=== PATIENT | female | born 1955 | race Two or more races ===

== ENCOUNTER 2020-06-04 09:30 | Outpatient (REF) | payer MEDICARE, OTHER, SELFPAY ==
[2020-06-04 10:50] LABS: Alanine Aminotransferase 11 U/L (0-31); Albumin Level 4.1 g/dL (3.5-5.0); Alkaline Phosphatase 117 U/L (39-117); Anion Gap 11 (12-20); Aspartate Amino Transferase 16 U/L (5-31); Bilirubin Total 0.7 mg/dL (0.0-1.0); Blood Urea Nitrogen 18 mg/dL (9-16); Calcium 8.6 mg/dL (8.4-10.2); Carbon Dioxide 31 mmol/L (22-29); Chloride 104 mmol/L (96-108); Cholesterol 170 mg/dL; Estimated Glomerular Filt Rate 39; Glucose Fasting 101 mg/dL (60-99); HDL Cholesterol 35 mg/dL; LDL Cholesterol Calculated 102 mg/dl; Potassium 3.9 mmol/l (3.3-5.1); Sodium 142 mmol/L (135-145); Total Protein 6.7 g/dL (6.5-8.0); Triglycerides 168 mg/dL
== END 2020-06-04 09:31 | disposition home or self-care (01) ==
LOC: HO.LAB 09:30
PROVIDERS: PCP Internal Medicine; Visit Provider Internal Medicine
DX: E03.9 Hypothyroidism, unspecified (principal); I10 Essential (primary) hypertension
CPT/HCPCS: 80053; 80061; 84443

== ENCOUNTER 2020-06-30 13:23 | Outpatient (REF) | payer MEDICARE, OTHER, SELFPAY ==
--- NOTE | 2020-06-30 13:29 | MM_ITS ---
EXAMINATION: MM SCREENING DIGITAL BREAST TOMOSYNTHESIS, BILATERAL CLINICAL INFORMATION: Screening. Asymptomatic. The lifetime risk of breast cancer based on the Tyrer-Cuzick Model is 11%. COMPARISON: Mammography: 03/18/2019, 03/04/2018, 02/02/2017, 12/26/2015; bilateral rest ultrasound 01/02/2016 TECHNIQUE: Digital breast tomosynthesis is performed in both the craniocaudal and mediolateral oblique views along with computer-aided detection (CAD). Synthesized 2D images are generated from the tomosynthesis. Additional left MLO view is provided. FINDINGS: There are scattered areas of fibroglandular density (ACR BI-RADS breast composition Category b). Scattered bilateral nodularity is again seen. There is a small waxing and waning cyst mid outer right breast on CC view similar to 2016 and consistent with cyst on prior ultrasound. Neither breast shows significant mass or architectural abnormality or developing density. No abnormal calcifications. The skin contours are smooth. MM/MM tomosynthesis screening BI IMPRESSION: No significant changes from prior exams. ASSESSMENT: BI-RADS 2: Benign RECOMMENDATION: Routine annual mammography screening. This patient's information was entered into a reminder system with a target due date for their next mammogram.
== END 2020-06-30 13:24 | disposition home or self-care (01) ==
LOC: HO.MAMMO 13:23
PROVIDERS: PCP Internal Medicine; Visit Provider Internal Medicine
DX: Z12.31 Encounter for screening mammogram for malignant neoplasm of breast (principal)
CPT/HCPCS: 77063; 77067

== ENCOUNTER 2020-10-20 09:16 | Outpatient (REF) | payer MEDICARE, OTHER, SELFPAY ==
[2020-10-20 11:00] LABS: Alanine Aminotransferase 13 U/L (0-31); Albumin Level 4.1 g/dL (3.5-5.0); Alkaline Phosphatase 120 U/L (39-117); Anion Gap 15 (12-20); Aspartate Amino Transferase 18 U/L (5-31); Bilirubin Total 0.5 mg/dL (0.0-1.0); Blood Urea Nitrogen 25 mg/dL (9-16); Calcium 9.1 mg/dL (8.4-10.2); Carbon Dioxide 28 mmol/L (22-29); Chloride 103 mmol/L (96-108); Cholesterol 179 mg/dL; Estimated Glomerular Filt Rate 41; Glucose Fasting 102 mg/dL (60-99); HDL Cholesterol 40 mg/dL; LDL Cholesterol Calculated 104 mg/dl; Potassium 3.7 mmol/L (3.3-5.1); Sodium 142 mmol/L (135-145); Triglycerides 175 mg/dL
[2020-10-20 11:13] LABS: TSH reflex Free T4 3.03 uIU/mL (0.32-4.0)
[2020-10-24 10:11] LABS: Vitamin D 25-OH, D2 <4 ng/mL; Vitamin D 25-OH, D3 27 ng/mL; Vitamin D 25-OH, Total 27 ng/mL (30-100)
== END 2020-10-20 09:17 | disposition home or self-care (01) ==
LOC: HO.LAB 09:16
PROVIDERS: PCP Internal Medicine; Visit Provider Internal Medicine
DX: E78.5 Hyperlipidemia, unspecified (principal); E55.9 Vitamin D deficiency, unspecified; N18.32 Chronic kidney disease, stage 3b; E03.9 Hypothyroidism, unspecified
CPT/HCPCS: 36415; 80053; 80061; 82306; 84443

== ENCOUNTER 2021-01-18 12:42 | Outpatient (REF) | payer MEDICARE, OTHER, SELFPAY ==
--- NOTE | ~2021-01-18 | MM_ITS ---
EXAMINATION: BONE DENSITOMETRY CLINICAL INDICATION: Asymptomatic menopausal state. COMPARISON: Baseline BD dated 10/30/2009. TECHNIQUE: Using a Planwise DXA System (software version: 13.1) manufactured by [employer], dual-energy x-ray absorptiometry was performed of the lumbar spine and left hip. The images are of good technical quality. Summary results are attached. FINDINGS: AP SPINE L1-L4: Current: BMD 0.819 g/cm2, Z-score -2.1, T-score -3.0, osteoporosis, 9.3% decrease from baseline (<5% change is not significant). Baseline: BMD 0.903 g/cm2. LEFT FEMUR, NECK: Current: BMD 0.705 g/cm2, Z-score -1.3, T-score -2.4, osteopenia. Baseline: BMD 0.856 g/cm2. LEFT FEMUR, TOTAL: Current: BMD 0.802 g/cm2, Z-score -0.8, T-score -1.6, osteopenia, 12.0% decrease from baseline (<5% change is not significant). Baseline: BMD 0.911 g/cm2. IDENTIFIED RISK FACTORS: Renal, history of fracture (adult), thiazide, menopause. HISTORY OF FRACTURE: Knee. MEDICATIONS: None listed. MM/XR DEXA axial skeleton IMPRESSION: 1. DIAGNOSIS: Osteoporosis based on the lowest T-score value of -3.0 in the lumbar spine applying World Health Organization criteria. 2. 10-YEAR FRACTURE RISK PREDICTION, FRAX: Major osteoporotic fracture (clinical spine, forearm, hip or shoulder) 11.1%. Hip fracture 2.2%. 3. Treatment Recommendations: NOF guidelines recommend consideration for treatment in postmenopausal women and men age 50 and older presenting with the following: -A hip or vertebral (clinical or morphometric) fracture. -T-score less than or equal to -2.5 at the femoral neck or spine after appropriate evaluation to exclude secondary causes. -Low bone mass at the hip or spine and a 10-year fracture probability by FRAX of greater than or equal to 3% for hip fracture or greater than or equal to 20% for major osteoporotic fracture based on the [place] adapted WHO algorithm. 4. Other Recommendations: All treatment decisions require clinical judgment and consideration of individual patient factors, including patient preferences, comorbidities, previous drug use, risk factors not captured in the FRAX model (e.g. frailty, falls, vitamin D deficiency, increased bone turnover, interval significant decline in bone density) and possible under or overestimation of fracture risk by FRAX. Additional medical evaluation for secondary cause of low bone mineral density may be appropriate. FUTURE SCAN RECOMMENDATION: People with diagnosed cases of osteoporosis or at high risk for fracture should have regular bone mineral density tests. For patients eligible for Medicare, routine testing is allowed once every 2 years. The testing frequency can be increased to one year for patients who have rapidly progressing disease, those who are receiving or discontinuing medical therapy to restore bone mass, or have additional risk factors.
== END 2021-01-18 12:43 | disposition home or self-care (01) ==
LOC: HO.MAMMO 12:42
PROVIDERS: PCP Internal Medicine; Visit Provider Nurse Practitioner Family
DX: Z13.820 Encounter for screening for osteoporosis (principal); M81.0 Age-related osteoporosis without current pathological fracture; Z78.0 Asymptomatic menopausal state; Z87.81 Personal history of (healed) traumatic fracture
CPT/HCPCS: 77080

== ENCOUNTER 2021-04-18 10:26 | Outpatient (REF) | payer MEDICARE, OTHER, SELFPAY ==
[2021-04-18 11:54] LABS: Alanine Aminotransferase 13 U/L (0-31); Albumin Level 4.4 g/dL (3.5-5.0); Alkaline Phosphatase 112 U/L (39-117); Anion Gap 11 (12-20); Aspartate Amino Transferase 20 U/L (5-31); Bilirubin Total 0.8 mg/dL (0.0-1.0); Blood Urea Nitrogen 23 mg/dL (9-16); Calcium 9.6 mg/dL (8.4-10.2); Carbon Dioxide 28 mmol/L (22-29); Chloride 105 mmol/L (96-108); Cholesterol 168 mg/dL; Estimated Glomerular Filt Rate 38; Glucose Fasting 109 mg/dL (60-99); HDL Cholesterol 34 mg/dL; LDL Cholesterol Calculated 92 mg/dl; Sodium 140 mmol/L (135-145); Total Protein 7.3 g/dL (6.5-8.0); Triglycerides 212 mg/dL
[2021-04-18 12:18] LABS: Thyroid Stimulating Hormone 6.52 uIU/mL (0.32-4.0)
== END 2021-04-18 10:27 | disposition home or self-care (01) ==
LOC: HO.LAB 10:26
PROVIDERS: PCP Internal Medicine; Visit Provider Internal Medicine
DX: E03.9 Hypothyroidism, unspecified (principal); E78.5 Hyperlipidemia, unspecified
CPT/HCPCS: 36415; 80053; 80061; 84443

== ENCOUNTER 2021-07-09 14:52 | Outpatient (REF) | payer MEDICARE, OTHER, SELFPAY ==
--- NOTE | ~2021-07-09 | MM_ITS ---
EXAMINATION: MM SCREENING DIGITAL BREAST TOMOSYNTHESIS, BILATERAL CLINICAL INFORMATION: Screening. Asymptomatic. The lifetime risk of breast cancer based on the Tyrer-Cuzick Model is 11%. COMPARISON: Mammography: 06/30/2020, 03/18/2019, 03/04/2018, 02/02/2017, 12/26/2015, bilateral breast ultrasound 01/02/2016. TECHNIQUE: Digital breast tomosynthesis is performed in both the craniocaudal and mediolateral oblique views along with computer-aided detection (CAD). Synthesized 2D images are generated from the tomosynthesis. FINDINGS: There are scattered areas of fibroglandular density (ACR BI-RADS breast composition Category b). The left breast is similar to prior studies. There is no developing density or interval mass or interval architectural abnormality. Neither breast shows abnormal calcifications. The bilateral axilla and skin contours are unremarkable. Right breast has been stable small circumscribed benign nodularity anterior breast. There is increased dominant nodular asymmetry mid upper outer quadrant right breast. Margins are obscured. Finding likely fibrocystic change. Patient will be recalled for additional imaging. MM/MM tomosynthesis screening BI IMPRESSION: 1. Right: Focal nodular asymmetry mid upper outer quadrant, suspect fibrocystic change. 2. Left: No mammographic evidence of malignancy. ASSESSMENT: BI-RADS 0: Incomplete - Need Additional Imaging Evaluation RECOMMENDATION: 1. Additional views of the right breast (spot CC, spot ML). 2. Targeted ultrasound right breast. 3. Radiology department staff will contact the patient for additional imaging. This patient's information was entered into a reminder system with a target due date for their next mammogram.
== END 2021-07-09 14:53 | disposition home or self-care (01) ==
LOC: HO.MAMMO 14:52
PROVIDERS: Visit Provider Internal Medicine
DX: Z12.31 Encounter for screening mammogram for malignant neoplasm of breast (principal)
CPT/HCPCS: 77063; 77067

== ENCOUNTER 2021-07-15 09:11 | Outpatient (REF) | payer MEDICARE, OTHER, SELFPAY ==
[2021-07-15 09:35] LABS: MANUAL DIFF FLAG NO
[2021-07-15 10:02] LABS: Basophils Percent Auto 0.7 % (0-2); Eosinophils Absolute Auto 0.1 X10*3/uL (0.0-0.4); Eosinophils Percent Auto 1.3 % (0-4); Hematocrit 42.9 % (37.0-47.0); Hemoglobin 13.6 g/dl (12.0-16.0); Imm Gran Abs Auto 0.02 X10*3/uL (0.00-0.03); Imm Gran Pct Auto 0.4 % (0.0-0.4); Lymphocytes Absolute Auto 1.8 X10*3/uL (1.2-4.9); Lymphocytes Percent Auto 32.3 % (20-40); Mean Corpuscular HGB Conc 31.7 g/dl (31.0-35.0); Mean Corpuscular Hemoglobin 27.1 pg (27.0-33.0); Mean Corpuscular Volume 85.6 fL (80.0-98.0); Mean Platelet Volume 10.1 fL (9.4-12.3); Monocytes Absolute Auto 0.3 X10*3/uL (0.1-1.2); Monocytes Percent Auto 5.2 % (2-11); Neutrophils Absolute Auto 3.3 x10*3/uL (2.0-8.3); Neutrophils Percent Auto 60.1 % (45-73); Platelet Count 208 X10*3/uL (160-400); Red Blood Count 5.01 X10*6/uL (4.20-5.50); Red Cell Distribution Width 13.7 % (11.0-16.0); White Blood Count 5.6 X10*3/uL (4.8-10.8)
[2021-07-15 10:38] LABS: Albumin Level 4.1 g/dL (3.5-5.0); Anion Gap 11 (12-20); Blood Urea Nitrogen 22 mg/dL (9-16); Calcium 9.7 mg/dL (8.4-10.2); Carbon Dioxide 31 mmol/L (22-29); Chloride 103 mmol/L (96-108); Estimated Glomerular Filt Rate 37; Magnesium 2.1 mg/dL (1.6-2.6); Phosphorus 2.8 mg/dL (2.7-4.5); Potassium 4.1 mmol/L (3.3-5.1); Sodium 141 mmol/L (135-145)
[2021-07-15 10:40] LABS: Appearance Urine HAZY; Color Urine YELLOW; Glucose Urine UA NEG (NEG); Leukocyte Esterase Urine 1+ (NEG); Nitrite Urine NEG (NEG); Specific Gravity - Urine >= 1.030 (1.005-1.025); Urine Blood TRACE (NEG); Urine Ketones NEG (NEG); Urine Protein 1+ MG/DL (NEG-TRACE)
[2021-07-15 10:48] LABS: Vitamin D 25-OH Total 22.1 ng/mL (>30)
[2021-07-15 10:55] LABS: Microalbum/Creatinine Ratio Ur 38.5 ug/mg cr; Total Protein Urine Random 35 mg/dL (<12)
[2021-07-15 11:46] LABS: Bacteria Urine 2+ /LPF; Squamous Epithelial Cell Urine 3+ /LPF
[2021-07-16 14:20] LABS: Calcium (PTHI) 9.7 mg/dL (8.6-10.4); PTHI 219 pg/mL (14-64)
== END 2021-07-15 09:12 | disposition home or self-care (01) ==
LOC: HO.LAB 09:11
PROVIDERS: PCP Internal Medicine; Visit Provider Internal Medicine Nephrology
DX: I12.9 Hypertensive chronic kidney disease with stage 1 through stage 4 chronic kidney disease, or unspecified chronic kidney disease (principal); N18.31 Chronic kidney disease, stage 3a; Q61.3 Polycystic kidney, unspecified
CPT/HCPCS: 36415; 80051; 81001; 81003; 82040; 82043; 82306; 82310; 82565; 83735; 83970; 84100; 84156; 84520; 85025; 87086

== ENCOUNTER 2021-07-18 10:45 | Outpatient (REF) | payer MEDICARE, OTHER, SELFPAY ==
--- NOTE | ~2021-07-18 | MM_ITS ---
EXAMINATION: MM DIAGNOSTIC DIGITAL BREAST TOMOSYNTHESIS, RIGHT US DIAGNOSTIC ULTRASOUND BREAST, RIGHT CLINICAL INFORMATION: Recall from screening for focal nodular asymmetry mid upper outer right breast, likely fibrocystic change. Family history breast cancer, sister. TC score 11%. COMPARISON: Mammography: 07/09/2021, 06/30/2020, 03/18/2019 TECHNIQUE: Digital breast tomosynthesis is performed. 2D images are generated from the tomosynthesis. The following views are obtained: Spot CC, spot ML Ultrasound right breast is targeted to the outer quadrants. Grayscale imaging and color Doppler are performed without and with harmonics. FINDINGS: There are scattered areas of fibroglandular density (ACR BI-RADS breast composition Category b). Additional views demonstrate oval nodule approximately 1 cm with smooth partly obscured margins. No spiculation. Ultrasound demonstrates a simple cyst 9:00 position 7 cm from nipple measuring 1.0 x 0.7 cm. This corresponds to finding on mammography. Results are discussed with the patient at time of visit. MM/MM tomosynthesis added views R IMPRESSION: Simple cyst mid outer right breast corresponding to finding on recent screening mammography. ASSESSMENT: BI-RADS 2: Benign RECOMMENDATION: Routine annual mammography screening. This patient's information was entered into a reminder system with a target due date for their next mammogram.
== END 2021-07-18 10:46 | disposition home or self-care (01) ==
LOC: HO.MAMMO 10:45
PROVIDERS: PCP Internal Medicine; Visit Provider Internal Medicine
DX: N64.89 Other specified disorders of breast (principal)
CPT/HCPCS: 76642; 77061; 77065

== ENCOUNTER 2021-08-12 08:45 | Outpatient (REF) | payer MEDICARE, OTHER, SELFPAY ==
[2021-08-12 09:50] LABS: Alanine Aminotransferase 10 U/L (0-31); Albumin Level 4.1 g/dL (3.5-5.0); Alkaline Phosphatase 92 U/L (39-117); Anion Gap 11 (12-20); Aspartate Amino Transferase 15 U/L (5-31); Bilirubin Total 0.8 mg/dL (0.0-1.0); Blood Urea Nitrogen 32 mg/dL (9-16); Calcium 9.4 mg/dL (8.4-10.2); Carbon Dioxide 28 mmol/L (22-29); Chloride 103 mmol/L (96-108); Cholesterol 149 mg/dL; Estimated Glomerular Filt Rate 36; Glucose Fasting 115 mg/dL (60-99); HDL Cholesterol 37 mg/dL; LDL Cholesterol Calculated 91 mg/dl; Potassium 3.8 mmol/L (3.3-5.1); Sodium 138 mmol/L (135-145); Total Protein 6.8 g/dL (6.5-8.0); Triglycerides 106 mg/dL
[2021-08-12 10:11] LABS: Thyroid Stimulating Hormone 0.84 uIU/mL (0.32-4.0)
[2021-08-13 09:31] LABS: Thyroglobulin Antibodies <1 IU/mL (< or = 1); Thyroid Peroxidase Antibodies 1 IU/mL (<9)
[2021-08-16 11:37] LABS: Vitamin D 25-OH, D2 <4 ng/mL; Vitamin D 25-OH, D3 22 ng/mL; Vitamin D 25-OH, Total 22 ng/mL (30-100)
== END 2021-08-12 08:46 | disposition home or self-care (01) ==
LOC: HO.LAB 08:45
PROVIDERS: PCP Internal Medicine; Visit Provider Internal Medicine
DX: E03.9 Hypothyroidism, unspecified (principal); E78.5 Hyperlipidemia, unspecified; E55.9 Vitamin D deficiency, unspecified
CPT/HCPCS: 36415; 80053; 80061; 82306; 84443; 86376; 86800

== ENCOUNTER → 2021-10-16 12:41 | Outpatient (BNVA) | payer MEDICARE, OTHER, SELFPAY | PROVIDERS: PCP Internal Medicine; Visit Provider Internal Medicine Endocrinology, Diabetes & Metabolism | DX: M81.0 Age-related osteoporosis without current pathological fracture (principal); N18.31 Chronic kidney disease, stage 3a; E55.9 Vitamin D deficiency, unspecified | CPT/HCPCS: 99202 ==

== ENCOUNTER 2021-11-11 09:55 | Outpatient (REF) | payer MEDICARE, OTHER, SELFPAY ==
[2021-11-11 10:44] LABS: MANUAL DIFF FLAG NO
[2021-11-11 10:58] LABS: Basophils Percent Auto 0.7 % (0-2); Eosinophils Absolute Auto 0.1 X10*3/uL (0.0-0.4); Hematocrit 40.7 % (37.0-47.0); Hemoglobin 12.9 g/dl (12.0-16.0); Imm Gran Abs Auto 0.02 X10*3/uL (0.00-0.03); Imm Gran Pct Auto 0.5 % (0.0-0.4); Lymphocytes Absolute Auto 1.5 X10*3/uL (1.2-4.9); Mean Corpuscular HGB Conc 31.7 g/dl (31.0-35.0); Mean Corpuscular Hemoglobin 27.4 pg (27.0-33.0); Mean Corpuscular Volume 86.4 fL (80.0-98.0); Mean Platelet Volume 9.9 fL (9.4-12.3); Monocytes Absolute Auto 0.3 X10*3/uL (0.1-1.2); Monocytes Percent Auto 5.7 % (2-11); Neutrophils Absolute Auto 2.6 x10*3/uL (2.0-8.3); Neutrophils Percent Auto 58.1 % (45-73); Platelet Count 229 X10*3/uL (160-400); Red Blood Count 4.71 X10*6/uL (4.20-5.50); Red Cell Distribution Width 14.3 % (11.0-16.0); White Blood Count 4.4 X10*3/uL (4.8-10.8)
[2021-11-11 11:30] LABS: Appearance Urine HAZY; Color Urine YELLOW; Glucose Urine UA NEG (NEG); Leukocyte Esterase Urine 1+ (NEG); Nitrite Urine NEG (NEG); Urine Blood NEG (NEG); Urine Ketones NEG (NEG); Urine Protein 1+ MG/DL (NEG-TRACE)
[2021-11-11 11:41] LABS: Albumin Level 3.8 g/dL (3.5-5.0); Magnesium 2.3 mg/dL (1.6-2.6); Phosphorus 3.3 mg/dL (2.7-4.5)
[2021-11-11 11:51] LABS: Alanine Aminotransferase 23 U/L (0-31); Alkaline Phosphatase 103 U/L (39-117); Anion Gap 11 (12-20); Aspartate Amino Transferase 25 U/L (5-31); Bilirubin Total 0.9 mg/dL (0.0-1.0); Blood Urea Nitrogen 15 mg/dL (9-16); Calcium 10.1 mg/dL (8.4-10.2); Carbon Dioxide 29 mmol/L (22-29); Chloride 105 mmol/L (96-108); Cholesterol 186 mg/dL; Estimated Glomerular Filt Rate 42; Glucose Fasting 95 mg/dL (60-99); HDL Cholesterol 39 mg/dL; LDL Cholesterol Calculated 124 mg/dl; Potassium 4.2 mmol/L (3.3-5.1); Sodium 141 mmol/L (135-145); Total Protein 6.8 g/dL (6.5-8.0); Triglycerides 118 mg/dL
[2021-11-11 11:56] LABS: Bacteria Urine 1+ /LPF; RBC Urine 0-2 /HPF (0); Squamous Epithelial Cell Urine 3+ /LPF
[2021-11-11 11:59] LABS: Thyroid Stimulating Hormone 0.62 uIU/mL (0.32-4.0); Vitamin D 25-OH Total 28.5 ng/mL (>30)
[2021-11-11 12:01] LABS: Creatinine Urine 251.31 mg/dL; Microalbum/Creatinine Ratio Ur 41.3 ug/mg cr; Total Protein Urine Random 33 mg/dL (<12)
[2021-11-13 13:11] LABS: Calcium (PTHI) 9.3 mg/dL (8.6-10.4); PTHI 214 pg/mL (16-77)
== END 2021-11-11 09:56 | disposition home or self-care (01) ==
LOC: HO.LAB 09:55
PROVIDERS: Absent Provider Internal Medicine; PCP Internal Medicine; Visit Provider Internal Medicine Nephrology
DX: I12.9 Hypertensive chronic kidney disease with stage 1 through stage 4 chronic kidney disease, or unspecified chronic kidney disease (principal); N18.32 Chronic kidney disease, stage 3b; Q61.2 Polycystic kidney, adult type; E78.5 Hyperlipidemia, unspecified; E03.9 Hypothyroidism, unspecified
CPT/HCPCS: 36415; 80053; 80061; 81001; 82040; 82043; 82306; 83735; 83970; 84100; 84156; 84443; 85025; 87086

== ENCOUNTER 2021-12-26 15:42 | Outpatient (REF) | payer MEDICARE, OTHER, SELFPAY ==
[2021-12-27 13:26] LABS: H Pylori Breath Test Negative (Negative)
== END 2021-12-26 15:43 | disposition home or self-care (01) ==
LOC: HO.LNP 15:42
PROVIDERS: Visit Provider Physician Assistant
DX: K58.9 Irritable bowel syndrome, unspecified (principal); A04.8 Other specified bacterial intestinal infections; Z79.899 Other long term (current) drug therapy; Z86.010 Personal history of colon polyps
CPT/HCPCS: 83013; 99202; 99212

== ENCOUNTER 2022-02-04 08:01 | Outpatient (REF) | payer MEDICARE, OTHER, SELFPAY ==
[2022-02-04 09:06] LABS: Calcium 9.3 mg/dL (8.4-10.2); Phosphorus 3.4 mg/dL (2.7-4.5)
[2022-02-04 09:30] LABS: Vitamin D 25-OH Total 38.3 ng/mL (>30)
[2022-02-05 11:57] LABS: Calcium (PTHI) 9.4 mg/dL (8.6-10.4); PTHI 248 pg/mL (16-77)
[2022-02-06 22:03] LABS: Prot Elec - Albumin 3.9 g/dL (3.8-4.8); Prot Elec - Alpha1 0.3 g/dL (0.2-0.3); Prot Elec - Alpha2 0.6 g/dL (0.5-0.9); Prot Elec - Beta 1 0.4 g/dL (0.4-0.6); Prot Elec - Beta 2 0.3 g/dL (0.2-0.5); Prot Elec - Gamma 0.9 g/dL (0.8-1.7); Prot Elec - Total Protein 6.3 g/dL (6.1-8.1)
== END 2022-02-04 08:02 | disposition home or self-care (01) ==
LOC: HO.LAB 08:01
PROVIDERS: PCP Internal Medicine; Visit Provider Internal Medicine Endocrinology, Diabetes & Metabolism
DX: M81.0 Age-related osteoporosis without current pathological fracture (principal)
CPT/HCPCS: 82040; 82306; 82310; 83970; 84100; 84165; 86335

== ENCOUNTER 2022-02-08 10:57 | Outpatient (REF) | payer MEDICARE, OTHER, SELFPAY ==
[2022-02-08 11:06] LABS: Total Volume 24 Hour Urine 1900 mL
[2022-02-08 11:27] LABS: Creatinine, 24Hr Urine 0.7 G/Day (1.0-2.0); Creatinine, mg/dL 37.31
[2022-02-10 17:22] LABS: Calcium, 24 Hr Urine 68 mg/24 h; Calcium/Creatinine Ratio 88 mg/g creat (30-275); Creatinine 24Hr Urine 0.78 g/24 h (0.50-2.15)
== END 2022-02-08 10:58 | disposition home or self-care (01) ==
LOC: HO.LNP 10:57
PROVIDERS: Visit Provider Internal Medicine Endocrinology, Diabetes & Metabolism
DX: M81.0 Age-related osteoporosis without current pathological fracture (principal)
CPT/HCPCS: 82340; 82570

== ENCOUNTER → 2022-02-12 12:36 | Outpatient (BNVA) | payer MEDICARE, OTHER, SELFPAY | PROVIDERS: PCP Internal Medicine; Visit Provider Internal Medicine Endocrinology, Diabetes & Metabolism | DX: M81.0 Age-related osteoporosis without current pathological fracture (principal); N18.31 Chronic kidney disease, stage 3a; Z79.899 Other long term (current) drug therapy | CPT/HCPCS: 99212 ==

== ENCOUNTER → 2022-02-20 13:25 | Outpatient (BNVA) | payer MEDICARE, OTHER, SELFPAY | PROVIDERS: PCP Internal Medicine; Visit Provider Physician Assistant | DX: K58.9 Irritable bowel syndrome, unspecified (principal); K21.9 Gastro-esophageal reflux disease without esophagitis | CPT/HCPCS: 99212 ==

== ENCOUNTER 2022-04-23 08:55 | Outpatient (REF) | payer MEDICARE, OTHER, SELFPAY ==
[2022-04-23 10:13] LABS: Alanine Aminotransferase 10 U/L (0-31); Albumin Level 4.2 g/dL (3.5-5.0); Alkaline Phosphatase 133 U/L (39-117); Anion Gap 11 (12-20); Aspartate Amino Transferase 15 U/L (5-31); Bilirubin Total 0.7 mg/dL (0.0-1.0); Blood Urea Nitrogen 27 mg/dL (9-16); Calcium 9.5 mg/dL (8.4-10.2); Carbon Dioxide 30 mmol/L (22-29); Chloride 104 mmol/L (96-108); Cholesterol 159 mg/dL; Estimated Glomerular Filt Rate 40; Glucose Fasting 95 mg/dL (60-99); HDL Cholesterol 38 mg/dL; LDL Cholesterol Calculated 102 mg/dl; Potassium 4.1 mmol/L (3.3-5.1); Sodium 141 mmol/L (135-145); Total Protein 6.8 g/dL (6.5-8.0); Triglycerides 97 mg/dL
[2022-04-23 10:18] LABS: Thyroid Stimulating Hormone 0.52 uIU/mL (0.32-4.0); Vitamin D 25-OH Total 38.6 ng/mL (>30)
[2022-04-23 11:03] LABS: Creatinine Urine 228.64 mg/dL; Microalbum/Creatinine Ratio Ur 16.1 ug/mg cr
== END 2022-04-23 08:56 | disposition home or self-care (01) ==
LOC: HO.LAB 08:55
PROVIDERS: PCP Internal Medicine; Visit Provider Internal Medicine
DX: E11.22 Type 2 diabetes mellitus with diabetic chronic kidney disease (principal); E55.9 Vitamin D deficiency, unspecified; E03.9 Hypothyroidism, unspecified; E78.5 Hyperlipidemia, unspecified; N18.32 Chronic kidney disease, stage 3b
CPT/HCPCS: 36415; 80053; 80061; 82043; 82306; 84443

== ENCOUNTER 2022-06-06 | Outpatient (REF) | payer MEDICARE, OTHER, SELFPAY ==
--- NOTE | ~2022-06-06 | XR_ITS ---
EXAMINATION: XR KNEE, BILATERAL XR KNEE, LEFT CLINICAL INFORMATION: Pain COMPARISON: 06/28/2018 TECHNIQUE: AP standing view of both knees, lateral and sunrise views of the left knee. FINDINGS: Left knee: There is a total left knee arthroplasty. The femoral component articulates appropriately with the tibial and patellar components. No periprosthetic lucency or fracture. No joint effusion. The soft tissues are unremarkable. Right knee: On this single view there is no fracture or malalignment. Mild medial compartment joint space narrowing. Marginal osteophytes of the medial and lateral compartments noted. XR/XR knee standing BI IMPRESSION: 1. Total left knee arthroplasty without evidence of failure. 2. Mild degenerative changes of the medial and lateral compartments of the right knee.
--- NOTE | ~2022-06-06 | XR_ITS ---
EXAMINATION: XR KNEE, BILATERAL XR KNEE, LEFT CLINICAL INFORMATION: Pain COMPARISON: 06/28/2018 TECHNIQUE: AP standing view of both knees, lateral and sunrise views of the left knee. FINDINGS: Left knee: There is a total left knee arthroplasty. The femoral component articulates appropriately with the tibial and patellar components. No periprosthetic lucency or fracture. No joint effusion. The soft tissues are unremarkable. Right knee: On this single view there is no fracture or malalignment. Mild medial compartment joint space narrowing. Marginal osteophytes of the medial and lateral compartments noted. XR/XR knee LT 2V IMPRESSION: 1. Total left knee arthroplasty without evidence of failure. 2. Mild degenerative changes of the medial and lateral compartments of the right knee.
== END 2022-06-06 00:01 | disposition home or self-care (01) ==
LOC: HO.HOSX
PROVIDERS: Visit Provider Physician Assistant
DX: M17.11 Unilateral primary osteoarthritis, right knee (principal); Z96.652 Presence of left artificial knee joint
CPT/HCPCS: 20610; 73560; 73565; 99212; J1040

== ENCOUNTER 2022-07-01 10:43 | Outpatient (REF) | payer MEDICARE, OTHER, SELFPAY ==
[2022-07-01 11:08] LABS: MANUAL DIFF FLAG NO
[2022-07-01 11:48] LABS: Basophils Percent Auto 0.3 % (0-2); Eosinophils Absolute Auto 0.1 X10*3/uL (0.0-0.4); Eosinophils Percent Auto 1.9 % (0-4); Hematocrit 39.3 % (37.0-47.0); Hemoglobin 12.5 g/dl (12.0-16.0); Imm Gran Abs Auto 0.01 X10*3/uL (0.00-0.03); Imm Gran Pct Auto 0.2 % (0.0-0.4); Lymphocytes Absolute Auto 1.9 X10*3/uL (1.2-4.9); Lymphocytes Percent Auto 31.7 % (20-40); Mean Corpuscular HGB Conc 31.8 g/dl (31.0-35.0); Mean Corpuscular Hemoglobin 27.3 pg (27.0-33.0); Mean Corpuscular Volume 85.8 fL (80.0-98.0); Mean Platelet Volume 9.9 fL (9.4-12.3); Monocytes Absolute Auto 0.3 X10*3/uL (0.1-1.2); Monocytes Percent Auto 4.9 % (2-11); Neutrophils Absolute Auto 3.6 x10*3/uL (2.0-8.3); Platelet Count 196 X10*3/uL (160-400); Red Blood Count 4.58 X10*6/uL (4.20-5.50); White Blood Count 5.9 X10*3/uL (4.8-10.8)
[2022-07-01 12:11] LABS: Appearance Urine Clear; Color Urine Yellow; Glucose Urine UA Negative (Negative); Leukocyte Esterase Urine Moderate (2+) (Negative); Nitrite Urine Negative (Negative); PH 5.5 (5.0-9.0); UMIC TRIGGER UA YES; Urine Blood Trace (Negative); Urine Ketones Negative (Negative); Urine Protein Trace mg/dL (Neg-Trace)
[2022-07-01 12:14] LABS: Bacteria Urine Trace (None Seen); Hyaline Casts Urine 0-2 /LPF (0-2); RBC Urine 0-2 /HPF (0-2)
[2022-07-01 13:20] LABS: Creatinine Urine 191.77 mg/dL; Microalbum/Creatinine Ratio Ur 28.1 ug/mg cr; Protein/Creatinine Ratio, Ur 0.09 (<0.2); Total Protein Urine Random 17 mg/dL (<12)
[2022-07-01 13:21] LABS: Anion Gap 11 (12-20); Blood Urea Nitrogen 25 mg/dL (9-16); Calcium 9.4 mg/dL (8.4-10.2); Carbon Dioxide 28 mmol/L (22-29); Chloride 105 mmol/L (96-108); Estimated Glomerular Filt Rate 41; Phosphorus 3.7 mg/dL (2.7-4.5); Potassium 4.3 mmol/L (3.3-5.1); Sodium 140 mmol/L (135-145)
[2022-07-01 13:24] LABS: Vitamin D 25-OH Total 39.4 ng/mL (>30)
[2022-07-02 10:48] LABS: Calcium (PTHI) 9.2 mg/dL (8.6-10.4); PTHI 176 pg/mL (16-77)
== END 2022-07-01 10:44 | disposition home or self-care (01) ==
LOC: HO.LAB 10:43
PROVIDERS: PCP Internal Medicine; Visit Provider Internal Medicine Nephrology
DX: I12.9 Hypertensive chronic kidney disease with stage 1 through stage 4 chronic kidney disease, or unspecified chronic kidney disease (principal); N18.32 Chronic kidney disease, stage 3b; Q61.3 Polycystic kidney, unspecified
CPT/HCPCS: 36415; 80051; 81001; 82040; 82043; 82306; 82310; 82565; 83735; 83970; 84100; 84156; 84520; 85025; 87086

== ENCOUNTER → 2022-07-03 14:53 | Outpatient (BNVA) | payer MEDICARE, OTHER, SELFPAY | PROVIDERS: PCP Internal Medicine; Visit Provider Orthopaedic Surgery | DX: M17.11 Unilateral primary osteoarthritis, right knee (principal); Z96.652 Presence of left artificial knee joint | CPT/HCPCS: 99212 ==

== ENCOUNTER 2022-07-16 14:07 | Outpatient (REF) | payer MEDICARE, OTHER, SELFPAY ==
--- NOTE | ~2022-07-16 | MM_ITS ---
EXAMINATION: MM SCREENING DIGITAL BREAST TOMOSYNTHESIS, BILATERAL CLINICAL INFORMATION: Screening. Asymptomatic. The lifetime risk of breast cancer based on the Tyrer-Cuzick Model is 10%. COMPARISON: Mammography: 07/18/2021, 07/09/2021, 06/30/2020, 03/18/2019, 03/04/2018; right breast ultrasound 07/18/2021 TECHNIQUE: Digital breast tomosynthesis is performed in both the craniocaudal and mediolateral oblique views along with computer-aided detection (CAD). Synthesized 2D images are generated from the tomosynthesis. FINDINGS: There are scattered areas of fibroglandular density (ACR BI-RADS breast composition Category b). There is scattered small bilateral nodularity similar to prior studies. The cyst mid upper outer right breast is slightly decreased. There is no developing density or interval architectural abnormality. No abnormal calcifications. No significant changes. The axilla and skin contours are unremarkable. MM/MM tomosynthesis screening BI IMPRESSION: No mammographic evidence of malignancy. ASSESSMENT: BI-RADS 2: Benign RECOMMENDATION: Routine annual mammography screening. This patient's information was entered into a reminder system with a target due date for their next mammogram.
== END 2022-07-16 14:08 | disposition home or self-care (01) ==
LOC: HO.MAMMO 14:07
PROVIDERS: PCP Internal Medicine; Visit Provider Internal Medicine
DX: Z12.31 Encounter for screening mammogram for malignant neoplasm of breast (principal)
CPT/HCPCS: 77063; 77067

== ENCOUNTER → 2022-08-13 13:37 | Outpatient (BNVA) | payer MEDICARE, OTHER, SELFPAY | PROVIDERS: PCP Internal Medicine; Visit Provider Internal Medicine Endocrinology, Diabetes & Metabolism | DX: M81.0 Age-related osteoporosis without current pathological fracture (principal); N18.31 Chronic kidney disease, stage 3a | CPT/HCPCS: 99212 ==

== ENCOUNTER 2022-09-25 08:15 | Outpatient (REF) | payer MEDICARE, OTHER, SELFPAY ==
[2022-09-25 09:17] LABS: Cholesterol 167 mg/dL; HDL Cholesterol 39 mg/dL; LDL Cholesterol Calculated 109 mg/dl; Triglycerides 96 mg/dL
[2022-09-25 09:32] LABS: Free T4 (Free Thyroxine) 1.48 ng/dL (0.71-1.85); Thyroid Stimulating Hormone 0.25 uIU/mL (0.32-4.0)
[2022-09-25 10:36] LABS: Vitamin D 25-OH Total 52.3 ng/mL (>30)
[2022-09-27 17:29] LABS: Calcium, Random Urine 11.7 mg/dL
[2022-09-29 21:14] LABS: Calcium, Ionized 5.2 mg/dL (4.7-5.5)
[2022-09-29 21:49] LABS: Calcium (PTHI) 9.6 mg/dL (8.6-10.4); PTHI 142 pg/mL (16-77)
== END 2022-09-25 08:16 | disposition home or self-care (01) ==
LOC: HO.LAB 08:15
PROVIDERS: PCP Internal Medicine; Visit Provider Internal Medicine
DX: E55.9 Vitamin D deficiency, unspecified (principal); E03.9 Hypothyroidism, unspecified; E21.3 Hyperparathyroidism, unspecified; E78.5 Hyperlipidemia, unspecified
CPT/HCPCS: 36415; 80061; 82040; 82306; 82310; 82330; 83970; 84439; 84443

== ENCOUNTER 2022-12-22 14:17 | Outpatient (REF) | payer MEDICARE, OTHER, SELFPAY ==
[2022-12-22 14:33] LABS: MANUAL DIFF FLAG NO
[2022-12-22 14:55] LABS: Basophils Percent Auto 0.5 % (0-2); Eosinophils Absolute Auto 0.1 X10*3/uL (0.0-0.4); Eosinophils Percent Auto 1.3 % (0-4); Hemoglobin 12.6 g/dl (12.0-16.0); Imm Gran Abs Auto 0.01 X10*3/uL (0.00-0.03); Imm Gran Pct Auto 0.2 % (0.0-0.4); Lymphocytes Absolute Auto 2.1 X10*3/uL (1.2-4.9); Lymphocytes Percent Auto 37.8 % (20-40); Mean Corpuscular HGB Conc 32.3 g/dl (31.0-35.0); Mean Corpuscular Hemoglobin 27.3 pg (27.0-33.0); Mean Corpuscular Volume 84.4 fL (80.0-98.0); Mean Platelet Volume 10.1 fL (9.4-12.3); Monocytes Absolute Auto 0.3 X10*3/uL (0.1-1.2); Monocytes Percent Auto 5.8 % (2-11); Neutrophils Percent Auto 54.4 % (45-73); Platelet Count 210 X10*3/uL (160-400); Red Blood Count 4.62 X10*6/uL (4.20-5.50); Red Cell Distribution Width 14.1 % (11.0-16.0); White Blood Count 5.5 X10*3/uL (4.8-10.8)
[2022-12-22 16:12] LABS: Alanine Aminotransferase 9 U/L (0-31); Albumin Level 4.1 g/dL (3.5-5.0); Alkaline Phosphatase 126 U/L (39-117); Anion Gap 12 (12-20); Aspartate Amino Transferase 16 U/L (5-31); Bilirubin Total 0.5 mg/dL (0.0-1.0); Blood Urea Nitrogen 32 mg/dL (9-16); Calcium 9.8 mg/dL (8.4-10.2); Carbon Dioxide 26 mmol/L (22-29); Chloride 107 mmol/L (96-108); Estimated Glomerular Filt Rate 43; Glucose Fasting 89 mg/dL (60-99); Potassium 4.3 mmol/L (3.3-5.1); Sodium 141 mmol/L (135-145)
[2022-12-22 16:29] LABS: TSH reflex Free T4 1.04 uIU/mL (0.32-4.0); Thyroid Stimulating Hormone 1.04 uIU/mL (0.32-4.0)
== END 2022-12-22 14:18 | disposition home or self-care (01) ==
LOC: HO.LAB 14:17
PROVIDERS: PCP Internal Medicine; Visit Provider Nurse Practitioner Family
DX: Z01.812 Encounter for preprocedural laboratory examination (principal); Z13.0 Encounter for screening for diseases of the blood and blood-forming organs and certain disorders involving the immune mechanism; Z13.29 Encounter for screening for other suspected endocrine disorder; E03.9 Hypothyroidism, unspecified
CPT/HCPCS: 36415; 80053; 84443; 85025

== ENCOUNTER 2023-02-24 10:43 | Outpatient (REF) | payer MEDICARE, OTHER, SELFPAY ==
[2023-02-24 12:55] LABS: Alanine Aminotransferase 9 U/L (0-31); Albumin Level 4.2 g/dL (3.5-5.0); Alkaline Phosphatase 120 U/L (39-117); Anion Gap 8 (12-20); Aspartate Amino Transferase 15 U/L (5-31); Bilirubin Total 0.8 mg/dL (0.0-1.0); Blood Urea Nitrogen 17 mg/dL (9-16); Calcium 9.9 mg/dL (8.4-10.2); Carbon Dioxide 30 mmol/L (22-29); Chloride 109 mmol/L (96-108); Cholesterol 184 mg/dL (<200); Estimated Glomerular Filt Rate 36; Glucose Fasting 86 mg/dL (60-99); HDL Cholesterol 49 mg/dL (>40); LDL Cholesterol Calculated 120 mg/dL (<100); Potassium 4.1 mmol/L (3.3-5.1); Sodium 143 mmol/L (135-145); Total Protein 7.1 g/dL (6.5-8.0); Triglycerides 75 mg/dL (<150)
== END 2023-02-24 10:44 | disposition home or self-care (01) ==
LOC: HO.LAB 10:43
PROVIDERS: Absent Provider Internal Medicine; PCP Internal Medicine; Visit Provider Internal Medicine Endocrinology, Diabetes & Metabolism
DX: I10 Essential (primary) hypertension (principal); E78.5 Hyperlipidemia, unspecified
CPT/HCPCS: 36415; 80053; 80061

== ENCOUNTER 2023-03-11 08:27 | Outpatient (REF) | payer MEDICARE, OTHER, SELFPAY ==
[2023-03-11 11:51] LABS: Anion Gap 12 (12-20); Blood Urea Nitrogen 25 mg/dL (9-16); Calcium 9.4 mg/dL (8.4-10.2); Carbon Dioxide 29 mmol/L (22-29); Chloride 105 mmol/L (96-108); Estimated Glomerular Filt Rate 40; Glucose Random 85 mg/dL (60-115); Potassium 3.7 mmol/L (3.3-5.1); Sodium 142 mmol/L (135-145)
[2023-03-11 11:55] LABS: Vitamin D 25-OH Total 53.4 ng/mL (>30)
[2023-03-12 12:04] LABS: PTHI 218 pg/mL (16-77)
== END 2023-03-11 08:28 | disposition home or self-care (01) ==
LOC: HO.LAB 08:27
PROVIDERS: PCP Internal Medicine; Visit Provider Internal Medicine Endocrinology, Diabetes & Metabolism
DX: M81.0 Age-related osteoporosis without current pathological fracture (principal)
CPT/HCPCS: 36415; 80048; 82040; 82306; 83970

== ENCOUNTER 2023-03-16 14:32 | Outpatient (AMB) | payer MEDICARE, OTHER, SELFPAY ==
[2023-03-16 14:47] VITALS: BP 136/80; BMI 31.1
--- NOTE | 2023-03-16 14:47 | MHC.PC.OV ---
Vital Signs 03/16/23 14:47 Height 4 ft 11 in Weight 154 lb BMI 31.1 BP 136/80 Blood Pressure Location Lt brachial Position Sitting Intake Visit Reasons: 5 month f/u Intake Note: Patient here for a 5 month follow up, colonoscopy Musical Instrument Supervisor Required: No Accompanied by: Self / Same As Patient Allergies carrot [CARROT] Allergy (Severe, Verified 03/16/23 15:05) ANAPHYLAXIS apple Allergy (Intermediate, Verified 03/16/23 15:05) GREEN APPLES-UNKNOWN celery [CELERY] Allergy (Intermediate, Verified 03/16/23 15:05) FROM ALLERGY TESTING RESULT lactose [LACTOSE] Allergy (Intermediate, Verified 03/16/23 15:05) diarrhea peanut [PEANUT] Allergy (Intermediate, Verified 03/16/23 15:05) THROAT ITCHING pear [Pear] Allergy (Intermediate, Verified 03/16/23 15:05) THROAT ITCHING plum [PLUM] Allergy (Intermediate, Verified 03/16/23 15:05) THROAT ITCHING trazodone [TRAZODONE] Allergy (Intermediate, Verified 03/16/23 15:05) RASH tree and shrub pollen Allergy (Intermediate, Verified 03/16/23 15:05) Itchy Eyes omeprazole Adverse Reaction (Unknown, Verified 03/16/23 15:05) leg swelling GREEN PEPPERS Allergy (Intermediate, Uncoded 03/16/23 15:05) Diarrhea Medication List - Last Reconciled 03/16/23 by Mirta Jimenez MD cholecalciferol (vitamin D3) (Vitamin D3) 50 mcg (2 x 25 mcg (1,000 unit)) PO DAILY dicyclomine 20 mg PO BID 30 days epinephrine (EpiPen 2-Evan) 0.3 mg (0.3 mL) IM Q4H PRN 30 days eszopiclone 3 mg PO BEDTIME 30 days Lactobac. rhamnosus GG-inulin 10 billion cell -200 mg ([facility]) 1 cap PO BID levothyroxine 88 mcg PO DAILY 90 days lisinopril 30 mg PO DAILY 90 days loperamide 2 mg PO QID PRN 30 days lorazepam 1 mg PO TID PRN 30 days lovastatin 20 mg PO DAILY 90 days meclizine mg PO propranolol ER 80 mg PO DAILY tramadol 50 mg PO DAILY 30 days zolmitriptan 5 mg PO DAILY PRN Tobacco use date assessed: 09/29/22 Fall risk assessment: No Falls in past year Last assessed Fall Risk: 03/16/23 Dental Screening Dental Screen Date: 03/16/23 Did you have a dental visit in the last 12 months?: No Did you have a dental problem in the last 6 months where you did not have access to dental care?: No Was dental information given to patient?: Patient has dentist HPI HPI Comments History of Present Illness Details This is a 67-year-old female with hypertension, dyslipidemia, hypothyroidism and hyperparathyroidism that comes today for follow-up on her conditions. Blood pressure stable. Has chronic kidney disease follow by Nephrology which might be causing secondary hyperparathyroidism. Last TSH was normal. Cholesterol well controlled with statins and low-cholesterol diet. No chest pain or shortness of breath. [facility] Medical History Age related osteoporosis Anxiety Chronic kidney disease Dyslipidemia Essential hypertension Hypothyroidism Hypovitaminosis D Migraines Obese Post-menopausal Surgical History History of colonoscopy History of cholecystectomy H/O knee surgery Family History Father CAD (coronary artery disease) Mother No problems noted. Social History Housing: House Alcohol intake: never Patient Tobacco Use Status: Never used Tobacco e-Cigarette/Vaping Use: Never Used Second Hand Smoke Exposure: No service: No Current occupational status: disabled Cognitive needs: No Hearing needs: Yes Vision needs: Yes Questionnaire Thrive Questionnaire Date Thrive assessed: 09/29/22 JANETH-7 AMB Questionnaire JANETH-7 Date JANETH - 7 assessed: 09/29/22 Source: Developed by Drs. Kevin Pagan, Milli Ravi, Alfred Deleon and colleagues, with an educational joon from [employer]. Review of Systems Const All systems reviewed & are unremarkable except as noted in HPI and below Eyes Reports no additional complaints, Denies change in vision and Denies other visual disturbances Card Denies chest pain at rest, Denies chest pain with activity, Denies edema, Denies irregular heart rhythm, Denies claudication, Denies dyspnea, Denies dyspnea on exertion, Denies orthopnea, Denies paroxysmal nocturnal dyspnea and Denies slow heart rate Resp Denies cough, Denies dyspnea and Denies dyspnea on exertion GI Denies abdominal pain, Denies change in bowel habits, Denies excessive flatus, Denies nausea and Denies vomiting Denies urinary incontinence, Denies urinary hesitancy and Denies urinary urgency Musc Denies abnormal gait, Denies atrophy, Denies deformity and Denies limited range of motion Skin/Breast Denies bleeding lesions, Denies changing lesions and Denies rash Neuro Denies abnormal gait and Denies lack of coordination Physical exam (Primary Care) Vital Signs: Last Vital Signs BP 136/80 03/16/23 14:47 BMI result Body Mass Index 31.1 Tobacco/Smoking Status: Tobacco use Status Tobacco use date assessed 09/29/22 03/16/23 14:55 Patient Tobacco Use Status Never used Tobacco 03/16/23 14:55 e-Cigarette/Vaping Use Never Used 03/16/23 14:55 Thrive Assessment: Date of Thrive Assessment Date Thrive assessed 09/29/22 03/16/23 14:55 Eyes General: appearance normal, both eyes and all related structures Eyelids: Yes eyelids normal Conjunctivae: conjunctivae normal Neck Neck: Yes normal visual inspection and Yes supple Resp Effort & Inspection: normal respiratory effort Auscultation: clear to auscultation bilaterally Cardio Jugular venous distension: no JVD Rate: regular rate Rhythm: regular rhythm Heart sounds: S1 normal heart sound present and S2 normal heart sound present Extrem General: Yes full ROM Assessment and Plan Assessment & Plan (1) Hyperparathyroidism: Code(s): E21.3 - Hyperparathyroidism, unspecified Plan: Will be monitor. (2) Hypothyroidism: Code(s): E03.9 - Hypothyroidism, unspecified Qualifiers: Hypothyroidism type: unspecified Qualified Code(s): E03.9 - Hypothyroidism, unspecified Plan: Continue levothyroxine. Monitor TSH. (3) Dyslipidemia: Code(s): E78.5 - Hyperlipidemia, unspecified Plan: Continue statins and low-cholesterol diet. (4) Essential hypertension: Code(s): I10 - Essential (primary) hypertension Plan: Continue lisinopril. Blood pressure goal is equal or less than 130/80. Orders: Referrals Gastroenterology Referral K21.9 - Gastro-esophageal reflux disease without esophagitis, K52.9 - Noninfective gastroenteritis and colitis, unspecified Medications: Changed From cholecalciferol (vitamin D3) (Vitamin D3) 50 mcg (2 x 25 mcg (1,000 unit)) PO DAILY 180 caps 4RF E55.9 - Vitamin D deficiency, unspecified To cholecalciferol (vitamin D3) (Vitamin D3) 25 mcg PO DAILY 30 days 30 caps 4RF E55.9 - Vitamin D deficiency, unspecified Coding Level of Care Code Est Pt Level 4 (16079) Diagnoses Hyperparathyroidism E21.3 Hypothyroidism, unspecified type E03.9 Hypothyroidism type: unspecified Dyslipidemia E78.5 Essential hypertension I10 Time Spent (min) 24
== END 2023-03-16 15:17 | disposition home or self-care (01) ==
PROVIDERS: PCP Internal Medicine; Visit Provider Internal Medicine
DX: I12.9 Hypertensive chronic kidney disease with stage 1 through stage 4 chronic kidney disease, or unspecified chronic kidney disease (principal); N18.32 Chronic kidney disease, stage 3b; E21.3 Hyperparathyroidism, unspecified; E03.9 Hypothyroidism, unspecified; E78.5 Hyperlipidemia, unspecified
CPT/HCPCS: 99214

== ENCOUNTER 2023-03-19 10:22 | Outpatient (AMB) | payer MEDICARE, OTHER, SELFPAY ==
--- NOTE | 2023-03-19 10:23 | MHC.OFFVIS ---
Intake Vital Signs 03/19/23 10:24 Height 4 ft 11 in Weight 154 lb 5.177 oz BMI 31.2 BP 140/90 H Blood Pressure Location Lt brachial Position Sitting Pulse 62 Pulse Source Pulse Oximeter Intake Visit Reasons: f/u osteoporosis, pt confirmed Intake Note: Patient present for Osteoporosis follow up visit. Pupil Personnel Services Director Required: No Accompanied by: Self / Same As Patient Allergies carrot [CARROT] Allergy (Severe, Verified 03/19/23 10:33) ANAPHYLAXIS apple Allergy (Intermediate, Verified 03/19/23 10:33) GREEN APPLES-UNKNOWN celery [CELERY] Allergy (Intermediate, Verified 03/19/23 10:33) FROM ALLERGY TESTING RESULT lactose [LACTOSE] Allergy (Intermediate, Verified 03/19/23 10:33) diarrhea peanut [PEANUT] Allergy (Intermediate, Verified 03/19/23 10:33) THROAT ITCHING pear [Pear] Allergy (Intermediate, Verified 03/19/23 10:33) THROAT ITCHING plum [PLUM] Allergy (Intermediate, Verified 03/19/23 10:33) THROAT ITCHING trazodone [TRAZODONE] Allergy (Intermediate, Verified 03/19/23 10:33) RASH tree and shrub pollen Allergy (Intermediate, Verified 03/19/23 10:33) Itchy Eyes omeprazole Adverse Reaction (Unknown, Verified 03/19/23 10:33) leg swelling GREEN PEPPERS Allergy (Intermediate, Uncoded 03/16/23 15:05) Diarrhea HPI HPI Comments History of Present Illness Details 66 YO Female with PMHx 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 First diagnosed in December 2020. Never Received treatment in the past No history of pathologic fracture or ONJ. . Takes 1000 IU of Vitamin D daily. Denies ever using PPI, anticoagulant, antiepileptic or glucocorticoid medication. 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 UTD on dental cleanings and sees dentist every 6 months. No planned upcoming dental work or extractions. DXA dated :01/18/21 T Score of -3.0 in spine She did see Nephrology. Off hydrochlorothiazide with vitamin-D repletion, her PTH still remains quite high. She has CKD stage 3. [facility] Medical History (Updated 03/16/23 @ 15:12 by Mirta Jimenez MD) Hypovitaminosis D Age related osteoporosis Post-menopausal Anxiety Obese Chronic kidney disease Migraines Hypothyroidism Dyslipidemia Essential hypertension Surgical History (Updated 03/19/23 @ 10:36 by Alfreda Quintanilla) History of cataract surgery History of colonoscopy History of cholecystectomy H/O knee surgery Family History Father CAD (coronary artery disease) Mother No problems noted. Social History Housing: House Alcohol intake: never Patient Tobacco Use Status: Never used Tobacco e-Cigarette/Vaping Use: Never Used Second Hand Smoke Exposure: No service: No Current occupational status: disabled Cognitive needs: No Hearing needs: Yes Vision needs: Yes Physical Exam Vital Signs: Last Vital Signs Pulse 62 03/19/23 10:24 BP 140/90 H 03/19/23 10:24 BMI result Body Mass Index 31.2 Assessment & Plan Assessment & Plan (1) Age related osteoporosis: Code(s): M81.0 - Age-related osteoporosis without current pathological fracture Qualifiers: Presence of current pathological fracture: without current pathological fracture Qualified Code(s): M81.0 - Age-related osteoporosis without current pathological fracture Plan: This is a 66-year-old female with a history of osteoporosis in the setting of CKD stage 3 a. Patient has elevation of PTH which could be due to secondary hyperparathyroidism . She is now vitamin-D replete on supplementation with vitamin D3 but still has significant elevation in PTH The plan is to recheck a DEXA bone density of the hip, spine and distal forearm. Patient should follow up with Nephrology Dr. Shirley regarding optimization of CKD bone mineral disease. . Once this is accomplished, we could then reassess bone density and assuming kidney function is stable could consider anti -resorptive in conjunction with Nephrology perhaps an oral bisphosphonate or Prolia (2) Hyperparathyroidism: Code(s): E21.3 - Hyperparathyroidism, unspecified Plan: PTH appears to be persistently elevated suggesting either secondary hyperparathyroidism due to CKD or component of primary hyperparathyroidism. Will refer for 2nd nephrology opinion to Dr. Ari Carl for possible management of CKD BMD. Orders: Orders XR DEXA axial skeleton Today M81.0 - Age-related osteoporosis without current pathological fracture Referrals Nephrology Referral E21.3 - Hyperparathyroidism, unspecified Coding Level of Care Code Est Pt Level 3 (66414) Diagnoses Age-related osteoporosis without current pathological fracture M81.0 Presence of current pathological fracture: without current pathological fracture Hyperparathyroidism E21.3
[2023-03-19 10:24] VITALS: BP 140/90; PULSE 62; BMI 31.2
== END 2023-03-19 13:31 | disposition home or self-care (01) ==
PROVIDERS: PCP Internal Medicine; Referring Provider Internal Medicine; Visit Provider Internal Medicine Endocrinology, Diabetes & Metabolism
DX: M81.0 Age-related osteoporosis without current pathological fracture (principal); E21.3 Hyperparathyroidism, unspecified
CPT/HCPCS: 99213

== ENCOUNTER → 2023-03-19 10:22 | Outpatient (BNVA) | payer MEDICARE, OTHER, SELFPAY | PROVIDERS: Visit Provider Internal Medicine Endocrinology, Diabetes & Metabolism | DX: M81.0 Age-related osteoporosis without current pathological fracture (principal); E21.3 Hyperparathyroidism, unspecified | CPT/HCPCS: 99212 ==

== ENCOUNTER 2023-03-31 14:06 | Outpatient (REF) | payer MEDICARE, OTHER, SELFPAY | END 2023-03-31 14:07 | disposition home or self-care (01) | LOC: HO.MAMMO 14:06 | PROVIDERS: Visit Provider Internal Medicine Endocrinology, Diabetes & Metabolism | DX: Z13.820 Encounter for screening for osteoporosis (principal); M81.0 Age-related osteoporosis without current pathological fracture; Z78.0 Asymptomatic menopausal state | CPT/HCPCS: 77081 ==

== ENCOUNTER 2023-04-17 08:28 | Outpatient (REF) | payer MEDICARE, OTHER, SELFPAY ==
[2023-04-17 08:55] LABS: MANUAL DIFF FLAG NO
[2023-04-17 09:07] LABS: Basophils Percent Auto 0.2 % (0-2); Eosinophils Absolute Auto 0.1 X10*3/uL (0.0-0.4); Eosinophils Percent Auto 2.1 % (0-4); Hematocrit 40.4 % (37.0-47.0); Hemoglobin 12.8 g/dl (12.0-16.0); Imm Gran Abs Auto 0.02 X10*3/uL (0.00-0.03); Imm Gran Pct Auto 0.5 % (0.0-0.4); Lymphocytes Absolute Auto 1.6 X10*3/uL (1.2-4.9); Lymphocytes Percent Auto 36.9 % (20-40); Mean Corpuscular HGB Conc 31.7 g/dl (31.0-35.0); Mean Corpuscular Hemoglobin 27.1 pg (27.0-33.0); Mean Corpuscular Volume 85.6 fL (80.0-98.0); Mean Platelet Volume 9.4 fL (9.4-12.3); Monocytes Absolute Auto 0.3 X10*3/uL (0.1-1.2); Neutrophils Absolute Auto 2.3 x10*3/uL (2.0-8.3); Neutrophils Percent Auto 53.3 % (45-73); Platelet Count 201 X10*3/uL (160-400); Red Blood Count 4.72 X10*6/uL (4.20-5.50); Red Cell Distribution Width 13.6 % (11.0-16.0); White Blood Count 4.3 X10*3/uL (4.8-10.8)
[2023-04-17 09:31] LABS: Appearance Urine Clear; Color Urine Yellow; Glucose Urine UA Negative (Negative); Leukocyte Esterase Urine Negative (Negative); Nitrite Urine Negative (Negative); Specific Gravity - Urine 1.015 (1.005-1.025); Urine Blood Negative (Negative); Urine Ketones Negative (Negative); Urine Protein Negative (Neg-Trace)
[2023-04-17 09:36] LABS: Bacteria Urine None Seen (None Seen); Hyaline Casts Urine 0-2 /LPF (0-2); RBC Urine 0-2 /HPF (0-2); Squamous Epithelial Cell Urine 0-2 /HPF (0-2); WBC Urine 0-5 /HPF (0-5)
[2023-04-17 09:47] LABS: Creatinine Urine 99.19 mg/dL; Total Protein Urine Random < 7 mg/dL (<12)
[2023-04-17 10:06] LABS: Anion Gap 11 (12-20); Blood Urea Nitrogen 15 mg/dL (9-16); Calcium 9.2 mg/dL (8.4-10.2); Carbon Dioxide 28 mmol/L (22-29); Chloride 108 mmol/L (96-108); Estimated Glomerular Filt Rate 41; Magnesium 2.3 mg/dL (1.6-2.6); Phosphorus 3.4 mg/dL (2.7-4.5); Potassium 3.8 mmol/L (3.3-5.1); Sodium 143 mmol/L (135-145)
[2023-04-17 10:12] LABS: Vitamin D 25-OH Total 46.6 ng/mL (>30)
[2023-04-20 11:48] LABS: Calcium (PTHI) 9.1 mg/dL (8.6-10.4); PTHI 242 pg/mL (16-77)
== END 2023-04-17 08:29 | disposition home or self-care (01) ==
LOC: HO.LAB 08:28
PROVIDERS: PCP Internal Medicine; Visit Provider Internal Medicine Nephrology
DX: I12.9 Hypertensive chronic kidney disease with stage 1 through stage 4 chronic kidney disease, or unspecified chronic kidney disease (principal); N18.32 Chronic kidney disease, stage 3b; Q61.3 Polycystic kidney, unspecified; R82.90 Unspecified abnormal findings in urine
CPT/HCPCS: 36415; 80051; 81001; 82040; 82043; 82306; 82310; 82565; 82570; 83735; 83970; 84100; 84156; 84520; 85025; 87086

== ENCOUNTER 2023-05-12 13:21 | Outpatient (AMB) | payer MEDICARE, OTHER, SELFPAY ==
--- NOTE | 2023-05-12 13:27 | A.OFFVIS_ITS ---
Intake Vital Signs 05/12/23 13:34 Height 4 ft 11 in Weight 150 lb 5.684 oz BMI 30.4 BP 141/81 H Blood Pressure Location Lt brachial Position Sitting Pulse 67 Intake Visit Reasons: Gastroesophageal reflux disease (GERD) Intake Note: Dayna presents in the office as a new patient for GERD. CC: Patient c/o abdominal pain, not been able to eat do to pain, constipation, diarrhea, and a lot of burping. Allergies carrot [CARROT] Allergy (Severe, Verified 05/12/23 13:35) ANAPHYLAXIS apple Allergy (Intermediate, Verified 05/12/23 13:35) GREEN APPLES-UNKNOWN celery [CELERY] Allergy (Intermediate, Verified 05/12/23 13:35) FROM ALLERGY TESTING RESULT lactose [LACTOSE] Allergy (Intermediate, Verified 05/12/23 13:35) diarrhea peanut [PEANUT] Allergy (Intermediate, Verified 05/12/23 13:35) THROAT ITCHING pear [Pear] Allergy (Intermediate, Verified 05/12/23 13:35) THROAT ITCHING plum [PLUM] Allergy (Intermediate, Verified 05/12/23 13:35) THROAT ITCHING trazodone [TRAZODONE] Allergy (Intermediate, Verified 05/12/23 13:35) RASH tree and shrub pollen Allergy (Intermediate, Verified 05/12/23 13:35) Itchy Eyes omeprazole Adverse Reaction (Unknown, Verified 05/12/23 13:35) leg swelling GREEN PEPPERS Allergy (Intermediate, Uncoded 03/16/23 15:05) Diarrhea Medication List - Last Reconciled 05/12/23 by Karina Murphy PA-C calcitriol mcg PO cholecalciferol (vitamin D3) (Vitamin D3) 25 mcg PO DAILY 30 days denosumab (Prolia) 60 mg subcut [id number] dicyclomine 20 mg PO BID 30 days epinephrine (EpiPen 2-Evan) 0.3 mg IM Q4H PRN eszopiclone 3 mg PO BEDTIME 30 days Lactobac. rhamnosus GG-inulin 10 billion cell -200 mg ([facility] [employer]) 1 cap PO BID levothyroxine 88 mcg PO DAILY 90 days lisinopril 30 mg PO DAILY 90 days loperamide 2 mg PO QID PRN 30 days lorazepam 1 mg PO TID PRN 30 days lovastatin 20 mg PO DAILY 90 days meclizine mg PO propranolol ER 80 mg PO DAILY tramadol 50 mg PO DAILY 30 days zolmitriptan 5 mg PO DAILY PRN HPI HPI Comments History of Present Illness Details 68 y/o female acid reflux- had taken ome prazole in the past- d/c- due to side effects. 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 Hinds she sees Dr. Skinner for thyroid- PTH elevated- has F/u She has no nausea, vomiting hematemesis, hematochezia weight loss fever or chills PFSH Medical History (Updated 05/13/23 @ 09:21 by Karina Murphy PA-C) Hypovitaminosis D Age related osteoporosis Post-menopausal Anxiety Obese Chronic kidney disease Migraines Hypothyroidism Dyslipidemia Essential hypertension Surgical History History of cataract surgery History of colonoscopy History of cholecystectomy H/O knee surgery Family History Father CAD (coronary artery disease) Mother No problems noted. Housing: House Alcohol intake: never Patient Tobacco Use Status: Never used Tobacco e-Cigarette/Vaping Use: Never Used Second Hand Smoke Exposure: No service: No Current occupational status: disabled Cognitive needs: No Hearing needs: Yes Vision needs: Yes Review of Systems Const All systems reviewed & are unremarkable except as noted in HPI and below Card Denies chest pain and Denies dyspnea Resp Denies dyspnea GI Denies abdominal pain, Denies change in stool character, Reports dyspepsia, Denies nausea and Denies vomiting Psych Reports anxiety Physical Exam Vital Signs: Last Vital Signs Pulse 67 11/21/23 13:34 BP 141/81 H 11/21/23 13:34 BMI result Body Mass Index 30.4 Const General: cooperative, healthy appearing, comfortable and no acute distress Orientation/consciousness: patient oriented x3 Limitations: language barrier Eyes Sclerae: sclerae normal Resp Effort & Inspection: normal respiratory effort and able to speak in complete sentences Auscultation: clear to auscultation bilaterally, no rales, no rhonchi and no wheezes Cardio Rate: regular rate Rhythm: regular rhythm Heart sounds: S1 normal heart sound present and S2 normal heart sound present GI Palpation (GI): Soft to palpation and nontender Auscultation: normal bowel sounds Skin General skin exam: no rashes or lesions noted Neuro General: patient oriented x3 Extrem General: Yes full ROM Psych Appearance: grossly normal and well kempt Mental Status: mental status grossly normal Speech and movement: Clear speech present Affect: Anxious affect present Attitude: cooperative Thought process: Normal thought process present Thought content: Normal thought content present and Obsession(s) present (Food allergies, medications, health care in General) Insight: Good insight present (Psych) Judgement: Good judgement present (Psych) Results Reviewed Results Reviewed: 2019-cecal adenoma Assessment & Plan Assessment & Plan (1) Chronic GERD: Comment: Difficult to assess- tx- due to anxiety about health, allergies- etc- not taking med- due to CKD Code(s): K21.9 - Gastro-esophageal reflux disease without esophagitis Plan: EGD (2) History of colon polyps: Comment: Reviewed record-with cecal adenoma 2018 Code(s): Z86.010 - Personal history of colonic polyps Plan: polyp surveillance colonoscopy (3) Adenomatous polyp of cecum: Comment: 2019 Code(s): D12.0 - Benign neoplasm of cecum (4) Anxiety: Comment: Extremely anxious in regard to any added medication etc- Prefers pediatric ophthalmologist-to authorize Supportive Reassured Code(s): F41.9 - Anxiety disorder, unspecified Plan: Reassure Plan EGD/ colon- ?? prep- allergies- pt to ck with pediatric ophthalmologist- Orders: Orders EGD/Hecker Combo - GI Use Only 05/12/23 K21.9 - Gastro-esophageal reflux disease without esophagitis, Z86.010 - Personal history of colonic polyps Patient Instructions: Polyp surveillance colonoscopy EGDr/o pud, nonulcer dyspepsia, esophagitis other endoscopic findings, for her symptoms Will review prep-to allergy she is very hesitant She will be seeing pediatric ophthalmologist soon and will discuss it further with an and keep us informed Encouraged her to call with any questions or concerns, as well follow-up with prep ?? prep- allergies- pt to ck with pediatric ophthalmologist- Coding Level of Care Code Est Pt Level 4 (64630) Diagnoses Chronic GERD K21.9 History of colon polyps Z86.010 Adenomatous polyp of cecum D12.0 Anxiety F41.9 Time Spent (min) 30 Comment [id number]
[2023-05-12 13:34] VITALS: BP 141/81; PULSE 67; BMI 30.4
== END 2023-05-12 14:03 | disposition home or self-care (01) ==
PROVIDERS: PCP Internal Medicine; Visit Provider Physician Assistant
DX: K21.9 Gastro-esophageal reflux disease without esophagitis (principal); Z86.010 Personal history of colon polyps; D12.0 Benign neoplasm of cecum; F41.9 Anxiety disorder, unspecified
CPT/HCPCS: 99214

== ENCOUNTER → 2023-05-12 13:21 | Outpatient (BNVA) | payer MEDICARE, OTHER, SELFPAY | PROVIDERS: PCP Internal Medicine; Visit Provider Physician Assistant | DX: K21.9 Gastro-esophageal reflux disease without esophagitis (principal); D12.0 Benign neoplasm of cecum; F41.9 Anxiety disorder, unspecified; Z86.010 Personal history of colon polyps | CPT/HCPCS: 99212 ==

== ENCOUNTER 2023-06-03 15:09 | Inpatient (IN) | payer MEDICARE, OTHER, SELFPAY ==
--- NOTE | ~2023-06-03 | CT_ITS ---
EXAMINATION: CT ABDOMEN AND PELVIS WITH CONTRAST CLINICAL INFORMATION: Left lower abdominal pain COMPARISON: CT abdomen pelvis 11/29/2007 TECHNIQUE: Multidetector volumetric images were obtained from the superior aspect of the liver through the pubic symphysis following administration 85 mL of Omnipaque 350 intravenous contrast. Sagittal and coronal reformatted images were obtained on the technologist's workstation. Oral contrast: No This CT examination was performed using dose optimization techniques as appropriate, variously including the following: *Automated exposure control *Adjustment of mA and/or kV according to patient size (this includes techniques or standardized protocols for targeted exams where dose is matched to indication/reason for exam; i.e. extremities or head) *Use of iterative reconstruction technique DLP: 500 mGy-cm FINDINGS: LUNG BASES: The visualized lung bases are unremarkable. LIVER, GALLBLADDER, AND BILIARY TREE: Patient is status post cholecystectomy with mild dilatation of intrahepatic bile ducts and common bile duct at 0.9 cm. No choledocholithiasis. Calcified granuloma present in the left lobe of the liver without suspicious masses. No biliary ductal dilatation is present. PANCREAS: Unremarkable. SPLEEN: Unremarkable. ADRENAL GLANDS: Unremarkable. KIDNEYS AND URETERS: Innumerable renal cysts are present consistent with autosomal dominant polycystic kidney disease BLADDER: Unremarkable. GASTROINTESTINAL TRACT: The small and large bowel are unremarkable. The appendix is dilated at 1.1 cm and contains no air. Some high density appendicoliths are seen in the lumen. There is some inflammatory change in the retroperitoneal fat around the appendix. A tiny amount of fluid is present in the anterior pararenal space adjacent to the appendix but no drainable collection. No free extraluminal air. ABDOMINAL WALL: No significant hernia is appreciated. LYMPH NODES: No retroperitoneal lymphadenopathy. VASCULAR: Unremarkable. PELVIC VISCERA: The uterus and adnexa are unremarkable. OSSEOUS STRUCTURES: Unremarkable. CT/CT abdomen pelvis w IV con IMPRESSION: 1. Acute uncomplicated appendicitis. 2. Other incidental findings as described above including autosomal dominant polycystic kidney disease and cholecystectomy. Fleischner guidelines were followed.
--- NOTE | ~2023-06-03 | FL_ITS ---
EXAMINATION: Intraoperative fluoroscopy CLINICAL INFORMATION: Removal of foreign body COMPARISON: CT abdomen pelvis June 03, 2023 TECHNIQUE: Intraoperative fluoroscopy was provided for use by Dr. Archer. A total of 2 images were saved to PACS. A radiologist was not present during imaging. Today's dictation is only for administrative purposes to document intraoperative fluoroscopic usage. TOTAL FLUOROSCOPIC TIME: 3 minutes and 46 seconds DAP: 106 mGy-cm FL/FL guidance in OR FINDINGS~\^^ Intraoperative fluoroscopy provided for use by Dr. Archer. Please see operative note for detailed findings.
--- NOTE | 2023-06-03 16:05 | ED.ABDPAIN ---
HPI - Abdominal Pain General Chief Complaint: Abdominal Pain Stated Complaint: severe lower abd pain Time Seen by Provider: 06/03/23 19:02 Source: patient, family, RN notes reviewed and old records reviewed Mode of arrival: ambulatory Limitations: no limitations History of Present Illness HPI narrative: 68-year-old female presents for evaluation of lower abdominal pain. Patient reports that she is not on off lower abdominal pain for the last month. Her pain tends to be worse after eating She reports that she follows with GI and was tested for gluten intolerance last Thursday Patient reports the GI doctor recommend she have or allergy testing as she has numerous food allergies causing abdominal pain Reports chronic diarrhea Reports a history of a cholecystectomy but no other abdominal surgery Denies any fevers, chills. Currently her pain is dull, 09/29 Related Data Home Medications Medication Instructions Recorded Confirmed Lactobacillus rhamnosus GG 10 1 cap PO BID 10/24/21 03/16/23 billion cell-inulin 200 mg capsule ([email or web address]) meclizine 12.5 mg tablet mg PO 02/20/22 03/16/23 zolmitriptan 5 mg tablet 5 mg PO DAILY PRN 02/20/22 03/16/23 propranolol 80 mg capsule,24 80 mg PO DAILY 08/13/22 03/16/23 hr,extended release calcitriol 0.25 mcg capsule mcg PO 05/12/23 epinephrine 0.3 mg/0.3 mL 0.3 mg IM Q4H PRN anaphylaxis 05/12/23 injection, auto-injector (EpiPen 2-Evan) Previous Rx's Medication Instructions Recorded lisinopril 30 mg tablet 30 mg PO DAILY 90 days #90 tabs 12/18/22 lovastatin 20 mg tablet 20 mg PO DAILY 90 days #90 tabs 01/23/23 levothyroxine 88 mcg tablet 88 mcg PO DAILY 90 days #90 tabs 03/09/23 loperamide 2 mg capsule 2 mg PO QID PRN loose stool 30 03/09/23 days #120 caps cholecalciferol (vitamin D3) 25 25 mcg PO DAILY 30 days #30 caps 03/16/23 mcg (1,000 unit) capsule (Vitamin D3) dicyclomine 20 mg tablet 20 mg PO BID 30 days #60 tabs 03/18/23 denosumab 60 mg/mL subcutaneous 60 mg subcut [id number] #1 mL 04/29/23 syringe (Prolia) zolpidem 10 mg tablet 10 mg PO BEDTIME 30 days #30 tabs 05/12/23 eszopiclone 3 mg tablet 3 mg PO BEDTIME 90 days #90 tabs 05/13/23 lorazepam 1 mg tablet 1 mg PO TID PRN anxiety 30 days 05/19/23 #90 tabs tramadol 50 mg tablet 50 mg PO DAILY 30 days #30 tabs 06/03/23 Allergies Allergy/AdvReac Type Severity Reaction Status Date / Time carrot [CARROT] Allergy Severe ANAPHYLAXIS Verified 05/29/23 08:52 apple Allergy Intermediate GREEN Verified 05/29/23 08:52 APPLES-UNKNOWN celery [CELERY] Allergy Intermediate FROM Verified 05/29/23 08:52 ALLERGY TESTING RESULT lactose [LACTOSE] Allergy Intermediate diarrhea Verified 05/29/23 08:52 peanut [PEANUT] Allergy Intermediate THROAT Verified 05/29/23 08:52 ITCHING pear [Pear] Allergy Intermediate THROAT Verified 05/29/23 08:52 ITCHING plum [PLUM] Allergy Intermediate THROAT Verified 05/29/23 08:52 ITCHING trazodone [TRAZODONE] Allergy Intermediate RASH Verified 05/29/23 08:52 tree and shrub pollen Allergy Intermediate Itchy Eyes Verified 05/29/23 08:52 omeprazole AdvReac Unknown leg Verified 05/29/23 08:52 swelling GREEN PEPPERS Allergy Intermediate Diarrhea Uncoded 03/16/23 15:05 Review of Systems Constitutional: Denies chills and Denies fever(s) Eyes: Denies blurry vision Cardiovascular: Denies chest pain and Denies dyspnea Respiratory: Denies cough and Denies dyspnea Gastrointestinal: Reports abdominal pain, Denies melena, Denies hematochezia, Reports diarrhea, Reports nausea and Denies vomiting Genitourinary: Denies difficulty voiding Musculoskeletal: Denies back pain Skin/Breast: Denies rash PMFSH Past Medical History Medical History (Updated 06/03/23 @ 22:46 by Ari Campbell) Hypovitaminosis D Age related osteoporosis Post-menopausal Anxiety Obese Chronic kidney disease Migraines Hypothyroidism Dyslipidemia Essential hypertension Surgical History History of cataract surgery History of colonoscopy History of cholecystectomy H/O knee surgery Family History Family History Father CAD (coronary artery disease) Mother No problems noted. Social History Social History Housing: House Alcohol intake: never Patient Tobacco Use Status: Never used Tobacco Smoked in Last 30 Days: No e-Cigarette/Vaping Use: Never Used Second Hand Smoke Exposure: No Use of substances other than those prescribed or required for medical reasons: No Advance Directives: Yes Advance Directives on File: No service: No Current occupational status: disabled Cognitive needs: No Hearing needs: Yes Vision needs: Yes Physical Exam ED Vital Signs: Vital Signs - 24 hr 06/03/23 16:06 06/03/23 19:07 06/03/23 19:25 Temperature 97.8 F 97.7 F 98.0 F Pulse Rate 65 66 67 Respiratory Rate 18 16 16 Blood Pressure 143/75 H 167/77 H 152/70 H Pulse Oximetry 98 95 95 Oxygen Delivery Method Room Air Room Air Room Air BMI result Body Mass Index 28.7 Const General: healthy appearing, comfortable, no acute distress, alert and awake Nutritional Appearance: well nourished Orientation/consciousness: patient oriented x3 HENMT Head: Yes normocephalic and Yes atraumatic Eyes Eyelids: Yes eyelids normal Conjunctivae: conjunctivae normal Sclerae: sclerae normal Corneas: corneas normal Pupils: Equal, round and reactive pupils present EOM: EOMs intact bilaterally Neck Neck: Yes full ROM Resp Effort & Inspection: normal respiratory effort, able to speak in complete sentences and not labored GI Inspection: No distended Palpation (GI): Soft to palpation, not firm, Tenderness to palpation present (GI) in the LLQ, Guarding due to palpation present (GI) in the LLQ and not rigid Skin General skin exam: elasticity normal Neuro General: patient oriented x3 Cranial nerves: Yes Equal, round and reactive pupils present and Yes Bilaterally intact EOM present Cognition (Neuro): normal cognition Extrem Other: Moving all extremities well without any obvious deformities Course Course Course Narrative: RME: 68-year-old female with a past medical history anxiety, hyperparathyroid, migraines, CKD, s/p cholecystectomy and , complaining of lower abdominal pain, nausea, vomiting since 05:00AM. Denies urinary symptoms Abdomen soft with diffuse ttp Labs, UA ordered Full HPI, ROS and PE to be performed by primary ED provider. Reevaluation(s) Reevaluation #1: Received a call from tele Radiology, the patient has acute uncomplicated appendicitis. On re-evaluation she is quite tender on the right lower quadrant. There is no rebound tenderness. I sent a page to General surgery, Dr. Archer. Will start empiric antibiotics. The patient is afebrile, no leukocytosis. No evidence of sepsis. Time: 22:42 Medical Decision Making Medical Decision Making [facility] Narrative: 68-year-old female presents for evaluation of lower abdominal pain. She is quite reports chronic diarrhea, denies any black or bloody stool. Her labs are reassuring. Her urine does not appear infected, given her significant level of discomfort will be a CT scan and pelvis to rule out infectious pathology. Differential Diagnosis Differential Diagnoses: The differential diagnosis associated with the presentation includes IBS IBD Gluten intolerance Colitis Diverticulitis Ileus Bowel obstruction less likely Admission/Observation Consideration of admission/observation: Escalation of care including admission/observation considered Consult Healthcare Provider Management of the patient was discussed with: Manager Business Operations (Dr Archer, general surgery) Lab Data [facility] Lab Attestation statement: I reviewed the patient's lab results. No leukocytosis or anemia. No significant electrolyte abnormalities. BUN is slightly elevated to 23, normal creatinine 06/03/23 16:50 06/03/23 16:50 Labs: Lab Results 06/03/23 06/03/23 Range/Units 16:50 19:08 WBC 9.3 (4.8-10.8) X10*3/uL RBC 5.13 (4.20-5.50) X10*6/uL Hgb 13.9 (12.0-16.0) g/dl Hct 43.3 (37.0-47.0) % MCV 84.4 (80.0-98.0) fL MCH 27.1 (27.0-33.0) pg MCHC 32.1 (31.0-35.0) g/dl RDW 13.7 (11.0-16.0) % Plt Count 178 (160-400) X10*3/uL MPV 10.3 (9.4-12.3) fL Immature Gran % (Auto) 0.2 (0.0-0.4) % Neut % (Auto) 80.6 H (45-73) % Lymph % (Auto) 14.5 L (20-40) % [place] % (Auto) 3.9 (2-11) % Eos % (Auto) 0.4 (0-4) % Baso % (Auto) 0.4 (0-2) % Lymph # (Auto) 1.3 (1.2-4.9) X10*3/uL [place] # (Auto) 0.4 (0.1-1.2) X10*3/uL Eos # (Auto) 0.0 (0.0-0.4) X10*3/uL Baso # (Auto) 0.0 (0.0-0.2) X10*3/uL Abs Immat Gran (auto) 0.02 (0.00-0.03) X10*3/uL Absolute Neuts (auto) 7.5 (2.0-8.3) x10*3/uL Absolute Nucleated RBC 0.000 (0.0-0.012) X10*3/uL Nucleated RBC % (auto) 0.0 (0.0-0.2) /100WBC Sodium 140 (135-145) mmol/L Potassium 4.0 (3.3-5.1) mmol/L Chloride 106 (96-108) mmol/L Carbon Dioxide 25 (22-29) mmol/L Anion Gap 13 (12-20) BUN 23 H (9-16) mg/dL Creatinine 1.16 (0.5-1.4) mg/dL Estim Creat Clear Calc 38.4 Estimated GFR 46 Random Glucose 92 (60-115) mg/dL Calcium 9.9 D (8.4-10.2) mg/dL Magnesium 2.4 (1.6-2.6) mg/dL Total Bilirubin 0.6 (0.0-1.0) mg/dL Direct Bilirubin 0.2 (0.0-0.5) mg/dL AST 20 (5-31) U/L ALT 11 (0-31) U/L Alkaline Phosphatase 116 (39-117) U/L Total Protein 7.5 (6.5-8.0) g/dL Albumin 4.3 (3.5-5.0) g/dL Lipase 15 (8-78) U/L Urine Color Yellow Urine Appearance Clear Urine pH 6.0 (5.0-9.0) Ur Specific [place] 1.025 (1.005-1.025) Urine Protein Trace (Neg-Trace) mg/dL Urine Glucose (UA) Negative (Negative) mg/dL Urine Ketones 15 (Negative) mg/dL Urine Blood Negative (Negative) Urine Nitrite Negative (Negative) Ur Leukocyte Esterase Negative (Negative) Independent Interpretation I performed an independent interpretation of an: CT Scan (Agree with Radiology interpretation) Radiology Impression Discussion of test interpretation with radiology: I have reviewed the radiologist's reading. (Acute uncomplicated diverticulitis. Polycystic kidney) Medications Administered Discontinued Medications Generic Name Dose Route Start Last Admin Trade Name Freq PRN Reason Stop Dose Admin Sodium Chloride 1,000 mls @ 999 mls/hr 06/03/23 19:30 06/03/23 20:53 Ns IV 06/03/23 20:30 Infused .Q1H1M MARY LOU Infusion Iohexol 85 ml 06/03/23 20:33 06/03/23 20:34 Iohexol 350 Mg/Ml 100 Ml Infus..Btl IV 06/03/23 20:34 85 ml ONCE ONE Administration Morphine Sulfate 2 mg 06/03/23 19:21 06/03/23 19:48 Morphine Sulfate 2 Mg/Ml Cartridge IVPUSH 06/03/23 19:22 2 mg ONCE ONE Administration Protocol Ondansetron HCl 4 mg 06/03/23 19:21 06/03/23 19:48 Ondansetron Hcl 4 Mg/2 Ml Vial IVPUSH 06/03/23 19:22 4 mg ONCE ONE Administration Discharge Plan Discharge Clinical Impression: Acute appendicitis Patient Disposition: Admitted As Inpatient
[2023-06-03 16:06] VITALS: BP 143/75; PULSE 65; RESP 18; TEMP 36.6; O2SAT 98; BMI 28.7
[2023-06-03 17:04] LABS: Basophils Percent Auto 0.4 % (0-2); Eosinophils Percent Auto 0.4 % (0-4); Hematocrit 43.3 % (37.0-47.0); Hemoglobin 13.9 g/dl (12.0-16.0); Imm Gran Abs Auto 0.02 X10*3/uL (0.00-0.03); Imm Gran Pct Auto 0.2 % (0.0-0.4); Lymphocytes Absolute Auto 1.3 X10*3/uL (1.2-4.9); Lymphocytes Percent Auto 14.5 % (20-40); MANUAL DIFF FLAG NO; Mean Corpuscular HGB Conc 32.1 g/dl (31.0-35.0); Mean Corpuscular Hemoglobin 27.1 pg (27.0-33.0); Mean Corpuscular Volume 84.4 fL (80.0-98.0); Mean Platelet Volume 10.3 fL (9.4-12.3); Monocytes Absolute Auto 0.4 X10*3/uL (0.1-1.2); Monocytes Percent Auto 3.9 % (2-11); Neutrophils Absolute Auto 7.5 x10*3/uL (2.0-8.3); Neutrophils Percent Auto 80.6 % (45-73); Platelet Count 178 X10*3/uL (160-400); Red Blood Count 5.13 X10*6/uL (4.20-5.50); Red Cell Distribution Width 13.7 % (11.0-16.0); White Blood Count 9.3 X10*3/uL (4.8-10.8)
[2023-06-03 17:39] LABS: Alanine Aminotransferase 11 U/L (0-31); Albumin Level 4.3 g/dL (3.5-5.0); Alkaline Phosphatase 116 U/L (39-117); Anion Gap 13 (12-20); Aspartate Amino Transferase 20 U/L (5-31); Bilirubin Direct 0.2 mg/dL (0.0-0.5); Bilirubin Total 0.6 mg/dL (0.0-1.0); Blood Urea Nitrogen 23 mg/dL (9-16); Calcium 9.9 mg/dL (8.4-10.2); Carbon Dioxide 25 mmol/L (22-29); Chloride 106 mmol/L (96-108); Creatinine Clr Calc Pharmacy 38.4; Estimated Glomerular Filt Rate 46; Glucose Random 92 mg/dL (60-115); Lipase 15 U/L (8-78); Magnesium 2.4 mg/dL (1.6-2.6); Sodium 140 mmol/L (135-145); Total Protein 7.5 g/dL (6.5-8.0)
[2023-06-03 19:07] VITALS: BP 167/77; PULSE 66; RESP 16; TEMP 36.5; O2SAT 95
[2023-06-03 19:18] LABS: Appearance Urine Clear; Color Urine Yellow; Glucose Urine UA Negative (Negative); Leukocyte Esterase Urine Negative (Negative); Nitrite Urine Negative (Negative); Specific Gravity - Urine 1.025 (1.005-1.025); Urine Blood Negative (Negative); Urine Ketones 15 mg/dL (Negative); Urine Protein Trace mg/dL (Neg-Trace)
[2023-06-03 19:25] VITALS: BP 152/70; PULSE 67; RESP 16; TEMP 36.7; O2SAT 95
[2023-06-03] MEDS: Morphine Sulfate 2 MG/ML CARTRIDGE IVPUSH (19:48)
[2023-06-03] MEDS: ondansetron HCL 4 MG/2 ML VIAL IVPUSH (19:48)
[2023-06-03] MEDS: 0.9 % Sodium Chloride 1,000 ML 999 ML IV (19:48)
[2023-06-03] MEDS: iohexoL 350 MG/ML 100 ML INFUS..BTL 85 ML IV (20:34)
--- NOTE | 2023-06-03 21:50 | PC.NURSE ---
daughter at beside, both parties assisted with med rec. med rec completed
--- NOTE | 2023-06-03 22:18 | PC.NURSE ---
pt ambulated with 1 assist to bathroom. gait even and steady. pt back in bed, no complaints at this time, resting comfortably
[2023-06-03 22:54] VITALS: BP 145/76; PULSE 70; RESP 18; TEMP 36.8; O2SAT 96
[2023-06-03] MEDS: Morphine Sulfate 4 MG/ML CARTRIDGE IVPUSH (22:56)
[2023-06-03] MEDS: Piperacillin Sodium/Tazobactam 3.375 GM in 0.9 % Sodium Chloride 50 ML IV (22:56)
--- NOTE | 2023-06-03 23:05 | PC.NURSE ---
per DAVI Winters, no blood cultures prior to IV abx
[2023-06-04] VITALS (12 sets, daily range): BP systolic 120–147; BP diastolic 55–75; PULSE 53–69; RESP 12–18; TEMP 36–37.2; O2SAT 93–100
--- NOTE | 2023-06-04 01:08 | PC.NURSE ---
pt resting comfortably with eyes closed, breathing even and unlabored. no apparent distress noted at this time
[2023-06-04] MEDS: Lactated Ringers 1,000 ML 100 ML IVCONT ×3 (01:14→22:44)
[2023-06-04] MEDS: Piperacillin Sodium/Tazobactam 3.375 GM in 0.9 % Sodium Chloride 50 ML IV (04:58)
--- NOTE | 2023-06-04 05:08 | PC.NURSE ---
pt ambulated to the bathroom independently. assist back into bed, IV abx started. pt reports 2/10 pain but does not want any medication at this time. pt resting comfortably with call rivas in reach
[2023-06-04] MEDS: Acetaminophen 325 MG TABLET 650 MG PO (06:38)
--- NOTE | 2023-06-04 06:44 | PC.NURSE ---
pt c/o 10/29 abd pain, pt medicated per MAR
--- NOTE | 2023-06-04 07:03 | PC.NURSE ---
report given to OR
--- NOTE | 2023-06-04 07:31 | HO.ANESPROP2 ---
HPI - Anesthesia Eval Consult details Narrative: 68 yo F admitted with acute appendicitis. COUNT INCLUDES THE [facility] Active Problems Active Problems: All Active Problems (Updated 06/03/23 @ 22:46 by Ari Campbell) Acute appendicitis (Acute) Multiple allergies (Acute) Adenomatous polyp of cecum (Acute) Chronic GERD (Acute) Chronic diarrhea (Acute) History of total knee arthroplasty (Acute) Osteoarthritis of right knee (Acute) Hyperparathyroidism (Acute) Left knee pain (Acute) History of colon polyps (Acute) Physical exam (Acute) Insomnia (Acute) Encounter for annual wellness exam in Medicare patient (Acute) Vaginal irritation (Acute) IBS (irritable bowel syndrome) (Acute) Hypovitaminosis D (Acute) Age related osteoporosis (Acute) Adult general medical exam (Acute) Post-menopausal (Acute) Anxiety (Acute) Obese (Acute) Chronic kidney disease (Acute) Migraines (Acute) Hypothyroidism (Acute) Dyslipidemia (Acute) Essential hypertension (Acute) Past Medical History Medical History (Updated 06/04/23 @ 07:42 by Becca Case PA-C) Hypovitaminosis D Age related osteoporosis Post-menopausal Anxiety Obese Chronic kidney disease Migraines Hypothyroidism Dyslipidemia Essential hypertension Family History Family History Father CAD (coronary artery disease) Mother No problems noted. Family history of problems with anesthesia: No Surgical History Surgical History History of cataract surgery History of colonoscopy History of cholecystectomy H/O knee surgery History of Problems with Anesthesia: No Social History Social History Housing: House Alcohol intake: never Patient Tobacco Use Status: Never used Tobacco e-Cigarette/Vaping Use: Never Used Second Hand Smoke Exposure: No Advance Directives Date on File: 06/04/23 service: No Current occupational status: disabled Cognitive needs: No Hearing needs: Yes Vision needs: Yes Meds Allergies Allergy/AdvReac Type Severity Reaction Status Date / Time carrot [CARROT] Allergy Severe ANAPHYLAXIS Verified 05/29/23 08:52 apple Allergy Intermediate GREEN Verified 05/29/23 08:52 APPLES-UNKNOWN celery [CELERY] Allergy Intermediate FROM Verified 05/29/23 08:52 ALLERGY TESTING RESULT lactose [LACTOSE] Allergy Intermediate diarrhea Verified 05/29/23 08:52 peanut [PEANUT] Allergy Intermediate THROAT Verified 05/29/23 08:52 ITCHING pear [Pear] Allergy Intermediate THROAT Verified 05/29/23 08:52 ITCHING plum [PLUM] Allergy Intermediate THROAT Verified 05/29/23 08:52 ITCHING trazodone [TRAZODONE] Allergy Intermediate RASH Verified 05/29/23 08:52 tree and shrub pollen Allergy Intermediate Itchy Eyes Verified 05/29/23 08:52 omeprazole AdvReac Unknown leg Verified 05/29/23 08:52 swelling GREEN PEPPERS Allergy Intermediate Diarrhea Uncoded 03/16/23 15:05 Active Medications: Current Medications Acetaminophen (Acetaminophen 325 Mg Tablet) 650 mg PO Q6H PRN PRN Reason: Pain, Mild (Pain Scale 1-3) Last Admin: 06/04/23 06:38 Dose: 650 mg Al Hydroxide/Mg Hydroxide (Magnesium Hydrox/Alum Hydrox 30 Ml Oral.Susp) 30 ml PO Q4H PRN PRN Reason: Heartburn/Nausea Hydromorphone HCl (Hydromorphone Hcl 1 Mg/Ml Syringe) 0.5 mg IVPUSH Q4H PRN; Protocol PRN Reason: Pain, Severe (Pain Scale 7-10) Lactated Ringer's (Lr) 1,000 mls @ 100 mls/hr IVCONT .Q10H [facility] Last Admin: 06/04/23 01:14 Dose: 100 mls/hr Piperacillin Sod/Tazobactam (Sod 3.375 gm/ Sodium Chloride) 50 mls @ 100 mls/hr IV Q6H [facility] Last Infusion: 06/04/23 05:30 Dose: Infused Magnesium Hydroxide (Milk Of Magnesia 30 Ml Oral.Susp) 30 ml PO DAILY PRN PRN Reason: Constipation Ondansetron HCl (Ondansetron Hcl 4 Mg/2 Ml Vial) 4 mg IVPUSH Q8H PRN PRN Reason: Nausea and Vomiting Sodium Chloride (0.9 % Sodium Chloride Flush 3 Ml Syringe) 3 ml IVFLUSH QSHIFT [facility] Home Medications Medication Instructions Recorded Confirmed Last Taken Type Lactobacillus rhamnosus GG 10 1 cap PO BID 10/24/21 06/04/23 Unknown History billion cell-inulin 200 mg capsule (OxonicaLumicity) meclizine 12.5 mg tablet mg PO 02/20/22 03/16/23 Unknown History zolmitriptan 5 mg tablet 5 mg PO DAILY PRN 02/20/22 03/16/23 Unknown History propranolol 80 mg capsule,24 80 mg PO DAILY 08/13/22 06/04/23 Unknown History hr,extended release calcitriol 0.25 mcg capsule mcg PO 05/12/23 Unknown History epinephrine 0.3 mg/0.3 mL 0.3 mg IM Q4H PRN anaphylaxis 05/12/23 Unknown History injection, auto-injector (EpiPen 2-Evan) Exam Exam Date and Time: June 04, 2023 0735 Height,Weight and Vital Signs: Height 5 ft Weight 66.678 kg Last Vital Signs Temp 98.3 F 06/04/23 06:53 Pulse 62 06/04/23 06:53 Resp 16 06/04/23 06:53 BP 120/59 L 06/04/23 06:53 Pulse Ox 93 06/04/23 06:53 O2 Del Method Room Air 06/04/23 06:53 Pertinent Lab Results Pertinent Lab Results: Laboratory Tests 06/03/23 06/03/23 16:50 19:08 WBC 9.3 RBC 5.13 Hgb 13.9 Hct 43.3 MCV 84.4 MCH 27.1 MCHC 32.1 RDW 13.7 Plt Count 178 MPV 10.3 Immature Gran % (Auto) 0.2 Neut % (Auto) 80.6 H Lymph % (Auto) 14.5 L [place] % (Auto) 3.9 Eos % (Auto) 0.4 Baso % (Auto) 0.4 Lymph # (Auto) 1.3 [place] # (Auto) 0.4 Eos # (Auto) 0.0 Baso # (Auto) 0.0 Abs Immat Gran (auto) 0.02 Absolute Neuts (auto) 7.5 Absolute Nucleated RBC 0.000 Nucleated RBC % (auto) 0.0 Sodium 140 Potassium 4.0 Chloride 106 Carbon Dioxide 25 Anion Gap 13 BUN 23 H Creatinine 1.16 Estim Creat Clear Calc 38.4 Estimated GFR 46 Random Glucose 92 Calcium 9.9 D Magnesium 2.4 Total Bilirubin 0.6 Direct Bilirubin 0.2 AST 20 ALT 11 Alkaline Phosphatase 116 Total Protein 7.5 Albumin 4.3 Lipase 15 Urine Color Yellow Urine Appearance Clear Urine pH 6.0 Ur Specific [place] 1.025 Urine Protein Trace Urine Glucose (UA) Negative Urine Ketones 15 Urine Blood Negative Urine Nitrite Negative Ur Leukocyte Esterase Negative Airway Mallampati Class: I TM Dist: <=3cm Neck ROM: Full Loose/Missing/Broken Teeth: Yes (multiple missing teeth) Heart: S1S2 Lungs: CTAB Assessment and Plan Assessment Anesthesia Assessment: Anesthesia Plan Discussed and Chart Reviewed Final Anesthetic Review Family History of Problems with Anesthesia: No History of Problems with Anesthesia: No NPO: Yes ASA Class: II Final Preanesthetic Review: No Changes in Pt Med Stat, Meds/Allgs Chart Reviewed, Consent Obtained/Reviewed and Anes Risks/Benef Reviewed Patient Risk: Low Procedure Risk: Low Anesthetic Plan Anesthetic Plan: GA and Agree w/ Assess. and Plan Disposition: Standard PACU
--- NOTE | 2023-06-04 07:33 | P.HPGS_ITS ---
History of Present Illness History of Present Illness Date of Service: 06/08/23 <Becca Case PA-C - Last Filed: 06/08/23 11:01> 06/04/23 <Jeremy Archer MD - Last Filed: 06/04/23 10:44> Chief complaint: Appendicitis <Becca Case PA-C - Last Filed: 06/08/23 11:01> Narrative: Yue Gama is a 68 year old female with PMH of HTN, ADPKD, stage 3 CKD, osteoporosis, hypothyroidism, IBS, GERD who presented to the ED with complaints of RLQ abdominal pain. She states she developed LLQ abd pain about a month ago which migrated to her RLQ two weeks ago. She attributed this to her IBS. She takes tramadol daily for migraines and L TKR pain so she continued to take this and laxatives. She reports yesterday the RLQ pain became more severe and sharp and she developed nausea and vomiting. She denies fever, chills, diarrhea. She therefore presented to the ED for evaluation where work up included CBC, LFTs were WNL and BMP was near baseline and CT scan abd/pelvis showed a dilated appendix with appendicoliths with mild surrounding inflammatory changes. No abscess, fluid collections or free air noted. Surgery was therefore consulted. <Becca Case PA-C - Last Filed: 06/08/23 11:01> Review of Systems 2 Constitutional: Constitutional: Denies chills, Denies fever(s) and Denies weight loss <Becca Case PA-C - Last Filed: 06/08/23 11:01> ENT: Denies dizziness <Becca Case PA-C - Last Filed: 06/08/23 11:01> Cardiovascular: Cardiovascular: Denies chest pain and Denies dyspnea < CHACHA Gonzales Last Filed: 06/08/23 11:01> Respiratory: Respiratory: Denies dyspnea <CHACHA Gonzales Last Filed: 06/08/23 11:01> Gastrointestinal: Gastrointestinal: Reports as per HPI, Reports abdominal pain, Denies melena, Denies hematochezia, Denies diarrhea, Reports nausea and Denies hematemesis <Becca Case PA-C Last Filed: 06/08/23 11:01> Genitourinary: Genitourinary: Denies dysuria <Becca Case PA-C Last Filed: 06/08/23 11:01> Integumentary/Breasts: Skin/Breast: Denies rash and Denies jaundice < Becca Case PA-C - Last Filed: 06/08/23 11:01> Neurologic: Denies dizziness <Becca Case PA-C Last Filed: 06/08/23 11:01> PMFSH Past Medical History Medical History: Medical History (Updated 06/06/23 @ 00:03 by Background Daemon) Hypovitaminosis D Age related osteoporosis Post-menopausal Anxiety Obese Chronic kidney disease Migraines Hypothyroidism Dyslipidemia Essential hypertension <Becca Case PA-C Last Filed: 06/08/23 11:01> Family History Family History: Family History Father CAD (coronary artery disease) Mother No problems noted. <Becca Case PA-C Last Filed: 06/08/23 11:01> Surgical History Surgical History: Surgical History (Updated 06/06/23 @ 00:03 by Background Daemon) History of History of total left knee replacement (TKR) History of cataract surgery History of colonoscopy History of cholecystectomy H/O knee surgery <Becca Case PA-C Last Filed: 06/08/23 11:01> Social History Social History: Social History Household Members: None Housing: House Do you presently have visiting nurse or other home services: No Alcohol intake: never Patient Tobacco Use Status: Never used Tobacco e-Cigarette/Vaping Use: Never Used Second Hand Smoke Exposure: No Advance Directives Date on File: 06/04/23 service: No Current occupational status: disabled Cognitive needs: No Hearing needs: Yes Vision needs: Yes <CHACHA Gonzales Last Filed: 06/08/23 11:01> Meds Allergies/Adverse reactions: Allergies Allergy/AdvReac Type Severity Reaction Status Date / Time carrot [CARROT] Allergy Severe ANAPHYLAXIS Verified 05/29/23 08:52 apple Allergy Intermediate GREEN Verified 05/29/23 08:52 APPLES-UNKNOWN celery [CELERY] Allergy Intermediate FROM Verified 05/29/23 08:52 ALLERGY TESTING RESULT lactose [LACTOSE] Allergy Intermediate diarrhea Verified 05/29/23 08:52 peanut [PEANUT] Allergy Intermediate THROAT Verified 05/29/23 08:52 ITCHING pear [Pear] Allergy Intermediate THROAT Verified 05/29/23 08:52 ITCHING plum [PLUM] Allergy Intermediate THROAT Verified 05/29/23 08:52 ITCHING trazodone [TRAZODONE] Allergy Intermediate RASH Verified 05/29/23 08:52 tree and shrub pollen Allergy Intermediate Itchy Eyes Verified 05/29/23 08:52 omeprazole AdvReac Unknown leg Verified 05/29/23 08:52 swelling GREEN PEPPERS Allergy Intermediate Diarrhea Uncoded 03/16/23 15:05 <Becca Case PA-C - Last Filed: 06/08/23 11:01> Active Medications: Current Medications Acetaminophen (Acetaminophen 325 Mg Tablet) 650 mg PO Q6H PRN PRN Reason: Pain, Mild (Pain Scale 1-3) Last Admin: 06/04/23 06:38 Dose: 650 mg Al Hydroxide/Mg Hydroxide (Magnesium Hydrox/Alum Hydrox 30 Ml Oral.Susp) 30 ml PO Q4H PRN PRN Reason: Heartburn/Nausea Hydromorphone HCl (Hydromorphone Hcl 1 Mg/Ml Syringe) 0.5 mg IVPUSH Q4H PRN; Protocol PRN Reason: Pain, Severe (Pain Scale 7-10) Lactated Ringer's (Lr) 1,000 mls @ 100 mls/hr IVCONT .Q10H [facility] Last Admin: 06/04/23 01:14 Dose: 100 mls/hr Piperacillin Sod/Tazobactam (Sod 3.375 gm/ Sodium Chloride) 50 mls @ 100 mls/hr IV Q6H [facility] Last Infusion: 06/04/23 05:30 Dose: Infused Magnesium Hydroxide (Milk Of Magnesia 30 Ml Oral.Susp) 30 ml PO DAILY PRN PRN Reason: Constipation Ondansetron HCl (Ondansetron Hcl 4 Mg/2 Ml Vial) 4 mg IVPUSH Q8H PRN PRN Reason: Nausea and Vomiting Sodium Chloride (0.9 % Sodium Chloride Flush 3 Ml Syringe) 3 ml IVFLUSH QSHIFT [facility] <CHACHA Gonzales Last Filed: 06/08/23 11:01> Home medications: Home Medications Medication Instructions Recorded Confirmed Last Taken Type Lactobacillus rhamnosus GG 10 1 cap PO BID 10/24/21 06/04/23 Unknown History billion cell-inulin 200 mg capsule ([facility] [employer] [facility]) meclizine 12.5 mg tablet 25 mg PO DAILY PRN Vertigo 02/20/22 06/04/23 Unknown History zolmitriptan 5 mg tablet 5 mg PO DAILY PRN Migraine Headache 02/20/22 06/04/23 Unknown History propranolol 80 mg capsule,24 80 mg PO DAILY 08/13/22 06/04/23 06/02/23 History hr,extended release calcitriol 0.25 mcg capsule 0.25 mcg PO Q48H 05/12/23 06/04/23 06/02/23 History epinephrine 0.3 mg/0.3 mL 0.3 mg IM Q4H PRN anaphylaxis 05/12/23 Unknown History injection, auto-injector (EpiPen 2-Evan) <CHACHA Gonzales Last Filed: 06/08/23 11:01> Physical Exam 2 Vital Signs: Vital Signs: Last Vital Signs Temp 98.3 F 06/04/23 06:53 Pulse 62 06/04/23 06:53 Resp 16 06/04/23 06:53 BP 120/59 L 06/04/23 06:53 Pulse Ox 93 06/04/23 06:53 O2 Del Method Room Air 06/04/23 06:53 BMI result Body Mass Index 28.7 <CHACHA Gonzales Last Filed: 06/08/23 11:01> Const: General: comfortable, no acute distress and alert <CHACHA Gonzales Last Filed: 06/08/23 11:01> Orientation/consciousness: patient oriented x3 <CHACHA Gonzales Last Filed: 06/08/23 11:01> Resp: Effort & Inspection: normal respiratory effort <CHACHA Gonzales Last Filed: 06/08/23 11:01> GI: Inspection: No distended and Yes scar <CHACHA Gonzales Last Filed: 06/08/23 11:01> Palpation (GI): Soft to palpation, Tenderness to palpation present (GI) in the RLQ; with no rebound tenderness and Rovsing's sign negative, no guarding and not rigid <CHACHA Gonzales Last Filed: 06/08/23 11:01> Percussion: Yes normal to percussion <CHACHA Gonzales Last Filed: 06/08/23 11:01> Abdomen image: 1. cuco incision 2. pfannensteil incision <CHACHA Gonzales Last Filed: 06/08/23 11:01> Skin: General skin exam: no rashes or lesions noted and no jaundice < CHACHA Gonzales Last Filed: 06/08/23 11:01> Neuro: General: patient oriented x3 and moves all extremities <CHACHA Gonzales Last Filed: 06/08/23 11:01> Extrem: General: Yes no clubbing, cyanosis or edema <CHACHA Gonzales Last Filed: 06/08/23 11:01> Results Results Labs: Short CBC 06/03/23 Range/Units 16:50 WBC 9.3 (4.8-10.8) X10*3/uL Hgb 13.9 (12.0-16.0) g/dl Hct 43.3 (37.0-47.0) % Plt Count 178 (160-400) X10*3/uL BMP 06/03/23 16:50 Sodium 140 Potassium 4.0 Chloride 106 Carbon Dioxide 25 BUN 23 H Creatinine 1.16 Calcium 9.9 D Liver Function 06/03/23 Range/Units 16:50 Total Bilirubin 0.6 (0.0-1.0) mg/dL Direct Bilirubin 0.2 (0.0-0.5) mg/dL AST 20 (5-31) U/L ALT 11 (0-31) U/L Alkaline Phosphatase 116 (39-117) U/L Albumin 4.3 (3.5-5.0) g/dL Urine 12/13/23 Range/Units 19:08 Urine Color Yellow Urine Appearance Clear Urine pH 6.0 (5.0-9.0) Ur Specific [place] 1.025 (1.005-1.025) Urine Protein Trace (Neg-Trace) mg/dL Urine Glucose (UA) Negative (Negative) mg/dL <CHACHA Gonzales Last Filed: 06/08/23 11:01> Abdomen CT scan report/results: report reviewed and image reviewed <Becca Case PA-C Last Filed: 06/08/23 11:01> Assessment and Plan (1) Acute appendicitis: Qualifiers: Acute appendicitis type: with localized peritonitis A ppendicitis abscess presence: without abscess Appendicitis perforation presence: without perforation <CHACHA Gonzales Last Filed: 06/08/23 11:01> Status: Resolved <CHACHA Gonzales Last Filed: 06/08/23 11:01> 68 year old female with PMH of HTN, ADPKD, stage 3 CKD, osteoporosis, hypothyroidism, IBS, GERD who presented with RLQ abd pain, nausea and vomiting with RLQ tenderness and CT scan showing dilated appendix with appendicoliths and surrounding inflammatory changes consistent with acute appendicitis. She has been admitted to the surgical service for further treatment of the acute appendicitis. Given the presence of appendicoliths, it was recommended to proceed with laparoscopic appendectomy, possible open. Risks, benefits, alternatives of laparoscopic possible open appendectomy were reviewed with the patient and included but not limited to bleeding, infection, numbness, pain, scarring, bowel or bladder injury or leak and the patient wishes to proceed. < Becca Case PA-C - Last Filed: 06/08/23 11:01> Quality Stroke Does the patient have a stroke diagnosis?: No <Jeremy Archer MD - Last Filed: 06/04/23 10:44> VTE Prior VTE?: No <Jeremy Archer MD - Last Filed: 06/04/23 10:44> VTE Risk Level:: Surgical - low <CHACHA Gonzales Last Filed: 06/08/23 11:01> VTE Device Contraindication: Treatment Not Indicated <CHACHA Gonzales Last Filed: 06/08/23 11:01> VTE Drug Contraindication: Treatment Not Indicated <Becca Case PA-C - Last Filed: 06/08/23 11:01> Procedures Date of Service Date of Service: 06/08/23 <Becca Case PA-C - Last Filed: 06/08/23 11:01> 06/04/23 <Jeremy Archer MD - Last Filed: 06/04/23 10:44>
--- NOTE | 2023-06-04 08:45 | MHC.CM.PN ---
Attempted to meet with patient in regards to discharge planning. Patient currently in OR. Will attempt to meet again. Continue to monitor for d/c needs.
--- NOTE | 2023-06-04 10:50 | W.PM.OPN ---
Operative Note Operative Note Date of Service: 06/04/23 Narrative: Preoperative diagnosis: [] acute appendicitis Postop diagnosis: [] same Procedure [] laparoscopic appendectomy Surgeon: [] Gianni Plant Care Worker: [ Evie Type of Anesthesia: [] general Indication for surgery: [] edematous inflamed appendix. No gross evidence of perforation. Omental adhesions to the abdominal wall secondary to the patient's prior open cholecystectomy. Very corpulent abdomen. Findings: [] patient brought to the operating room, placed on operative table supine position, after adequate level of general anesthesia was induced, the patient's abdomen was prepped and draped in usual sterile fashion. Using a supraumbilical curvilinear incision, Thornton technique was used to insufflate double cavity to 15 mm of CO2. Lower midline suprapubic ports were placed under direct laparoscopic view, and the patient placed in Trendelenburg position, tilted to the left. The omental adhesions in the right side of the abdomen were taken down Using ligature device.Appendix was identified and grasped using laparoscopic graspers and its mesentery sequentially taken down using double firing of ligature device. Appendix was then transected at the cecal base using endoscopic CECELIA stapler. Specimen was placed in an Endo-Catch bag, and retrieved through the umbilical port. Abdominal cavity was copiously irrigated secured hemostasis. All ports were removed under direct laparoscopic view. Wounds were closed in the following manner; umbilical wound is fascia reapproximated using interrupted 0 Vicryl sutures. Skin wounds were closed using subcuticular 4-0 Vicryl sutures followed by Steri-Strips and sterile dressings. Wounds were infiltrated 0.5% Marcaine at completion. The infiltrating needle at the umbilical port broke off in the subcutaneous tissue and this was uneventfully retrieved using fluoroscopy. The sponge, needle, instrument counts were reported correct. Patient tolerated procedure well and emerged from anesthesia in stable condition. EBL minimal Breast [place] Node Biopsy Substrate(s) used for sentinel node biopsy in the non-neoadjuvant setting: Dye, Radiotracer, Clips, Dye and Radiotracer, Dye and Clips, Radiotracer and Clips, Dye, Radiotracer, & Clips, None and N/A General Surg. - Synoptic Notes Breast [place] Node Biopsy Substrate(s) used for sentinel node biopsy in the non-neoadjuvant setting: Dye, Radiotracer, Clips, Dye and Radiotracer, Dye and Clips, Radiotracer and Clips, Dye, Radiotracer, & Clips, None and N/A
[2023-06-04] MEDS: oxyCODONE HCl Immed Release 5 MG TABLET 10 MG PO ×3 (11:56→23:10)
--- NOTE | 2023-06-04 11:58 | PHA.MEDREC ---
Pharmacy Consult ? Medication Reconciliation Pharmacy has completed the medication reconciliation. Spoke to patient and daughter at bedside and confirmed medication list. Patient was on zolpidem 10mg qhs temporarily until lunesta 3mg was approved recently.
[2023-06-04] MEDS: Zolpidem Tartrate 5 MG TABLET PO (23:18)
[2023-06-05] MEDS: oxyCODONE HCl Immed Release 5 MG TABLET 10 MG PO ×2 (02:47→06:21)
[2023-06-05 03:42] VITALS: BP 116/58; PULSE 94; RESP 16; TEMP 36.8; O2SAT 95
[2023-06-05] MEDS: Levothyroxine Sodium 88 MCG TABLET PO (06:21)
[2023-06-05] MEDS: LORazepam 1 MG TABLET PO (06:21)
[2023-06-05] MEDS: Acetaminophen 325 MG TABLET 650 MG PO (06:21)
[2023-06-05 07:38] VITALS: BP 114/57; PULSE 85; RESP 16; TEMP 37.1; O2SAT 95
[2023-06-05] MEDS: lisinopriL 10 MG TABLET 30 MG PO (08:35)
[2023-06-05] MEDS: Propranolol HCL LA 80 MG CAP.SA.24H PO (08:36)
--- NOTE | 2023-06-05 08:51 | PM.PNGS ---
Subjective Subjective Date of Service: 06/05/23 Interval history: Feels well this morning. Reports incisional pain but comfortable. Tolerating solid diet without nausea or vomiting. OOB to bathroom without difficulty. Physical Exam Vital Signs: Vital Signs: Last Vital Signs Temp 98.7 F 06/05/23 07:38 Pulse 85 06/05/23 07:38 Resp 16 06/05/23 07:38 BP 114/57 L 06/05/23 07:38 Pulse Ox 95 06/05/23 07:38 O2 Del Method Room Air 06/05/23 07:38 O2 Flow Rate 2 06/04/23 10:05 BMI result Body Mass Index 28.7 Const: General: comfortable, no acute distress and alert Orientation/consciousness: patient oriented x3 Resp: Effort & Inspection: normal respiratory effort GI: Inspection: No distended and Yes incision (dressings c/d/i) Skin: General skin exam: no rashes or lesions noted Neuro: General: patient oriented x3 and moves all extremities Objective Data Active Medications Acetaminophen (Acetaminophen 325 Mg Tablet) 650 mg PO Q6H PRN PRN Reason: Pain, Mild (Pain Scale 1-3) Last Admin: 06/05/23 06:21 Dose: 650 mg Documented By: BRYON Al Hydroxide/Mg Hydroxide (Magnesium Hydrox/Alum Hydrox 30 Ml Oral.Susp) 30 ml PO Q4H PRN PRN Reason: Heartburn/Nausea Hydromorphone HCl (Hydromorphone Hcl 1 Mg/Ml Syringe) 0.5 mg IVPUSH Q4H PRN; Protocol PRN Reason: Pain, Severe (Pain Scale 7-10) Lactated Ringer's (Lr) 1,000 mls @ 100 mls/hr IVCONT .Q10H [facility] Last Infusion: 06/05/23 08:47 Dose: Infused Documented By: VENKATA Levothyroxine Sodium (Levothyroxine Sodium 88 Mcg Tablet) 88 mcg PO DAILY@0600 [facility] Last Admin: 06/05/23 06:21 Dose: 88 mcg Documented By: BRYON Lisinopril (Lisinopril 10 Mg Tablet) 30 mg PO DAILY [facility]; Protocol Last Admin: 06/05/23 08:35 Dose: 30 mg Documented By: VENKATA Lorazepam (Lorazepam 1 Mg Tablet) 1 mg PO TID PRN PRN Reason: anxiety Last Admin: 06/05/23 06:21 Dose: 1 mg Documented By: BRYON Magnesium Hydroxide (Milk Of Magnesia 30 Ml Oral.Susp) 30 ml PO DAILY PRN PRN Reason: Constipation Ondansetron HCl (Ondansetron Hcl 4 Mg/2 Ml Vial) 4 mg IVPUSH Q8H PRN PRN Reason: Nausea and Vomiting Oxycodone HCl (Oxycodone Hcl Immed Release 5 Mg Tablet) 5 mg PO Q4H PRN PRN Reason: Pain, Moderate(Pain Scale 4-6) Oxycodone HCl (Oxycodone Hcl Immed Release 5 Mg Tablet) 10 mg PO Q4H PRN PRN Reason: Pain, Severe (Pain Scale 7-10) Last Admin: 06/05/23 06:21 Dose: 10 mg Documented By: BRYON Propranolol HCl (Propranolol Hcl [place] 80 Mg Cap.Sa.24h) 80 mg PO DAILY [facility]; Protocol Last Admin: 06/05/23 08:36 Dose: 80 mg Documented By: VENKATA Sodium Chloride (0.9 % Sodium Chloride Flush 3 Ml Syringe) 3 ml IVFLUSH QSHIFT [facility] Last Admin: 06/05/23 08:07 Dose: Not Given Documented By: VENKATA Non-Admin Reason: IV Running Zolpidem Tartrate (Zolpidem Tartrate 5 Mg Tablet) 5 mg PO BEDTIME PRN PRN Reason: Insomnia Last Admin: 06/04/23 23:18 Dose: 5 mg Documented By: BRYON Labs 06/03/23 16:50 06/03/23 16:50 Procedures Date of Service Date of Service: 06/05/23 Progress Note: A&P Assessment and plan (1) Acute appendicitis: Status: Acute Plan POD #1 s/p laparoscopic appendectomy. Doing well post op. Tolerating diet, good pain control. Abd benign with clean dressings and appropriate post op tenderness. stable for dc to home. F/u in office in 1 week. Time Spent With Patient Time: Total time managing care of this patient today ____ minutes. Quality Stroke Does the patient have a stroke diagnosis?: No VTE Prior VTE?: No VTE Risk Level:: Surgical - low VTE Device Contraindication: Treatment Not Indicated VTE Drug Contraindication: Treatment Not Indicated
--- NOTE | 2023-06-05 10:14 | P.DS_ITS ---
DS: Providers Provider Date of Service: 06/05/23 Date of admission: 06/04/23 00:49 Primary care physician: Mirta Jimenez MD Attending physician on admission: Jeremy Archer Attending physician on discharge: Jeremy Archer DS: Diagnosis Discharge Diagnosis (1) Acute appendicitis: Status: Acute DS: Summary Hospital Course Hospital Course: HPI AT ADMISSION: Yue Gama is a 68 year old female with PMH of HTN, A DPKD, stage 3 CKD, osteoporosis, hypothyroidism, IBS, GERD who presented to the ED with complaints of RLQ abdominal pain. She states she developed LLQ abd pain about a month ago which migrated to her RLQ two weeks ago. She attributed this to her IBS. She takes tramadol daily for migraines and L TKR pain so she continued to take this and laxatives. She reports yesterday the RLQ pain became more severe and sharp and she developed nausea and vomiting. She denies fever, chills, diarrhea. She therefore presented to the ED for evaluation where work up included CBC, LFTs were WNL and BMP was near baseline and CT scan abd/pelvis showed a dilated appendix with appendicoliths with mild surrounding inflammatory changes. No abscess, fluid collections or free air noted. Surgery was therefore consulted. HOSPITAL COURSE: She was admitted to the surgical service for further treatment of the acute appendicitis.She was kept NPO, on IVF and started on IV zosyn. It was recommended to proceed with laparoscopic appendectomy, possible open and she agreed. On 06/04/23, a laparoscopic appendectomy was performed by Dr. Archer without immediate complication. The patient tolerated the procedure well. She had an uneventful recovery course. On POD#1 she felt well and was tolerating a solid diet without nausea or vomiting and had adequate pain control. She was ambulating without difficulty. She felt ready for discharge. On 06/05/23, she was discharged to home in stable condition. She is to follow up in the office in 1 week. Status at Discharge Functional status at discharge: independent ambulation Overall status at discharge: patient is progressing back to baseline Time Attestation Discharge coordination time: Less than 30 minutes Quality: Safe Use of Opioids Does Pt have an Active Cancer Diagnosis on the Problem List?: No Quality: Stroke Does the patient have a stroke diagnosis?: No Physical Exam Vital Signs: Vital Signs: Last Vital Signs Temp 98.7 F 12/15/23 07:38 Pulse 85 06/05/23 07:38 Resp 16 06/05/23 07:38 BP 114/57 L 06/05/23 07:38 Pulse Ox 95 06/05/23 07:38 O2 Del Method Room Air 06/05/23 07:38 O2 Flow Rate 2 06/04/23 10:05 BMI result Body Mass Index 28.7 Const: General: comfortable, no acute distress and alert Orientation/consciousness: patient oriented x3 Resp: Effort & Inspection: normal respiratory effort GI: Inspection: No distended and Yes incision (dressings c/d/i) Palpation (GI): Soft to palpation, Tenderness to palpation present (GI) (mild incisional) and no guarding Skin: General skin exam: no rashes or lesions noted Neuro: General: patient oriented x3 DS: Data Data Completed and Pending Pending studies at discharge: Pending at discharge 06/04/23 09:09 Surgical [PTH] Routine Discharge Plan Discharge Anticipated Discharge Date/Time: 06/05/23 13:07 Patient Disposition: Home, Self-Care Discharge Diagnosis: acute appendicitis Referrals: Mirta Matos MD [Primary Care Provider] - 1 Week Jeremy Archer MD [Physician] - 1 Week Discharge Medications: New hydrocodone-acetaminophen 5-325 mg tablet 1 tab PO Q4-6H PRN (Reason: pain) Qty: 30 0RF Rx Instructions: Partial Fill upon patient request. Continued lisinopril 30 mg tablet 30 mg PO DAILY 90 Days Qty: 90 1RF lovastatin 20 mg tablet 20 mg PO DAILY 90 Days Qty: 90 3RF levothyroxine 88 mcg tablet 88 mcg PO DAILY 90 Days Qty: 90 1RF loperamide 2 mg capsule 2 mg PO QID PRN (Reason: loose stool) 30 Days Qty: 120 1RF dicyclomine 20 mg tablet 20 mg PO BID 30 Days Qty: 60 1RF eszopiclone 3 mg tablet 3 mg PO BEDTIME 90 Days Qty: 90 0RF lorazepam 1 mg tablet 1 mg PO TID PRN (Reason: anxiety) 30 Days Qty: 90 0RF tramadol 50 mg tablet 50 mg PO DAILY 30 Days Qty: 30 0[facility] billion cell -200 mg capsule 1 cap PO BID cholecalciferol (vitamin D3) [Vitamin D3] 25 mcg (1,000 unit) capsule 25 mcg PO DAILY 30 Days Qty: 30 4RF zolmitriptan 5 mg tablet 5 mg PO DAILY PRN (Reason: Migraine Headache) meclizine 12.5 mg tablet 25 mg PO DAILY PRN (Reason: Vertigo) propranolol 80 mg capsule,extended release 24 hr 80 mg PO DAILY calcitriol 0.25 mcg capsule 0.25 mcg PO Q48H epinephrine [EpiPen 2-Evan] 0.3 mg/0.3 mL auto-injector 0.3 mg IM Q4H PRN (Reason: anaphylaxis) Discharge Orders: Discharge Order (Routine); Ordered 06/05/23 Ordered By: Becca Case Diet: Advance to usual diet Activity on Discharge: No heavy lifting Stand Alone Forms: Patient Portal Discharge page Activity Restrictions/Additional Instructions: Apply an ice pack for short intervals (20 minutes on, followed by at least 20 minutes off) for the first 2 days. Do not apply heat. Do not use creams, lotions, or topical antibiotics. These can cause infection or allergic reaction. Ok to shower 48 hours after your surgery. Remove dressings in 2 days and replace as needed. You have steri strips (small white cloth strips) covering your incision- these will fall off ~1 week. Follow up in office with Dr. Archer in 1 week. ([phone]) No heavy lifting (>10lbs) or strenuous activity! Call Your Doctor If: -Your temperature exceeds 101.5? F -You experience excessive pain or swelling -You have an unexpected reaction to medication -You have excessive bleeding -You experience continued vomiting/nausea -Your incision begins to separate -Your incision shows signs of infection such as increased redness, swelling, excessive pain, drainage (light blood or clear fluid is normal) or heat Care Plan Goals: Return to baseline health and resume normal activities following recovery period. Health Concerns: acute appendicits HTN, CKD Plan of Treatment: s/p laparoscopic appendectomy f/u in office in 1 week Assessment: doing well post op
--- NOTE | 2023-06-05 11:34 | HO.POSTANES ---
Post Anesthesia Evaluation Post Anesthesia Evaluation Date of Service: 06/05/23 Vital Signs: Vital Signs Temp Pulse Resp BP Pulse Ox O2 Del Method 06/05/23 07:38 98.7 F 85 16 114/57 L 95 Room Air 06/05/23 03:42 98.2 F 94 16 116/58 L 95 Room Air Anesthesia: General Endotracheal-GETA Mental Status: Awake Pain Control: Satisfactory Nausea/Vomiting: None Hydration: Adequate Anesthesia-Related Issues: No Anes. Related Issues
== END 2023-06-05 10:26 | disposition home or self-care (01) | DRG 398 ==
LOC: HO.ED 22:46 → HO.EDOVER 06-04 00:58 → HO.S3 06-04 08:50
PROVIDERS: Physician Assistant; Admitting Provider Surgery; Emergency Provider Internal Medicine; PCP Internal Medicine; Visit Provider Surgery
PROC: 0DTJ4ZZ Resection of Appendix, Percutaneous Endoscopic Approach (ICD-10-PCS; CPT 44970; principal; 2023-06-04 07:30)
DX: K35.80 Unspecified acute appendicitis (principal); Q61.2 Polycystic kidney, adult type; E03.9 Hypothyroidism, unspecified; I12.9 Hypertensive chronic kidney disease with stage 1 through stage 4 chronic kidney disease, or unspecified chronic kidney disease; N18.30 Chronic kidney disease, stage 3 unspecified; Z79.890 Hormone replacement therapy; Z79.899 Other long term (current) drug therapy
CPT/HCPCS: 44970; 36415; 74177; 80048; 80076; 81003; 83690; 83735; 85025; 88304; 99024; 99285; J1100; J2270; J2371; J2405; J2543; J2704; J2795; J3010; J7120; Q9967

== ENCOUNTER → 2023-06-04 00:49 | Outpatient (BNV) | payer MEDICARE, OTHER, SELFPAY | PROVIDERS: Admitting Provider Surgery; Emergency Provider Internal Medicine; PCP Internal Medicine; Visit Provider Surgery | DX: K35.80 Unspecified acute appendicitis (principal) | CPT/HCPCS: 44970; 99024; 99222 ==

== ENCOUNTER 2023-06-10 10:10 | Outpatient (AMB) | payer MEDICARE, OTHER, SELFPAY ==
[2023-06-10 10:14] VITALS: BP 148/84; PULSE 56; BMI 30.4
--- NOTE | 2023-06-10 10:14 | A.OFFVIS_ITS ---
Intake Vital Signs 06/10/23 10:14 Height 4 ft 11 in Weight 150 lb 5.684 oz BMI 30.4 BP 148/84 H Blood Pressure Location Lt brachial Position Sitting Pulse 56 Pulse Source Pulse Oximeter Intake Visit Reasons: Osteoporosis Intake Note: Patient present today for Osteoporosis follow up visit. 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 Operations Manager Required: No Accompanied by: Self / Same As Patient Allergies carrot [CARROT] Allergy (Severe, Verified 06/10/23 10:18) ANAPHYLAXIS apple Allergy (Intermediate, Verified 06/10/23 10:18) GREEN APPLES-UNKNOWN celery [CELERY] Allergy (Intermediate, Verified 06/10/23 10:18) FROM ALLERGY TESTING RESULT lactose [LACTOSE] Allergy (Intermediate, Verified 06/10/23 10:18) diarrhea peanut [PEANUT] Allergy (Intermediate, Verified 06/10/23 10:18) THROAT ITCHING pear [Pear] Allergy (Intermediate, Verified 06/10/23 10:18) THROAT ITCHING plum [PLUM] Allergy (Intermediate, Verified 06/10/23 10:18) THROAT ITCHING trazodone [TRAZODONE] Allergy (Intermediate, Verified 06/10/23 10:18) RASH tree and shrub pollen Allergy (Intermediate, Verified 06/10/23 10:18) Itchy Eyes omeprazole Adverse Reaction (Unknown, Verified 06/10/23 10:18) leg swelling GREEN PEPPERS Allergy (Intermediate, Uncoded 03/16/23 15:05) Diarrhea HPI HPI Comments History of Present Illness Details 68 YO Female with PMHx 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 First diagnosed in December 2020. Never Received treatment in the past No history of pathologic fracture or ONJ. . Takes 1000 IU of Vitamin D daily. Denies ever using PPI, anticoagulant, antiepileptic or glucocorticoid medication. 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 UTD on dental cleanings and sees dentist every 6 months. No planned upcoming dental work or extractions. DXA dated :01/18/21 T Score of -3.0 in spine She did see Nephrology. Off hydrochlorothiazide with vitamin-D repletion, her PTH still remains quite high. She has CKD stage 3. She is about to receive the 1st dose of Prolia today COUNT INCLUDES THE [facility] Medical History (Updated 06/06/23 @ 00:03 by Nahomy Figueroa) Hypovitaminosis D Age related osteoporosis Post-menopausal Anxiety Obese Chronic kidney disease Migraines Hypothyroidism Dyslipidemia Essential hypertension Surgical History History of History of total left knee replacement (TKR) History of cataract surgery History of colonoscopy History of cholecystectomy H/O knee surgery Family History Father CAD (coronary artery disease) Mother No problems noted. Social History Household Members: None Housing: House Do you presently have visiting nurse or other home services: No Alcohol intake: never Patient Tobacco Use Status: Never used Tobacco e-Cigarette/Vaping Use: Never Used Second Hand Smoke Exposure: No Advance Directives Date on File: 06/04/23 service: No Current occupational status: disabled Cognitive needs: No Hearing needs: Yes Vision needs: Yes Physical Exam Vital Signs: Last Vital Signs Pulse 56 06/10/23 10:14 BP 148/84 H 06/10/23 10:14 BMI result Body Mass Index 30.4 Assessment & Plan Assessment & Plan (1) Age related osteoporosis: Code(s): M81.0 - Age-related osteoporosis without current pathological fracture Qualifiers: Presence of current pathological fracture: without current pathological fracture Qualified Code(s): M81.0 - Age-related osteoporosis without current pathological fracture Plan: This is a 66-year-old female with a history of osteoporosis in the setting of CKD stage 3 a. Patient has elevation of PTH which could be due to secondary hyperparathyroidism . She is now vitamin-D replete on supplementation with vitamin D3 but still has significant elevation in PTH. She is followed by Nephrology for optimization of CKD BMD The plan is to administer the Prolia. Patient will also follow up with Nephrology (2) Hyperparathyroidism: Code(s): E21.3 - Hyperparathyroidism, unspecified Plan: PTH appears to be persistently elevated suggesting either secondary hyperparathyroidism due to CKD or component of primary hyperparathyroidism. W follow-up with nephrology for possible management of CKD BMD. Orders: Orders AMB Denosumab Injection Patient Supplied Today M81.0 - Age-related osteoporosis without current pathological fracture Medications: New Prolia (denosumab) 60 mg subcut ONCE 1 mL 0RF NS M81.0 - Age-related osteoporosis without current pathological fracture Coding Level of Care Code Est Pt Level 3 (92457) Diagnoses Age-related osteoporosis without current pathological fracture M81.0 Presence of current pathological fracture: without current pathological fracture Hyperparathyroidism E21.3
== END 2023-06-10 10:57 | disposition home or self-care (01) ==
PROVIDERS: PCP Internal Medicine; Visit Provider Internal Medicine Endocrinology, Diabetes & Metabolism
DX: M81.0 Age-related osteoporosis without current pathological fracture (principal); E21.3 Hyperparathyroidism, unspecified
CPT/HCPCS: 99213

== ENCOUNTER → 2023-06-10 10:10 | Outpatient (BNVA) | payer MEDICARE, OTHER, SELFPAY | PROVIDERS: PCP Internal Medicine; Visit Provider Internal Medicine Endocrinology, Diabetes & Metabolism | DX: M81.0 Age-related osteoporosis without current pathological fracture (principal); E21.3 Hyperparathyroidism, unspecified | CPT/HCPCS: 96372; 99212; J0897 ==

== ENCOUNTER 2023-06-10 10:59 | Outpatient (AMB) | payer MEDICARE, OTHER, SELFPAY ==
--- NOTE | 2023-06-10 11:05 | AM.OFFVISNUR ---
Intake Intake Visit Reasons: Prolia Injection Allergies carrot [CARROT] Allergy (Severe, Verified 06/10/23 10:18) ANAPHYLAXIS apple Allergy (Intermediate, Verified 06/10/23 10:18) GREEN APPLES-UNKNOWN celery [CELERY] Allergy (Intermediate, Verified 06/10/23 10:18) FROM ALLERGY TESTING RESULT lactose [LACTOSE] Allergy (Intermediate, Verified 06/10/23 10:18) diarrhea peanut [PEANUT] Allergy (Intermediate, Verified 06/10/23 10:18) THROAT ITCHING pear [Pear] Allergy (Intermediate, Verified 06/10/23 10:18) THROAT ITCHING plum [PLUM] Allergy (Intermediate, Verified 06/10/23 10:18) THROAT ITCHING trazodone [TRAZODONE] Allergy (Intermediate, Verified 06/10/23 10:18) RASH tree and shrub pollen Allergy (Intermediate, Verified 06/10/23 10:18) Itchy Eyes omeprazole Adverse Reaction (Unknown, Verified 06/10/23 10:18) leg swelling GREEN PEPPERS Allergy (Intermediate, Uncoded 03/16/23 15:05) Diarrhea Coding
--- NOTE | 2023-06-10 11:07 | AM.OFFVISNUR ---
Intake Intake Visit Reasons: Prolia Injection Allergies carrot [CARROT] Allergy (Severe, Verified 06/10/23 10:18) ANAPHYLAXIS apple Allergy (Intermediate, Verified 06/10/23 10:18) GREEN APPLES-UNKNOWN celery [CELERY] Allergy (Intermediate, Verified 06/10/23 10:18) FROM ALLERGY TESTING RESULT lactose [LACTOSE] Allergy (Intermediate, Verified 06/10/23 10:18) diarrhea peanut [PEANUT] Allergy (Intermediate, Verified 06/10/23 10:18) THROAT ITCHING pear [Pear] Allergy (Intermediate, Verified 06/10/23 10:18) THROAT ITCHING plum [PLUM] Allergy (Intermediate, Verified 06/10/23 10:18) THROAT ITCHING trazodone [TRAZODONE] Allergy (Intermediate, Verified 06/10/23 10:18) RASH tree and shrub pollen Allergy (Intermediate, Verified 06/10/23 10:18) Itchy Eyes omeprazole Adverse Reaction (Unknown, Verified 06/10/23 10:18) leg swelling GREEN PEPPERS Allergy (Intermediate, Uncoded 03/16/23 15:05) Diarrhea Office Meds Prolia 60 mg/mL subcutaneous syringe Performing Provider: Kevin Skinner MD [place] [facility] Administered by: Jennifer Nash LPN on 06/10/23 11:10 Dose Route Admin Location Dispensed Lot Number Expiration Date [place] Senior Asic Engineer 60 mg subcut Right upper arm 1 mL [id number] 11/19/25 [employer]GEN Coding Assessment & Plan Assessment & Plan Orders: Orders AMB Denosumab Injection Patient Supplied Today M81.0 - Age-related osteoporosis without current pathological fracture
== END 2023-06-10 11:01 | disposition home or self-care (01) ==
LOC: HO.ENCR 10:59
PROVIDERS: PCP Internal Medicine; Visit Provider Internal Medicine Endocrinology, Diabetes & Metabolism
DX: M81.0 Age-related osteoporosis without current pathological fracture (principal)

== ENCOUNTER 2023-06-16 13:30 | Outpatient (AMB) | payer MEDICARE, OTHER, SELFPAY ==
[2023-06-16 13:36] VITALS: BP 136/65; PULSE 63
--- NOTE | 2023-06-16 13:36 | MHC.OFFVIS ---
Intake Vital Signs 06/16/23 13:36 Weight 151 lb BP 136/65 Blood Pressure Location Rt brachial Position Sitting Pulse 63 Intake Visit Reasons: S/P lap appendicitis Intake Note: Patient here s/p lap appendicitis. Reports incision healing well. Patient c/o: tenderness and sharp pain at Rt lat breast and lower back. No longer taking pain meds. 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 Required: No Accompanied by: Self / Same As Patient Allergies carrot [CARROT] Allergy (Severe, Verified 06/16/23 13:38) ANAPHYLAXIS apple Allergy (Intermediate, Verified 06/16/23 13:38) GREEN APPLES-UNKNOWN celery [CELERY] Allergy (Intermediate, Verified 06/16/23 13:38) FROM ALLERGY TESTING RESULT lactose [LACTOSE] Allergy (Intermediate, Verified 06/16/23 13:38) diarrhea peanut [PEANUT] Allergy (Intermediate, Verified 06/16/23 13:38) THROAT ITCHING pear [Pear] Allergy (Intermediate, Verified 06/16/23 13:38) THROAT ITCHING plum [PLUM] Allergy (Intermediate, Verified 06/16/23 13:38) THROAT ITCHING trazodone [TRAZODONE] Allergy (Intermediate, Verified 06/16/23 13:38) RASH tree and shrub pollen Allergy (Intermediate, Verified 06/16/23 13:38) Itchy Eyes omeprazole Adverse Reaction (Unknown, Verified 06/16/23 13:38) leg swelling GREEN PEPPERS Allergy (Intermediate, Uncoded 06/16/23 13:38) Diarrhea HPI HPI Comments History of Present Illness Details Patient presents for follow-up status post laparoscopic appendectomy. She has some umbilical discomfort. She has nonspecific right flank and right hip pain but I think this is unrelated to her surgery. She is tolerating a diet. He is having regular bowel habits. She is slowly but steadily increasing her activity level. [facility] Medical History Hypovitaminosis D Age related osteoporosis Post-menopausal Anxiety Obese Chronic kidney disease Migraines Hypothyroidism Dyslipidemia Essential hypertension Surgical History History of History of total left knee replacement (TKR) History of cataract surgery History of colonoscopy History of cholecystectomy H/O knee surgery Family History Father CAD (coronary artery disease) Mother No problems noted. Social History Household Members: None Housing: House Do you presently have visiting nurse or other home services: No Alcohol intake: never Patient Tobacco Use Status: Never used Tobacco e-Cigarette/Vaping Use: Never Used Second Hand Smoke Exposure: No Advance Directives Date on File: 06/04/23 service: No Current occupational status: disabled Cognitive needs: No Hearing needs: Yes Vision needs: Yes Physical Exam Vital Signs: Last Vital Signs Pulse 63 06/16/23 13:36 BP 136/65 06/16/23 13:36 GI Other: Abdomen soft. All wounds clean dry and intact, healing uneventfully. Extrem Other: Right flank and right lateral hip areas demonstrated no obvious pathology or bruising Assessment & Plan Assessment & Plan (1) Status post laparoscopic appendectomy: Code(s): Z90.49 - Acquired absence of other specified parts of digestive tract Plan The present time, patient was reassured. She will need another 2-3 weeks for she is fully convalesced. She has been given local instructions. All questions answered. Patient will follow-up p.r.n. Coding Level of Care Code Global (28420) Diagnoses Status post laparoscopic appendectomy Z90.49
== END 2023-06-16 13:40 | disposition home or self-care (01) ==
PROVIDERS: PCP Internal Medicine; Visit Provider Surgery
DX: Z90.49 Acquired absence of other specified parts of digestive tract (principal)
CPT/HCPCS: 99024

== ENCOUNTER → 2023-06-16 13:30 | Outpatient (BNVA) | payer MEDICARE, OTHER, SELFPAY | PROVIDERS: PCP Internal Medicine; Visit Provider Surgery | DX: Z90.49 Acquired absence of other specified parts of digestive tract (principal) | CPT/HCPCS: 99212 ==

== ENCOUNTER 2023-07-22 14:00 | Outpatient (REF) | payer MEDICARE, OTHER, SELFPAY ==
--- NOTE | ~2023-07-22 | MM_ITS ---
EXAMINATION: MM SCREENING DIGITAL BREAST TOMOSYNTHESIS, BILATERAL CLINICAL INFORMATION: Screening. Asymptomatic. The patient reports a family history of breast cancer and 4 sisters and 2 maternal aunts. COMPARISON: Mammography: This study is compared with prior exams dating back to 2019. TECHNIQUE: Digital breast tomosynthesis is performed in both the craniocaudal and mediolateral oblique views along with computer-aided detection (CAD). Synthesized 2D images are generated from the tomosynthesis. FINDINGS: There are scattered areas of fibroglandular density (ACR BI-RADS breast composition Category b). There are no significant masses, abnormal calcifications, or other abnormalities. MM/MM tomosynthesis screening BI IMPRESSION: No mammographic evidence of malignancy. ASSESSMENT: BI-RADS BI-RADS 1 - Negative RECOMMENDATION: Routine annual mammography screening. 1 year F/U This examination should not preclude the clinical evaluation of a suspicious palpable abnormality. This patient's information was entered into a reminder system with a target due date for their next mammogram.
== END 2023-07-22 14:01 | disposition home or self-care (01) ==
LOC: HO.MAMMO 14:00
PROVIDERS: PCP Internal Medicine; Visit Provider Internal Medicine
DX: Z12.31 Encounter for screening mammogram for malignant neoplasm of breast (principal)
CPT/HCPCS: 77063; 77067

== ENCOUNTER → 2023-07-22 14:30 | Outpatient (BNV) | payer MEDICARE, OTHER, SELFPAY | PROVIDERS: PCP Internal Medicine; Visit Provider Radiology Diagnostic Radiology | DX: Z12.31 Encounter for screening mammogram for malignant neoplasm of breast (principal) | CPT/HCPCS: 77063; 77067 ==

== ENCOUNTER 2023-09-03 08:48 | Outpatient (REF) | payer MEDICARE, OTHER, MEDICAID, SELFPAY ==
[2023-09-03 09:15] LABS: MANUAL DIFF FLAG NO
[2023-09-03 09:29] LABS: Basophils Percent Auto 0.8 % (0-2); Eosinophils Absolute Auto 0.1 X10*3/uL (0.0-0.4); Eosinophils Percent Auto 1.9 % (0-4); Hematocrit 39.7 % (37.0-47.0); Hemoglobin 12.7 g/dl (12.0-16.0); Imm Gran Abs Auto 0.02 X10*3/uL (0.00-0.03); Imm Gran Pct Auto 0.4 % (0.0-0.4); Lymphocytes Absolute Auto 1.9 X10*3/uL (1.2-4.9); Mean Corpuscular Hemoglobin 27.4 pg (27.0-33.0); Mean Corpuscular Volume 85.7 fL (80.0-98.0); Mean Platelet Volume 9.7 fL (9.4-12.3); Monocytes Absolute Auto 0.3 X10*3/uL (0.1-1.2); Monocytes Percent Auto 5.6 % (2-11); Neutrophils Absolute Auto 2.5 x10*3/uL (2.0-8.3); Neutrophils Percent Auto 51.3 % (45-73); Platelet Count 161 X10*3/uL (160-400); Red Blood Count 4.63 X10*6/uL (4.20-5.50); Red Cell Distribution Width 13.5 % (11.0-16.0); White Blood Count 4.8 X10*3/uL (4.8-10.8)
[2023-09-03 10:02] LABS: Appearance Urine Clear; Color Urine Yellow; Glucose Urine UA Negative (Negative); Leukocyte Esterase Urine Trace (Negative); Nitrite Urine Negative (Negative); PH 7.5 (5.0-9.0); UMIC TRIGGER UA YES; Urine Blood Negative (Negative); Urine Ketones Negative (Negative); Urine Protein Negative (Neg-Trace)
[2023-09-03 10:08] LABS: Bacteria Urine None Seen (None Seen); Hyaline Casts Urine 0-2 /LPF (0-2); RBC Urine 0-2 /HPF (0-2); Squamous Epithelial Cell Urine 0-2 /HPF (0-2); WBC Urine 0-5 /HPF (0-5)
[2023-09-03 10:15] LABS: Albumin Level 3.9 g/dL (3.5-5.0); Anion Gap 10 (12-20); Blood Urea Nitrogen 18 mg/dL (9-16); Calcium 8.8 mg/dL (8.4-10.2); Carbon Dioxide 29 mmol/L (22-29); Chloride 107 mmol/L (96-108); Estimated Glomerular Filt Rate 49; Magnesium 2.2 mg/dL (1.6-2.6); Phosphorus 2.2 mg/dL (2.7-4.5); Potassium 3.8 mmol/L (3.3-5.1); Sodium 142 mmol/L (135-145)
[2023-09-03 10:21] LABS: Vitamin D 25-OH Total 38.8 ng/mL (>30)
[2023-09-03 10:50] LABS: Creatinine Urine 49.37 mg/dL; Microalbum/Creatinine Ratio Ur 26.3 ug/mg cr (<30); Total Protein Urine Random < 7 mg/dL (<12)
[2023-09-03 11:30] LABS: Parathyroid Hormone Intact 667.4 pg/mL (8.7-77.1)
== END 2023-09-03 08:49 | disposition home or self-care (01) ==
LOC: HO.LAB 08:48
PROVIDERS: Internal Medicine Nephrology; PCP Internal Medicine; Visit Provider Internal Medicine
DX: I12.9 Hypertensive chronic kidney disease with stage 1 through stage 4 chronic kidney disease, or unspecified chronic kidney disease (principal); N18.32 Chronic kidney disease, stage 3b; Q61.3 Polycystic kidney, unspecified; R82.90 Unspecified abnormal findings in urine
CPT/HCPCS: 36415; 80051; 81001; 81003; 82040; 82043; 82306; 82310; 82565; 82570; 83735; 83970; 84100; 84156; 84520; 85025; 87086

== ENCOUNTER 2023-09-08 14:18 | Outpatient (AMB) | payer MEDICARE, OTHER, SELFPAY ==
[2023-09-08 14:19] VITALS: BP 132/86; BMI 30.3
--- NOTE | 2023-09-08 14:19 | A.OFFPC_ITS ---
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: No Accompanied by: Self / Same As Patient Allergies carrot [CARROT] Allergy (Severe, Verified 09/08/23 14:42) ANAPHYLAXIS apple Allergy (Intermediate, Verified 09/08/23 14:42) GREEN APPLES-UNKNOWN celery [CELERY] Allergy (Intermediate, Verified 09/08/23 14:42) FROM ALLERGY TESTING RESULT lactose [LACTOSE] Allergy (Intermediate, Verified 09/08/23 14:42) diarrhea peanut [PEANUT] Allergy (Intermediate, Verified 09/08/23 14:42) THROAT ITCHING pear [Pear] Allergy (Intermediate, Verified 09/08/23 14:42) THROAT ITCHING plum [PLUM] Allergy (Intermediate, Verified 09/08/23 14:42) THROAT ITCHING trazodone [TRAZODONE] Allergy (Intermediate, Verified 09/08/23 14:42) RASH tree and shrub pollen Allergy (Intermediate, Verified 09/08/23 14:42) Itchy Eyes omeprazole Adverse Reaction (Unknown, Verified 09/08/23 14:42) leg swelling GREEN PEPPERS Allergy (Intermediate, Uncoded 09/08/23 14:42) Diarrhea Medication List - Last Reconciled 09/08/23 by Mirta Jimenez MD calcitriol 0.25 mcg PO Q48H cholecalciferol (vitamin D3) (Vitamin D3) 25 mcg PO DAILY dicyclomine 20 mg PO BID 30 days epinephrine (EpiPen 2-Evan) 0.3 mg IM Q4H PRN eszopiclone 3 mg PO BEDTIME 90 days Lactobac. rhamnosus GG-inulin 10 billion cell -200 mg ([facility]) 1 cap PO BID levothyroxine 88 mcg PO DAILY 90 days lisinopril 30 mg PO DAILY 90 days loperamide 2 mg PO QID PRN 30 days lorazepam 1 mg PO TID PRN 30 days lovastatin 20 mg PO DAILY 90 days meclizine 25 mg PO DAILY PRN propranolol ER 80 mg PO DAILY tramadol 50 mg PO DAILY 30 days zolmitriptan 5 mg PO DAILY PRN Tobacco use date assessed: 09/08/23 Fall risk assessment: No Falls in past year Last assessed Fall Risk: 09/08/23 Dental Screening Dental Screen Date: 09/08/23 Did you have a dental visit in the last 12 months?: Yes Did you have a dental problem in the last 6 months where you did not have access to dental care?: No Was dental information given to patient?: Patient has dentist HPI HPI Comments History of Present Illness Details This is a 68-year-old female with hypertension, dyslipidemia, hypothyroidism and anxiety that comes today for follow-up on her conditions. Blood pressure stable. Cholesterol well control. TSH normal. She did found a psychiatrist but psychiatrist does not want her on lorazepam and I will wean her off. She denies any chest pain or shortness of breath. Follows with Nephrology. Has hyperparathyroidism and as per patient she will see endocrinology soon for that matter. [facility] Medical History Hypovitaminosis D Age related osteoporosis Post-menopausal Anxiety Obese Chronic kidney disease Migraines Hypothyroidism Dyslipidemia Essential hypertension Surgical History History of History of total left knee replacement (TKR) History of cataract surgery History of colonoscopy History of cholecystectomy H/O knee surgery Family History Father CAD (coronary artery disease) Mother No problems noted. Social History Household Members: None Housing: House Do you presently have visiting nurse or other home services: No Alcohol intake: never Patient Tobacco Use Status: Never used Tobacco e-Cigarette/Vaping Use: Never Used Second Hand Smoke Exposure: No Advance Directives Date on File: 06/04/23 service: No Current occupational status: disabled Cognitive needs: No Hearing needs: Yes Vision needs: Yes Questionnaire PHQ-9 Over the last 2 weeks, how often have you been bothered by any of the following problems? 1. Little interest or pleasure in doing things: nearly every day 2. Feeling down, depressed, or hopeless: several days 3. Trouble falling or staying asleep, or sleeping too much: several days 4. Feeling tired or having little energy: nearly every day 5. Poor appetite or overeating: not at all 6. Feeling bad about yourself - or that you are a failure or have let yourself or your family down: not at all 7. Trouble concentrating on things, such as reading the newspaper or watching television: not at all 8. Moving or speaking so slowly that other people could have noticed. Or the opposite - being so fidgety or restless that you have been moving around a lot more than usual: several days 9. Thoughts that you would be better off or of hurting yourself in some way: not at all Total score: 9 Depression Screening Interpretation: Positive Depression Screening Follow-up: Existing condition and Community Mental Health Worker F/U Depression Screening Done: Yes 43222 - PHQ-9 Billing: Yes Source: Developed by Drs. Kevin Pagan, Milli Ravi, Alfred Deleon and colleagues, with an educational joon from [employer]. Thrive Questionnaire Date Thrive assessed: 09/29/22 I am a: Patient What is your living situation today?: I have a steady place to live Within the past 12 months, did the food you bought not last and you didn't have the money to get more?: Never true Within the past 12 months, did you worry whether your food would run out before you got money to buy more?: Never true Do you have trouble paying for medicines?: No Do you have trouble getting transportation to medical appointments?: No Do you have trouble paying your heating and electricity bill?: No Do you have trouble taking care of your child, family member or friend?: No Do you have trouble with day-to-day activities such as bathing, preparing meals, shopping, managing finances, etc.?: No Are you currently unemployed and looking for a job?: No Are you interested in more education?: No Please select the resources that you would like help with: None Currently or been in a relationship where the following occur: no concerns reported THRIVE Score: 0 AUDIT C Alcohol Use Questionnaire (AUDIT-C) 1. How often do you have a drink containing alcohol?: Never Total Score: 0 JANETH-7 AMB Questionnaire JANETH-7 Date JANETH - 7 assessed: 09/08/23 Feeling nervous, anxious, or on edge: 2 = More than half the days Not being able to stop or control worryin = Not at all Worrying too much about different things: 1 = Several days Trouble relaxin = Not at all Being so restless that it is hard to sit still: 0 = Not at all Becoming easily annoyed or irritable: 1 = Several days Feeling afraid as if something awful might happen: 0 = Not at all Total JANETH-7 score (0-4 normal; 5-9 mild; 10-14 moderate; 15-21 severe): 4 Source: Developed by Drs. Kevin Pagan, Milli Ravi, Alfred Deleon and colleagues, with an educational joon from [employer]. JANETH-7 Assessment Billing JANETH-7 Assessment Tool: JANETH-7 Assessment 22066 Review of Systems Const All systems reviewed & are unremarkable except as noted in HPI and below Eyes Reports no additional complaints, Denies change in vision and Denies other visual disturbances Card Denies chest pain at rest, Denies chest pain with activity, Denies edema, Denies irregular heart rhythm, Denies claudication, Denies dyspnea, Denies dyspnea on exertion, Denies orthopnea, Denies paroxysmal nocturnal dyspnea and Denies slow heart rate Resp Denies cough, Denies dyspnea and Denies dyspnea on exertion GI Denies abdominal pain, Denies change in bowel habits, Denies excessive flatus, Denies nausea and Denies vomiting Denies urinary incontinence, Denies urinary hesitancy and Denies urinary urgency Musc Denies abnormal gait, Denies atrophy, Denies deformity and Denies limited range of motion Skin/Breast Denies bleeding lesions, Denies changing lesions and Denies rash Neuro Denies abnormal gait and Denies lack of coordination Physical exam (Primary Care) Vital Signs: Last Vital Signs BP 132/86 09/08/23 14:19 BMI result Body Mass Index 30.3 Tobacco/Smoking Status: Tobacco use Status Tobacco use date assessed 09/08/23 09/08/23 14:28 Patient Tobacco Use Status Never used Tobacco 09/08/23 14:28 e-Cigarette/Vaping Use Never Used 09/08/23 14:28 PHQ-9: PHQ-9 Score PHQ-9: Total score 9 09/08/23 14:56 Depression Screening Interpretation: Positive Depression Screening Follow-up: Existing condition and Community Mental Health Worker F/U Thrive Assessment: Date of Thrive Assessment Date Thrive assessed 09/29/22 09/08/23 14:28 Currently or been in a relationship where the following occur: no concerns reported Neck Neck: Yes normal visual inspection and Yes supple Resp Effort & Inspection: normal respiratory effort Auscultation: clear to auscultation bilaterally Cardio Jugular venous distension: no JVD Rate: regular rate Rhythm: regular rhythm Heart sounds: S1 normal heart sound present and S2 normal heart sound present Extrem General: Yes full ROM Assessment and Plan Assessment & Plan (1) Essential hypertension: Code(s): I10 - Essential (primary) hypertension Plan: Continue lisinopril. Blood pressure goal is equal or less than 130/80. (2) Hypothyroidism: Code(s): E03.9 - Hypothyroidism, unspecified Qualifiers: Hypothyroidism type: unspecified Qualified Code(s): E03.9 - Hypothyroidism, unspecified Plan: Continue levothyroxine. (3) Anxiety: Comment: Extremely anxious in regard to any added medication etc- Prefers hospice entrance attendant-to authorize Supportive Reassured Code(s): F41.9 - Anxiety disorder, unspecified Plan: Decrease lorazepam to wean her off. (4) Hyperparathyroidism: Code(s): E21.3 - Hyperparathyroidism, unspecified Plan: As per patient this will be follow by Endocrinology. Medications: New polyethylene glycol 3350 Take the day before colonoscopy. Mixe with 4 oz of liquid every 15 mintues until finish 17 grams PO DAILY 1 day PRN 238 grams 0RF laxative effect docusate calcium Take at noon the day before colonoscopy 240 mg PO ONCE 1 day PRN 2 caps 0RF laxative effect Coding Level of Care Code Est Pt Level 4 (75183) Diagnoses Essential hypertension I10 Hypothyroidism, unspecified type E03.9 Hypothyroidism type: unspecified Anxiety F41.9 Hyperparathyroidism E21.3 Additional Codes JANETH-7 Assessment Billing - JANETH-7 Assessment Tool: JANETH-7 Assessment 40000 ([id number]) Time Spent (min) 21
== END 2023-09-08 14:55 | disposition home or self-care (01) ==
PROVIDERS: PCP Internal Medicine; Visit Provider Internal Medicine
DX: I10 Essential (primary) hypertension (principal); E03.9 Hypothyroidism, unspecified; F41.9 Anxiety disorder, unspecified; E21.3 Hyperparathyroidism, unspecified
CPT/HCPCS: 99214

== ENCOUNTER 2023-09-14 14:27 | Outpatient (AMB) | payer MEDICARE, OTHER, SELFPAY ==
--- NOTE | 2023-09-14 14:28 | A.OFFVIS_ITS ---
Intake Vital Signs 09/14/23 14:29 Height 4 ft 11 in Weight 149 lb 7.574 oz BMI 30.2 BP 136/86 Blood Pressure Location Lt brachial Position Sitting Pulse 66 Pulse Source Pulse Oximeter Intake Visit Reasons: Hyperparathyroidism-confirmed Intake Note: Patient presents today for Hyperparathyroidism follow up. Director Epidemiology Required: No Accompanied by: Self / Same As Patient Allergies carrot [CARROT] Allergy (Severe, Verified 09/14/23 14:33) ANAPHYLAXIS apple Allergy (Intermediate, Verified 09/14/23 14:33) GREEN APPLES-UNKNOWN celery [CELERY] Allergy (Intermediate, Verified 09/14/23 14:33) FROM ALLERGY TESTING RESULT lactose [LACTOSE] Allergy (Intermediate, Verified 09/14/23 14:33) diarrhea peanut [PEANUT] Allergy (Intermediate, Verified 09/14/23 14:33) THROAT ITCHING pear [Pear] Allergy (Intermediate, Verified 09/14/23 14:33) THROAT ITCHING plum [PLUM] Allergy (Intermediate, Verified 09/14/23 14:33) THROAT ITCHING trazodone [TRAZODONE] Allergy (Intermediate, Verified 09/14/23 14:33) RASH tree and shrub pollen Allergy (Intermediate, Verified 09/14/23 14:33) Itchy Eyes omeprazole Adverse Reaction (Unknown, Verified 09/14/23 14:33) leg swelling GREEN PEPPERS Allergy (Intermediate, Uncoded 09/14/23 14:33) Diarrhea Medication List - Last Reconciled 09/14/23 by Kevin Skinner MD calcitriol 0.25 mcg PO Q48H cholecalciferol (vitamin D3) (Vitamin D3) 25 mcg PO DAILY dicyclomine 20 mg PO BID 30 days docusate calcium 240 mg PO ONCE PRN 1 day epinephrine (EpiPen 2-Evan) 0.3 mg IM Q4H PRN eszopiclone 3 mg PO BEDTIME 90 days Lactobac. 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 First diagnosed in December 2020. Never Received treatment in the past No history of pathologic fracture or ONJ. . Takes 1000 IU of Vitamin D daily. Denies ever using PPI, anticoagulant, antiepileptic or glucocorticoid medication. Does weight bearing exercise treadmill 4 days per week Fracture history: No Height loss: Y [employer] history: age 51 menopause . 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 UTD on dental cleanings and sees dentist every 6 months. No planned upcoming dental work or extractions. DXA dated :01/18/21 T Score of -3.0 in spine She did see Nephrology. Off hydrochlorothiazide with vitamin-D repletion, her PTH still remains quite high. She has CKD stage 3. She is about receiving f Prolia . Hyperparathyroidism is managed by Nephrology Last dose of Prolia was 06/10/2023. No fx since last visit [facility] Medical History Hypovitaminosis D Age related osteoporosis Post-menopausal Anxiety Obese Chronic kidney disease Migraines Hypothyroidism Dyslipidemia Essential hypertension Surgical History History of History of total left knee replacement (TKR) History of cataract surgery History of colonoscopy History of cholecystectomy H/O knee surgery Family History Father CAD (coronary artery disease) Mother No problems noted. Social History Household Members: None Housing: House Do you presently have visiting nurse or other home services: No Alcohol intake: never Patient Tobacco Use Status: Never used Tobacco e-Cigarette/Vaping Use: Never Used Second Hand Smoke Exposure: No Advance Directives Date on File: 06/04/23 service: No Current occupational status: disabled Cognitive needs: No Hearing needs: Yes Vision needs: Yes Assessment & Plan Assessment & Plan (1) Age related osteoporosis: Code(s): M81.0 - Age-related osteoporosis without current pathological fracture Qualifiers: Presence of current pathological fracture: without current pathological fracture Qualified Code(s): M81.0 - Age-related osteoporosis without current pathological fracture Plan: This is a 68-year-old female with a history of osteoporosis in the setting of CKD stage 3 a. Patient has elevation of PTH which could be due to secondary hyperparathyroidism . She is now vitamin-D replete on supplementation with vitamin D3 but still has significant elevation in PTH. She is followed by Nephrology for optimization of CKD BMD The plan is to continue the Prolia. She is due for a dose in 10/2023. Patient will also follow up with Nephrology (2) Hyperparathyroidism: Code(s): E21.3 - Hyperparathyroidism, unspecified Plan: PTH appears to be persistently elevated suggesting either secondary hyperparathyroidism due to CKD or component of primary hyperparathyroidism. W follow-up with nephrology for possible management of CKD BMD. Coding Level of Care Code Est Pt Level 3 (05080) Diagnoses Age-related osteoporosis without current pathological fracture M81.0 Presence of current pathological fracture: without current pathological fracture Hyperparathyroidism E21.3
[2023-09-14 14:29] VITALS: BP 136/86; PULSE 66; BMI 30.2
== END 2023-09-14 14:57 | disposition home or self-care (01) ==
PROVIDERS: PCP Internal Medicine; Visit Provider Internal Medicine Endocrinology, Diabetes & Metabolism
DX: M81.0 Age-related osteoporosis without current pathological fracture (principal); E21.3 Hyperparathyroidism, unspecified
CPT/HCPCS: 99213

== ENCOUNTER → 2023-09-14 14:27 | Outpatient (BNVA) | payer MEDICARE, OTHER, SELFPAY | PROVIDERS: PCP Internal Medicine; Visit Provider Internal Medicine Endocrinology, Diabetes & Metabolism | DX: M81.0 Age-related osteoporosis without current pathological fracture (principal); E21.3 Hyperparathyroidism, unspecified | CPT/HCPCS: 99212 ==

== ENCOUNTER 2023-09-18 11:41 | Outpatient (AMB) | payer MEDICARE, OTHER, SELFPAY ==
--- NOTE | 2023-09-18 11:59 | MHC.OFFVIS ---
Intake Intake Visit Reasons: OV-Right knee OA, last injected on 06/06/22 Intake Note: Yue is a 68 year old female who presents today for a repeat injection for her right knee OA, last injected 06/06/22. Allergies carrot [CARROT] Allergy (Severe, Verified 09/14/23 14:33) ANAPHYLAXIS apple Allergy (Intermediate, Verified 09/14/23 14:33) GREEN APPLES-UNKNOWN celery [CELERY] Allergy (Intermediate, Verified 09/14/23 14:33) FROM ALLERGY TESTING RESULT lactose [LACTOSE] Allergy (Intermediate, Verified 09/14/23 14:33) diarrhea peanut [PEANUT] Allergy (Intermediate, Verified 09/14/23 14:33) THROAT ITCHING pear [Pear] Allergy (Intermediate, Verified 09/14/23 14:33) THROAT ITCHING plum [PLUM] Allergy (Intermediate, Verified 09/14/23 14:33) THROAT ITCHING trazodone [TRAZODONE] Allergy (Intermediate, Verified 09/14/23 14:33) RASH tree and shrub pollen Allergy (Intermediate, Verified 09/14/23 14:33) Itchy Eyes omeprazole Adverse Reaction (Unknown, Verified 09/14/23 14:33) leg swelling GREEN PEPPERS Allergy (Intermediate, Uncoded 09/14/23 14:33) Diarrhea HPI OV-Right knee OA, last injected on 06/06/22 HPI Details 68-year-old female who presents in the office today for a follow up of right knee pain. I last saw the patient in the office on 06/06/2022. At that time she received a cortisone injection in the right knee. [facility] Medical History Hypovitaminosis D Age related osteoporosis Post-menopausal Anxiety Obese Chronic kidney disease Migraines Hypothyroidism Dyslipidemia Essential hypertension Surgical History History of History of total left knee replacement (TKR) History of cataract surgery History of colonoscopy History of cholecystectomy H/O knee surgery Family History Father CAD (coronary artery disease) Mother No problems noted. Social History Household Members: None Housing: House Do you presently have visiting nurse or other home services: No Alcohol intake: never Patient Tobacco Use Status: Never used Tobacco e-Cigarette/Vaping Use: Never Used Second Hand Smoke Exposure: No Advance Directives Date on File: 06/04/23 service: No Current occupational status: disabled Cognitive needs: No Hearing needs: Yes Vision needs: Yes Review of Systems Const All systems reviewed & are unremarkable except as noted in HPI and below Physical Exam Const General: cooperative, healthy appearing and no acute distress Resp Effort & Inspection: normal respiratory effort and able to speak in complete sentences Cardio Rate: regular rate Peripheral pulses: Peripheral pulses 2+ throughout GI Palpation (GI): Soft to palpation Skin Lesions: no lesions Rashes: no rashes Extrem Other: Right knee: Prior surgical scar noted from total knee arthroplasty. ROM is 0-90 degrees. No excessive laxity with vargus or valgus strain. Mild antalgic gait. NVI. Office Procedures Joint Injection/Drain Joint Injection/Drain Primary Site: right knee Prep: site was prepped using aseptic technique, ethochloride spray was applied and injection warnings given Injected: 80 mg of, DepoMedrol, with 8 mL of (2% plain lido ) and in the joint Approach Used: anterolateral Procedure: The patient tolerated the procedure well, but had some pain with the injection and there was some relief with the local anesthesia Coding 78708 - Large joint Procedure code (CPT) selection complete Assessment & Plan Assessment & Plan (1) Osteoarthritis of right knee: Code(s): M17.11 - Unilateral primary osteoarthritis, right knee Plan Ms. Gama is a 68-year-old female who presents in the office today for a follow up of right knee pain. I last saw the patient in the office on 06/06/2022. At that time she received a cortisone injection in the right knee. The patient was offered a cortisone injection in the right knee. The patient was explained the risk, benefits, and alternatives to receiving this injection. After receiving consent for the injection, the patient had the procedure done while in office today. The patient tolerated the procedure well with no complications. Follow up will be PRN, or sooner if needed. Patient Instructions: Scribed by Denise Moreno medical art therapist, for Stacy Boothe PA-C on 09/18/2023 at 11:43 am, EST. Coding Level of Care Code Est Pt Level 3 (29808) Diagnoses Osteoarthritis of right knee M17.11 CPT Codes Coding - 29616 Large joint: 15905 - Large joint ([id number])
== END 2023-09-18 12:18 | disposition home or self-care (01) ==
LOC: HO.HOSPRC 11:41
PROVIDERS: PCP Internal Medicine; Visit Provider Physician Assistant
DX: M17.11 Unilateral primary osteoarthritis, right knee (principal)
CPT/HCPCS: 20610

== ENCOUNTER → 2023-09-18 11:41 | Outpatient (BNVA) | payer MEDICARE, OTHER, SELFPAY | PROVIDERS: PCP Internal Medicine; Visit Provider Physician Assistant | DX: M17.11 Unilateral primary osteoarthritis, right knee (principal) | CPT/HCPCS: 20610; J1040 ==

== ENCOUNTER 2023-10-06 06:45 | Day surgery (SDC) | payer MEDICARE, OTHER, SELFPAY ==
[2023-10-01 11:04] VITALS: BMI 30.3
[2023-10-06 07:46] VITALS: BMI 29.5
[2023-10-06] MEDS: Lactated Ringers 1,000 ML 80 ML IVCONT (08:05)
[2023-10-06 08:11] VITALS: BP 149/80; PULSE 56; RESP 18; TEMP 36.6; O2SAT 97
--- NOTE | 2023-10-06 08:42 | HO.ANESPROP2 ---
[facility] Active Problems Active Problems: All Active Problems Status post laparoscopic appendectomy (Acute) Multiple allergies (Acute) Adenomatous polyp of cecum (Acute) Chronic GERD (Acute) Chronic diarrhea (Acute) History of total knee arthroplasty (Acute) Osteoarthritis of right knee (Acute) Hyperparathyroidism (Acute) Left knee pain (Acute) History of colon polyps (Acute) Physical exam (Acute) Insomnia (Acute) Encounter for annual wellness exam in Medicare patient (Acute) Vaginal irritation (Acute) IBS (irritable bowel syndrome) (Acute) Hypovitaminosis D (Acute) Age related osteoporosis (Acute) Adult general medical exam (Acute) Post-menopausal (Acute) Anxiety (Acute) Obese (Acute) Chronic kidney disease (Acute) Migraines (Acute) Hypothyroidism (Acute) Dyslipidemia (Acute) Essential hypertension (Acute) Past Medical History Medical History Hypovitaminosis D Age related osteoporosis Post-menopausal Anxiety Obese Chronic kidney disease Migraines Hypothyroidism Dyslipidemia Essential hypertension Family History Family History Father CAD (coronary artery disease) Mother No problems noted. Family history of problems with anesthesia: No Surgical History Surgical History History of History of total left knee replacement (TKR) History of cataract surgery History of colonoscopy History of cholecystectomy H/O knee surgery History of Problems with Anesthesia: No Social History Social History Household Members: None Housing: House Do you presently have visiting nurse or other home services: No Alcohol intake: never Patient Tobacco Use Status: Never used Tobacco e-Cigarette/Vaping Use: Never Used Second Hand Smoke Exposure: No Are you DNR?: No Advance Directives: No Advance Directives Information Provided: Yes Advance Directives Date on File: 06/04/23 Nutrition Risks: No Nutritional Risk service: No Current occupational status: disabled Cognitive needs: No Hearing needs: Yes Vision needs: Yes Meds Allergies Allergy/AdvReac Type Severity Reaction Status Date / Time carrot [CARROT] Allergy Severe ANAPHYLAXIS Verified 10/06/23 07:08 apple Allergy Intermediate GREEN Verified 10/06/23 07:08 APPLES-UNKNOWN celery [CELERY] Allergy Intermediate FROM Verified 10/06/23 07:08 ALLERGY TESTING RESULT lactose [LACTOSE] Allergy Intermediate diarrhea Verified 10/06/23 07:08 peanut [PEANUT] Allergy Intermediate THROAT Verified 10/06/23 07:08 ITCHING pear [Pear] Allergy Intermediate THROAT Verified 10/06/23 07:08 ITCHING plum [PLUM] Allergy Intermediate THROAT Verified 10/06/23 07:08 ITCHING trazodone [TRAZODONE] Allergy Intermediate RASH Verified 10/06/23 07:08 tree and shrub pollen Allergy Intermediate Itchy Eyes Verified 10/06/23 07:08 omeprazole AdvReac Unknown leg Verified 10/06/23 07:08 swelling GREEN PEPPERS Allergy Intermediate Diarrhea Uncoded 10/06/23 07:08 Active Medications: Current Medications Lactated Ringer's (Lr) 1,000 mls @ 80 mls/hr IVCONT .[id number] MARY LOU Last Admin: 10/06/23 08:05 Dose: 80 mls/hr Home Medications ?Medication ?Instructions ?Recorded ?Confirmed ?Last Taken ?Type Lactobacillus rhamnosus GG 10 1 cap PO BID 10/24/21 10/06/23 Unknown History billion cell-inulin 200 mg capsule ([email or web address]) meclizine 12.5 mg tablet 25 mg PO DAILY PRN Vertigo 02/20/22 10/06/23 Unknown History zolmitriptan 5 mg tablet 5 mg PO DAILY PRN Migraine Headache 02/20/22 10/06/23 Unknown History propranolol 80 mg capsule,24 80 mg PO DAILY 08/13/22 10/06/23 10/06/23 History hr,extended release calcitriol 0.25 mcg capsule 0.25 mcg PO Q48H 05/12/23 10/06/23 06/02/23 History epinephrine 0.3 mg/0.3 mL 0.3 mg IM Q4H PRN anaphylaxis 05/12/23 10/06/23 Unknown History injection, auto-injector (EpiPen 2-Evan) Exam Height,Weight and Vital Signs: Height 4 ft 11 in Weight 66.224 kg Last Vital Signs Temp 97.9 F 10/06/23 08:11 Pulse 56 10/06/23 08:11 Resp 18 10/06/23 08:11 BP 149/80 H 10/06/23 08:11 Pulse Ox 97 04/16/24 08:11 O2 Del Method Room Air 10/06/23 08:11 Airway Mallampati Class: II TM Dist: >3cm Neck ROM: Full Assessment and Plan Assessment Anesthesia Assessment: Anesthesia Plan Discussed and Chart Reviewed Final Anesthetic Review Family History of Problems with Anesthesia: No History of Problems with Anesthesia: No NPO: Yes ASA Class: III Final Preanesthetic Review: No Changes in Pt Med Stat, Meds/Allgs Chart Reviewed, Consent Obtained/Reviewed and Anes Risks/Benef Reviewed Patient Risk: Intermediate Procedure Risk: Low Anesthetic Plan Anesthetic Plan: TIVA Disposition: Standard PACU
--- NOTE | 2023-10-06 08:47 | MHC.SHP ---
Pre-Procedural Eval Section A - 24 Hr Update-Section A only Date of Service: 10/06/23 Section B - Complete if H&P > 30 days Chief Complaint: Gastro-esophageal reflux disease without esophagit Details of Present Illness: colon screening, FH CRC in sister Relevant Family History (Specify if Yes): Yes Relevant Social History: None Present Medications: see Short Stay Collaborative assessment Medical History: Significant History ( Hypovitaminosis D Age related osteoporosis Post-menopausal Anxiety Obese Chronic kidney disease Migraines Hypothyroidism Dyslipidemia Essential hypertension) History of Previous Operations: Relevant previous surgery/procedure and date(s) (History of History of total left knee replacement (TKR) History of cataract surgery History of colonoscopy History of cholecystectomy H/O knee surgery) Allergies: Allergies Allergy/AdvReac Type Severity Reaction Status Date / Time carrot [CARROT] Allergy Severe ANAPHYLAXIS Verified 10/06/23 07:08 apple Allergy Intermediate GREEN Verified 10/06/23 07:08 APPLES-UNKNOWN celery [CELERY] Allergy Intermediate FROM Verified 10/06/23 07:08 ALLERGY TESTING RESULT lactose [LACTOSE] Allergy Intermediate diarrhea Verified 10/06/23 07:08 peanut [PEANUT] Allergy Intermediate THROAT Verified 10/06/23 07:08 ITCHING pear [Pear] Allergy Intermediate THROAT Verified 10/06/23 07:08 ITCHING plum [PLUM] Allergy Intermediate THROAT Verified 10/06/23 07:08 ITCHING trazodone [TRAZODONE] Allergy Intermediate RASH Verified 10/06/23 07:08 tree and shrub pollen Allergy Intermediate Itchy Eyes Verified 10/06/23 07:08 omeprazole AdvReac Unknown leg Verified 10/06/23 07:08 swelling GREEN PEPPERS Allergy Intermediate Diarrhea Uncoded 10/06/23 07:08 Review of Systems Sugical H&P ROS: Negative: Constitution, Cardiovascular, Respiratory, Neurological, Psychiatric, Hem-Onc, Allergic/Immunologic, Gastrointestinal, Genitourinary, Musculoskeletal, Integumentary, Endocrine and Eyes/Ears/Nose/Throat Exam Surgical H&P Exam: Normal: HEENT, Normal: Heart, Normal: Lungs, Normal: Extremities, Normal: Abdomen, Normal: Skin and Normal: Neurological Plan Diagnosis/Plan: Unchanged I have reviewed the history and physical and performed a pertinent physical examination on my patient. No changes have occurred unless specified. Time Spent With Patient Time: Total time managing care of this patient today ____ minutes.
--- NOTE | 2023-10-06 08:48 | W.PM.OPN ---
Operative Note Operative Note Date of Service: 10/06/23 Narrative: Operative Information Procedure Description: EGD, Colonoscopy Indication: GERD, and screening, FH CRC Anesthesia: MAC FLEXIBLE TRANSORAL UPPER GASTROINTESTINAL ENDOSCOPY AND COLONOSCOPY PROCEDURE NOTE UPPER ENDOSCOPY Consent: Indications for the procedure and potential complications of bleeding, perforation, reaction to medications and missed diagnosis were discussed with the patient and informed consent was obtained. Instrument: Olympus GIF H 190 J mid size upper endoscope Monitoring: Vital signs and clinical assessment, continuous EKG monitoring, Pulse oximetry, Carbon Dioxide monitoring and blood pressure monitoring were done throughout the procedure. Procedure: The patient was placed in the left lateral decubitis position and pre-procedure medications were administered and a bite block was placed. The endoscope was inserted into the mouth and advanced under direct vision to the third part of duodenum. A careful inspection was made as the upper endoscope was withdrawn including a retroflexed examination of the proximal stomach; Findings and interventions are described below. Findings: Larynx:normal Esophagus: GE junction at 37 cm, diaphragm hiatus at 37 cm, normal mucosa, distal esophagus bx taken, LES was lax Stomach: Patchy erythema and scarring with edema. Biopsies were obtained. Grade 2 flap valve on retroflexed examination of the cardia. Duodenum: Normal bulb and descending duodenum, bx taken Intervention: Biopsies as noted above, COLONOSCOPY Instrument: Olympus variable stiffness pediatric scope 190L Colonoscopy Monitoring: Vital signs and clinical assessment, continuous EKG monitoring, Pulse oximetry, Carbon Dioxide monitoring and blood pressure monitoring were done throughout the procedure. Colon withdrawal time was 6 minutes. Procedure: The patient was placed in the left lateral decubitis position and pre-procedure medications were administered. After a digital rectal examination of the ano-rectum, the video colonoscope was inserted into the rectum and advanced through the colon to the cecum/TI. The colonoscope was slowly withdrawn in a retrograde panoramic fashion and the colon mucosa was carefully examined including a retroflexed view of the rectum. Findings and interventions are described below. Procedure Difficulty:moderate Findings: Terminal Ileum-normal Cecum:normal Right sided retroflexion- normal Ascending Colon: normal Transverse Colon -normal Descending Colon:normal Sigmoid Colon: normal Rectum: Retroflexion with small internal hemorrhoids, grade I Anorectum - normal Colon preparation: [place] Bowel Preparation Scale Right colon; 2 Transverse colon: 3 Left colon; 3 (0 = Unprepared colon segment with mucosa not seen due to solid stool that cannot be cleared. 1 = Portion of mucosa of the colon segment seen, but other areas of the colon segment not well seen due to staining, residual stool and/or opaque liquid. 2 = Minor amount of residual staining, small fragments of stool and/or opaque liquid, but mucosa of colon segment seen well. 3 = Entire mucosa of colon segment seen well with no residual staining, small fragments of stool or opaque liquid) Impression and Post Procedure Diagnosis: Endoscopy Findings: gastritis lax LES Colonoscopy Findings: internal hemorrhoids Plan: Await Pathology results Repeat Colonoscopy in 5 years due to FH or earlier if clinically indicated High fiber diet leaflet avoid straining at stool, epsom salts and sitz bath, anusol supps or cream if H pylori pos then treat Above findings were reviewed with the patient and relevant handouts were provided if indicated.
[2023-10-06 09:40] VITALS: BP 114/47; PULSE 59; RESP 16; TEMP 36.6; O2SAT 96
[2023-10-06 09:55] VITALS: BP 129/72; PULSE 58; RESP 16; TEMP 36.6; O2SAT 98
[2023-10-06 10:10] VITALS: BP 137/71; PULSE 53; RESP 16; TEMP 36.3; O2SAT 98
== END 2023-10-06 11:08 | disposition home or self-care (01) ==
PROVIDERS: PCP Internal Medicine; Visit Provider Internal Medicine Gastroenterology
PROC: (CPT 43239; principal; 2023-10-06 09:10)
DX: Z12.11 Encounter for screening for malignant neoplasm of colon (principal); K64.0 First degree hemorrhoids; Z86.010 Personal history of colon polyps; Z80.0 Family history of malignant neoplasm of digestive organs; K21.9 Gastro-esophageal reflux disease without esophagitis; K29.70 Gastritis, unspecified, without bleeding; K22.89 Other specified disease of esophagus; I12.9 Hypertensive chronic kidney disease with stage 1 through stage 4 chronic kidney disease, or unspecified chronic kidney disease; N18.9 Chronic kidney disease, unspecified
CPT/HCPCS: 43239; G0105; 88305; 88313; 88342; J2704; J3010

== ENCOUNTER → 2023-10-06 06:45 | Outpatient (BNV) | payer MEDICARE, OTHER, SELFPAY | PROVIDERS: PCP Internal Medicine; Visit Provider Internal Medicine Gastroenterology | DX: Z12.11 Encounter for screening for malignant neoplasm of colon (principal); Z80.0 Family history of malignant neoplasm of digestive organs; K21.9 Gastro-esophageal reflux disease without esophagitis; K64.0 First degree hemorrhoids | CPT/HCPCS: 43239; G0105 ==

== ENCOUNTER 2023-10-15 09:15 | Outpatient (REF) | payer MEDICARE, OTHER, SELFPAY ==
--- NOTE | ~2023-10-15 | XR_ITS ---
EXAMINATION: XR SHOULDER, RIGHT CLINICAL INFORMATION: Pain in unspecified shoulder COMPARISON: None available. TECHNIQUE: AP neutral, Grashey AP and axillary views of the right shoulder. FINDINGS: The bones are intact. No fracture Glenohumeral and acromioclavicular alignment is anatomic with normal glenohumeral joint space. Moderate to marked degenerative change of the acromioclavicular joint. No abnormal soft tissue calcifications. XR/XR shoulder RT min 2V IMPRESSION: Moderate to marked degenerative change of the acromioclavicular joint.
== END 2023-10-15 09:16 | disposition home or self-care (01) ==
LOC: HO.HOSX 09:15
PROVIDERS: Visit Provider Physician Assistant
DX: M54.12 Radiculopathy, cervical region (principal); M25.511 Pain in right shoulder
CPT/HCPCS: 73030; 99212

== ENCOUNTER 2023-10-15 14:18 | Outpatient (AMB) | payer MEDICARE, OTHER, SELFPAY ==
--- NOTE | 2023-10-15 14:37 | MHC.OFFVIS ---
Vital Signs 10/15/23 14:48 Height 5 ft Weight 151 lb BMI 29.5 Handedness Right Intake Visit Reasons: New prob - right shoulder pain Intake Note: Yue is a 68 year old right hand dominant female who presents today for a evaluation of her right shoulder pain. Patient reports ongoing pain for 3 months. She states that her pain is worse during the day when is at rest. She finds mild relief when she takes Tylenol. Patient is interested in a shoulder injection. Allergies carrot [CARROT] Allergy (Severe, Verified 10/15/23 14:47) ANAPHYLAXIS apple Allergy (Intermediate, Verified 10/15/23 14:47) GREEN APPLES-UNKNOWN celery [CELERY] Allergy (Intermediate, Verified 10/15/23 14:47) FROM ALLERGY TESTING RESULT lactose [LACTOSE] Allergy (Intermediate, Verified 10/15/23 14:47) diarrhea peanut [PEANUT] Allergy (Intermediate, Verified 10/15/23 14:47) THROAT ITCHING pear [Pear] Allergy (Intermediate, Verified 10/15/23 14:47) THROAT ITCHING plum [PLUM] Allergy (Intermediate, Verified 10/15/23 14:47) THROAT ITCHING trazodone [TRAZODONE] Allergy (Intermediate, Verified 10/15/23 14:47) RASH tree and shrub pollen Allergy (Intermediate, Verified 10/15/23 14:47) Itchy Eyes omeprazole Adverse Reaction (Unknown, Verified 10/15/23 14:47) leg swelling GREEN PEPPERS Allergy (Intermediate, Uncoded 10/06/23 07:08) Diarrhea HPI HPI New prob - right shoulder pain: Details: 68-year-old right hand dominant female who presents in the office today for an evaluation of right shoulder pain. Patient reports pain for the past 3 months. She states the pain is worse during the day and when at rest. Finds mild relief when taking Tylenol. Patient is interested in a cortisone injection. Patient has a complaint of pain that is positional. She reports when she is looking down with her neck in flexion she starts to develop a radiating pain from the lateral aspect of her neck into her shoulders down to her posterior aspect near the triceps, stopping in the elbow. She denies numbness or tingling. [facility] Medical History Hypovitaminosis D Age related osteoporosis Post-menopausal Anxiety Obese Chronic kidney disease Migraines Hypothyroidism Dyslipidemia Essential hypertension Surgical History History of History of total left knee replacement (TKR) History of cataract surgery History of colonoscopy History of cholecystectomy H/O knee surgery Family History Father CAD (coronary artery disease) Mother No problems noted. Social History Household Members: None Housing: House Do you presently have visiting nurse or other home services: No Alcohol intake: never Patient Tobacco Use Status: Never used Tobacco e-Cigarette/Vaping Use: Never Used Second Hand Smoke Exposure: No Advance Directives Date on File: 06/04/23 service: No Current occupational status: disabled Cognitive needs: No Hearing needs: Yes Vision needs: Yes Review of Systems Const All systems reviewed & are unremarkable except as noted in HPI and below Physical Exam Vital Signs: BMI result Body Mass Index 29.5 Const General: cooperative, healthy appearing and no acute distress Resp Effort & Inspection: normal respiratory effort and able to speak in complete sentences Cardio Rate: regular rate Peripheral pulses: Peripheral pulses 2+ throughout GI Palpation (GI): Soft to palpation Skin Lesions: no lesions Rashes: no rashes Extrem Other: Right shoulder: Lacking 20 degrees forward flexion and abduction. Pain with cross-body reach. Negative drop arm. Negative empty can. NVI. Assessment & Plan Assessment & Plan (1) Cervical radiculopathy: Code(s): M54.12 - Radiculopathy, cervical region Category: Medical Plan Ms. Gama is a 68-year-old right hand dominant female who presents in the office today for an evaluation of right shoulder pain. Patient reports pain for the past 3 months. She states the pain is worse during the day and when at rest. Finds mild relief when taking Tylenol. Patient is interested in a cortisone injection. Patient has a complaint of pain that is positional. She reports when she is looking down with her neck in flexion she starts to develop a radiating pain from the lateral aspect of her neck into her shoulders down to her posterior aspect near the triceps, stopping in the elbow. She denies numbness or tingling. I have placed a referral for the patient to follow up with Physiatry for further evaluation. Follow up with Orthopedics will be PRN, or sooner if needed. X-rays of the right shoulder which were obtained while in the office today and were reviewed by me, Stacy Boothe PA-C, revealed no acute fracture or dislocation. Orders: Orders XR shoulder RT min 2V Today M25.519 - Pain in unspecified shoulder Patient Instructions: Scribed by Denise Moreno medical instructor, for Stacy Boothe PA-C on 10/15/2023 at 2:24 pm, EST. Coding Level of Care Code New Pt Level 4 (50321) Diagnoses Cervical radiculopathy M54.12
[2023-10-15 14:48] VITALS: BMI 29.5
== END 2023-10-15 15:24 | disposition home or self-care (01) ==
PROVIDERS: PCP Internal Medicine; Visit Provider Physician Assistant
DX: M54.12 Radiculopathy, cervical region (principal)
CPT/HCPCS: 99213

== ENCOUNTER 2023-11-07 08:42 | Outpatient (REF) | payer MEDICARE, OTHER, MEDICAID, SELFPAY ==
[2023-11-07 09:51] LABS: Anion Gap 13 (12-20); Blood Urea Nitrogen 22 mg/dL (9-16); Calcium 9.2 mg/dL (8.4-10.2); Carbon Dioxide 30 mmol/L (22-29); Chloride 106 mmol/L (96-108); Estimated Glomerular Filt Rate 49; Glucose Fasting 96 mg/dL (60-99); Potassium 4.6 mmol/L (3.3-5.1); Sodium 144 mmol/L (135-145)
== END 2023-11-07 08:43 | disposition home or self-care (01) ==
LOC: HO.LAB 08:42
PROVIDERS: PCP Internal Medicine; Visit Provider Internal Medicine Endocrinology, Diabetes & Metabolism
DX: M81.0 Age-related osteoporosis without current pathological fracture (principal)
CPT/HCPCS: 36415; 80048; 82040

== ENCOUNTER 2023-11-12 14:45 | Outpatient (AMB) | payer MEDICARE, OTHER, SELFPAY ==
[2023-11-12 14:48] VITALS: BP 158/90; PULSE 47; BMI 29.6
--- NOTE | 2023-11-12 14:48 | MHC.OFFVIS ---
Vital Signs 11/12/23 14:48 Height 5 ft Weight 151 lb 10.848 oz BMI 29.6 BP 158/90 H Blood Pressure Location Lt brachial Position Sitting Pulse 47 L Pulse Source Pulse Oximeter Intake Visit Reasons: Osteoporosis-lvm Intake Note: Patient present today for Osteoporosis follow up visit. Feather Baler Required: No Accompanied by: Self / Same As Patient Allergies carrot [CARROT] Allergy (Severe, Verified 11/12/23 14:54) ANAPHYLAXIS apple Allergy (Intermediate, Verified 11/12/23 14:54) GREEN APPLES-UNKNOWN celery [CELERY] Allergy (Intermediate, Verified 11/12/23 14:54) FROM ALLERGY TESTING RESULT lactose [LACTOSE] Allergy (Intermediate, Verified 11/12/23 14:54) diarrhea peanut [PEANUT] Allergy (Intermediate, Verified 11/12/23 14:54) THROAT ITCHING pear [Pear] Allergy (Intermediate, Verified 11/12/23 14:54) THROAT ITCHING plum [PLUM] Allergy (Intermediate, Verified 11/12/23 14:54) THROAT ITCHING trazodone [TRAZODONE] Allergy (Intermediate, Verified 11/12/23 14:54) RASH tree and shrub pollen Allergy (Intermediate, Verified 11/12/23 14:54) Itchy Eyes omeprazole Adverse Reaction (Unknown, Verified 11/12/23 14:54) leg swelling GREEN PEPPERS Allergy (Intermediate, Uncoded 11/12/23 14:54) Diarrhea Medication List - Last Reconciled 11/12/23 by Kevin Skinner MD calcitriol 0.25 mcg PO Q48H cholecalciferol (vitamin D3) (Vitamin D3) 25 mcg PO DAILY dicyclomine 20 mg PO BID 30 days diphenhydramine HCl (Benadryl) 25 mg PO ONCE PRN docusate calcium 240 mg PO ONCE PRN 1 day epinephrine (EpiPen 2-Evan) 0.3 mg IM Q4H PRN eszopiclone 3 mg PO BEDTIME 90 days Lactobac. 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 First diagnosed in December 2020. Never Received treatment in the past No history of pathologic fracture or ONJ. . Takes 1000 IU of Vitamin D daily. Denies ever using PPI, anticoagulant, antiepileptic or glucocorticoid medication. 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 UTD on dental cleanings and sees dentist every 6 months. No planned upcoming dental work or extractions. DXA dated :01/18/21 T Score of -3.0 in spine She did see Nephrology. Off hydrochlorothiazide with vitamin-D repletion, her PTH still remains quite high. She has CKD stage 3. She is about receiving f Prolia . Hyperparathyroidism is managed by Nephrology Last dose of Prolia was 06/10/2023. No fx since last visit . She is due for Prolia next month [facility] Medical History Hypovitaminosis D Age related osteoporosis Post-menopausal Anxiety Obese Chronic kidney disease Migraines Hypothyroidism Dyslipidemia Essential hypertension Surgical History History of History of total left knee replacement (TKR) History of cataract surgery History of colonoscopy History of cholecystectomy H/O knee surgery Family History Father CAD (coronary artery disease) Mother No problems noted. Social History Household Members: None Housing: House Do you presently have visiting nurse or other home services: No Alcohol intake: never Patient Tobacco Use Status: Never used Tobacco e-Cigarette/Vaping Use: Never Used Second Hand Smoke Exposure: No Advance Directives Date on File: 06/04/23 service: No Current occupational status: disabled Cognitive needs: No Hearing needs: Yes Vision needs: Yes Physical Exam Vital Signs: Last Vital Signs Pulse 47 L 11/12/23 14:48 BP 158/90 H 11/12/23 14:48 BMI result Body Mass Index 29.6 Assessment & Plan Assessment & Plan (1) Age related osteoporosis: Code(s): M81.0 - Age-related osteoporosis without current pathological fracture Category: Medical Qualifiers: Presence of current pathological fracture: without current pathological fracture Qualified Code(s): M81.0 - Age-related osteoporosis without current pathological fracture Plan: This is a 68-year-old female with a history of osteoporosis in the setting of CKD stage 3 a. Patient has elevation of PTH which could be due to secondary hyperparathyroidism . She is now vitamin-D replete on supplementation with vitamin D3 but still has significant elevation in PTH. She is followed by Nephrology for optimization of CKD BMD The plan is to continue the Prolia. Patient will also follow up with Nephrology (2) Hyperparathyroidism: Code(s): E21.3 - Hyperparathyroidism, unspecified Category: Medical Plan: PTH appears to be persistently elevated suggesting either secondary hyperparathyroidism due to CKD or component of primary hyperparathyroidism. W follow-up with nephrology for possible management of CKD BMD. I will defer management of this to Nephrology to determine whether cinacalcet or increase in calcitriol or surgery is necessary in light of the very elevation of PTH. I will attempt to call Dr. Shirley the nephrology to discuss this with him Coding Level of Care Code Est Pt Level 3 (30534) Diagnoses Age-related osteoporosis without current pathological fracture M81.0 Presence of current pathological fracture: without current pathological fracture Hyperparathyroidism E21.3
== END 2023-11-12 15:35 | disposition home or self-care (01) ==
PROVIDERS: PCP Internal Medicine; Visit Provider Internal Medicine Endocrinology, Diabetes & Metabolism
DX: M81.0 Age-related osteoporosis without current pathological fracture (principal); E21.3 Hyperparathyroidism, unspecified
CPT/HCPCS: 99213

== ENCOUNTER → 2023-11-12 14:45 | Outpatient (BNVA) | payer MEDICARE, OTHER, SELFPAY | PROVIDERS: PCP Internal Medicine; Visit Provider Internal Medicine Endocrinology, Diabetes & Metabolism | DX: M81.0 Age-related osteoporosis without current pathological fracture (principal); E21.3 Hyperparathyroidism, unspecified | CPT/HCPCS: 99212 ==

== ENCOUNTER 2023-11-14 07:07 | Outpatient (REF) | payer MEDICARE, OTHER, MEDICAID, SELFPAY ==
[2023-11-14 08:15] LABS: Appearance Urine Clear; Color Urine Yellow; Glucose Urine UA Negative (Negative); Leukocyte Esterase Urine Trace (Negative); Nitrite Urine Negative (Negative); UMIC TRIGGER UA YES; Urine Blood Negative (Negative); Urine Ketones Negative (Negative); Urine Protein Negative (Neg-Trace)
[2023-11-14 08:20] LABS: Bacteria Urine None Seen (None Seen); Hyaline Casts Urine 0-2 /LPF (0-2); RBC Urine 0-2 /HPF (0-2); Squamous Epithelial Cell Urine 0-2 /HPF (0-2); WBC Urine 0-5 /HPF (0-5)
[2023-11-14 08:30] LABS: Parathyroid Hormone Intact 265.7 pg/mL (8.7-77.1)
[2023-11-14 08:35] LABS: Anion Gap 12 (12-20); Blood Urea Nitrogen 19 mg/dL (9-16); Calcium 9.2 mg/dL (8.4-10.2); Carbon Dioxide 27 mmol/L (22-29); Chloride 107 mmol/L (96-108); Estimated Glomerular Filt Rate 46; Phosphorus 2.6 mg/dL (2.7-4.5); Potassium 3.7 mmol/L (3.3-5.1); Sodium 142 mmol/L (135-145)
[2023-11-14 08:53] LABS: Vitamin D 25-OH Total 43.6 ng/mL (>30)
[2023-11-14 09:27] LABS: Creatinine Urine 47.76 mg/dL; Microalbumin Urine < 5.0 mg/L; Total Protein Urine Random < 7 mg/dL (<12)
[2023-11-16 18:48] LABS: Calcium, Random Urine 7.3 mg/dL
[2023-11-18 10:58] LABS: VITAMIN D (1,25 OH) D3 34 pg/mL; Vit D (1,25-Dihydroxy) Total 34 pg/mL (18-72); Vitamin D (1,25 OH) D2 <8 pg/mL
== END 2023-11-14 07:08 | disposition home or self-care (01) ==
LOC: HO.LAB 07:07
PROVIDERS: PCP Internal Medicine; Visit Provider Internal Medicine Nephrology
DX: N18.31 Chronic kidney disease, stage 3a (principal); N25.81 Secondary hyperparathyroidism of renal origin; E21.2 Other hyperparathyroidism
CPT/HCPCS: 36415; 80051; 81001; 82043; 82306; 82310; 82565; 82570; 82652; 83970; 84100; 84156; 84520

== ENCOUNTER 2023-11-18 09:48 | Outpatient (AMB) | payer MEDICARE, OTHER, SELFPAY ==
[2023-11-18 09:49] VITALS: BMI 27.5
--- NOTE | 2023-11-18 09:49 | A.OFFVIS_ITS ---
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 She has had ongoing right shoulder pain that is positional, while looking down. Her pain is felt from the right side of the neck to the shoulder and also radiates down the posterior arm/tricep. Allergies carrot [CARROT] Allergy (Severe, Verified 11/18/23 09:51) ANAPHYLAXIS apple Allergy (Intermediate, Verified 11/18/23 09:51) GREEN APPLES-UNKNOWN celery [CELERY] Allergy (Intermediate, Verified 11/18/23 09:51) FROM ALLERGY TESTING RESULT lactose [LACTOSE] Allergy (Intermediate, Verified 11/18/23 09:51) diarrhea peanut [PEANUT] Allergy (Intermediate, Verified 11/18/23 09:51) THROAT ITCHING pear [Pear] Allergy (Intermediate, Verified 11/18/23 09:51) THROAT ITCHING plum [PLUM] Allergy (Intermediate, Verified 11/18/23 09:51) THROAT ITCHING trazodone [TRAZODONE] Allergy (Intermediate, Verified 11/18/23 09:51) RASH tree and shrub pollen Allergy (Intermediate, Verified 11/18/23 09:51) Itchy Eyes omeprazole Adverse Reaction (Unknown, Verified 11/18/23 09:51) leg swelling GREEN PEPPERS Allergy (Intermediate, Uncoded 11/18/23 09:51) Diarrhea Medication List - Last Reconciled 11/18/23 by Anisa Maza MD calcitriol 0.25 mcg PO Q48H cholecalciferol (vitamin D3) (Vitamin D3) 25 mcg PO DAILY dicyclomine 20 mg PO BID 30 days diphenhydramine HCl (Benadryl) 25 mg PO ONCE PRN docusate calcium 240 mg PO ONCE PRN 1 day epinephrine (EpiPen 2-Evan) 0.3 mg IM Q4H PRN eszopiclone 3 mg PO BEDTIME 90 days Lactobac. rhamnosus GG-inulin 10 billion cell -200 mg ([facility]) 1 cap PO BID levothyroxine 88 mcg PO DAILY 90 days lisinopril 30 mg PO DAILY 90 days loperamide 2 mg PO QID PRN 30 days lovastatin 20 mg PO DAILY 90 days meclizine 25 mg PO DAILY PRN propranolol ER 80 mg PO DAILY tramadol 50 mg PO DAILY 30 days zolmitriptan 5 mg PO DAILY PRN zolpidem 10 mg PO BEDTIME PRN 30 days HPI Comments Details: Pain is on shoulder blade right, bothers her daily. When she looks down, she feels the pain more. It radiates down to right arm. Occasional numbness on arm. She says she has history of arthritis on all her joints. She is worried that it may be her lungs because her sister of lung CA. She does see her PCP. She is non smoker. Seen by orthopedics for right shoulder pain. Did not think x-ray findings were remarkable or meeting surgery. Referred to physiatry for further evaluation. She has done physical therapy in the past. [facility] Medical History Hypovitaminosis D Age related osteoporosis Post-menopausal Anxiety Obese Chronic kidney disease Migraines Hypothyroidism Dyslipidemia Essential hypertension Surgical History History of History of total left knee replacement (TKR) History of cataract surgery History of colonoscopy History of cholecystectomy H/O knee surgery Family History Father CAD (coronary artery disease) Mother No problems noted. Social History Household Members: None Housing: House Do you presently have visiting nurse or other home services: No Alcohol intake: never Patient Tobacco Use Status: Never used Tobacco e-Cigarette/Vaping Use: Never Used Second Hand Smoke Exposure: No Advance Directives Date on File: 06/04/23 service: No Current occupational status: disabled Cognitive needs: No Hearing needs: Yes Vision needs: Yes Review of Systems Const All systems reviewed & are unremarkable except as noted in HPI and below Physical Exam Vital Signs: BMI result Body Mass Index 27.5 Constitutional: Patient appears to be in no acute distress, well nourished and well developed. Patient was appropriately conversant and oriented. Good historian. MSK: Inspection reveals appropriate head and neck positioning. No tenderness in spinous processes, facets or paraspinals. Tight on right upper trapezius. Rhomboids nontender. No scapular winging. Cervical ROM was full. Spurling's sign negative. Bilateral shoulder, elbow and wrist ROM WNL. No ligamentous laxity or crepitance. No increased effusion. Negative Larsen sign. Negative empty can sign. Negative speeds test. Strength is 5/5 in all muscle groups tested. No increased tone noted. Neurological: Neurologic examination of the upper and lower extremities was nonfocal with intact sensation, muscle stretch reflexes and without focal motor deficits . Parsons?s negative bilaterally. Babinski was down going bilaterally. Clonus was negative. Gait is non-antalgic without loss of balance. Results Reviewed Results Reviewed: Ordering Physician: Stacy Boothe PA-C Date of Service: 10/15/23 Procedure(s): XR shoulder RT min 2V Accession Number(s): [id number] cc: Stacy Boothe PA-C~ EXAMINATION: XR SHOULDER, RIGHT CLINICAL INFORMATION: Pain in unspecified shoulder COMPARISON: None available. TECHNIQUE: AP neutral, Grashey AP and axillary views of the right shoulder. FINDINGS: The bones are intact. No fracture Glenohumeral and acromioclavicular alignment is anatomic with normal glenohumeral joint space. Moderate to marked degenerative change of the acromioclavicular joint. No abnormal soft tissue calcifications. XR/XR shoulder RT min 2V IMPRESSION: Moderate to marked degenerative change of the acromioclavicular joint. I reviewed records from the following: Orthopedic Assessment & Plan Assessment & Plan (1) Myofascial pain: Code(s): M79.18 - Myalgia, other site Category: Medical Plan Suspect myofascial pain affecting trapezius. Did not show signs of cervical myelopathy or radiculopathy. No signs of RTC injury. Recommended PT but patient prefers to do exercises at home. List of exercises given. Apply heat at home up to TID. We discussed trial of trigger point injections. Patient eager to proceed. We will schedule. Cervical x-rays today, for completion. Assessment and plan discussed with patient, and patient was agreeable. All questions were answered thoroughly. Anisa Maza MD, ZENIA Board Certified, [place] Board [employer] Physical Medicine and Rehabilitation (ABPMR) Board Certified, [place] Board [employer] Electrodiagnostic Medicine (ABEM) Orders: Orders XR cervical spine 3V Today M54.2 - Cervicalgia Coding Level of Care Code New Pt Level 4 (60766) Diagnoses Myofascial pain M79.18
== END 2023-11-18 10:24 | disposition home or self-care (01) ==
PROVIDERS: PCP Internal Medicine; Visit Provider Physical Medicine & Rehabilitation
DX: M79.18 Myalgia, other site (principal)
CPT/HCPCS: 99203

== ENCOUNTER 2023-11-18 09:48 | Outpatient (REF) | payer MEDICARE, OTHER, SELFPAY ==
--- NOTE | ~2023-11-18 | XR_ITS ---
EXAMINATION: XR CERVICAL SPINE CLINICAL INFORMATION: Neck pain. COMPARISON: September 26, 2014 TECHNIQUE: 5 views of the cervical spine. FINDINGS: Degenerative changes between the anterior arch of C1 and the odontoid. The bones are diffusely demineralized. Cervical disc space heights are preserved. Mild multilevel cervical spondylosis. Mild anterolisthesis of C7 on T1. XR/XR cervical spine 3V IMPRESSION: Mild multilevel cervical spondylosis.
== END 2023-11-18 09:49 | disposition home or self-care (01) ==
LOC: HO.HOSX 09:48
PROVIDERS: PCP Internal Medicine; Visit Provider Physical Medicine & Rehabilitation
DX: M54.2 Cervicalgia (principal); M79.18 Myalgia, other site
CPT/HCPCS: 72040; 99202

== ENCOUNTER 2023-12-02 08:24 | Outpatient (REF) | payer MEDICARE, OTHER, MEDICAID, SELFPAY ==
[2023-12-02 09:13] LABS: Calcium 9.4 mg/dL (8.4-10.2)
== END 2023-12-02 08:25 | disposition home or self-care (01) ==
LOC: HO.LAB 08:24
PROVIDERS: PCP Internal Medicine; Visit Provider Internal Medicine Endocrinology, Diabetes & Metabolism
DX: M81.0 Age-related osteoporosis without current pathological fracture (principal)
CPT/HCPCS: 36415; 82310

== ENCOUNTER 2023-12-10 07:39 | Outpatient (REF) | payer MEDICARE, OTHER, MEDICAID, SELFPAY ==
[2023-12-10 09:06] LABS: Albumin Level 3.6 g/dL (3.5-5.0); Anion Gap 11 (12-20); Blood Urea Nitrogen 21 mg/dL (9-16); Calcium 8.8 mg/dL (8.4-10.2); Carbon Dioxide 32 mmol/L (22-29); Chloride 106 mmol/L (96-108); Estimated Glomerular Filt Rate 39; Glucose Random 94 mg/dL (60-115); Potassium 3.9 mmol/L (3.3-5.1); Sodium 145 mmol/L (135-145)
== END 2023-12-10 07:40 | disposition home or self-care (01) ==
LOC: HO.LAB 07:39
PROVIDERS: PCP Internal Medicine; Visit Provider Internal Medicine Endocrinology, Diabetes & Metabolism
DX: M81.0 Age-related osteoporosis without current pathological fracture (principal)
CPT/HCPCS: 36415; 80048; 82040

== ENCOUNTER 2023-12-11 13:23 | Outpatient (REF) | payer MEDICARE, OTHER, MEDICAID, SELFPAY ==
[2023-12-17 09:04] LABS: H Pylori Breath Test Negative (Negative)
== END 2023-12-11 13:24 | disposition home or self-care (01) ==
LOC: HO.LNP 13:23
PROVIDERS: PCP Internal Medicine; Visit Provider Internal Medicine Gastroenterology
DX: K21.9 Gastro-esophageal reflux disease without esophagitis (principal); N18.9 Chronic kidney disease, unspecified
CPT/HCPCS: 83013; 99211

== ENCOUNTER 2023-12-11 13:23 | Outpatient (AMB) | payer MEDICARE, OTHER, MEDICAID, SELFPAY ==
--- NOTE | 2023-12-11 13:35 | AM.OFFVISNUR ---
Intake Intake Visit Reasons: h pylori Allergies carrot [CARROT] Allergy (Severe, Verified 11/18/23 09:51) ANAPHYLAXIS apple Allergy (Intermediate, Verified 11/18/23 09:51) GREEN APPLES-UNKNOWN celery [CELERY] Allergy (Intermediate, Verified 11/18/23 09:51) FROM ALLERGY TESTING RESULT lactose [LACTOSE] Allergy (Intermediate, Verified 11/18/23 09:51) diarrhea peanut [PEANUT] Allergy (Intermediate, Verified 11/18/23 09:51) THROAT ITCHING pear [Pear] Allergy (Intermediate, Verified 11/18/23 09:51) THROAT ITCHING plum [PLUM] Allergy (Intermediate, Verified 11/18/23 09:51) THROAT ITCHING trazodone [TRAZODONE] Allergy (Intermediate, Verified 11/18/23 09:51) RASH tree and shrub pollen Allergy (Intermediate, Verified 11/18/23 09:51) Itchy Eyes omeprazole Adverse Reaction (Unknown, Verified 11/18/23 09:51) leg swelling GREEN PEPPERS Allergy (Intermediate, Uncoded 11/18/23 09:51) Diarrhea Nursing Note Patient presents for collection of H Pylori breath test. Patient has been fasting for 1 hour (nothing to eat, drink, no chewing gum or smoking) has not taken any antacid medication for at least 2 weeks and has no allergies to artificial sweeteners. Coding Level of Care Code Established Pt Est Pt Level 1 (88325) Patient Type Established Medical Decision Making Straight Forward Diagnoses Chronic GERD K21.9 Assessment & Plan Assessment & Plan (1) Chronic GERD: Comment: Difficult to assess- tx- due to anxiety about health, allergies- etc- not taking med- due to CKD Code(s): K21.9 - Gastro-esophageal reflux disease without esophagitis Category: Medical Plan Patient presents for collection of H Pylori breath test. Patient has been fasting for 1 hour (nothing to eat, drink, no chewing gum or smoking) has not taken any antacid medication for at least 2 weeks and has no allergies to artificial sweeteners.???This test checks for an overgrowth of bacteria in your stomach. We all have bacteria but some may have more than others. It is treatable. if the test comes back negative there is nothing else to do. If the test result is positive we will treat you with 2 antibiotics and a medication to decrease the acid in your stomach (PPI) for 2 weeks. Two weeks after you have completed the treatment we will retest you to make sure the overgrowth has resolved. Patient Instructions: Process for specimen collection and reason for testing was explained to the patient. Specimen collection. Patient instructed to take a deep breath and then exhale into the blue bag, filling it up as much as possible. Patient instructed to drink a mixture of water and the artificial sweetener with a straw. A 15 minute wait period was observed. Patient instructed to take a deep breath and then exhale into the pink bag, filling it up as much as possible.?
== END 2023-12-11 13:37 | disposition home or self-care (01) ==
PROVIDERS: PCP Internal Medicine; Visit Provider Internal Medicine Gastroenterology
DX: K21.9 Gastro-esophageal reflux disease without esophagitis (principal)

== ENCOUNTER 2023-12-16 10:48 | Outpatient (AMB) | payer MEDICARE, OTHER, SELFPAY ==
--- NOTE | 2023-12-16 11:40 | MHC.OFFVIS ---
Vital Signs 12/16/23 11:41 Height 5 ft Weight 141 lb BMI 27.5 Intake Visit Reasons: Inj-RT neck trigger injection #1 Intake Note: Yue is a 68 year old right hand dominant female who presents today for a right neck trigger injection #1. Allergies carrot [CARROT] Allergy (Severe, Verified 12/16/23 11:40) ANAPHYLAXIS apple Allergy (Intermediate, Verified 12/16/23 11:40) GREEN APPLES-UNKNOWN celery [CELERY] Allergy (Intermediate, Verified 12/16/23 11:40) FROM ALLERGY TESTING RESULT lactose [LACTOSE] Allergy (Intermediate, Verified 12/16/23 11:40) diarrhea peanut [PEANUT] Allergy (Intermediate, Verified 12/16/23 11:40) THROAT ITCHING pear [Pear] Allergy (Intermediate, Verified 12/16/23 11:40) THROAT ITCHING plum [PLUM] Allergy (Intermediate, Verified 12/16/23 11:40) THROAT ITCHING trazodone [TRAZODONE] Allergy (Intermediate, Verified 12/16/23 11:40) RASH tree and shrub pollen Allergy (Intermediate, Verified 12/16/23 11:40) Itchy Eyes omeprazole Adverse Reaction (Unknown, Verified 12/16/23 11:40) leg swelling GREEN PEPPERS Allergy (Intermediate, Uncoded 11/18/23 09:51) Diarrhea Medication List - Last Reconciled 12/16/23 by Anisa Maza MD calcitriol 0.25 mcg PO Q48H cholecalciferol (vitamin D3) (Vitamin D3) 25 mcg PO DAILY dicyclomine 20 mg PO BID 30 days diphenhydramine HCl (Benadryl) 25 mg PO ONCE PRN docusate calcium 240 mg PO ONCE PRN 1 day epinephrine (EpiPen 2-Evan) 0.3 mg IM Q4H PRN eszopiclone 3 mg PO BEDTIME 90 days Lactobac. rhamnosus GG-inulin 10 billion cell -200 mg ([facility] [employer]) 1 cap PO BID levothyroxine 88 mcg PO DAILY 90 days lisinopril 30 mg PO DAILY 90 days loperamide 2 mg PO QID PRN 30 days lovastatin 20 mg PO DAILY 90 days meclizine 25 mg PO DAILY PRN propranolol ER 80 mg PO DAILY tramadol 50 mg PO DAILY 30 days zolmitriptan 5 mg PO DAILY PRN zolpidem 10 mg PO BEDTIME PRN 30 days HPI Comments Details: Here for scheduled trigger point injection #1 PFSH Medical History Hypovitaminosis D Age related osteoporosis Post-menopausal Anxiety Obese Chronic kidney disease Migraines Hypothyroidism Dyslipidemia Essential hypertension Surgical History History of History of total left knee replacement (TKR) History of cataract surgery History of colonoscopy History of cholecystectomy H/O knee surgery Family History Father CAD (coronary artery disease) Mother No problems noted. Social History Household Members: None Housing: House Do you presently have visiting nurse or other home services: No Alcohol intake: never Patient Tobacco Use Status: Never used Tobacco e-Cigarette/Vaping Use: Never Used Second Hand Smoke Exposure: No Advance Directives Date on File: 06/04/23 service: No Current occupational status: disabled Cognitive needs: No Hearing needs: Yes Vision needs: Yes Physical Exam Vital Signs: BMI result Body Mass Index 27.5 Office Procedures Therapeutic Injection Therapeutic Injection Details: Trigger point injection, right upper trapezius. Conset obtained. Two Trigger points palpated on right upper trapezius. 1 ml of 2% Lidocaine injected in each site, total of 2 mL. Patient tolerated procedure well. Post-injection instructions given. [id number] Point Injection 1 or 2 sites All charges added?: Procedure code (CPT) selection complete Assessment & Plan Assessment & Plan (1) Myofascial pain: Code(s): M79.18 - Myalgia, other site Category: Medical Plan Tolerated procedure well. Second injection scheduled in 2 weeks. Post-injection instructions given. Assessment and plan discussed with patient, and patient was agreeable. All questions were answered thoroughly. Anisa Maza MD, ZENIA Board Certified, [place] Board [employer] Physical Medicine and Rehabilitation (ABPMR) Board Certified, [place] Board [employer] Electrodiagnostic Medicine (ABEM) Orders: Orders Trigger Point Injection Today M79.18 - Myalgia, other site Coding Level of Care Code Procedure Only Diagnoses Myofascial pain M79.18 CPT Codes Therapeutic Injection - Ther Injection 1: [id number] Point Injection 1 or 2 sites ([id number])
[2023-12-16 11:41] VITALS: BMI 27.5
== END 2023-12-16 11:52 | disposition home or self-care (01) ==
PROVIDERS: PCP Internal Medicine; Visit Provider Physical Medicine & Rehabilitation
DX: M54.2 Cervicalgia (principal); M79.18 Myalgia, other site
CPT/HCPCS: 20552

== ENCOUNTER → 2023-12-16 10:48 | Outpatient (BNVA) | payer MEDICARE, OTHER, SELFPAY ==
--- NOTE | 2023-12-18 00:31 | PM.PNNEP ---
Subjective Subjective Date of Service: 12/17/23 Principal diagnosis: CKD 3, ADPKD, QUes Primary HPtism Interval history: Seen today and full note [id number] Avail by Migue Cleary if needed Procedures Date of Service Date of Service: 12/18/23 Assessment & Plan Time Spent With Patient Time: Total time managing care of this patient today ____ minutes.
== END ==
PROVIDERS: PCP Internal Medicine; Visit Provider Physical Medicine & Rehabilitation
DX: M81.0 Age-related osteoporosis without current pathological fracture (principal); E21.3 Hyperparathyroidism, unspecified; M79.18 Myalgia, other site; Z78.0 Asymptomatic menopausal state
CPT/HCPCS: 20552; 96372; 99212; J0897

== ENCOUNTER 2023-12-16 14:53 | Outpatient (AMB) | payer MEDICARE, OTHER, SELFPAY ==
--- NOTE | 2023-12-16 15:19 | AM.OFFVISNUR ---
Intake Intake Visit Reasons: Prolia injection Allergies carrot [CARROT] Allergy (Severe, Verified 12/16/23 14:59) ANAPHYLAXIS apple Allergy (Intermediate, Verified 12/16/23 14:59) GREEN APPLES-UNKNOWN celery [CELERY] Allergy (Intermediate, Verified 12/16/23 14:59) FROM ALLERGY TESTING RESULT lactose [LACTOSE] Allergy (Intermediate, Verified 12/16/23 14:59) diarrhea peanut [PEANUT] Allergy (Intermediate, Verified 12/16/23 14:59) THROAT ITCHING pear [Pear] Allergy (Intermediate, Verified 12/16/23 14:59) THROAT ITCHING plum [PLUM] Allergy (Intermediate, Verified 12/16/23 14:59) THROAT ITCHING trazodone [TRAZODONE] Allergy (Intermediate, Verified 12/16/23 14:59) RASH tree and shrub pollen Allergy (Intermediate, Verified 12/16/23 14:59) Itchy Eyes omeprazole Adverse Reaction (Unknown, Verified 12/16/23 14:59) leg swelling GREEN PEPPERS Allergy (Intermediate, Uncoded 12/16/23 14:59) Diarrhea Office Meds Prolia 60 mg/mL subcutaneous syringe Performing Provider: Kevin Skinner MD Performing Location: [facility] [place] Endocrinology Administered by: Di Hood RN on 12/16/23 15:20 Dose Route Admin Location Dispensed Lot Number Expiration Date [facility] [employer] 60 mg subcut 1 mL [id number] 12/19/25 95425-570-94 AMGEN Comments: Patient consent form signed. Labs reviewed by Dr. Skinner, given okay to give. Pt tolerated injection well and denies any past side effects. Pt aware of when to seek ER for eval. Coding Assessment & Plan Assessment & Plan Orders: Orders AMB Denosumab Injection Patient Supplied Today M81.0 - Age-related osteoporosis without current pathological fracture Medications: New Prolia (denosumab) 60 mg subcut ONCE 1 mL 0RF NS M81.0 - Age-related osteoporosis without current pathological fracture
== END 2023-12-16 15:21 | disposition home or self-care (01) ==
PROVIDERS: PCP Internal Medicine
DX: M81.0 Age-related osteoporosis without current pathological fracture (principal)

== ENCOUNTER 2023-12-16 14:53 | Outpatient (AMB) | payer MEDICARE, OTHER, SELFPAY ==
[2023-12-16 14:56] VITALS: BP 174/100; PULSE 71; BMI 30.7
--- NOTE | 2023-12-16 14:56 | A.OFFVIS_ITS ---
Vital Signs 12/16/23 14:56 Height 5 ft Weight 157 lb 3.033 oz BMI 30.7 BP 174/100 H Blood Pressure Location Lt brachial Position Sitting Pulse 71 Pulse Source Pulse Oximeter Intake Visit Reasons: Osteoporosis Intake Note: Patient present today for Osteoporosis follow up visit. Payroll Manager Required: No Accompanied by: Self / Same As Patient Allergies carrot [CARROT] Allergy (Severe, Verified 12/16/23 14:59) ANAPHYLAXIS apple Allergy (Intermediate, Verified 12/16/23 14:59) GREEN APPLES-UNKNOWN celery [CELERY] Allergy (Intermediate, Verified 12/16/23 14:59) FROM ALLERGY TESTING RESULT lactose [LACTOSE] Allergy (Intermediate, Verified 12/16/23 14:59) diarrhea peanut [PEANUT] Allergy (Intermediate, Verified 12/16/23 14:59) THROAT ITCHING pear [Pear] Allergy (Intermediate, Verified 12/16/23 14:59) THROAT ITCHING plum [PLUM] Allergy (Intermediate, Verified 12/16/23 14:59) THROAT ITCHING trazodone [TRAZODONE] Allergy (Intermediate, Verified 12/16/23 14:59) RASH tree and shrub pollen Allergy (Intermediate, Verified 12/16/23 14:59) Itchy Eyes omeprazole Adverse Reaction (Unknown, Verified 12/16/23 14:59) leg swelling GREEN PEPPERS Allergy (Intermediate, Uncoded 12/16/23 14:59) Diarrhea HPI Comments Details: 68 YO Female with PMHx 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 First diagnosed in December 2020. Never Received treatment in the past No history of pathologic fracture or ONJ. . Takes 1000 IU of Vitamin D daily. Denies ever using PPI, anticoagulant, antiepileptic or glucocorticoid medication. 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 UTD on dental cleanings and sees dentist every 6 months. No planned upcoming dental work or extractions. DXA dated :01/18/21 T Score of -3.0 in spine She did see Nephrology. Off hydrochlorothiazide with vitamin-D repletion, her PTH still remains quite high. She has CKD stage 3. She is about receiving f Prolia . Hyperparathyroidism is managed by Nephrology Receiving dose of Prolia today No fx since last visit . [facility] Medical History Hypovitaminosis D Age related osteoporosis Post-menopausal Anxiety Obese Chronic kidney disease Migraines Hypothyroidism Dyslipidemia Essential hypertension Surgical History History of History of total left knee replacement (TKR) History of cataract surgery History of colonoscopy History of cholecystectomy H/O knee surgery Family History Father CAD (coronary artery disease) Mother No problems noted. Social History Household Members: None Housing: House Do you presently have visiting nurse or other home services: No Alcohol intake: never Patient Tobacco Use Status: Never used Tobacco e-Cigarette/Vaping Use: Never Used Second Hand Smoke Exposure: No Advance Directives Date on File: 06/04/23 service: No Current occupational status: disabled Cognitive needs: No Hearing needs: Yes Vision needs: Yes Physical Exam Vital Signs: Last Vital Signs Pulse 71 12/16/23 14:56 BP 174/100 H 12/16/23 14:56 BMI result Body Mass Index 30.7 Assessment & Plan Assessment & Plan (1) Age related osteoporosis: Code(s): M81.0 - Age-related osteoporosis without current pathological fracture Category: Medical Qualifiers: Presence of current pathological fracture: without current pathological fracture Qualified Code(s): M81.0 - Age-related osteoporosis without current pathological fracture Plan: This is a 68-year-old female with a history of osteoporosis in the setting of CKD stage 3 a. Patient has elevation of PTH which could be due to secondary hyperparathyroidism . She is now vitamin-D replete on supplementation with vitamin D3 but still has significant elevation in PTH. She is followed by Nephrology for optimization of CKD BMD The plan is to continue the Prolia. Patient will also follow up with Nephrology (2) Hyperparathyroidism: Code(s): E21.3 - Hyperparathyroidism, unspecified Category: Medical Plan: PTH appears to be persistently elevated suggesting either secondary hyperparathyroidism due to CKD or component of primary hyperparathyroidism. W follow-up with nephrology for possible management of CKD BMD. I will defer management of this to Nephrology to determine whether cinacalcet or increase in calcitriol or surgery is necessary in light of the very elevation of PTH. She has an appointment with Dr. Chou to determine whether parathyroidectomy is appropriate in the next month Orders: Orders Calcium 7 Days M81.0 - Age-related osteoporosis without current pathological fracture Albumin Level 7 Days M81.0 - Age-related osteoporosis without current pathological fracture Basic Metabolic Panel Fasting 7 Days M81.0 - Age-related osteoporosis without current pathological fracture AMB Denosumab Injection Patient Supplied Today M81.0 - Age-related osteoporosis without current pathological fracture Medications: New Prolia (denosumab) 60 mg subcut ONCE 1 mL 0RF NS M81.0 - Age-related osteoporosis without current pathological fracture Coding Level of Care Code Est Pt Level 3 (00498) Diagnoses Age-related osteoporosis without current pathological fracture M81.0 Presence of current pathological fracture: without current pathological fracture Hyperparathyroidism E21.3
== END 2023-12-16 15:15 | disposition home or self-care (01) ==
PROVIDERS: PCP Internal Medicine; Visit Provider Internal Medicine Endocrinology, Diabetes & Metabolism
DX: M81.0 Age-related osteoporosis without current pathological fracture (principal); E21.3 Hyperparathyroidism, unspecified
CPT/HCPCS: 99213

== ENCOUNTER 2023-12-23 10:38 | Outpatient (AMB) | payer MEDICARE, OTHER, SELFPAY ==
--- NOTE | 2023-12-23 10:39 | A.OFFVIS_ITS ---
Vital Signs 12/23/23 10:43 Height 5 ft Weight 157 lb BMI 30.7 Intake Visit Reasons: Inj-RT neck trigger injection #2 Intake Note: Yue is a 68 year old female who presents today for a right upper trapezius trigger injection #2. Last injection on 12/16/23. Patient states after her first injection she is feeling much better. Allergies carrot [CARROT] Allergy (Severe, Verified 12/23/23 10:43) ANAPHYLAXIS apple Allergy (Intermediate, Verified 12/23/23 10:43) GREEN APPLES-UNKNOWN celery [CELERY] Allergy (Intermediate, Verified 12/23/23 10:43) FROM ALLERGY TESTING RESULT lactose [LACTOSE] Allergy (Intermediate, Verified 12/23/23 10:43) diarrhea peanut [PEANUT] Allergy (Intermediate, Verified 12/23/23 10:43) THROAT ITCHING pear [Pear] Allergy (Intermediate, Verified 12/23/23 10:43) THROAT ITCHING plum [PLUM] Allergy (Intermediate, Verified 12/23/23 10:43) THROAT ITCHING trazodone [TRAZODONE] Allergy (Intermediate, Verified 12/23/23 10:43) RASH tree and shrub pollen Allergy (Intermediate, Verified 12/23/23 10:43) Itchy Eyes omeprazole Adverse Reaction (Unknown, Verified 12/23/23 10:43) leg swelling GREEN PEPPERS Allergy (Intermediate, Uncoded 12/23/23 10:43) Diarrhea Medication List - Last Reconciled 12/23/23 by Anisa Maza MD calcitriol 0.25 mcg PO Q48H cholecalciferol (vitamin D3) (Vitamin D3) 25 mcg PO DAILY dicyclomine 20 mg PO BID 30 days diphenhydramine HCl (Benadryl) 25 mg PO ONCE PRN docusate calcium 240 mg PO ONCE PRN 1 day epinephrine (EpiPen 2-Evan) 0.3 mg IM Q4H PRN eszopiclone 3 mg PO BEDTIME 90 days Lactobac. rhamnosus GG-inulin 10 billion cell -200 mg ([facility] Daily[facility]) 1 cap PO BID levothyroxine 88 mcg PO DAILY 90 days lisinopril 30 mg PO DAILY 90 days loperamide 2 mg PO QID PRN 30 days lovastatin 20 mg PO DAILY 90 days meclizine 25 mg PO DAILY PRN propranolol ER 80 mg PO DAILY tramadol 50 mg PO DAILY 30 days zolmitriptan 5 mg PO DAILY PRN zolpidem 10 mg PO BEDTIME PRN 30 days HPI Comments Details: Feels better since injection last week. [facility] Medical History Hypovitaminosis D Age related osteoporosis Post-menopausal Anxiety Obese Chronic kidney disease Migraines Hypothyroidism Dyslipidemia Essential hypertension Surgical History History of History of total left knee replacement (TKR) History of cataract surgery History of colonoscopy History of cholecystectomy H/O knee surgery Family History Father CAD (coronary artery disease) Mother No problems noted. Social History Household Members: None Housing: House Do you presently have visiting nurse or other home services: No Alcohol intake: never Patient Tobacco Use Status: Never used Tobacco e-Cigarette/Vaping Use: Never Used Second Hand Smoke Exposure: No Advance Directives Date on File: 06/04/23 service: No Current occupational status: disabled Cognitive needs: No Hearing needs: Yes Vision needs: Yes Physical Exam Vital Signs: BMI result Body Mass Index 30.7 Office Procedures Therapeutic Injection Therapeutic Injection Details: Trigger point injection, right upper trapezius. Conset obtained. Trigger points palpated, two on right upper trapezius. 1 ml of 2% Lidocaine injected in each site, total of 2 mL. Patient tolerated procedure well. Post-injection instructions given. 30920-Elehnyo Point Injection 1 or 2 sites All charges added?: Procedure code (CPT) selection complete Assessment & Plan Assessment & Plan (1) Myofascial pain: Code(s): M79.18 - Myalgia, other site Category: Medical Plan Last injection next week. Patient tolerated procedure well today. Assessment and plan discussed with patient, and patient was agreeable. All questions were answered thoroughly. Anisa Maza MD, ZENIA Board Certified, [place] [employer] and Rehabilitation (ABPMR) Board Certified, [place] Board [employer] Electrodiagnostic Medicine (ABEM) Orders: Orders Trigger Point Injection Today M79.18 - Myalgia, other site Coding Level of Care Code Procedure Only Diagnoses Myofascial pain M79.18 CPT Codes Therapeutic Injection - Ther Injection 1: [id number]-[id number] Point Injection 1 or 2 sites ([id number])
[2023-12-23 10:43] VITALS: BMI 30.7
== END 2023-12-23 10:55 | disposition home or self-care (01) ==
PROVIDERS: PCP Internal Medicine; Visit Provider Physical Medicine & Rehabilitation
DX: M79.18 Myalgia, other site (principal)
CPT/HCPCS: 20552

== ENCOUNTER → 2023-12-23 10:38 | Outpatient (BNVA) | payer MEDICARE, OTHER, SELFPAY | PROVIDERS: PCP Internal Medicine; Visit Provider Physical Medicine & Rehabilitation | DX: M79.18 Myalgia, other site (principal) | CPT/HCPCS: 20552 ==

== ENCOUNTER 2023-12-31 13:31 | Outpatient (AMB) | payer MEDICARE, OTHER, SELFPAY ==
--- NOTE | 2023-12-31 13:41 | A.OFFVIS_ITS ---
Intake Visit Reasons: inj-RT neck trigger injection #3 Intake Note: Yue is a 68 year old female who presents to the office today for a RT neck trigger point injection #3. Last injection done 12/23/23. Patient reports she has found relief with these injections, she has occasional pain when she looks down but says it is not like before. Allergies carrot [CARROT] Allergy (Severe, Verified 12/23/23 10:43) ANAPHYLAXIS apple Allergy (Intermediate, Verified 12/23/23 10:43) GREEN APPLES-UNKNOWN celery [CELERY] Allergy (Intermediate, Verified 12/23/23 10:43) FROM ALLERGY TESTING RESULT lactose [LACTOSE] Allergy (Intermediate, Verified 12/23/23 10:43) diarrhea peanut [PEANUT] Allergy (Intermediate, Verified 12/23/23 10:43) THROAT ITCHING pear [Pear] Allergy (Intermediate, Verified 12/23/23 10:43) THROAT ITCHING plum [PLUM] Allergy (Intermediate, Verified 12/23/23 10:43) THROAT ITCHING trazodone [TRAZODONE] Allergy (Intermediate, Verified 12/23/23 10:43) RASH tree and shrub pollen Allergy (Intermediate, Verified 12/23/23 10:43) Itchy Eyes omeprazole Adverse Reaction (Unknown, Verified 12/23/23 10:43) leg swelling GREEN PEPPERS Allergy (Intermediate, Uncoded 12/23/23 10:43) Diarrhea HPI Comments Details: Has done well with trigger point injections. Right side feels much less tense. [facility] Medical History Hypovitaminosis D Age related osteoporosis Post-menopausal Anxiety Obese Chronic kidney disease Migraines Hypothyroidism Dyslipidemia Essential hypertension Surgical History History of History of total left knee replacement (TKR) History of cataract surgery History of colonoscopy History of cholecystectomy H/O knee surgery Family History Father CAD (coronary artery disease) Mother No problems noted. Social History Household Members: None Housing: House Do you presently have visiting nurse or other home services: No Alcohol intake: never Patient Tobacco Use Status: Never used Tobacco e-Cigarette/Vaping Use: Never Used Second Hand Smoke Exposure: No Advance Directives Date on File: 06/04/23 service: No Current occupational status: disabled Cognitive needs: No Hearing needs: Yes Vision needs: Yes Office Procedures Therapeutic Injection Therapeutic Injection Details: Trigger point injection, right upper trapezius. Conset obtained. Trigger points palpated, 2 on right upper trapezius. 1 ml of 2% Lidocaine injected in each site, total of 2 mL. Patient tolerated procedure well. Post-injection instructions given. [id number] Point Injection 1 or 2 sites All charges added?: Procedure code (CPT) selection complete Assessment & Plan Assessment & Plan (1) Myofascial pain: Code(s): M79.18 - Myalgia, other site Category: Medical Plan Has done well. No complications. Assessment and plan discussed with patient, and patient was agreeable. All questions were answered thoroughly. Follow up 6 months or as needed. Anisa Maza MD, ZENIA Board Certified, [place] [employer] and Rehabilitation (ABPMR) Board Certified, [place] [employer] Electrodiagnostic Medicine (ABEM) Orders: Orders Trigger Point Injection Today M79.18 - Myalgia, other site Coding Level of Care Code Procedure Only Diagnoses Myofascial pain M79.18 CPT Codes Therapeutic Injection - Ther Injection 1: 38103-Rvzreml Point Injection 1 or 2 sites ([id number])
== END 2023-12-31 13:53 | disposition home or self-care (01) ==
PROVIDERS: PCP Internal Medicine; Visit Provider Physical Medicine & Rehabilitation
DX: M79.18 Myalgia, other site (principal)
CPT/HCPCS: 20552

== ENCOUNTER → 2023-12-31 13:31 | Outpatient (BNVA) | payer MEDICARE, OTHER, SELFPAY | PROVIDERS: PCP Internal Medicine; Visit Provider Physical Medicine & Rehabilitation | DX: M79.18 Myalgia, other site (principal) | CPT/HCPCS: 20552 ==

== ENCOUNTER 2024-01-07 11:12 | Outpatient (REF) | payer MEDICARE, OTHER, MEDICAID, SELFPAY ==
[2024-01-07 13:31] LABS: Albumin Level 4.4 g/dL (3.5-5.0); Anion Gap 14 (12-20); Blood Urea Nitrogen 28 mg/dL (9-16); Calcium 9.4 mg/dL (8.4-10.2); Carbon Dioxide 27 mmol/L (22-29); Chloride 105 mmol/L (96-108); Estimated Glomerular Filt Rate 41; Glucose Fasting 88 mg/dL (60-99); Potassium 4.7 mmol/L (3.3-5.1); Sodium 141 mmol/L (135-145)
== END 2024-01-07 11:13 | disposition home or self-care (01) ==
LOC: HO.LAB 11:12
PROVIDERS: Absent Provider Internal Medicine; PCP Internal Medicine; Visit Provider Internal Medicine Endocrinology, Diabetes & Metabolism
DX: M81.0 Age-related osteoporosis without current pathological fracture (principal)
CPT/HCPCS: 36415; 80048; 82040

== ENCOUNTER 2024-01-13 16:39 | Outpatient (AMB) | payer MEDICARE, OTHER, MEDICAID, SELFPAY ==
[2024-01-13 16:48] VITALS: BP 138/90; BMI 30.7
--- NOTE | 2024-01-13 16:48 | A.OFFVIS_ITS ---
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 Accompanied by: Self / Same As Patient Allergies carrot [CARROT] Allergy (Severe, Verified 01/13/24 17:06) ANAPHYLAXIS apple Allergy (Intermediate, Verified 01/13/24 17:06) GREEN APPLES-UNKNOWN celery [CELERY] Allergy (Intermediate, Verified 01/13/24 17:06) FROM ALLERGY TESTING RESULT lactose [LACTOSE] Allergy (Intermediate, Verified 01/13/24 17:06) diarrhea peanut [PEANUT] Allergy (Intermediate, Verified 01/13/24 17:06) THROAT ITCHING pear [Pear] Allergy (Intermediate, Verified 01/13/24 17:06) THROAT ITCHING plum [PLUM] Allergy (Intermediate, Verified 01/13/24 17:06) THROAT ITCHING trazodone [TRAZODONE] Allergy (Intermediate, Verified 01/13/24 17:06) RASH tree and shrub pollen Allergy (Intermediate, Verified 01/13/24 17:06) Itchy Eyes omeprazole Adverse Reaction (Unknown, Verified 01/13/24 17:06) leg swelling GREEN PEPPERS Allergy (Intermediate, Uncoded 01/13/24 17:06) Diarrhea Medication List - Last Reconciled 01/13/24 by Mirta Jimenez MD amlodipine 5 mg PO DAILY calcitriol 0.25 mcg PO Q48H cholecalciferol (vitamin D3) (Vitamin D3) 25 mcg PO DAILY dicyclomine 20 mg PO BID 30 days diphenhydramine HCl (Benadryl) 25 mg PO ONCE PRN docusate calcium 240 mg PO ONCE PRN 1 day epinephrine (EpiPen 2-Evan) 0.3 mg IM Q4H PRN eszopiclone 3 mg PO BEDTIME 90 days Lactobac. rhamnosus GG-inulin 10 billion cell -200 mg ([facility]) 1 cap PO BID levothyroxine 88 mcg PO DAILY 90 days lisinopril 30 mg PO DAILY 90 days loperamide 2 mg PO QID PRN 30 days lovastatin 20 mg PO DAILY 90 days meclizine 25 mg PO DAILY PRN propranolol ER 80 mg PO DAILY tramadol 50 mg PO DAILY 30 days zolmitriptan 5 mg PO DAILY PRN HPI HPI Comments History of Present Illness Details This is a 68-year-old female with mild major depression that comes for her Medicare annual wellness exam. Ppp handed to patient. Mammogram done 2023 was normal. Colonoscopy done 2023 was normal. Pap smear not indicated due to age. Able to walk with no assistive device. Hyperparathyroidism follow by Endocrinology. [facility] Medical History (Updated 01/13/24 @ 19:35 by Mirta Jimenez MD) Hypovitaminosis D Age related osteoporosis Post-menopausal Anxiety Obese Chronic kidney disease Migraines Hypothyroidism Dyslipidemia Essential hypertension Surgical History (Updated 01/13/24 @ 17:11 by Mirta Jimenez MD) Hx of appendectomy History of History of total left knee replacement (TKR) History of cataract surgery History of colonoscopy History of cholecystectomy H/O knee surgery Family History Father CAD (coronary artery disease) Mother No problems noted. Social History Household Members: None Housing: House Do you presently have visiting nurse or other home services: No Alcohol intake: never Patient Tobacco Use Status: Never used Tobacco e-Cigarette/Vaping Use: Never Used Second Hand Smoke Exposure: No Advance Directives Date on File: 06/04/23 service: No Current occupational status: disabled Cognitive needs: No Hearing needs: Yes Vision needs: Yes Questionnaire Medicare Wellness Checkup [age] What gender do you identify with?: female During the past 4 weeks, how much have you been bothered by emotional problems such as feeling anxious, depressed, irritable, sad or downhearted, and blue?: slightly During the past 4 weeks, has your physical & emotional health limited your social activities with family, friends, neighbors, or groups?: slightly During the past 4 weeks, how much bodily pain have you generally had?: mild pain During the past 4 weeks, was someone available to help you if you needed & wanted help?: yes, quite a bit During the past 4 weeks, what was the hardest physical activity you could do for at least 2 minutes?: light Can you get to places out of walking distance without help? (For eg., can you travel alone on buses, taxis or drive your car?): No Can you go shopping for groceries or clothes without someone's help?: Yes Can you prepare your own meals?: Yes Can you do your housework without help?: No Because of any health problems, do you need the help of another person with your personal care needs such as eating, bathing, dressing or getting around the house?: Yes Can you handle your own money without help?: Yes During the past 4 weeks, how would you rate your health in general?: good During the past 4 weeks how have things been going for you?: pretty bad Are you having difficulties driving your car?: sometimes Do you always fasten your seat belt when you are in a car?: yes, usually During past 4 weeks, have you been bothered by the following: never: Sexual problems?, Trouble eating well?, Teeth or denture problems? and Tiredness or fatigue?, seldom: Problems using the telephone? and sometimes: Falling or dizzy when standing up Have you fallen 2 or more times in the past year?: Yes Are you afraid of falling?: No Are you a smoker?: no During the past 4 weeks, how many drinks of wine, beer, or other alcoholic beverages did you have?: no alcohol at all Do you exercise for about 20 minutes 3 or more times a week?: no, I usually do not exercise this much Have you been given information to help with the following?: no: Hazards in your house that might hurt you? and no: Keeping track of your medications? How often do you have trouble taking medicines the way you have been told to take them?: I always take medicine as prescribed How confident are you that you can control & manage most of your health problems?: somewhat confident What is your race?: or origin or descent Mini Mental State Exam (MMSE) Orientation What is the (year) (season) (date) (day) (month)?: year, season, date, day and month Where are we (state) (county) (town or city) (hospital) (floor)?: state, county, town or city, hospital/clinic and floor Registration Name of 3 unrelated objects clearly and slowly, then ask patient to repeat all 3 of them. (1st repeat determines score. Make sure they can repeat all three): object 1, object 2 and object 3 Attention & Calculation (CHOOSE ONE) Spell WORLD backwards (DLROW): 4 letters Language Show patient a wristwatch & ask what it is. Repeat for pencil.: watch and pencil Ask the patient to repeat the phrase 'No ifs, ands, or buts' after you.: correct Ask the patient to 'take a piece of paper with their right hand' 'fold paper in half' 'place paper on floor': take paper in right hand, fold paper in half and place paper on floor Print the sentence 'CLOSE YOUR EYES' on a piece. If patient actually closes eyes then score.: followed written direction Give patient a blank piece of paper & ask to write a sentence. Score if it contains a noun & verb.: sentence contains subject and verb Score Score: 25 Activity of Daily Living Bathing - sponge bath, tub bath or shower: receives no assistance (gets in/out by self, if usual bathing means Transfer: moves in & out of bed and chair without help (may use support object) Continence: controls urination/bowel movements completely by self Feeding: feeds self without help Total Score: 0 Information obtained from: patient Using telephone: independent Traveling: independent Shopping: independent Preparing meals: independent Housework: independent Taking medicine: independent Managing money: independent PHQ-9 Over the last 2 weeks, how often have you been bothered by any of the following problems? 1. Little interest or pleasure in doing things: several days 2. Feeling down, depressed, or hopeless: not at all 3. Trouble falling or staying asleep, or sleeping too much: several days 4. Feeling tired or having little energy: several days 5. Poor appetite or overeating: several days 6. Feeling bad about yourself - or that you are a failure or have let yourself or your family down: not at all 7. Trouble concentrating on things, such as reading the newspaper or watching television: several days 8. Moving or speaking so slowly that other people could have noticed. Or the opposite - being so fidgety or restless that you have been moving around a lot more than usual: several days 9. Thoughts that you would be better off or of hurting yourself in some way: not at all Total score: 6 Depression Screening Interpretation: Positive Depression Screening Follow-up: Existing condition, New Medication prescribed and Follow-up Visit Requested Depression Screening Done: Yes 86995 - PHQ-9 Billing: Yes Source: Developed by Drs. Kevin Pagan, Alfred Cavazos and colleagues, with an educational joon from [employer]. JANETH-7 AMB Questionnaire JANEHT-7 Date JANETH - 7 assessed: 01/13/24 Feeling nervous, anxious, or on edge: 1 = Several days Not being able to stop or control worryin = Not at all Worrying too much about different things: 1 = Several days Trouble relaxin = Not at all Being so restless that it is hard to sit still: 0 = Not at all Becoming easily annoyed or irritable: 1 = Several days Feeling afraid as if something awful might happen: 0 = Not at all Total JANETH-7 score (0-4 normal; 5-9 mild; 10-14 moderate; 15-21 severe): 3 Source: Developed by Drs. Kevin Pagan, Milli Ravi, Alfred Deleon and colleagues, with an educational joon from [employer]. JANETH-7 Assessment Billing JANETH-7 Assessment Tool: JANETH-7 Assessment 34071 Fall Risk Assessment Fall Risk Assessment Fall risk assessment: No Falls in past year Thrive Questionnaire Date Thrive assessed: 01/13/24 I am a: Patient What is your living situation today?: I have a steady place to live Within the past 12 months, did the food you bought not last and you didn't have the money to get more?: Never true Within the past 12 months, did you worry whether your food would run out before you got money to buy more?: Never true Do you have trouble paying for medicines?: No Do you have trouble getting transportation to medical appointments?: No Do you have trouble paying your heating and electricity bill?: No Do you have trouble taking care of your child, family member or friend?: No Do you have trouble with day-to-day activities such as bathing, preparing meals, shopping, managing finances, etc.?: No Are you currently unemployed and looking for a job?: No Are you interested in more education?: No Please select the resources that you would like help with: None Currently or been in a relationship where the following occur: No concerns reported THRIVE Score: 0 AUDIT C Alcohol Use Questionnaire (AUDIT-C) 1. How often do you have a drink containing alcohol?: Never Total Score: 0 Score Reviewed/Action Taken: No Review of Systems Const All systems reviewed & are unremarkable except as noted in HPI and below Eyes Reports no additional complaints, Denies change in vision and Denies other visual disturbances Card Denies chest pain at rest, Denies chest pain with activity, Denies edema, Denies irregular heart rhythm, Denies claudication, Denies dyspnea, Denies dyspnea on exertion, Denies orthopnea, Denies paroxysmal nocturnal dyspnea and Denies slow heart rate Resp Denies cough, Denies dyspnea and Denies dyspnea on exertion GI Denies abdominal pain, Denies change in bowel habits, Denies excessive flatus, Denies nausea and Denies vomiting Neuro Denies confusion Psych Denies confusion Physical Exam Vital Signs: Last Vital Signs BP 138/90 H 01/12/ 16:48 BMI result Body Mass Index 30.7 Const General: No confusion Orientation/consciousness: patient oriented x3 and No confusion HEENT Ears: hearing grossly normal bilaterally Resp Effort & Inspection: normal respiratory effort Auscultation: clear to auscultation bilaterally Cardio Jugular venous distension: no JVD Rate: regular rate Rhythm: regular rhythm Heart sounds: S1 normal heart sound present and S2 normal heart sound present Neuro General: patient oriented x3, no focal motor deficits and No confusion Romberg Test: Negative Extrem General: Yes full ROM Psych Affect: Anxious affect present Assessment & Plan Assessment & Plan (1) Encounter for Medicare annual wellness exam: Code(s): Z00.00 - Encounter for general adult medical examination without abnormal findings Plan: Repeat in a year. (2) Mild major depression: Code(s): F32.0 - Major depressive disorder, single episode, mild Plan: Start sertraline. (3) Hyperparathyroidism: Code(s): E21.3 - Hyperparathyroidism, unspecified Plan: Continue follow-up with endocrinology. Orders: Orders Comprehensive [place]. Panel Fast Today K21.9 - Gastro-esophageal reflux disease without esophagitis Thyroid Stimulating Hormone Today E03.9 - Hypothyroidism, unspecified Lipid Panel Today E78.5 - Hyperlipidemia, unspecified Vitamin D 25-OH Total Today E55.9 - Vitamin D deficiency, unspecified Medications: New sertraline 25 mg PO DAILY 90 tabs 1RF 90 days F32.0 - Major depressive disorder, single episode, mild, F41.9 - Anxiety disorder, unspecified Refilled eszopiclone 3 mg PO BEDTIME 90 tabs 0RF 90 days Quality Reporting (2019) Fall Risk Screening ([facility] 139) Fall risk assessment: No Falls in past year Depression/Bipolar (159/160/161/177) PHQ-9: Total score: 6 Coding Level of Care Code Medicare Subsequent (G0439) Diagnoses Encounter for Medicare annual wellness exam Z00.00 Mild major depression F32.0 Hyperparathyroidism E21.3 Additional Codes JANETH-7 Assessment Billing - JANETH-7 Assessment Tool: JANETH-7 Assessment 00414 ([id number]) Time Spent (min) 35 Advance Care Planning Advance Care Planning discussion: Exists, not on file
== END 2024-01-13 17:27 | disposition home or self-care (01) ==
PROVIDERS: PCP Internal Medicine; Visit Provider Internal Medicine
DX: Z00.00 Encounter for general adult medical examination without abnormal findings (principal); F32.0 Major depressive disorder, single episode, mild; E21.3 Hyperparathyroidism, unspecified
CPT/HCPCS: G0439

== ENCOUNTER 2024-02-10 12:55 | Outpatient (REF) | payer MEDICARE, OTHER, MEDICAID, SELFPAY ==
[2024-02-10 14:43] LABS: Alanine Aminotransferase 13 U/L (0-31); Albumin Level 4.4 g/dL (3.5-5.0); Alkaline Phosphatase 60 U/L (39-117); Anion Gap 10 (12-20); Aspartate Amino Transferase 17 U/L (5-31); Bilirubin Total 0.5 mg/dL (0.0-1.0); Blood Urea Nitrogen 16 mg/dL (9-16); Calcium 8.6 mg/dL (8.4-10.2); Carbon Dioxide 28 mmol/L (22-29); Chloride 108 mmol/L (96-108); Cholesterol 204 mg/dL (<200); Estimated Glomerular Filt Rate 48; Glucose Fasting 94 mg/dL (60-99); HDL Cholesterol 57 mg/dL (>40); LDL Cholesterol Calculated 127 mg/dL (<100); Potassium 4.4 mmol/L (3.3-5.1); Sodium 142 mmol/L (135-145); Total Protein 7.2 g/dL (6.5-8.0); Triglycerides 100 mg/dL (<150)
[2024-02-10 14:59] LABS: Vitamin D 25-OH Total 49.1 ng/mL (>30)
[2024-02-10 15:00] LABS: Thyroid Stimulating Hormone 0.99 uIU/mL (0.32-4.0)
== END 2024-02-10 12:56 | disposition home or self-care (01) ==
LOC: HO.LAB 12:55
PROVIDERS: PCP Internal Medicine; Visit Provider Internal Medicine Endocrinology, Diabetes & Metabolism
DX: K21.9 Gastro-esophageal reflux disease without esophagitis (principal); E03.9 Hypothyroidism, unspecified; E55.9 Vitamin D deficiency, unspecified; E78.5 Hyperlipidemia, unspecified
CPT/HCPCS: 36415; 80053; 80061; 82306; 84443

== ENCOUNTER 2024-02-15 14:41 | Outpatient (AMB) | payer MEDICARE, OTHER, SELFPAY ==
--- NOTE | 2024-02-15 14:42 | A.OFFVIS_ITS ---
Vital Signs 02/15/24 14:44 Height 5 ft Weight 161 lb 9.581 oz BMI 31.6 BP 130/74 Blood Pressure Location Lt brachial Position Sitting Pulse 57 Pulse Source Pulse Oximeter Intake Visit Reasons: f/u osteoporosis/ hyperparathyroidism Intake Note: Patient present today for Osteoporosis and Hyperparathyroidism follow up visit. Gold And Silver Assayer Required: No Accompanied by: Self / Same As Patient Allergies carrot [CARROT] Allergy (Severe, Verified 02/15/24 14:44) ANAPHYLAXIS apple Allergy (Intermediate, Verified 02/15/24 14:44) GREEN APPLES-UNKNOWN celery [CELERY] Allergy (Intermediate, Verified 02/15/24 14:44) FROM ALLERGY TESTING RESULT lactose [LACTOSE] Allergy (Intermediate, Verified 02/15/24 14:44) diarrhea peanut [PEANUT] Allergy (Intermediate, Verified 02/15/24 14:44) THROAT ITCHING pear [Pear] Allergy (Intermediate, Verified 02/15/24 14:44) THROAT ITCHING plum [PLUM] Allergy (Intermediate, Verified 02/15/24 14:44) THROAT ITCHING trazodone [TRAZODONE] Allergy (Intermediate, Verified 02/15/24 14:44) RASH tree and shrub pollen Allergy (Intermediate, Verified 02/15/24 14:44) Itchy Eyes omeprazole Adverse Reaction (Unknown, Verified 02/15/24 14:44) leg swelling GREEN PEPPERS Allergy (Intermediate, Uncoded 02/15/24 14:44) Diarrhea HPI Comments Details: 68 YO Female with PMHx 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 First diagnosed in December 2020. Never Received treatment in the past No history of pathologic fracture or ONJ. . Takes 1000 IU of Vitamin D daily. Denies ever using PPI, anticoagulant, antiepileptic or glucocorticoid medication. 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 UTD on dental cleanings and sees dentist every 6 months. No planned upcoming dental work or extractions. DXA dated :01/18/21 T Score of -3.0 in spine She did see Nephrology. Off hydrochlorothiazide with vitamin-D repletion, her PTH still remains quite high. She has CKD stage 3. She is about receiving f Prolia . Hyperparathyroidism is managed by Nephrology Receiving dose of Prolia 12/16/23 No fx since last visit . Saw Dr. Chou who felt that hyperparathyroidism secondary and did not warrant surgery [facility] Medical History (Updated 01/13/24 @ 19:35 by Mirta Jimenez MD) Hypovitaminosis D Age related osteoporosis Post-menopausal Anxiety Obese Chronic kidney disease Migraines Hypothyroidism Dyslipidemia Essential hypertension Surgical History Hx of appendectomy History of History of total left knee replacement (TKR) History of cataract surgery History of colonoscopy History of cholecystectomy H/O knee surgery Family History Father CAD (coronary artery disease) Mother No problems noted. Social History Household Members: None Housing: House Do you presently have visiting nurse or other home services: No Alcohol intake: never Patient Tobacco Use Status: Never used Tobacco e-Cigarette/Vaping Use: Never Used Second Hand Smoke Exposure: No Advance Directives Date on File: 06/04/23 service: No Current occupational status: disabled Cognitive needs: No Hearing needs: Yes Vision needs: Yes Physical Exam Vital Signs: BMI result Body Mass Index 31.6 Assessment & Plan Assessment & Plan (1) Hyperparathyroidism: Code(s): E21.3 - Hyperparathyroidism, unspecified Category: Medical Plan: PTH appears to be persistently elevated suggesting either secondary hyperparathyroidism due to CKD or component of primary hyperparathyroidism. W follow-up with nephrology for possible management of CKD BMD. Saw Dr. Chou who suggested measurement of 24 hour urine for calcium Will get 24 hour urine for calcium and creatinine and replete calcium is necessary (2) Age related osteoporosis: Code(s): M81.0 - Age-related osteoporosis without current pathological fracture Category: Medical Qualifiers: Presence of current pathological fracture: without current pathological fracture Qualified Code(s): M81.0 - Age-related osteoporosis without current pathological fracture Plan: This is a 68-year-old female with a history of osteoporosis in the setting of CKD stage 3 a. Patient has elevation of PTH which could be due to secondary hyperparathyroidism . She is now vitamin-D replete on supplementation with vitamin D3 but still has significant elevation in PTH. She is followed by Nephrology for optimization of CKD BMD The plan is to continue the Prolia. Patient will also follow up with Nephrology Orders: Orders Calcium, 24 Hr Ur Today E21.3 - Hyperparathyroidism, unspecified Creatinine, 24 Hr Group Today E21.3 - Hyperparathyroidism, unspecified Calcium 4 Months M81.0 - Age-related osteoporosis without current pathological fracture Basic Metabolic Panel 4 Months M81.0 - Age-related osteoporosis without current pathological fracture Albumin Level 4 Months M81.0 - Age-related osteoporosis without current pathological fracture Coding Level of Care Code Est Pt Level 3 (66923) Diagnoses Hyperparathyroidism E21.3 Age-related osteoporosis without current pathological fracture M81.0 Presence of current pathological fracture: without current pathological fracture
[2024-02-15 14:44] VITALS: BP 130/74; PULSE 57; BMI 31.6
== END 2024-02-15 15:03 | disposition home or self-care (01) ==
PROVIDERS: PCP Internal Medicine; Visit Provider Internal Medicine Endocrinology, Diabetes & Metabolism
DX: E21.3 Hyperparathyroidism, unspecified (principal); M81.0 Age-related osteoporosis without current pathological fracture
CPT/HCPCS: 99213

== ENCOUNTER → 2024-02-15 14:41 | Outpatient (BNVA) | payer MEDICARE, OTHER, SELFPAY | PROVIDERS: PCP Internal Medicine; Visit Provider Internal Medicine Endocrinology, Diabetes & Metabolism | DX: M81.0 Age-related osteoporosis without current pathological fracture (principal); E21.3 Hyperparathyroidism, unspecified | CPT/HCPCS: 99212 ==

== ENCOUNTER 2024-05-30 09:25 | Outpatient (REF) | payer MEDICARE, OTHER, SELFPAY ==
[2024-05-30 10:45] LABS: Albumin Level 3.9 g/dL (3.5-5.0); Anion Gap 12 (12-20); Blood Urea Nitrogen 36 mg/dL (9-16); Calcium 10.5 mg/dL (8.4-10.2); Carbon Dioxide 30 mmol/L (22-29); Chloride 103 mmol/L (96-108); Estimated Glomerular Filt Rate 32; Glucose Random 97 mg/dL (60-115); Sodium 141 mmol/L (135-145)
== END 2024-05-30 09:26 | disposition home or self-care (01) ==
LOC: HO.LAB 09:25
PROVIDERS: PCP Internal Medicine; Visit Provider Internal Medicine Endocrinology, Diabetes & Metabolism
DX: M81.0 Age-related osteoporosis without current pathological fracture (principal)
CPT/HCPCS: 36415; 80048; 82040

== ENCOUNTER 2024-06-02 14:34 | Outpatient (AMB) | payer MEDICARE, OTHER, SELFPAY ==
[2024-06-02 14:54] VITALS: BP 132/86; BMI 31.2
--- NOTE | 2024-06-02 14:54 | MHC.PC.OV ---
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: No Accompanied by: Self / Same As Patient Allergies carrot [CARROT] Allergy (Severe, Verified 06/02/24 15:29) ANAPHYLAXIS apple Allergy (Intermediate, Verified 06/02/24 15:29) GREEN APPLES-UNKNOWN celery [CELERY] Allergy (Intermediate, Verified 06/02/24 15:29) FROM ALLERGY TESTING RESULT lactose [LACTOSE] Allergy (Intermediate, Verified 06/02/24 15:29) diarrhea peanut [PEANUT] Allergy (Intermediate, Verified 06/02/24 15:29) THROAT ITCHING pear [Pear] Allergy (Intermediate, Verified 06/02/24 15:29) THROAT ITCHING plum [PLUM] Allergy (Intermediate, Verified 06/02/24 15:29) THROAT ITCHING trazodone [TRAZODONE] Allergy (Intermediate, Verified 06/02/24 15:29) RASH tree and shrub pollen Allergy (Intermediate, Verified 06/02/24 15:29) Itchy Eyes omeprazole Adverse Reaction (Unknown, Verified 06/02/24 15:29) leg swelling GREEN PEPPERS Allergy (Intermediate, Uncoded 06/02/24 15:29) Diarrhea Medication List - Last Reconciled 06/02/24 by Mirta Jimenez MD amlodipine 5 mg PO DAILY calcitriol 0.25 mcg PO Q48H cholecalciferol (vitamin D3) (Vitamin D3) 25 mcg PO DAILY denosumab (Prolia) mg subcut dicyclomine 20 mg PO BID 30 days diphenhydramine HCl (Benadryl) 25 mg PO ONCE PRN docusate calcium 240 mg PO ONCE PRN 1 day epinephrine (EpiPen 2-Evan) 0.3 mg IM Q4H PRN eszopiclone 3 mg PO BEDTIME 90 days Lactobac. rhamnosus GG-inulin 10 billion cell -200 mg ([facility] [employer] [facility]) 1 cap PO BID levothyroxine 88 mcg PO DAILY 90 days lisinopril 30 mg PO DAILY 90 days loperamide 2 mg PO QID PRN 30 days lovastatin 20 mg PO DAILY 90 days meclizine 25 mg PO DAILY PRN propranolol ER 80 mg PO DAILY sertraline 25 mg PO DAILY 90 days tramadol 50 mg PO DAILY 30 days zolmitriptan 5 mg PO DAILY PRN Tobacco use date assessed: 09/08/23 Fall risk assessment: No Falls in past year Last assessed Fall Risk: 06/02/24 Dental Screening Dental Screen Date: 09/08/23 HPI HPI Comments History of Present Illness Details The patient is a 69-year-old female presenting with follow-up concerns related to her hypertension management and osteoporosis. The patient initiates discussion regarding her blood pressure medication, amlodipine, which she recently began and associates with swelling in her ankles. She has a history of trying this medication previously and discontinued it due to similar concerns, but resumed it as her blood pressure sheela significantly without it. The patient's current blood pressure reading is 132/86 mmHg, which is noted as excellent. She reports obesity with a BMI indicating Class I obesity. Her medical history includes osteoporosis managed with Prolia, administered every 6 months and scheduled next for June 20. Her most recent bone densitometry was conducted in 2022. Additional medications include levothyroxine for hypothyroidism, lisinopril for secondary hypertension control, and various drugs for managing conditions such as migraines, insomnia, depression, and anxiety. The presence of insomnia is addressed with the prescription of Eszopiclone. The patient has experienced chronic migraines managed with propranolol and sumatriptan. Her history of depression and anxiety is managed with sertraline. Moreover, the patient notes allergies to a variety of foods and medications. She also references the use of alternative remedies for edema relief, which were not particularly successful. [facility] Medical History (Updated 01/13/24 @ 19:35 by Mirta Jimenez MD) Hypovitaminosis D Age related osteoporosis Post-menopausal Anxiety Obese Chronic kidney disease Migraines Hypothyroidism Dyslipidemia Essential hypertension Surgical History Hx of appendectomy History of History of total left knee replacement (TKR) History of cataract surgery History of colonoscopy History of cholecystectomy H/O knee surgery Family History Father CAD (coronary artery disease) Mother No problems noted. Social History Household Members: None Housing: House Do you presently have visiting nurse or other home services: No Alcohol intake: never Patient Tobacco Use Status: Never used Tobacco e-Cigarette/Vaping Use: Never Used Second Hand Smoke Exposure: No Advance Directives Date on File: 06/04/23 service: No Current occupational status: disabled Cognitive needs: No Hearing needs: Yes Vision needs: Yes Questionnaire Thrive Questionnaire Date Thrive assessed: 01/13/24 AUDIT C Alcohol Use Questionnaire (AUDIT-C) 2. How many drinks containing alcohol do you have on a typical day when you are drinking?: 1 or 2 3. How often do you have six or more drinks on one occasion?: Never Total Score: 0 JANETH-7 AMB Questionnaire JANETH-7 Date JANETH - 7 assessed: 01/13/24 Source: Developed by Drs. Kevin Pagan, Milli Ravi, Alfred Deleon and colleagues, with an educational joon from [employer]. Review of Systems Const Details: - Cardiovascular: Reports ankle swelling. - Musculoskeletal: Denies new or progressive joint pain. - Neurological: Reports persistent migraines. - Psychological: Reports improvement in anxiety and depression symptoms. Physical exam (Primary Care) Vital Signs: Last Vital Signs BP 132/86 06/02/24 14:54 BMI result Body Mass Index 31.2 BMI Assessment/Plan discussion: High BMI High, discussed plan: lifestyle, weight reduction, dietary and physical activity Tobacco/Smoking Status: Tobacco use Status Tobacco use date assessed 09/08/23 06/02/24 14:59 Patient Tobacco Use Status Never used Tobacco 06/02/24 14:59 e-Cigarette/Vaping Use Never Used 06/02/24 14:59 Thrive Assessment: Date of Thrive Assessment Date Thrive assessed 01/13/24 06/02/24 14:59 Const Other: General: No confusion Respiratory: Normal respiratory effort, clear to auscultation bilaterally Cardiovascular: No jugular venous distension, regular rate, regular rhythm, S1 normal heart sound present and S2 normal heart sound present Extremities: Mild 1+ pitting edema in the ankles Psychology: Grossly normal Coding Level of Care Code Est Pt Level 4 (10745) Complex EM visit Add On G2211 Diagnoses Mild major depression F32.0 Anxiety F41.9 Hyperparathyroidism E21.3 Insomnia G47.00 Age-related osteoporosis without current pathological fracture M81.0 Presence of current pathological fracture: without current pathological fracture Stage 3b chronic kidney disease N18.32 Chronic kidney disease stage: stage 3 (moderate) Chronic kidney disease stage 3 subtype: stage 3b (GFR 30-44) Migraine without aura and without status migrainosus, not intractable G43.009 Migraine type: without aura Status migrainosus presence: without status migrainosus Intractability: not intractable Hypothyroidism, unspecified type E03.9 Hypothyroidism type: unspecified Essential hypertension I10 Dyslipidemia E78.5 Time Spent (min) 24 Assessment & Plan Assessment & Plan (1) Mild major depression: Code(s): F32.0 - Major depressive disorder, single episode, mild Category: Medical (2) Anxiety: Code(s): F41.9 - Anxiety disorder, unspecified Category: Medical (3) Hyperparathyroidism: Code(s): E21.3 - Hyperparathyroidism, unspecified Category: Medical (4) Insomnia: Code(s): G47.00 - Insomnia, unspecified Category: Medical (5) Age related osteoporosis: Code(s): M81.0 - Age-related osteoporosis without current pathological fracture Category: Medical Qualifiers: Presence of current pathological fracture: without current pathological fracture Qualified Code(s): M81.0 - Age-related osteoporosis without current pathological fracture (6) Chronic kidney disease: Comment: ADPKD follow by nephrology Code(s): N18.9 - Chronic kidney disease, unspecified Category: Medical Qualifiers: Chronic kidney disease stage: stage 3 (moderate) Chronic kidney disease stage 3 subtype: stage 3b (GFR 30-44) Qualified Code(s): N18.32 - Chronic kidney disease, stage 3b (7) Migraines: Code(s): G43.909 - Migraine, unspecified, not intractable, without status migrainosus Category: Medical Qualifiers: Migraine type: without aura Status migrainosus presence: without status migrainosus Intractability: not intractable Qualified Code(s): G43.009 - Migraine without aura, not intractable, without status migrainosus (8) Hypothyroidism: Code(s): E03.9 - Hypothyroidism, unspecified Category: Medical Qualifiers: Hypothyroidism type: unspecified Qualified Code(s): E03.9 - Hypothyroidism, unspecified (9) Essential hypertension: Code(s): I10 - Essential (primary) hypertension Category: Medical (10) Dyslipidemia: Code(s): E78.5 - Hyperlipidemia, unspecified Category: Medical Plan - Continue current medications, including amlodipine but lower dose, while monitoring for edema. - Encourage dietary modifications and exercise for obesity management. - Continue Prolia for osteoporosis with next administration scheduled in May. - Maintain use of sertraline for depression management. - Monitor secondary hyperparathyroidism and chronic kidney disease under nephrology. - Follow-up with endocrinology regarding calcitriol prescription management. - Continue management of insomnia with eszopiclone. - Maintain current regimen for migraine prophylaxis with propranolol and treatment with sumatriptan. Patient was informed and verbally consented to the use of an ambient scribe for clinic note documentation during this visit. I discussed with the patient the importance of balancing medication benefits, especially concerning amlodipine for blood pressure control, against the discomfort of side effects such as edema. We reviewed lifestyle changes including diet and exercise for better weight management. Suggestions were made to maintain close oversight of her osteoporosis treatment with endocrinology and nephrology teams involved with her care for secondary hyperparathyroidism and chronic kidney disease. Orders: Orders Vitamin D 25-OH Total 06/02/24 E55.9 - Vitamin D deficiency, unspecified Parathyroid Hormone Intact 06/02/24 E21.3 - Hyperparathyroidism, unspecified Phosphorus 06/02/24 E21.3 - Hyperparathyroidism, unspecified Lipid Panel 06/02/24 E78.5 - Hyperlipidemia, unspecified Calcium, Ionized 06/02/24 E21.3 - Hyperparathyroidism, unspecified Thyroid Stimulating Hormone 06/02/24 E03.9 - Hypothyroidism, unspecified Comprehensive [place]. Panel Fast 06/02/24 E78.5 - Hyperlipidemia, unspecified Medications: New amlodipine 2.5 mg PO DAILY 90 tabs 1RF 90 days I10 - Essential (primary) hypertension lisinopril 40 mg PO DAILY 90 tabs 1RF 90 days I10 - Essential (primary) hypertension Changed From zolmitriptan 5 mg PO DAILY PRN Migraine Headache To zolmitriptan 5 mg PO DAILY PRN 9 tabs 2RF Migraine Headache 30 days From calcitriol 0.25 mcg PO Q48H To calcitriol 0.25 mcg PO Q48H 15 caps 0RF 30 days Refilled cholecalciferol (vitamin D3) (Vitamin D3) 25 mcg PO DAILY 90 caps 1RF E55.9 - Vitamin D deficiency, unspecified Discontinued lisinopril Discontinued Reason: Patient Completed Course 30 mg PO DAILY 90 days 90 tabs 1RF Patient Instructions: I discussed with the patient the importance of balancing medication benefits, especially concerning amlodipine for blood pressure control, against the discomfort of side effects such as edema. We reviewed lifestyle changes including diet and exercise for better weight management. Suggestions were made to maintain close oversight of her osteoporosis treatment with endocrinology and nephrology teams involved with her care for secondary hyperparathyroidism and chronic kidney disease.
== END 2024-06-02 15:47 | disposition home or self-care (01) ==
PROVIDERS: PCP Internal Medicine; Visit Provider Internal Medicine
DX: I12.9 Hypertensive chronic kidney disease with stage 1 through stage 4 chronic kidney disease, or unspecified chronic kidney disease (principal); F32.0 Major depressive disorder, single episode, mild; E21.3 Hyperparathyroidism, unspecified; N18.32 Chronic kidney disease, stage 3b; F41.9 Anxiety disorder, unspecified; G47.00 Insomnia, unspecified; M81.0 Age-related osteoporosis without current pathological fracture; G43.009 Migraine without aura, not intractable, without status migrainosus; E03.9 Hypothyroidism, unspecified; E78.5 Hyperlipidemia, unspecified

== ENCOUNTER → 2024-06-02 14:34 | Outpatient (BNVA) | payer MEDICARE, OTHER, SELFPAY | PROVIDERS: PCP Internal Medicine; Visit Provider Internal Medicine | DX: F32.0 Major depressive disorder, single episode, mild (principal); F41.9 Anxiety disorder, unspecified; E21.3 Hyperparathyroidism, unspecified; G47.00 Insomnia, unspecified; M81.0 Age-related osteoporosis without current pathological fracture; M18.32 Unilateral post-traumatic osteoarthritis of first carpometacarpal joint, left hand | CPT/HCPCS: 99212 ==

== ENCOUNTER 2024-06-20 13:18 | Outpatient (AMB) | payer MEDICARE, OTHER, SELFPAY ==
--- NOTE | 2024-06-20 13:32 | MHC.OFFVIS ---
Vital Signs 06/20/24 13:34 Height 5 ft 0.26 in Weight 166 lb 7.184 oz BMI 32.2 BP 138/86 Blood Pressure Location Rt brachial Position Sitting Pulse 54 Pulse Source Pulse Oximeter Intake Visit Reasons: f/u osteoporosis in CKD/prolia Intake Note: Patient present today for f/u osteoporosis in CKD/prolia. Manager Environmental Services Required: No Accompanied by: Self / Same As Patient Allergies carrot [CARROT] Allergy (Severe, Verified 06/20/24 13:35) ANAPHYLAXIS apple Allergy (Intermediate, Verified 06/20/24 13:35) GREEN APPLES-UNKNOWN celery [CELERY] Allergy (Intermediate, Verified 06/20/24 13:35) FROM ALLERGY TESTING RESULT lactose [LACTOSE] Allergy (Intermediate, Verified 06/20/24 13:35) diarrhea peanut [PEANUT] Allergy (Intermediate, Verified 06/20/24 13:35) THROAT ITCHING pear [Pear] Allergy (Intermediate, Verified 06/20/24 13:35) THROAT ITCHING plum [PLUM] Allergy (Intermediate, Verified 06/20/24 13:35) THROAT ITCHING trazodone [TRAZODONE] Allergy (Intermediate, Verified 06/20/24 13:35) RASH tree and shrub pollen Allergy (Intermediate, Verified 06/20/24 13:35) Itchy Eyes omeprazole Adverse Reaction (Unknown, Verified 06/20/24 13:35) leg swelling GREEN PEPPERS Allergy (Intermediate, Uncoded 06/20/24 13:35) Diarrhea Medication List - Last Reconciled 06/20/24 by Kevin Skinner MD amlodipine 2.5 mg PO DAILY 90 days calcitriol 0.25 mcg PO Q48H 30 days cholecalciferol (vitamin D3) (Vitamin D3) 25 mcg PO DAILY denosumab (Prolia) 60 mg subcut [id number] dicyclomine 20 mg PO BID 30 days diphenhydramine HCl (Benadryl) 25 mg PO ONCE PRN docusate calcium 240 mg PO ONCE PRN 1 day epinephrine (EpiPen 2-Evan) 0.3 mg IM Q4H PRN eszopiclone 3 mg PO BEDTIME 90 days Lactobac. rhamnosus GG-inulin 10 billion cell -200 mg ([facility] [employer]) 1 cap PO BID levothyroxine 88 mcg PO DAILY 90 days lisinopril 40 mg PO DAILY 90 days loperamide 2 mg PO QID PRN 30 days lovastatin 20 mg PO DAILY 90 days meclizine 25 mg PO DAILY PRN propranolol ER 80 mg PO DAILY sertraline 25 mg PO DAILY 90 days tramadol 50 mg PO DAILY 30 days zolmitriptan 5 mg PO DAILY PRN 30 days HPI Comments Details: 69 YO Female with PMHx 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 First diagnosed in December 2020. Never Received treatment in the past No history of pathologic fracture or ONJ. . Takes 1000 IU of Vitamin D daily. Denies ever using PPI, anticoagulant, antiepileptic or glucocorticoid medication. 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 UTD on dental cleanings and sees dentist every 6 months. No planned upcoming dental work or extractions. DXA dated :01/18/21 T Score of -3.0 in spine She did see Nephrology. Off hydrochlorothiazide with vitamin-D repletion, her PTH still remains quite high. She has CKD stage 3. She is about receiving f Prolia . Hyperparathyroidism is managed by Nephrology Receiving dose of Prolia today for 3 rd dose No fx since last visit . Saw Dr. Chou who felt that hyperparathyroidism secondary and did not warrant surgery [facility] Medical History (Updated 01/13/24 @ 19:35 by Mirta Jimenez MD) Hypovitaminosis D Age related osteoporosis Post-menopausal Anxiety Obese Chronic kidney disease Migraines Hypothyroidism Dyslipidemia Essential hypertension Surgical History Hx of appendectomy History of History of total left knee replacement (TKR) History of cataract surgery History of colonoscopy History of cholecystectomy H/O knee surgery Family History Father CAD (coronary artery disease) Mother No problems noted. Social History Household Members: None Housing: House Do you presently have visiting nurse or other home services: No Alcohol intake: never Patient Tobacco Use Status: Never used Tobacco e-Cigarette/Vaping Use: Never Used Second Hand Smoke Exposure: No Advance Directives Date on File: 06/04/23 service: No Current occupational status: disabled Cognitive needs: No Hearing needs: Yes Vision needs: Yes Physical Exam Vital Signs: Last Vital Signs Pulse 54 06/20/24 13:34 BP 138/86 06/20/24 13:34 BMI result Body Mass Index 32.2 Office Meds Prolia 60 mg/mL subcutaneous syringe Performing Provider: Kevin Skinner MD Performing [place] [facility] [place] [place] Administered by: Di Hood RN on 06/20/24 14:00 Dose Route Admin Location Dispensed Lot Number Expiration Date 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 Labs verified by Dr. Skinner. Pt tolerated injection well and denies any problems with previous injections. Assessment & Plan Assessment & Plan (1) Age related osteoporosis: Code(s): M81.0 - Age-related osteoporosis without current pathological fracture Category: Medical Qualifiers: Presence of current pathological fracture: without current pathological fracture Qualified Code(s): M81.0 - Age-related osteoporosis without current pathological fracture Plan: This is a 68-year-old female with a history of osteoporosis in the setting of CKD stage 3 a. Patient has elevation of PTH which could be due to secondary hyperparathyroidism . She is now vitamin-D replete on supplementation with vitamin D3 but still has significant elevation in PTH. She is followed by Nephrology for optimization of CKD BMD The plan is to continue the Prolia. Patient will also follow up with Nephrology. Will repeat calcium and albumin as was slightly elevated Orders: Orders AMB Denosumab Injection Patient Supplied Today M81.0 - Age-related osteoporosis without current pathological fracture Albumin Level Today M81.0 - Age-related osteoporosis without current pathological fracture Calcium Today M81.0 - Age-related osteoporosis without current pathological fracture Coding Level of Care Code Est Pt Level 3 (27486) Diagnoses Age-related osteoporosis without current pathological fracture M81.0 Presence of current pathological fracture: without current pathological fracture
[2024-06-20 13:34] VITALS: BP 138/86; PULSE 54; BMI 32.2
== END 2024-06-20 14:23 | disposition home or self-care (01) ==
PROVIDERS: PCP Internal Medicine; Visit Provider Internal Medicine Endocrinology, Diabetes & Metabolism
DX: M81.0 Age-related osteoporosis without current pathological fracture (principal)
CPT/HCPCS: 99213

== ENCOUNTER → 2024-06-20 13:18 | Outpatient (BNVA) | payer MEDICARE, OTHER, SELFPAY | PROVIDERS: PCP Internal Medicine; Visit Provider Internal Medicine Endocrinology, Diabetes & Metabolism | DX: M81.0 Age-related osteoporosis without current pathological fracture (principal); N18.31 Chronic kidney disease, stage 3a; Z79.620 Long term (current) use of immunosuppressive biologic | CPT/HCPCS: 96372; 99212; J0897 ==

== ENCOUNTER → 2024-07-06 10:57 | Outpatient (BNVA) | payer MEDICARE, OTHER, SELFPAY | PROVIDERS: PCP Internal Medicine; Visit Provider Physical Medicine & Rehabilitation ==

== ENCOUNTER 2024-08-03 13:17 | Outpatient (REF) | payer MEDICARE, OTHER, SELFPAY ==
--- OUTSIDE RECORDS SUMMARY | 2024-08-03 14:36 | XMS_ITS | Clinical Summary ---
Author Organization [employer] Address [address] [facility] 7t [place] [address] Care Team Providers Care Etcher Hand Name Role Phone Unavailable Primary Care Provider Unavailabl e Immunizations Name Administration Dates Next Due Pfizer Covid-19 Vaccine 12+ Bivalent 07/09/2022 Social History Tobacco Use Types Packs/Day Years Used Date Smoking Tobacco: Never Assessed Comments Unknown Sex and Gender Information Value Date Recorded Sex Assigned at Female 04/21/2022 10:17 AM EDT Legal Sex Female 10:17 AM EDT Gender Identity Female 04/21/2022 10:17 AM EDT Sexual Orientation Choose not to disclose 2021 10:17 AM EDT Plan of Treatment Health Maintenance Due Date Last Done Comments CT Colonography 1953 Colonoscopy 1953 Colorectal Cancer Screening 1953 Depression Screening 1953 FIT DNA/Cologuard 1953 FIT 1953 FOBT 1953 Lipid Panel 1953 SDOH Screening 1953 Sigmoidoscopy 1953 Alcohol/Substance Use Screening 1965 Tobacco Screening 1965 Hepatitis C Screening 1971 Mammogram 1993 COVID-19 Vaccine ( season) 2024 07/09/2022, 03/21/2021, 08/26/2020, Additional history exists Influenza Vaccine (#1) 2024 2, 03/06/2021, 02/13/2020, Additional history exists Pneumococcal Vaccine: 50+ Years (3 of 3 - PCV20 or PCV21) 03/08/2024 03/08/2019, 06/11/2015 DTaP/Tdap/Td Vaccines (2 - Td or Tdap) 06/25/2026 06/25/2016 RSV Patients and Patients Aged 60 years or older (1 - 1-dose 75+ series) 2028 Zoster Vaccines Completed 02/22/2018, 11/17/2017 HIB Vaccines Aged Out No longer eligi ble based on patient's age to complete this topic HPV Vaccines Aged Out No longer eligi ble based on patient's age to complete this topic Hepatitis A Vaccines Aged Out No long er eligible based on patient's age to complete this topic Hepatitis B Vaccines Aged Out No long er eligible based on patient's age to complete this topic IPV Vaccines Aged Out No longer eligi ble based on patient's age to complete this topic Meningococcal Vaccine Aged Out No vy gavino eligible based on patient's age to complete this topic RSV under 20 months Aged Out No longe r eligible based on patient's age to complete this topic Rotavirus Vaccines Aged Out No longer eligible based on patient's age to complete this topic Insurance [place]IC[place] [phone]
--- OUTSIDE RECORDS SUMMARY | 2024-08-03 14:36 | XMS_ITS | Clinical Summary ---
Author Organization [facility] Address [address] [address] Care Team Providers Care Journalism Teacher Name Role Phone Mirta Matos MD Primary Care Provider [phone] Allergies Active Allergy Reactions Criticality Noted Date Comments Trazodone Rash Low 02/11/2021 Medications aspirin (ST DESMOND) 81 MG EC tablet Take 81 mg by mouth 1 (one) time each day Active levothyroxine (SYNTHROID, LEVOTHROID) 100 MCG tablet Take 100 mcg by mouth 1 (one) time each day 12/12/2020 Active lovastatin (MEVACOR) 20 MG tablet Take 20 mg by mouth 1 (one) time each day 12/16/2020 Active propranolol (INDERAL) 80 MG tablet Take 80 mg by mouth 1 (one) time each day Active ZOLMitriptan (ZOMIG) 5 MG tablet Take 5 mg by mouth 1 (one) time each day Active acetaminophen (TYLENOL) 500 MG tablet Take by mouth daily Active Cholecalciferol (Vitamin D3) 25 MCG (1000 UT) capsule Take 1 tablet by mouth 1 (one) time each day 08/28/2021 Active lisinopril (PRINIVIL,ZESTRI L) 30 MG tablet Take 30 mg by mouth 1 (one) time each day Active Biotin 21718 MCG tablet dispersible Take by mouth Active calcitriol (Rocaltrol) 0.25 MCG capsuleIndicatio ns:Other acute kidney failure (HCC),Long-term drug therapy Take 1 capsule (0.25 mcg total) by mouth 1 (one) time each day 30 capsule 11/09/2023 Active amLODIPine (NORVASC) 5 MG tablet Take 1 tablet (5 mg total) by mouth 1 (one) time each day 90 tablet 3 01/05/2024 01/05/20 Active sertraline (ZOLOFT) 25 MG tablet Take 25 mg by mouth 1 (one) time each day 01/13/2024 Active calcitriol (Rocaltrol) 0.25 MCG capsule Take 1 capsule (0.25 mcg total) by mouth 1 (one) time each day 90 capsule 04/19/2024 Active Active Problems Problem Noted Date Diagnosed Date Stage 3b chronic kidney disease 07/16/2021 Chronic kidney disease stage 3 02/11/2021 Hypertensive disorder 02/11/2021 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 Stage 3a chronic kidney disease 02/11/2021 Autosomal dominant polycystic kidney disease Resolved Problems Problem Noted Date Diagnosed Date Resolved Date FH: Polycystic kidney 02/11/20212020 Hyperlipidemia 02/11/2021 02/11/2021 Immunizations Name Administration Dates Next Due Pfizer SARS-COV-2 07/09/2022 SARS-CoV-2, Unspecified 07/09/2022 Family History Medical History Relation Comments Kidney disease Child Kidney disease Sibling 1 Diabetes Sibling 2 Hypertension Sibling 3 Heart disease Sibling 4 Cancer Sibling 5 Gout Sibling 6 Relation Status Comments Child Father Mother Sibling 1 Sibling 2 Sibling 3 Sibling 4 Sibling 5 Sibling 6 Social History Tobacco Use Types Packs/Day Years Used Date Smoking Tobacco: Never Smokeless Tobacco: Never Alcohol Use Standard Drinks/Week Comments Yes 0 (1 standard drink = 0.6 oz pure alcohol) Alcoholic Drinks/day: Occasional social drink Comments Unknown Sex and Gender Information Value Date Recorded Sex Assigned at Not on file Legal Sex Female 4:59 PM EST Gender Identity Not on file Sexual Orientation Not on file Last Filed Vital Signs Vital Sign Reading Time Taken Comments Blood Pressure 127/80 01/18/2024 12:51 PM EDT Pulse 60 01/18/2024 12:51 PM EDT Temperature - - Respiratory Rate - - Oxygen Saturation 96% 01/18/2024 12:51 PM EDT Inhaled Oxygen Concentration - - Weight 72.6 kg (160 lb) 01/18/2024 12:51 PM EDT Height 152.4 cm (5') 01/18/2024 12:51 PM EDT Body Mass Index 31.25 01/18/2024 12:51 PM EDT Plan of Treatment Upcoming Encounters Date Type Department Care Team (Late st Contact Info) Description 10/31/2024 3:30 PM EDT Office Visit [facility] [address] [place] [address] Dejan Shirley MD [address] [facility] [address] [place] [address] Health Maintenance Due Date Last Done Comments Breast Cancer Screening 1953 Pneumococcal Vaccine: 65+ Ye ars (1 of 2 - PCV) 1959 Colorectal Cancer Screening: Annual FOBT 2002 Colorectal Cancer Screening: Colonoscopy 2002 Colorectal Cancer Screening: Sigmoidoscopy 2002 Influenza Vaccine (#1) 2024 Hepatitis B Vaccine Aged Out No longe r eligible based on patient's age to complete this topic Insurance [facility] MEDICARE MEDICAID [place] MEDICARE [facility] MEDICAID [place] Care Teams Journalism Teacher Relationship Specialty Start Date End Date Mirta Matos MD [address] [place], [place] PCP - General Internal Medicine 11/30/23
--- OUTSIDE RECORDS SUMMARY | 2024-08-03 14:36 | XMS_ITS | Encounter Summary ---
Author Organization [facility] Address [address] [facility] 200 [place] [address] Phone Care Team Providers Care Telecom Specialist Name Role Phone Mirta Matos MD Primary Care Provider [phone] Encounter Details Date Type Department Care Team (Late Contact Info) Description 11/12/2023 Telephone [facility] [address] [facility] 200 [place] [address] Dejan Shirley MD [address] [address] Social History Tobacco Use Types Packs/Day Years [...] on file Sexual Orientation Not on file documented as of this encounter Plan of Treatment Upcoming Encounters Date Type Department Care Team (Late Contact Info) Description 10/31/2024 3:30 PM EDT Office Visit [facility] [address] [place] [address] Dejan Shirley MD [address] [address] documented as of this encounter Visit Diagnoses Not on filedocumented in this encounter Care Teams Telecom Specialist Relationship Specialty Start Date End Date Mirta Matos MD [address] [place], [place] PCP - General Internal Medicine 11/30/23 documented as of this encounter
--- OUTSIDE RECORDS SUMMARY | 2024-08-03 14:36 | XMS_ITS | Encounter Summary ---
Author Organization [facility] Address 100 [facility] 200 [place] [address] Phone Care Team Providers Care Mammographer Name Role Phone Mirta Matos MD Primary Care Provider [phone] Encounter Details Date Type Department Care Team (Late Contact Info) Description 11/12/2023 Office Communication [facility] [address] [facility] 200 [place] [phone] Dejan Shirley MD [address] [facility] 204 [place] [phone] Social History Tobacco Use Types Packs/Day Years [...] on file documented as of this encounter Miscellaneous Notes * Telephone Encounter - Dejan Shirley MD - 11/12/2023 4:09 PM EDT Needs appt with me in 1-2 weeks documented in this encounter Plan of Treatment Upcoming Encounters Date Type Department Care Team (Late Contact Info) Description 10/31/2024 3:30 PM EDT Office Visit [facility] [address] [place] [address] Dejan Shirley MD [address] [address] documented as of this encounter Visit Diagnoses Not on filedocumented in this encounter Care Teams Mammographer Relationship Specialty Start Date End Date Mirta Matos MD [address] [facility] [address] [place], [place] PCP - General Internal Medicine 11/30/23 documented as of this encounter
== END 2024-08-03 13:18 | disposition home or self-care (01) ==
LOC: HO.MAMMO 13:17
PROVIDERS: PCP Internal Medicine; Visit Provider Internal Medicine
DX: Z12.31 Encounter for screening mammogram for malignant neoplasm of breast (principal)
CPT/HCPCS: 77063; 77067

== ENCOUNTER → 2024-08-03 13:30 | Outpatient (BNV) | payer MEDICARE, OTHER, SELFPAY | PROVIDERS: PCP Internal Medicine; Visit Provider Internal Medicine | DX: Z12.31 Encounter for screening mammogram for malignant neoplasm of breast (principal) | CPT/HCPCS: 77063; 77067 ==

== ENCOUNTER 2024-08-19 10:51 | Outpatient (AMB) | payer MEDICARE, OTHER, SELFPAY ==
--- NOTE | 2024-08-19 10:53 | A.OFFVIS_ITS ---
Vital Signs 08/19/24 11:03 Height 5 ft Weight 166 lb BMI 32.4 Intake Visit Reasons: OV-RT neck trigger- follow up 6 months Intake Note: Yue 69 yr old male presents today for her follow up visit s/p injection to her right upper trapezius on 12/30/24. States injections helped a lot with her neck pain and would like to repeat injections. Allergies carrot [CARROT] Allergy (Severe, Verified 08/19/24 11:02) ANAPHYLAXIS apple Allergy (Intermediate, Verified 08/19/24 11:02) GREEN APPLES-UNKNOWN celery [CELERY] Allergy (Intermediate, Verified 08/19/24 11:02) FROM ALLERGY TESTING RESULT lactose [LACTOSE] Allergy (Intermediate, Verified 08/19/24 11:02) diarrhea peanut [PEANUT] Allergy (Intermediate, Verified 08/19/24 11:02) THROAT ITCHING pear [Pear] Allergy (Intermediate, Verified 08/19/24 11:02) THROAT ITCHING plum [PLUM] Allergy (Intermediate, Verified 08/19/24 11:02) THROAT ITCHING trazodone [TRAZODONE] Allergy (Intermediate, Verified 08/19/24 11:02) RASH tree and shrub pollen Allergy (Intermediate, Verified 08/19/24 11:02) Itchy Eyes omeprazole Adverse Reaction (Unknown, Verified 08/19/24 11:02) leg swelling GREEN PEPPERS Allergy (Intermediate, Uncoded 08/19/24 11:02) Diarrhea Medication List - Last Reconciled 08/19/24 by Anisa Maza MD amlodipine 2.5 mg PO DAILY 90 days calcitriol 0.25 mcg PO Q48H 30 days cholecalciferol (vitamin D3) (Vitamin D3) 25 mcg PO DAILY denosumab (Prolia) 60 mg subcut [id number] dicyclomine 20 mg PO BID 30 days diphenhydramine HCl (Benadryl) 25 mg PO ONCE PRN docusate calcium 240 mg PO ONCE PRN 1 day epinephrine (EpiPen 2-Evan) 0.3 mg IM Q4H PRN eszopiclone 3 mg PO BEDTIME 90 days Lactobac. rhamnosus GG-inulin 10 billion cell -200 mg ([facility] [employer] [facility]) 1 cap PO BID levothyroxine 88 mcg PO DAILY 90 days lisinopril 40 mg PO DAILY 90 days loperamide 2 mg PO QID PRN 30 days lovastatin 20 mg PO DAILY 90 days meclizine 25 mg PO DAILY PRN propranolol ER 80 mg PO DAILY sertraline 25 mg PO DAILY 90 days tramadol 50 mg PO DAILY 30 days zolmitriptan 5 mg PO DAILY PRN 30 days HPI Comments Details: Last seen 01/09/2024. Patient presented with pain on shoulder blade right and neck pain. Seen by orthopedics for right shoulder pain. Did not think x-ray findings were remarkable or meeting surgery. Referred to physiatry for further evaluation. She has done physical therapy in the past. I thought this was more myofascial. We did trigger point injections to upper trapezius and I think also rhomboids. Patient's pain improved from December to June. Started again having pain in July. Points more to the lateral neck. Worse with looking down. Some pain radiating to right arm/shoulder. Worse with cold weather and when she has to bear down when constipated. Last shoulder x-ray showed degenerative changes as below, last cervical x-ray showed preserved disc spaces. No recent falls or accidents. [facility] Medical History (Updated 08/19/24 @ 11:28 by Anisa Maza MD) Hypovitaminosis D Age related osteoporosis Post-menopausal Anxiety Obese Chronic kidney disease Migraines Hypothyroidism Dyslipidemia Essential hypertension Surgical History Hx of appendectomy History of History of total left knee replacement (TKR) History of cataract surgery History of colonoscopy History of cholecystectomy H/O knee surgery Family History Father CAD (coronary artery disease) Mother No problems noted. Social History Household Members: None Housing: House Do you presently have visiting nurse or other home services: No Alcohol intake: never Patient Tobacco Use Status: Never used Tobacco e-Cigarette/Vaping Use: Never Used Second Hand Smoke Exposure: No Advance Directives Date on File: 06/04/23 service: No Current occupational status: disabled Cognitive needs: No Hearing needs: Yes Vision needs: Yes Physical Exam Vital Signs: BMI result Body Mass Index 32.4 Constitutional: Patient appears to be in no acute distress, well nourished and well developed. Patient was appropriately conversant and oriented. Good historian. MSK: Inspection reveals appropriate head and neck positioning. No tenderness in spinous processes, facets or paraspinals. Tight on right upper trapezius. Rhomboids nontender. No scapular winging. Cervical ROM was full. Spurling's sign negative. Neurological: Nonfocal. Gait is non-antalgic without loss of balance. Results Reviewed Results Reviewed: Ordering Physician: Anisa Vaca Date of Service: 11/18/23 Procedure(s): XR cervical spine 3V Accession Number(s): [id number] cc: Mirta Matos MD; Anisa Vaca~ EXAMINATION: XR CERVICAL SPINE CLINICAL INFORMATION: Neck pain. COMPARISON: September 26, 2014 TECHNIQUE: 5 views of the cervical spine. FINDINGS: Degenerative changes between the anterior arch of C1 and the odontoid. The bones are diffusely demineralized. Cervical disc space heights are preserved. Mild multilevel cervical spondylosis. Mild anterolisthesis of C7 on T1. XR/XR cervical spine 3V IMPRESSION: Mild multilevel cervical spondylosis. Ordering Physician: Stacy Boothe PA-C Date of Service: 10/15/23 Procedure(s): XR shoulder RT min 2V Accession Number(s): [id number] cc: Stacy Boothe PA-C~ EXAMINATION: XR SHOULDER, RIGHT CLINICAL INFORMATION: Pain in unspecified shoulder COMPARISON: None available. TECHNIQUE: AP neutral, Grashey AP and axillary views of the right shoulder. FINDINGS: The bones are intact. No fracture Glenohumeral and acromioclavicular alignment is anatomic with normal glenohumeral joint space. Moderate to marked degenerative change of the acromioclavicular joint. No abnormal soft tissue calcifications. XR/XR shoulder RT min 2V IMPRESSION: Moderate to marked degenerative change of the acromioclavicular joint. Assessment & Plan Assessment & Plan (1) Myofascial pain: Code(s): M79.18 - Myalgia, other site Category: Medical (2) Cervical radiculopathy: Code(s): M54.12 - Radiculopathy, cervical region Category: Medical (3) DJD of right shoulder: Code(s): M19.011 - Primary osteoarthritis, right shoulder Category: Medical Qualifiers: Osteoarthritis type: primary Qualified Code(s): M19.011 - Primary osteoarthritis, right shoulder Plan Her neck pain/shoulder pain last year improve with trigger point injections. Started again less than a month ago. No signs of cervical myelopathy or radiculopathy on exam but do due recurrent pattern, we would like to rule out. Sending for repeat cervical x-rays today. She has underlying shoulder arthritis but she has full range of motion and no shoulder pain today. Decision regarding further imaging/MRI versus injection to be determined after x-rays. Assessment and plan discussed with patient, and patient was agreeable. All questions were answered thoroughly. Follow up after x-ray, 1-2 weeks, can be telehealth. Anisa Maza MD, ZENIA Board Certified, [place] Board of Physical Medicine and Rehabilitation (ABPMR) Board Certified, [place] Board of Electrodiagnostic Medicine (ABEM) Orders: Orders XR cervical spine 3V Today M54.2 - Cervicalgia Coding Level of Care Code Est Pt Level 4 (95620) Diagnoses Myofascial pain M79.18 Cervical radiculopathy M54.12 Primary osteoarthritis of right shoulder M19.011 Osteoarthritis type: primary
[2024-08-19 11:03] VITALS: BMI 32.4
--- OUTSIDE RECORDS SUMMARY | 2024-08-19 12:29 | XMS_ITS | Encounter Summary ---
Author Organization [facility] Address 100 [facility] 200 [place] [address] Phone Care Team Providers Care Technical Sourcing Recruiter Name Role Phone Mirta Matos MD Primary Care Provider [phone] Encounter Details Date Type Department Care Team (Late Contact Info) Description 11/12/2023 Office Communication [facility] [address] [facility] 200 [place] [phone] Dejan Shirley MD [address] [facility] 204 [place] [phone] Social History Tobacco Use Types Packs/Day Years [...] Visit [facility] [address] [place] [address] Dejan Shirley MD [address] [address] documented as of this encounter Visit Diagnoses Not on filedocumented in this encounter Care Teams Technical Sourcing Recruiter Relationship Specialty Start Date End Date Mirta Matos MD [address] [facility] [address] [place], [place] PCP - General Internal Medicine 11/30/23 documented as of this encounter
--- OUTSIDE RECORDS SUMMARY | 2024-08-19 12:29 | XMS_ITS | Clinical Summary ---
Author Organization [facility] Address [address] [address] Care Team Providers Care Cuff Stitcher Name Role Phone Mirta Matos MD Primary Care Provider [phone] Allergies Active Allergy Reactions Criticality Noted Date [...] 1 (one) time each day Active Biotin 85616 MCG tablet dispersible Take by mouth Active [...] [facility] [address] [place] [address] Dejan Shirley MD [address] [facility] [address] [place] [address] Health Maintenance Due Date Last Done Comments Breast Cancer Screening 1953 Pneumococcal Vaccine: 65+ Ye ars (1 of 2 - PCV) 1959 Colorectal Cancer Screening: Annual FOBT 2002 Colorectal Cancer Screening: Colonoscopy 2002 Colorectal Cancer Screening: Sigmoidoscopy 2002 Influenza Vaccine (#1) 2024 Hepatitis B Vaccine Aged Out No longe r eligible based on patient's age to complete this topic Insurance [facility] MEDICARE MEDICAID [place] MEDICARE [facility] MEDICAID [place] Care Teams Cuff Stitcher Relationship Specialty Start Date End Date Mirta Matos MD [address] [place], [place] PCP - General Internal Medicine 11/30/23
--- OUTSIDE RECORDS SUMMARY | 2024-08-19 12:29 | XMS_ITS | Encounter Summary ---
Author Organization [facility] Address 100 [facility] 200 [place] [address] Phone Care Team Providers Care Oilfield Plant And Field Operator Name Role Phone Mirta Matos MD Primary Care Provider [phone] Encounter Details Date Type Department Care Team (Late Contact Info) Description 11/12/2023 Telephone [facility] [address] [facility] [address] [place] [address] Dejan Shirley MD [address] [address] Social History Tobacco Use Types [...] Visit [facility] [address] [place] [address] Dejan Shirley MD [address] [address] documented as of this encounter Visit Diagnoses Not on filedocumented in this encounter Care Teams Oilfield Plant And Field Operator Relationship Specialty Start Date End Date Mirta Matos MD [address] [place], [place] PCP - General Internal Medicine 11/30/23 documented as of this encounter
--- OUTSIDE RECORDS SUMMARY | 2024-08-19 12:29 | XMS_ITS | Clinical Summary ---
Author Organization [employer] Address [address] [facility] 7t [place] [address] Care Team Providers Care Senior Risk Analyst Name Role Phone Unavailable Primary Care Provider [...]
== END 2024-08-19 11:35 | disposition home or self-care (01) ==
PROVIDERS: PCP Internal Medicine; Visit Provider Physical Medicine & Rehabilitation
DX: M79.18 Myalgia, other site (principal); M54.12 Radiculopathy, cervical region; M19.011 Primary osteoarthritis, right shoulder
CPT/HCPCS: 99214

== ENCOUNTER 2024-08-19 10:51 | Outpatient (REF) | payer MEDICARE, OTHER, SELFPAY ==
--- NOTE | ~2024-08-19 | XR_ITS ---
EXAMINATION: XR CERVICAL SPINE CLINICAL INFORMATION: M54.2 - Cervicalgia COMPARISON: None available. TECHNIQUE: 3 views of the cervical spine were obtained. FINDINGS: There is maintained cervical lordosis. The vertebral heights and alignment is normal. There is mild ventral spondylosis C4-5 and C5-6 disc levels. The disc heights are maintained normal. No visible acute fracture, lytic or sclerotic process seen. The prevertebral soft tissues are normal XR/XR cervical spine 3V IMPRESSION: Mild ventral spondylosis C4-5 and C5-6 disc levels. No visible acute fracture, lytic or sclerotic process. Electronically signed by: Shailesh Juarez MD 08/22/2024 11:08 AM [facility]
--- OUTSIDE RECORDS SUMMARY | 2024-08-19 13:29 | XMS_ITS | Clinical Summary ---
Author Organization [employer] Address [address] [facility] 7t [place] [address] Care Team Providers Care Technical Support Representative Name Role Phone Unavailable Primary Care Provider [...] age to complete this topic Insurance MEDICARE [address] [id number]
--- OUTSIDE RECORDS SUMMARY | 2024-08-19 13:29 | XMS_ITS | Encounter Summary ---
Author Organization [facility] Address [address] [facility] 200 [place] [address] Phone Care Team Providers Care Central Office Operator Name Role Phone Mirta Matos MD Primary Care Provider [phone] Encounter Details Date Type Department Care Team (Late Contact Info) Description 11/12/2023 Telephone [facility] [address] [facility] [address] [place] [address] Dejan Shirley MD [address] [address] Social History Tobacco Use Types [...] [facility] [address] [place] [address] Dejan Shirley MD [address] [address] documented as of this encounter Visit Diagnoses Not on filedocumented in this encounter Care Teams Central Office Operator Relationship Specialty Start Date End Date Mirta Matos MD [address] [place], [place] PCP - General Internal Medicine 11/30/23 documented as of this encounter
--- OUTSIDE RECORDS SUMMARY | 2024-08-19 13:29 | XMS_ITS | Clinical Summary ---
Author Organization [facility] Address [address] [address] Care Team Providers Care Movie Producer Name Role Phone Mirta Matos MD Primary Care Provider Allergies Active Allergy Reactions Criticality Noted Date [...] 1 (one) time each day Active Biotin 86389 MCG tablet dispersible Take by mouth Active [...] Visit [facility] [address] [place] [address] Dejan Shirley MD [address] [facility] 204 [place] [address] Health Maintenance Due Date Last [...] to complete this topic Insurance [facility] MEDICARE [place]ICAID [place] MEDICARE [facility] MEDICAID [place] Care Teams Movie Producer Relationship Specialty Start Date End Date Mirta Matos MD [address] [place], [place] PCP - General Internal Medicine 11/30/23
--- OUTSIDE RECORDS SUMMARY | 2024-08-19 13:29 | XMS_ITS | Encounter Summary ---
Author Organization [facility] Address 100 [facility] 200 [place] [address] Phone Care Team Providers Care Practice Coordinator Name Role Phone Mirta Matos MD Primary Care Provider [phone] Encounter Details Date Type Department Care Team (Late Contact Info) Description 11/12/2023 Office Communication [facility] [address] [facility] 200 [place] [phone] Dejan Shirley MD 355[address] [facility] 204 [place] [phone] Social History Tobacco Use Types Packs/Day Years [...] Visit [facility] [address] [place] [address] Dejan Shirley MD [address] [address] documented as of this encounter Visit Diagnoses Not on filedocumented in this encounter Care Teams Practice Coordinator Relationship Specialty Start Date End Date Mirta Matos MD [address] [place], [place] PCP - General Internal Medicine 11/30/23 documented as of this encounter
== END 2024-08-19 10:52 | disposition home or self-care (01) ==
LOC: HO.HOSX 10:51
PROVIDERS: PCP Internal Medicine; Visit Provider Physical Medicine & Rehabilitation
DX: M54.2 Cervicalgia (principal); M54.12 Radiculopathy, cervical region; M79.18 Myalgia, other site; M19.011 Primary osteoarthritis, right shoulder
CPT/HCPCS: 72040; 99212

== ENCOUNTER → 2024-08-19 11:30 | Outpatient (BNV) | payer MEDICARE, OTHER, SELFPAY | PROVIDERS: PCP Internal Medicine; Visit Provider Radiology Diagnostic Radiology | DX: M47.892 Other spondylosis, cervical region (principal) | CPT/HCPCS: 72040 ==

== ENCOUNTER 2024-09-22 10:48 | Outpatient (AMB) | payer MEDICARE, OTHER, SELFPAY ==
[2024-09-22 10:59] VITALS: BMI 32.4
--- NOTE | 2024-09-22 10:59 | MHC.OFFVIS ---
Vital Signs 09/22/24 10:59 Height 5 ft Weight 166 lb BMI 32.4 Intake Visit Reasons: O/V S/P neck trigger injections Intake Note: Yue 69 yr old female presents today for her follow up visit for her neck and right shoulder. States since last visit her pain has improved. She is managing her pain with Tylenol, brace and light exercise. States she doesnt want the injection for now. Allergies carrot [CARROT] Allergy (Severe, Verified 09/22/24 11:01) ANAPHYLAXIS apple Allergy (Intermediate, Verified 09/22/24 11:01) GREEN APPLES-UNKNOWN celery [CELERY] Allergy (Intermediate, Verified 09/22/24 11:01) FROM ALLERGY TESTING RESULT lactose [LACTOSE] Allergy (Intermediate, Verified 09/22/24 11:01) diarrhea peanut [PEANUT] Allergy (Intermediate, Verified 09/22/24 11:01) THROAT ITCHING pear [Pear] Allergy (Intermediate, Verified 09/22/24 11:01) THROAT ITCHING plum [PLUM] Allergy (Intermediate, Verified 09/22/24 11:01) THROAT ITCHING trazodone [TRAZODONE] Allergy (Intermediate, Verified 09/22/24 11:01) RASH tree and shrub pollen Allergy (Intermediate, Verified 09/22/24 11:01) Itchy Eyes omeprazole Adverse Reaction (Unknown, Verified 09/22/24 11:01) leg swelling GREEN PEPPERS Allergy (Intermediate, Uncoded 09/22/24 11:01) Diarrhea HPI Comments Details: Been feeling better for at least 3 weeks. When she does have pain, takes tylenol. Sometimes she would put a brace on her shoulder for a few hours and that would help. She mentions other joint pain like knee. But not on neck or shoulder. Taking prolia for osteoporosis. Cervical x-ray shows preserved disc spaces. [facility] Medical History (Updated 09/22/24 @ 11:11 by Anisa Maza MD) Hypovitaminosis D Age related osteoporosis Post-menopausal Anxiety Obese Chronic kidney disease Migraines Hypothyroidism Dyslipidemia Essential hypertension Surgical History Hx of appendectomy History of History of total left knee replacement (TKR) History of cataract surgery History of colonoscopy History of cholecystectomy H/O knee surgery Family History Father CAD (coronary artery disease) Mother No problems noted. Social History Household Members: None Housing: House Do you presently have visiting nurse or other home services: No Alcohol intake: never Patient Tobacco Use Status: Never used Tobacco e-Cigarette/Vaping Use: Never Used Second Hand Smoke Exposure: No Advance Directives Date on File: 06/04/23 service: No Current occupational status: disabled Cognitive needs: No Hearing needs: Yes Vision needs: Yes Physical Exam Vital Signs: BMI result Body Mass Index 32.4 Constitutional: Patient appears to be in no acute distress, well nourished and well developed. Patient was appropriately conversant and oriented. Good historian. MSK: Inspection reveals appropriate head and neck positioning. Good cervical and shoulder range of motion. Neurological: Nonfocal. Gait is non-antalgic without loss of balance. Results Reviewed Results Reviewed: Ordering Physician: Anisa Vaca Date of Service: 08/19/24 Procedure(s): XR cervical spine 3V Accession Number(s): [id number] cc: Mirta Matos MD; Anisa Vaca~ EXAMINATION: XR CERVICAL SPINE CLINICAL INFORMATION: M54.2 - Cervicalgia COMPARISON: None available. TECHNIQUE: 3 views of the cervical spine were obtained. FINDINGS: There is maintained cervical lordosis. The vertebral heights and alignment is normal. There is mild ventral spondylosis C4-5 and C5-6 disc levels. The disc heights are maintained normal. No visible acute fracture, lytic or sclerotic process seen. The prevertebral soft tissues are normal XR/XR cervical spine 3V IMPRESSION: Mild ventral spondylosis C4-5 and C5-6 disc levels. No visible acute fracture, lytic or sclerotic process. Electronically signed by: Shailesh Juarez MD 08/22/2024 11:08 AM [facility] & Plan Assessment & Plan (1) Cervical spondylosis: Code(s): M47.812 - Spondylosis without myelopathy or radiculopathy, cervical region Category: Medical (2) Myofascial pain: Code(s): M79.18 - Myalgia, other site Category: Medical Plan I would say cspine xray looks normal for age without disc space narrowing. She is feeling well now and no further intervention needed. She is managing well at home. We looked at cspine xray images together. Assessment and plan discussed with patient, and patient was agreeable. All questions were answered thoroughly. No further follow up at this time. Patient will call if there is recurrence of pain. Anisa Maza MD, ZENIA Board Certified, [place] Board of Physical Medicine and Rehabilitation (ABPMR) Board Certified, [place] Board of Electrodiagnostic Medicine (ABEM) Coding Level of Care Code Est Pt Level 3 (37910) Diagnoses Cervical spondylosis M47.812 Myofascial pain M79.18
--- OUTSIDE RECORDS SUMMARY | 2024-09-22 12:01 | XMS_ITS | Clinical Summary ---
Author Organization [employer] Address [address] [facility] 7t [place] [address] Care Team Providers Care Fish Bait Processing Supervisor Name Role Phone Unavailable Primary Care Provider [...]
--- OUTSIDE RECORDS SUMMARY | 2024-09-22 12:01 | XMS_ITS | Encounter Summary ---
Author Organization [facility] Address 100 [facility] 200 [place] [address] Phone Care Team Providers Care Manifest Clerk Name Role Phone Mirta Matos MD Primary Care Provider [phone] Encounter Details Date Type Department Care Team (Late Contact Info) Description 11/12/2023 Telephone [facility] [address] [facility] 200 [place] [phone] Dejan Shirley MD [address] [address] Social History Tobacco Use Types [...] Visit [facility] [address] [place] [address] Dejan Shirley MD [address] [address] documented as of this encounter Visit Diagnoses Not on filedocumented in this encounter Care Teams Manifest Clerk Relationship Specialty Start Date End Date Mirta Matos MD [address] [place], [place] PCP - General Internal Medicine 11/30/23 documented as of this encounter
--- OUTSIDE RECORDS SUMMARY | 2024-09-22 12:01 | XMS_ITS | Clinical Summary ---
Author Organization [facility] Facility Address [address] [address] Care Team Providers Care Bolt Machine Operator Name Role Phone Mirta Matos MD Primary Care Provider [phone] Allergies Active Allergy Reactions Criticality Noted Date Comments Trazodone Rash Low 02/11/2021 Medications aspirin (ST DESMOND) 81 MG EC tablet Take 81 mg by mouth 1 (one) time each day Active levothyroxine (SYNTHROID, LEVOTHROID) 100 MCG tablet Take 100 mcg by mouth 1 (one) time each day 1 Active lovastatin (MEVACOR) 20 MG tablet Take 20 mg by mouth 1 (one) time each day 1 Active propranolol (INDERAL) 80 MG tablet Take 80 mg by mouth 1 (one) time each day Active ZOLMitriptan (ZOMIG) 5 MG tablet Take 5 mg by mouth 1 (one) time each day Active acetaminophen (TYLENOL) 500 MG tablet Take by mouth daily Active Cholecalciferol (Vitamin D3) 25 MCG (1000 UT) capsule Take 1 tablet by mouth 1 (one) time each day 2 Active lisinopril (PRINIVIL,ZESTRI L) 30 MG tablet Take 30 mg by mouth 1 (one) time each day Active Biotin 16176 MCG tablet dispersible Take by mouth Active amLODIPine (NORVASC) 5 MG tablet Take 1 tablet (5 mg total) by mouth 1 (one) time each day 90 tablet 3 4 01/05/20 25 Active sertraline (ZOLOFT) 25 MG tablet Take 25 mg by mouth 1 (one) time each day 4 Active calcitriol (Rocaltrol) 0.25 MCG capsule Take 1 capsule (0.25 mcg total) by mouth 1 (one) time each day 90 capsule 4 Active calcitriol (Rocaltrol) 0.25 MCG capsuleIndicatio ns:Other acute kidney failure (HCC),Long-term drug therapy Take 1 capsule (0.25 mcg total) by mouth 1 (one) time each day 30 capsule 5 10/15/19 25 Active calcitriol (Rocaltrol) 0.25 MCG capsuleIndicatio ns:Other acute kidney failure (HCC),Long-term drug therapy Take 1 capsule (0.25 mcg total) by mouth 1 (one) time each day 30 capsule 4 09/15/19 25 Discontinu ed(Reorder (does not appear on AVS)) Active Problems Problem Noted Date Diagnosed Date Stage 3b chronic kidney disease 07/16/2021 Chronic kidney disease stage 3 02/11/2021 Hypertensive disorder 02/11/2021 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 [address] [place] [phone] Renetta Castellon [place] Other acute kidney failure (HCC); Long-term drug therapy from Last 3 Months Immunizations Name Administration Dates Next Due Pfizer [...] Visit [facility] [address] [place] [facility] [place] [address] Dejan Shirley MD [address] [address] Health Maintenance Due Date Last Done Comments Breast Cancer Screening 1955 Pneumococcal Vaccine: 65+ Ye ars (1 of 2 - PCV) 1959 Colorectal Cancer Screening: Annual FOBT 2002 Colorectal Cancer Screening: Colonoscopy 2002 Colorectal Cancer Screening: Sigmoidoscopy 2002 Influenza Vaccine (#1) 2024 Hepatitis B Vaccine Aged Out No longe r eligible based on patient's age to complete this topic Insurance [facility] MEDICARE [place]ICAID [place] MEDICARE [facility] MEDICAID [place] Care Teams Bolt Machine Operator Relationship Specialty Start Date End Date Mirta Matos MD [address] [place], [place] PCP - General Internal Medicine 11/30/23
--- OUTSIDE RECORDS SUMMARY | 2024-09-22 12:01 | XMS_ITS | Encounter Summary ---
Author Organization [facility] Address [address] [facility] 200 [place] [address] Phone Care Team Providers Care Professor Of Chemical Engineering Name Role Phone Mirta Matos MD Primary Care Provider [phone] Encounter Details Date Type Department Care Team (Late Contact Info) Description 11/12/2023 Office Communication [facility] [address] [facility] 200 [place] [phone] Dejan Shirley MD 355[address] [facility] 204 [place] [phone] Social History Tobacco Use Types Packs/Day Years [...] Visit [facility] [address] [place] [address] Deajn Shirley MD [address] [address] documented as of this encounter Visit Diagnoses Not on filedocumented in this encounter Care Teams Professor Of Chemical Engineering Relationship Specialty Start Date End Date Mirta Matos MD [address] [place], [place] PCP - General Internal Medicine 11/30/23 documented as of this encounter
== END 2024-09-22 11:16 | disposition home or self-care (01) ==
PROVIDERS: PCP Internal Medicine; Visit Provider Physical Medicine & Rehabilitation
DX: M47.812 Spondylosis without myelopathy or radiculopathy, cervical region (principal); M79.18 Myalgia, other site
CPT/HCPCS: 99213

== ENCOUNTER → 2024-09-22 10:48 | Outpatient (BNVA) | payer MEDICARE, OTHER, SELFPAY | PROVIDERS: PCP Internal Medicine; Visit Provider Physical Medicine & Rehabilitation | DX: M47.812 Spondylosis without myelopathy or radiculopathy, cervical region (principal); M79.18 Myalgia, other site | CPT/HCPCS: 99212 ==

== ENCOUNTER 2024-09-29 08:49 | Outpatient (REF) | payer MEDICARE, OTHER, SELFPAY ==
--- OUTSIDE RECORDS SUMMARY | 2024-09-29 09:19 | XMS_ITS | Encounter Summary ---
Author Organization [facility] Address 100 [facility] 200 [place] [address] Phone Care Team Providers Care Hris Specialist Name Role Phone Mirta Matos MD Primary Care Provider [phone] Encounter Details Date Type Department Care Team (Late Contact Info) Description 11/12/2023 Telephone [facility] [address] [facility] 200 [place] [phone] Dejan Shirley MD [address] [address] Social History Tobacco Use Types [...] Visit [facility] [address] [place] [address] Dejan Shirley MD [address] [address] documented as of this encounter Visit Diagnoses Not on filedocumented in this encounter Care Teams Hris Specialist Relationship Specialty Start Date End Date Mirta Matos MD [address] [place], [place] PCP - General Internal Medicine 11/30/23 documented as of this encounter
--- OUTSIDE RECORDS SUMMARY | 2024-09-29 09:19 | XMS_ITS | Clinical Summary ---
Author Organization [facility] Facility Address [address] [address] Care Team Providers Care Aws Consultant Name Role Phone Mirta Matos MD Primary Care Provider [phone] Allergies Active Allergy Reactions Criticality Noted Date [...] 1 (one) time each day Active Biotin 27800 MCG tablet dispersible Take by mouth Active [...] Refill [facility] P.. [address] [place] [phone] Renetta Castellon [place] Other acute kidney failure (HCC); Long-term drug therapy from Last 3 Months Immunizations Immunization Administration Dates Next Due Pfizer SARS-COV-2 07/09/2022 [...] [facility] [address] [place] [facility] [place] [address] Dejan Shirley MD [address] [address] Health Maintenance Due Date Last Done Comments Breast Cancer Screening 1955 Pneumococcal Vaccine: 50+ Ye ars (1 of 2 - PCV) 1959 Colorectal Cancer Screening: Annual FOBT 2002 Colorectal Cancer Screening: Colonoscopy 2002 Colorectal Cancer Screening: Sigmoidoscopy 2002 Influenza Vaccine (Season Ended) 2025 Hepatitis B Vaccine Aged Out No longe r eligible based on patient's age to complete this topic Insurance [facility] Medicare Medicaid [place] Medicare [facility] Medicaid [place] Care Teams Aws Consultant Relationship Specialty Start Date End Date Mirta Matso MD [address] [place], [place] PCP - General Internal Medicine 11/30/23
--- OUTSIDE RECORDS SUMMARY | 2024-09-29 09:19 | XMS_ITS | Clinical Summary ---
Author Organization [employer] Address 75 [facility] 7t [place] [address] Care Team Providers Care Melter Supervisor Name Role Phone Unavailable Primary Care [...]
--- OUTSIDE RECORDS SUMMARY | 2024-09-29 09:19 | XMS_ITS | Encounter Summary ---
Author Organization [facility] Address 100 [facility] 200 [place] [address] Phone Care Team Providers Care Supervisor Ordnance Truck Installation Name Role Phone Mirta Matos MD Primary Care Provider [phone] Encounter Details Date Type Department Care Team (Late Contact Info) Description 11/12/2023 Office Communication [facility] [address] [facility] 200 [place] [phone] Dejan Shirley MD [address] [facility] 204 [place] [phone] Social History Tobacco Use Types Packs/Day Years [...] Visit [facility] [address] [place] [address] Dejan Shirley MD [address] [address] documented as of this encounter Visit Diagnoses Not on filedocumented in this encounter Care Teams Supervisor Ordnance Truck Installation Relationship Specialty Start Date End Date Mirta Matos MD [address] [facility] [address] [place], [place] PCP - General Internal Medicine 11/30/23 documented as of this encounter
[2024-09-29 11:29] LABS: Alanine Aminotransferase 15 U/L (0-31); Albumin Level 4.1 g/dL (3.5-5.0); Alkaline Phosphatase 59 U/L (39-117); Anion Gap 12 (12-20); Aspartate Amino Transferase 23 U/L (5-31); Bilirubin Total 0.5 mg/dL (0.0-1.0); Blood Urea Nitrogen 19 mg/dL (9-16); Calcium 8.6 mg/dL (8.4-10.2); Carbon Dioxide 25 mmol/L (22-29); Chloride 110 mmol/L (96-108); Cholesterol 179 mg/dL (<200); Estimated Glomerular Filt Rate 58; Glucose Fasting 96 mg/dL (60-99); HDL Cholesterol 47 mg/dL (>40); LDL Cholesterol Calculated 111 mg/dL (<100); Sodium 143 mmol/L (135-145); Total Protein 6.7 g/dL (6.5-8.0); Triglycerides 105 mg/dL (<150)
[2024-09-29 11:34] LABS: Thyroid Stimulating Hormone 1.56 uIU/mL (0.32-4.0)
[2024-09-29 11:36] LABS: Vitamin D 25-OH Total 48.7 ng/mL (>30)
[2024-09-29 11:45] LABS: Parathyroid Hormone Intact 611.7 pg/mL (8.7-77.1)
[2024-09-30 15:19] LABS: Calcium, Ionized 4.9 mg/dL (4.7-5.5)
== END 2024-09-29 08:50 | disposition home or self-care (01) ==
LOC: HO.LAB 08:49
PROVIDERS: Absent Provider Internal Medicine Endocrinology, Diabetes & Metabolism; PCP Internal Medicine; Visit Provider Internal Medicine
DX: E78.5 Hyperlipidemia, unspecified (principal); E21.3 Hyperparathyroidism, unspecified; E55.9 Vitamin D deficiency, unspecified; E03.9 Hypothyroidism, unspecified
CPT/HCPCS: 36415; 80053; 80061; 82306; 82330; 83970; 84100; 84443

== ENCOUNTER 2024-10-05 13:46 | Outpatient (AMB) | payer MEDICARE, OTHER, SELFPAY ==
--- NOTE | 2024-10-05 13:56 | MHC.PC.OV ---
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 Required: No Accompanied by: Self / Same As Patient Allergies carrot [CARROT] Allergy (Severe, Verified 10/05/24 14:21) ANAPHYLAXIS apple Allergy (Intermediate, Verified 10/05/24 14:21) GREEN APPLES-UNKNOWN celery [CELERY] Allergy (Intermediate, Verified 10/05/24 14:21) FROM ALLERGY TESTING RESULT lactose [LACTOSE] Allergy (Intermediate, Verified 10/05/24 14:21) diarrhea peanut [PEANUT] Allergy (Intermediate, Verified 10/05/24 14:21) THROAT ITCHING pear [Pear] Allergy (Intermediate, Verified 10/05/24 14:21) THROAT ITCHING plum [PLUM] Allergy (Intermediate, Verified 10/05/24 14:21) THROAT ITCHING trazodone [TRAZODONE] Allergy (Intermediate, Verified 10/05/24 14:21) RASH tree and shrub pollen Allergy (Intermediate, Verified 10/05/24 14:21) Itchy Eyes omeprazole Adverse Reaction (Unknown, Verified 10/05/24 14:21) leg swelling GREEN PEPPERS Allergy (Intermediate, Uncoded 10/05/24 14:21) Diarrhea Medication List - Last Reconciled 10/05/24 by Mirta Jimenez MD amlodipine 2.5 mg PO DAILY 90 days calcitriol 0.25 mcg PO Q48H 30 days cholecalciferol (vitamin D3) (Vitamin D3) 25 mcg PO DAILY denosumab (Prolia) 60 mg subcut [id number] dicyclomine 20 mg PO BID 30 days diphenhydramine HCl (Benadryl) 25 mg PO ONCE PRN docusate calcium 240 mg PO ONCE PRN 1 day epinephrine (EpiPen 2-Evan) 0.3 mg IM Q4H PRN eszopiclone 3 mg PO BEDTIME 90 days Lactobac. rhamnosus GG-inulin 10 billion cell -200 mg ([facility]) 1 cap PO BID levothyroxine 88 mcg PO DAILY 90 days lisinopril 40 mg PO DAILY 90 days loperamide 2 mg PO QID PRN 30 days lovastatin 20 mg PO DAILY 90 days meclizine 25 mg PO DAILY PRN potassium phosphate, monobasic 1,000 mg (2 x 500 mg) PO BID 3 days propranolol ER 80 mg PO DAILY sertraline 25 mg PO DAILY 90 days tramadol 50 mg PO DAILY 30 days zolmitriptan 5 mg PO DAILY PRN 30 days Tobacco use date assessed: 10/05/24 Fall risk assessment: No Falls in past year Last assessed Fall Risk: 10/05/24 Dental Screening Dental Screen Date: 10/05/24 Did you have a dental visit in the last 12 months?: No Did you have a dental problem in the last 6 months where you did not have access to dental care?: No Was dental information given to patient?: Patient has dentist HPI HPI Comments History of Present Illness Details The patient is a 69-year-old female presenting with chronic diarrhea, initially occurring years ago following a cholecystectomy in her youth. The symptom has been persistent and lifestyle-altering, precipitating departure from employment. Dietary intake, particularly fatty or fibrous food, exacerbates episodes of diarrhea. Chronic diarrhea has been implicated in her hypophosphatemia and plays a role in her hyperparathyroidism. The hyperparathyroidism, now under monitoring due to renal risks precluding surgical resolution, increases concern for mineral malabsorption. Renal function has reportedly improved with a GFR now at 58. She manages chronic medical issues, including the control of essential hypertension with amlodipine, insomnia through esopiclone, anxiety and depression with sertraline, and migraines managed with sumatriptan. Osteoporosis is under regular observation with Prolia treatment and a scheduled bone density reevaluation. Dyslipidemia shows well-managed cholesterol levels. There is ongoing monitoring of thyroid function with levothyroxine prescription indicating stabilized thyroid levels. [facility] Medical History (Updated 10/05/24 @ 15:19 by Mirta Jimenez MD) Hypovitaminosis D Age related osteoporosis Post-menopausal Anxiety Obese Chronic kidney disease Migraines Hypothyroidism Dyslipidemia Essential hypertension Surgical History Hx of appendectomy History of History of total left knee replacement (TKR) History of cataract surgery History of colonoscopy History of cholecystectomy H/O knee surgery Family History Father CAD (coronary artery disease) Mother No problems noted. Social History Household Members: None Housing: House Do you presently have visiting nurse or other home services: No Alcohol intake: never Patient Tobacco Use Status: Never used Tobacco e-Cigarette/Vaping Use: Never Used Second Hand Smoke Exposure: No Advance Directives Date on File: 06/04/23 service: No Current occupational status: disabled Cognitive needs: No Hearing needs: Yes Vision needs: Yes Questionnaire PHQ-9 Over the last 2 weeks, how often have you been bothered by any of the following problems? 1. Little interest or pleasure in doing things: not at all 2. Feeling down, depressed, or hopeless: not at all 3. Trouble falling or staying asleep, or sleeping too much: not at all 4. Feeling tired or having little energy: not at all 5. Poor appetite or overeating: not at all 6. Feeling bad about yourself - or that you are a failure or have let yourself or your family down: not at all 7. Trouble concentrating on things, such as reading the newspaper or watching television: not at all 8. Moving or speaking so slowly that other people could have noticed. Or the opposite - being so fidgety or restless that you have been moving around a lot more than usual: not at all 9. Thoughts that you would be better off or of hurting yourself in some way: not at all Total score: 0 Depression Screening Interpretation: Negative Depression Screening Done: Yes 94211 - PHQ-9 Billing: Yes Source: Developed by Drs. Kevin Pagan, Milli Ravi, Alfred Deleon and colleagues, with an educational joon from [employer]. Thrive Questionnaire Date Thrive assessed: 10/05/24 I am a: Patient What is your living situation today?: I have a steady place to live Within the past 12 months, did the food you bought not last and you didn't have the money to get more?: Never true Within the past 12 months, did you worry whether your food would run out before you got money to buy more?: Never true Do you have trouble paying for medicines?: No Do you have trouble getting transportation to medical appointments?: No Do you have trouble paying your heating and electricity bill?: No Do you have trouble taking care of your child, family member or friend?: No Do you have trouble with day-to-day activities such as bathing, preparing meals, shopping, managing finances, etc.?: No Are you currently unemployed and looking for a job?: No Are you interested in more education?: No Please select the resources that you would like help with: None Currently or been in a relationship where the following occur: No concerns reported THRIVE Score: 0 AUDIT C Alcohol Use Questionnaire (AUDIT-C) 1. How often do you have a drink containing alcohol?: Monthly or less 2. How many drinks containing alcohol do you have on a typical day when you are drinking?: 1 or 2 3. How often do you have six or more drinks on one occasion?: Never Total Score: 1 Score Reviewed/Action Taken: No JANETH-7 AMB Questionnaire JANETH-7 Date JANETH - 7 assessed: 10/05/24 Feeling nervous, anxious, or on edge: 0 = Not at all Not being able to stop or control worryin = Not at all Worrying too much about different things: 0 = Not at all Trouble relaxin = Not at all Being so restless that it is hard to sit still: 0 = Not at all Becoming easily annoyed or irritable: 0 = Not at all Feeling afraid as if something awful might happen: 0 = Not at all Total JANETH-7 score (0-4 normal; 5-9 mild; 10-14 moderate; 15-21 severe): 0 Source: Developed by Drs. Kevin Pagan, Milli Ravi, Alfred Deleon and colleagues, with an educational joon from [employer]. JANETH-7 Assessment Billing JANETH-7 Assessment Tool: JANETH-7 Assessment 24482 Review of Systems Const All systems reviewed & are unremarkable except as noted in HPI and below Card Denies chest pain at rest, Denies chest pain with activity, Denies edema, Denies irregular heart rhythm, Denies claudication, Denies dyspnea, Denies dyspnea on exertion, Denies orthopnea, Denies paroxysmal nocturnal dyspnea and Denies slow heart rate Resp Denies cough, Denies dyspnea and Denies dyspnea on exertion GI Denies abdominal pain, Denies change in bowel habits, Denies excessive flatus, Denies nausea and Denies vomiting Physical exam (Primary Care) Vital Signs: Last Vital Signs BP 132/86 10/05/24 13:58 BMI result Body Mass Index 31.2 Tobacco/Smoking Status: Tobacco use Status Tobacco use date assessed 10/05/24 10/05/24 14:03 Patient Tobacco Use Status Never used Tobacco 10/05/24 14:03 e-Cigarette/Vaping Use Never Used 10/05/24 14:03 PHQ-9: PHQ-9 Score PHQ-9: Total score 0 10/05/24 14:24 Depression Screening Interpretation: Negative Thrive Assessment: Date of Thrive Assessment Date Thrive assessed 10/05/24 10/05/24 14:03 Currently or been in a relationship where the following occur: No concerns reported Resp Effort & Inspection: normal respiratory effort Auscultation: clear to auscultation bilaterally Cardio Jugular venous distension: no JVD Rate: regular rate Rhythm: regular rhythm Heart sounds: S1 normal heart sound present and S2 normal heart sound present Extrem General: Yes full ROM Coding Level of Care Code Est Pt Level 4 (18904) Complex EM visit Add On G2211 Diagnoses Mild major depression F32.0 Anxiety F41.9 Hypophosphatemia E83.39 Hyperparathyroidism E21.3 Age-related osteoporosis without current pathological fracture M81.0 Presence of current pathological fracture: without current pathological fracture Stage 3b chronic kidney disease N18.32 Chronic kidney disease stage: stage 3 (moderate) Chronic kidney disease stage 3 subtype: stage 3b (GFR 30-44) Hypothyroidism, unspecified type E03.9 Hypothyroidism type: unspecified Essential hypertension I10 Dyslipidemia E78.5 Bile salt-induced diarrhea K90.89 Additional Codes JANETH-7 Assessment Billing - JANETH-7 Assessment Tool: JANETH-7 Assessment 77739 ([id number]) PHQ-9 - 52828 - PHQ-9 Billing: Yes ([id number]) Time Spent (min) 23 Assessment & Plan Assessment & Plan (1) Mild major depression: Code(s): F32.0 - Major depressive disorder, single episode, mild Category: Medical (2) Anxiety: Code(s): F41.9 - Anxiety disorder, unspecified Category: Medical (3) Hypophosphatemia: Code(s): E83.39 - Other disorders of phosphorus metabolism Category: Medical (4) Hyperparathyroidism: Code(s): E21.3 - Hyperparathyroidism, unspecified Category: Medical (5) Age related osteoporosis: Code(s): M81.0 - Age-related osteoporosis without current pathological fracture Category: Medical Qualifiers: Presence of current pathological fracture: without current pathological fracture Qualified Code(s): M81.0 - Age-related osteoporosis without current pathological fracture (6) Chronic kidney disease: Comment: ADPKD follow by nephrology Code(s): N18.9 - Chronic kidney disease, unspecified Category: Medical Qualifiers: Chronic kidney disease stage: stage 3 (moderate) Chronic kidney disease stage 3 subtype: stage 3b (GFR 30-44) Qualified Code(s): N18.32 - Chronic kidney disease, stage 3b (7) Hypothyroidism: Code(s): E03.9 - Hypothyroidism, unspecified Category: Medical Qualifiers: Hypothyroidism type: unspecified Qualified Code(s): E03.9 - Hypothyroidism, unspecified (8) Essential hypertension: Code(s): I10 - Essential (primary) hypertension Category: Medical (9) Dyslipidemia: Code(s): E78.5 - Hyperlipidemia, unspecified Category: Medical (10) Bile salt-induced diarrhea: Code(s): K90.89 - Other intestinal malabsorption Category: Medical Plan The chronic diarrhea is addressed through dietary modifications and the use of a prescribed powdered supplement. To prevent further mineral depletion, potassium phosphate is recommended. Hyperparathyroidism continues under vigilant observation, and potential medical therapies will be evaluated as conditions change. Hypertension is successfully managed with amlodipine, and continued treatment is advised. Ongoing psychological health benefits from sertraline stabilization. Migraine management with sumatriptan is to continue on an as-needed basis. Insomnia management remains adjusted with esopiclone prioritization. Prolia remains part of osteoporosis treatment, with bone density assessment scheduled. Continued assessment of thyroid function will occur in follow-up labs. Patient was informed and verbally consented to the use of an ambient scribe for clinic note documentation during this visit. During the consultation, I provided the patient with information regarding the chronic impact of diarrhea on both hypophosphatemia and hyperparathyroidism, emphasizing dietary management and adherence to supplements. In discussions about hyperparathyroidism, the renal risks were acknowledged, determining current medical management preference. For other chronic conditions, I reinforced existing treatment protocols while scheduling requisite follow-up diagnostic studies. I addressed lifestyle modifications necessary for symptom management and stressed the importance of compliance with therapeutic regimens for maintaining her overall health. Orders: Orders Comprehensive Met. Panel 4 Months I10 - Essential (primary) hypertension Thyroid Stimulating Hormone 4 Months E03.9 - Hypothyroidism, unspecified Phosphorus 4 Months E83.39 - Other disorders of phosphorus metabolism Medications: New potassium phosphate, monobasic 1,000 mg (2 x 500 mg) PO BID 12 tabs 0RF 3 days cholestyramine (Cholestyramine Light) 4 grams PO DAILY PRN 210 grams 0RF diarrhea 30 days Refilled tramadol 50 mg PO DAILY 30 tabs 0RF 30 days zolmitriptan 5 mg PO DAILY PRN 9 tabs 2RF Migraine Headache 30 days Patient Instructions: - Use the prescribed powder supplement when diarrhea occurs. - Avoid consuming high-fat and high-fiber foods. - Continue all current medications for blood pressure, anxiety, depression, sleep, migraines, and thyroid management. - Attend scheduled follow-ups and complete the planned diagnostic studies. - Monitor for any symptom changes and seek care for significant issues. - Follow through with the osteoporosis management plan and upcoming bone density test. - Keep regular appointments with the endocrine and renal specialists as advised.
[2024-10-05 13:58] VITALS: BP 132/86; BMI 31.2
--- OUTSIDE RECORDS SUMMARY | 2024-10-05 16:27 | XMS_ITS | Encounter Summary ---
Author Organization [facility] Address [address] [facility] [address] [place] [address] Phone Care Team Providers Care Pulp Tester Name Role Phone Mirta Matos MD Primary Care Provider [phone] Encounter Details Date Type Department Care Team (Late Contact Info) Description 11/12/2023 Telephone [facility] [address] [facility] [address] [place] [phone] Dejan Shirley MD [address] [address] Social History Tobacco Use Types [...] Visit [facility] [address] [place] [address] Dejan Shirley MD [address] [address] documented as of this encounter Visit Diagnoses Not on filedocumented in this encounter Care Teams Pulp Tester Relationship Specialty Start Date End Date Mirta Matos MD [address] [place], [place] PCP - General Internal Medicine 11/30/23 documented as of this encounter
--- OUTSIDE RECORDS SUMMARY | 2024-10-05 16:27 | XMS_ITS | Clinical Summary ---
Author Organization [facility] Address [address] [address] Care Team Providers Care Process Assistant Name Role Phone Mirta Matos MD Primary Care Provider [phone] Allergies Active Allergy Reactions Criticality Noted Date [...] 1 (one) time each day Active Biotin 21765 MCG tablet dispersible Take by mouth Active [...] Refill [facility] [address] [place] [phone] Renetta Castellon [place] Other acute kidney failure [...] Visit [facility] [address] [place] [facility] [place] [address] Dejan Shirley MD [address] [address] Health Maintenance Due Date Last Done Comments Breast Cancer Screening 1955 Pneumococcal Vaccine: 50+ Ye ars (1 of 2 - PCV) 1972 Colorectal Cancer Screening: Annual FOBT 2002 Colorectal Cancer Screening: Colonoscopy 2002 Colorectal Cancer Screening: Sigmoidoscopy 2002 Influenza Vaccine (Season Ended) 2025 Hepatitis B Vaccine Aged Out No longe r eligible based on patient's age to complete this topic Insurance [facility] Medicare Medicaid [place] Medicare [facility] Medicaid [place] Care Teams Process Assistant Relationship Specialty Start Date End Date Mirta Matos MD [address] [place], [place] PCP - General Internal Medicine 11/30/23
--- OUTSIDE RECORDS SUMMARY | 2024-10-05 16:27 | XMS_ITS | Clinical Summary ---
Author Organization [facility] Address [address] [facility] 7[address] [place] [address] Care Team Providers Care Math Interventionist Name Role Phone Unavailable Primary Care Provider [...] age to complete this topic Insurance MEDICARE [address] [phone]
--- OUTSIDE RECORDS SUMMARY | 2024-10-05 16:27 | XMS_ITS | Encounter Summary ---
Author Organization [facility] Address [address] [facility] [address] [place] [address] Phone Care Team Providers Care Missile Pad Mechanic Name Role Phone Mirta Matos MD Primary Care Provider [phone] Encounter Details Date Type Department Care Team (Late Contact Info) Description 11/12/2023 Office Communication [facility] [address] [facility] [address] [place] [phone] Dejan Shirley MD [address] [facility] [address] [place] [phone] Social History Tobacco Use Types Packs/Day Years [...] Visit [facility] [address] [place] [address] Dejan Shirley MD [address] [phone] documented as of this encounter Visit Diagnoses Not on filedocumented in this encounter Care Teams Missile Pad Mechanic Relationship Specialty Start Date End Date Mirta Matos MD [address] [place], [place] PCP - General Internal Medicine 11/30/23 documented as of this encounter
== END 2024-10-05 14:36 | disposition home or self-care (01) ==
LOC: HO.HMCH 13:47
PROVIDERS: PCP Internal Medicine; Visit Provider Internal Medicine
DX: I12.9 Hypertensive chronic kidney disease with stage 1 through stage 4 chronic kidney disease, or unspecified chronic kidney disease (principal); E21.3 Hyperparathyroidism, unspecified; F32.0 Major depressive disorder, single episode, mild; N18.32 Chronic kidney disease, stage 3b; F41.9 Anxiety disorder, unspecified; E83.39 Other disorders of phosphorus metabolism; M81.0 Age-related osteoporosis without current pathological fracture; E03.9 Hypothyroidism, unspecified; E78.5 Hyperlipidemia, unspecified; K90.89 Other intestinal malabsorption

== ENCOUNTER → 2024-10-05 13:46 | Outpatient (BNVA) | payer MEDICARE, OTHER, SELFPAY | PROVIDERS: PCP Internal Medicine; Visit Provider Internal Medicine | DX: F32.0 Major depressive disorder, single episode, mild (principal); F41.9 Anxiety disorder, unspecified; E83.39 Other disorders of phosphorus metabolism; E21.3 Hyperparathyroidism, unspecified; M81.0 Age-related osteoporosis without current pathological fracture; I12.9 Hypertensive chronic kidney disease with stage 1 through stage 4 chronic kidney disease, or unspecified chronic kidney disease; N18.30 Chronic kidney disease, stage 3 unspecified; E03.9 Hypothyroidism, unspecified; E78.5 Hyperlipidemia, unspecified; K90.89 Other intestinal malabsorption | CPT/HCPCS: 96127; 99212 ==

== ENCOUNTER 2024-12-13 06:55 | Outpatient (REF) | payer MEDICARE, OTHER, SELFPAY ==
--- OUTSIDE RECORDS SUMMARY | 2024-12-13 06:58 | XMS_ITS | Encounter Summary ---
Author Organization [facility] Address [address] [facility] [address] [place] [address] Phone Care Team Providers Care Mental Health Program Specialist Name Role Phone Mirta Matos MD Primary Care Provider [phone] Encounter Details Date Type Department Care Team (Late Contact Info) Description 11/12/2023 Telephone [facility] [address] [facility] [address] [place] [address] Dejan Shirley MD [address] [address] Social History Tobacco Use Types [...] Department Care Team (Late Contact Info) Description 02/06/2025 1:45 PM EDT Office Visit [facility] [address] [place] [address] Dejan Shirley MD [address] [phone] documented as of this encounter Visit Diagnoses Not on filedocumented in this encounter Care Teams Mental Health Program Specialist Relationship Specialty Start Date End Date Mirta Matos MD [address] [place], [place] PCP - General Internal Medicine 11/30/23 documented as of this encounter
[2024-12-13 07:45] LABS: Albumin Level 4.4 g/dL (3.5-5.0); Calcium 9.7 mg/dL (8.4-10.2)
== END 2024-12-13 06:56 | disposition home or self-care (01) ==
LOC: HO.LAB 06:55
PROVIDERS: PCP Internal Medicine; Visit Provider Internal Medicine Endocrinology, Diabetes & Metabolism
DX: M81.0 Age-related osteoporosis without current pathological fracture (principal)
CPT/HCPCS: 36415; 82040; 82310

== ENCOUNTER 2024-12-15 07:58 | Outpatient (REF) | payer MEDICARE, OTHER, SELFPAY ==
--- OUTSIDE RECORDS SUMMARY | 2024-12-15 08:03 | XMS_ITS | Encounter Summary ---
Author Organization [facility] Address [address] [facility] [address] [place] [address] Phone Care Team Providers Care Cut Off Saw Set Up Operator Name Role Phone Mirta Matos MD Primary Care Provider [phone] Encounter Details Date Type Department Care Team (Late Contact Info) Description 11/12/2023 Telephone [facility] [address] [facility] [address] [place] [address] Dejan Shirley MD [address] [phone] Social History Tobacco Use Types [...] Visit [facility] [address] [place] [address] Dejan Shirely MD [address] [address] documented as of this encounter Visit Diagnoses Not on filedocumented in this encounter Care Teams Cut Off Saw Set Up Operator Relationship Specialty Start Date End Date Mirta Matos MD [address] [place], [place] PCP - General Internal Medicine 11/30/23 documented as of this encounter
[2024-12-15 09:08] LABS: Anion Gap 10 (12-20); Blood Urea Nitrogen 21 mg/dL (9-16); Calcium 9.4 mg/dL (8.4-10.2); Carbon Dioxide 29 mmol/L (22-29); Chloride 107 mmol/L (96-108); Estimated Glomerular Filt Rate 41; Glucose Random 99 mg/dL (60-115); Potassium 3.9 mmol/L (3.3-5.1); Sodium 142 mmol/L (135-145)
== END 2024-12-15 07:59 | disposition home or self-care (01) ==
LOC: HO.LAB 07:58
PROVIDERS: PCP Internal Medicine; Visit Provider Internal Medicine Endocrinology, Diabetes & Metabolism
DX: M81.0 Age-related osteoporosis without current pathological fracture (principal)
CPT/HCPCS: 36415; 80048

== ENCOUNTER 2024-12-19 13:14 | Outpatient (AMB) | payer MEDICARE, OTHER, SELFPAY ==
--- NOTE | 2024-12-19 13:17 | A.OFFVIS_ITS ---
Vital Signs 12/19/24 13:22 Height 4 ft 11.8 in Weight 161 lb 9.581 oz BMI 31.8 BP 128/82 Blood Pressure Location Lt brachial Position Sitting Pulse 64 Pulse Source Pulse Oximeter Pulse Oximetry (%) 96 Oxygen Delivery Method Room Air Intake Visit Reasons: osteoporosis/prolia injection Intake Note: Patient present today for Osteoporosis & Prolia Injection. Cardiovascular Technician Required: No Accompanied by: Self / Same As Patient Allergies carrot (CARROT) Allergy (Severe, Verified 12/19/24 13:22) ANAPHYLAXIS apple Allergy (Intermediate, Verified 12/19/24 13:22) GREEN APPLES-UNKNOWN celery (CELERY) Allergy (Intermediate, Verified 12/19/24 13:22) FROM ALLERGY TESTING RESULT lactose (LACTOSE) Allergy (Intermediate, Verified 12/19/24 13:22) diarrhea peanut (PEANUT) Allergy (Intermediate, Verified 12/19/24 13:22) THROAT ITCHING pear (Pear) Allergy (Intermediate, Verified 12/19/24 13:22) THROAT ITCHING plum (PLUM) Allergy (Intermediate, Verified 12/19/24 13:22) THROAT ITCHING trazodone (TRAZODONE) Allergy (Intermediate, Verified 12/19/24 13:22) RASH tree and shrub pollen Allergy (Intermediate, Verified 12/19/24 13:22) Itchy Eyes omeprazole Adverse Reaction (Unknown, Verified 12/19/24 13:22) leg swelling GREEN PEPPERS Allergy (Intermediate, Uncoded 12/19/24 13:22) Diarrhea HPI Comments Details: 69 YO Female with PMHx 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 First diagnosed in December 2020. Never Received treatment in the past No history of pathologic fracture or ONJ. . Takes 1000 IU of Vitamin D daily. Denies ever using PPI, anticoagulant, antiepileptic or glucocorticoid medication. 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 UTD on dental cleanings and sees dentist every 6 months. No planned upcoming dental work or extractions. DXA dated :01/18/21 T Score of -3.0 in spine She did see Nephrology. Off hydrochlorothiazide with vitamin-D repletion, her PTH still remains quite high. She has CKD stage 3. She is about receiving f Prolia . Hyperparathyroidism is managed by Nephrology. On calcitriol by nephrology Receiving dose of Prolia today for 4 th dose No fx since last visit . Saw Dr. Chou who felt that hyperparathyroidism secondary and did not warrant surgery The patient is a 69-year-old female presenting with osteoporosis management. She receives Prolia injections every six months and reports no issues with the suad atment, although she experiences pain after four months, which is not attributed to the medication. There have been no fractures since the last visit. The patient has elevated parathyroid hormone levels, with a recent measurement of 611, significantly above the normal range of up to 77. This elevation is associated with her chronic kidney disease. She is currently taking Calcitriol 0.25 mcg to manage this condition. The patient reports balance issues, which have led to bruises, and she has been advised to participate in a 'Better Bones and Balance' program available at local senior centers. [facility] Medical History Hypovitaminosis D Age related osteoporosis Post-menopausal Anxiety Obese Chronic kidney disease Migraines Hypothyroidism Dyslipidemia Essential hypertension Surgical History Hx of appendectomy History of History of total left knee replacement (TKR) History of cataract surgery History of colonoscopy History of cholecystectomy H/O knee surgery Family History Father CAD (coronary artery disease) Mother No problems noted. Social History Household Members: None Housing: House Do you presently have visiting nurse or other home services: No Alcohol intake: never Patient Tobacco Use Status: Never used Tobacco e-Cigarette/Vaping Use: Never Used Second Hand Smoke Exposure: No Advance Directives Date on File: 06/04/23 service: No Current occupational status: disabled Cognitive needs: No Hearing needs: Yes Vision needs: Yes Physical Exam Vital Signs: Last Vital Signs Pulse 64 12/19/24 13:22 BP 128/82 12/19/24 13:22 Pulse Ox 96 12/19/24 13:22 Oxygen Delivery Method Room Air 12/19/24 13:22 BMI result Body Mass Index 31.8 Assessment & Plan Assessment & Plan (1) Age related osteoporosis: Code(s): M81.0 - Age-related osteoporosis without current pathological fracture Category: Medical Qualifiers: Presence of current pathological fracture: without current pathological fracture Qualified Code(s): M81.0 - Age-related osteoporosis without current pathological fracture Plan: This is a 69-year-old female with a history of osteoporosis in the setting of CKD stage 3 a. Patient has elevation of PTH which could be due to secondary hyperparathyroidism . She is now vitamin-D replete on supplementation with vitamin D3 but still has significant elevation in PTH. She is followed by Nephrology for optimization of CKD BMD The plan is to continue the Prolia 4th dose today . Patient will also follow up with Nephrology. 1. Osteoporosis The patient is receiving Prolia injections every six months, which she tolerates well. She reports no fractures since the last visit. Continued monitoring and administration of Prolia are planned. 2. Elevated parathyroid hormone levels The patient's parathyroid hormone level is significantly elevated at 611 pg/mL, likely due to chronic kidney disease. She is currently on Calcitriol 0.25 mcg to manage this condition. Follow-up with Dr. Shirley is advised to monitor and adjust treatment as necessary. 3. Balance issues The patient experiences balance issues leading to bruises. Participation in a 'Better Bones and Balance' program is recommended to improve stability and prevent falls. During the visit, we discussed the patient's ongoing management of osteoporosis with Prolia injections, which she is tolerating well. We reviewed her elevated parathyroid hormone levels, likely related to chronic kidney disease, and the current treatment with Calcitriol. I recommended she follow up with Dr. Shirley for further evaluation and management. Additionally, we discussed her balance issues and the potential benefits of participating in a 'Better Bones and Balance' program to enhance stability and prevent falls. - Continue receiving Prolia injections every six months. - Follow up with Dr. Shirley for evaluation of parathyroid hormone levels and kidney disease management. - Consider enrolling in a 'Better Bones and Balance' program to improve balance and prevent falls. The patient had an opportunity to ask questions regarding treatment plan. The patient expressed understanding and agreement with the above treatment plan. Patient was informed and verbally consented to the use of an ambient scribe for clinic note documentation during this visit. Coding Level of Care Code Est Pt Level 3 (40933) Diagnoses Age-related osteoporosis without current pathological fracture M81.0 Presence of current pathological fracture: without current pathological fracture
[2024-12-19 13:22] VITALS: BP 128/82; PULSE 64; O2SAT 96; BMI 31.8
--- OUTSIDE RECORDS SUMMARY | 2024-12-19 13:43 | XMS_ITS | Encounter Summary ---
Author Organization [facility] Address [address] [facility] [address] [place] [address] Phone Care Team Providers Care Master Ocean Name Role Phone Mirta Matos MD Primary Care Provider [phone] Encounter Details Date Type Department Care Team (Late Contact Info) Description 11/12/2023 Telephone [facility] [address] [facility] [address] [place] [address] Dejan Shirley MD [address] [address] Social History Tobacco Use Types [...] Visit [facility] [address] [place] [address] Dejan Shirley MD [address] [address] documented as of this encounter Visit Diagnoses Not on filedocumented in this encounter Care Teams Master Ocean Relationship Specialty Start Date End Date Mirta Matos MD [address] [place], [place] PCP - General Internal Medicine 11/30/23 documented as of this encounter
--- OUTSIDE RECORDS SUMMARY | 2024-12-19 13:43 | XMS_ITS | Patient Health Record ---
Author Organization [facility] Address [address] [place] [address] Care Team Providers Care Production Planner Name Role Phone Kevin Garcia [phone] Reason For Referral No Information Plan Of Treatment No Information
--- OUTSIDE RECORDS SUMMARY | 2024-12-19 13:43 | XMS_ITS | Clinical Summary ---
Author Organization [employer] Address [address] [facility] 7[address] [place] [address] Care Team Providers Care Automatic Spinning Lathe Operator Name Role Phone Unavailable Primary Care Provider Unavailabl e Immunizations Immunization Administration Dates Next Due Pfizer Covid-19 Vaccine [...] 2024 07/09/2022, 03/21/2021, 08/26/2020, Additional history exists Pneumococcal Vaccine: 50+ Years (3 of 3 - PCV20 or PCV21) 03/08/2024 03/08/2019, 06/11/2015 Influenza Vaccine (Season Ended) 2025 02/22/2022, 03/06/2021, 02/13/2020, Additional history exists DTaP/Tdap/Td Vaccines (2 - Td or Tdap) [...] patient's age to complete this topic Meningococcal B Vaccine Aged Out No l onger eligible based on patient's age to complete this topic Meningococcal Vaccine Aged Out No vy gavino eligible based on patient's age to complete this topic RSV under 20 months Aged Out No longe r eligible based on patient's age to complete this topic Rotavirus Vaccines Aged Out No longer eligible based on patient's age to complete this topic Insurance [place] [id number]
== END 2024-12-19 13:45 | disposition home or self-care (01) ==
LOC: HO.ENCR 13:15
PROVIDERS: PCP Internal Medicine; Visit Provider Internal Medicine Endocrinology, Diabetes & Metabolism
DX: M81.0 Age-related osteoporosis without current pathological fracture (principal)
CPT/HCPCS: 99213

== ENCOUNTER → 2024-12-19 13:14 | Outpatient (BNVA) | payer MEDICARE, OTHER, SELFPAY | PROVIDERS: PCP Internal Medicine; Visit Provider Internal Medicine Endocrinology, Diabetes & Metabolism | DX: M81.0 Age-related osteoporosis without current pathological fracture (principal); N18.31 Chronic kidney disease, stage 3a; E21.3 Hyperparathyroidism, unspecified; R26.9 Unspecified abnormalities of gait and mobility | CPT/HCPCS: 96372; 99212; J0897 ==

== ENCOUNTER 2025-01-25 10:44 | Outpatient (REF) | payer MEDICARE, OTHER, SELFPAY ==
[2025-01-25 11:07] LABS: MANUAL DIFF FLAG NO
--- OUTSIDE RECORDS SUMMARY | 2025-01-25 11:26 | XMS_ITS | Encounter Summary ---
Author Organization [facility] Address [address] [facility] [address] [place] [address] Phone Care Team Providers Care Photographic Processor Name Role Phone Mirta Matos MD Primary Care Provider [phone] Encounter Details Date Type Department Care Team (Late Contact Info) Description 11/12/2023 Telephone [facility] [address] [facility] [address] [place] [address] Dejan Shirley MD [address] [address] Social History Tobacco Use Types [...] Visit [facility] [address] [place] [phone] Dejan Shirley MD [address] [address] documented as of this encounter Visit Diagnoses Not on filedocumented in this encounter Care Teams Photographic Processor Relationship Specialty Start Date End Date Mirta Matos MD [address] [place], [place] PCP - General Internal Medicine 11/30/23 documented as of this encounter
--- OUTSIDE RECORDS SUMMARY | 2025-01-25 11:26 | XMS_ITS | Patient Health Record ---
Author Organization [facility] Address [address] [place] [address] Care Team Providers Care Independent Marketing Consultant Name Role Phone GarciaKevin [phone] Reason For Referral No Information Plan Of Treatment No Information
--- OUTSIDE RECORDS SUMMARY | 2025-01-25 11:26 | XMS_ITS | Clinical Summary ---
Author Organization [employer] Address [address] [facility] 7[address] [place] [address] Care Team Providers Care Set Builder Name Role Phone Unavailable Primary Care Provider [...] or PCV21) 03/08/2024 03/08/2019, 06/11/2015 Influenza Vaccine (#1) 2025 , 03/06/2021, 02/13/2020, Additional history exists DTaP/Tdap/Td Vaccines [...] age to complete this topic Insurance [place] [phone]
[2025-01-25 11:45] LABS: Hematocrit 37.4 % (37.0-47.0); Hemoglobin 12.1 g/dl (12.0-16.0); Imm Gran Abs Auto 0.02 X10*3/uL (0.00-0.03); Imm Gran Pct Auto 0.4 % (0.0-0.4); Lymphocytes Absolute Auto 1.8 X10*3/uL (1.2-4.9); Mean Corpuscular HGB Conc 32.4 g/dl (31.0-35.0); Mean Corpuscular Hemoglobin 27.6 pg (27.0-33.0); Mean Corpuscular Volume 85.4 fL (80.0-98.0); NRBC Abs Auto 0.000 X10*3/uL (0.0-0.012); NRBC Pct Auto 0.0 /100WBC (0.0-0.2); Platelet Count 211 X10*3/uL (160-400); Red Blood Count 4.38 X10*6/uL (4.20-5.50); White Blood Count 5.6 X10*3/uL (4.8-10.8)
[2025-01-25 12:23] LABS: Parathyroid Hormone Intact 271.1 pg/mL (8.7-77.1)
[2025-01-25 12:24] LABS: Albumin Level 4.3 g/dL (3.5-5.0); Anion Gap 10 (12-20); Blood Urea Nitrogen 24 mg/dL (9-16); Calcium 8.9 mg/dL (8.4-10.2); Carbon Dioxide 30 mmol/L (22-29); Chloride 106 mmol/L (96-108); Estimated Glomerular Filt Rate 38; Magnesium 2.2 mg/dL (1.6-2.6); Potassium 4.2 mmol/L (3.3-5.1); Sodium 142 mmol/L (135-145)
== END 2025-01-25 10:45 | disposition home or self-care (01) ==
LOC: HO.LAB 10:44
PROVIDERS: Absent Provider Internal Medicine; PCP Internal Medicine; Visit Provider Internal Medicine Nephrology
DX: I12.9 Hypertensive chronic kidney disease with stage 1 through stage 4 chronic kidney disease, or unspecified chronic kidney disease (principal); N18.31 Chronic kidney disease, stage 3a; Q61.3 Polycystic kidney, unspecified
CPT/HCPCS: 36415; 80051; 82040; 82306; 82310; 82565; 83735; 83970; 84100; 84520; 85025

== ENCOUNTER 2025-01-26 09:48 | Outpatient (REF) | payer MEDICARE, OTHER, SELFPAY ==
[2025-01-26 10:17] LABS: Appearance Urine Clear; Glucose Urine UA Negative (Negative); PH 8.5 (5.0-9.0); Specific Gravity - Urine 1.010 (1.005-1.025); UMIC TRIGGER UA YES
--- OUTSIDE RECORDS SUMMARY | 2025-01-26 10:22 | XMS_ITS | Patient Health Record ---
Author Organization [facility] Address [address] [place] [address] Care Team Providers Care High School Science Tutor Name Role Phone GarciaKevin [phone] Reason For Referral No Information Plan Of Treatment No Information
--- OUTSIDE RECORDS SUMMARY | 2025-01-26 10:22 | XMS_ITS | Encounter Summary ---
Author Organization [facility] Address [address] [facility] [address] [place] [address] Phone Care Team Providers Care Spare Person Name Role Phone Mirta Matos MD Primary Care Provider [phone] Encounter Details Date Type Department Care Team (Late Contact Info) Description 11/12/2023 Telephone [facility] [address] [facility] [address] [place] [address] Dejan Shirley MD [address] [address] Social History Tobacco Use Types [...] Visit [facility] [address] [place] [phone] Dejan Shirley MD [address] [address] documented as of this encounter Visit Diagnoses Not on filedocumented in this encounter Care Teams Spare Person Relationship Specialty Start Date End Date Mirta Matos MD [address] [place], [place] PCP - General Internal Medicine 11/30/23 documented as of this encounter
--- OUTSIDE RECORDS SUMMARY | 2025-01-26 10:22 | XMS_ITS | Clinical Summary ---
Author Organization [employer] Address [address] [facility] 7[address] [place] [address] Care Team Providers Care Nuclear Spectroscopist Name Role Phone Unavailable Primary Care Provider [...] age to complete this topic Insurance MEDIC[place] [id number]
[2025-01-26 11:10] LABS: Total Protein Urine Random < 7 mg/dL (<12)
== END 2025-01-26 09:49 | disposition home or self-care (01) ==
LOC: HO.LNP 09:48
PROVIDERS: Visit Provider Internal Medicine Nephrology
DX: I12.9 Hypertensive chronic kidney disease with stage 1 through stage 4 chronic kidney disease, or unspecified chronic kidney disease (principal); N18.31 Chronic kidney disease, stage 3a; Q61.3 Polycystic kidney, unspecified
CPT/HCPCS: 81001; 82043; 82570; 84156

== ENCOUNTER 2025-02-07 14:40 | Outpatient (AMB) | payer MEDICARE, OTHER, SELFPAY ==
--- NOTE | 2025-02-07 14:43 | A.OFFPC_ITS ---
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 Required: No Accompanied by: Self / Same As Patient Allergies carrot (CARROT) Allergy (Severe, Verified 02/07/25 15:13) ANAPHYLAXIS apple Allergy (Intermediate, Verified 02/07/25 15:13) GREEN APPLES-UNKNOWN celery (CELERY) Allergy (Intermediate, Verified 02/07/25 15:13) FROM ALLERGY TESTING RESULT lactose (LACTOSE) Allergy (Intermediate, Verified 02/07/25 15:13) diarrhea peanut (PEANUT) Allergy (Intermediate, Verified 02/07/25 15:13) THROAT ITCHING pear (Pear) Allergy (Intermediate, Verified 02/07/25 15:13) THROAT ITCHING plum (PLUM) Allergy (Intermediate, Verified 02/07/25 15:13) THROAT ITCHING trazodone (TRAZODONE) Allergy (Intermediate, Verified 02/07/25 15:13) RASH tree and shrub pollen Allergy (Intermediate, Verified 02/07/25 15:13) Itchy Eyes omeprazole Adverse Reaction (Unknown, Verified 02/07/25 15:13) leg swelling GREEN PEPPERS Allergy (Intermediate, Uncoded 02/07/25 15:13) Diarrhea Medication List - Last Reconciled 02/07/25 by Mirta Jimenez MD amlodipine 2.5 mg PO DAILY 90 days calcitriol 0.25 mcg PO Q48H 30 days cholecalciferol (vitamin D3) (Vitamin D3) 25 mcg PO DAILY cholestyramine (Cholestyramine Light) 4 grams PO DAILY PRN 30 days denosumab (Prolia) 60 mg subcut [id number] diphenhydramine HCl (Benadryl) 25 mg PO ONCE PRN docusate calcium 240 mg PO ONCE PRN 1 day epinephrine (EpiPen 2-Evan) 0.3 mg IM Q4H PRN Lactobac. rhamnosus GG-inulin 10 billion cell -200 mg ([facility] DeckDAQ [facility]) 1 cap PO BID levothyroxine 88 mcg PO DAILY 90 days lisinopril 40 mg PO DAILY 90 days lovastatin 20 mg PO DAILY 90 days meclizine 25 mg PO DAILY PRN potassium phosphate, monobasic 1,000 mg (2 x 500 mg) PO BID 3 days propranolol ER 80 mg PO DAILY sertraline 25 mg PO DAILY 90 days tramadol 50 mg PO DAILY 30 days zolmitriptan 5 mg PO DAILY PRN 30 days zolpidem 5 mg PO BEDTIME PRN 30 days Tobacco use date assessed: 02/07/25 Fall risk assessment: 2 + Falls in past year Last assessed Fall Risk: 02/07/25 Dental Screening Dental Screen Date: 02/07/25 Did you have a dental visit in the last 12 months?: No Did you have a dental problem in the last 6 months where you did not have access to dental care?: No Was dental information given to patient?: No HPI HPI Comments History of Present Illness Details The patient is a 69-year-old female presenting for management of hypertension and chronic kidney disease, along with concerns about allergies and skin condition. The patient reports a history of hypertension, which was noted to be elevated during the visit. She admits to occasionally forgetting to take her antihypertensive medication, amlodipine, due to daily activities causing anxiety and distraction. She is currently prescribed amlodipine 2.5 mg, lisinopril 40 mg, and lovastatin 20 mg for cholesterol management. The patient has chronic kidney disease, stage 3, with a recent decrease in renal function, indicated by a GFR of 38. She is aware of the condition and its implications, and endocrinology is involved in her care due to associated hyperparathyroidism. A second opinion regarding surgical intervention for hyperparathyroidism was sought, but surgery was not recommended due to her renal condition. The patient has multiple allergies, including to carrot, apple, celery, lactose, peanut, pear, plum, omeprazole, and green peppers. She experiences skin reactions, described as keratosis pilaris, and requests a cream for management. She reports constipation and hemorrhoids, which were identified during a colonoscopy. The patient experiences significant gas and discomfort, and she is currently taking dicyclomine for irritable bowel syndrome, with a request to increase the dosage due to persistent symptoms. [facility] Medical History (Updated 02/07/25 @ 15:29 by Mirta Jimenez MD) Hypovitaminosis D Age related osteoporosis Post-menopausal Anxiety Obese Chronic kidney disease Migraines Hypothyroidism Dyslipidemia Essential hypertension Surgical History Hx of appendectomy History of History of total left knee replacement (TKR) History of cataract surgery History of colonoscopy History of cholecystectomy H/O knee surgery Family History Father CAD (coronary artery disease) Mother No problems noted. Social History Household Members: None Housing: House Do you presently have visiting nurse or other home services: No Alcohol intake: never Patient Tobacco Use Status: Never used Tobacco e-Cigarette/Vaping Use: Never Used Second Hand Smoke Exposure: No Advance Directives Date on File: 06/04/23 service: No Current occupational status: disabled Cognitive needs: No Hearing needs: Yes Vision needs: Yes Questionnaire PHQ-9 Over the last 2 weeks, how often have you been bothered by any of the following problems? 1. Little interest or pleasure in doing things: not at all 2. Feeling down, depressed, or hopeless: not at all 3. Trouble falling or staying asleep, or sleeping too much: not at all 4. Feeling tired or having little energy: not at all 5. Poor appetite or overeating: not at all 6. Feeling bad about yourself - or that you are a failure or have let yourself or your family down: not at all 7. Trouble concentrating on things, such as reading the newspaper or watching television: not at all 8. Moving or speaking so slowly that other people could have noticed. Or the opposite - being so fidgety or restless that you have been moving around a lot more than usual: not at all 9. Thoughts that you would be better off or of hurting yourself in some way: not at all Total score: 0 Depression Screening Interpretation: Negative Depression Screening Done: Yes 63273 - PHQ-9 Billing: Yes Source: Developed by Drs. Kevin Pagan, Milli Ravi, Alfred Deleon and colleagues, with an educational joon from [employer]. Thrive Questionnaire Date Thrive assessed: 02/07/25 I am a: Patient What is your living situation today?: I have a steady place to live Within the past 12 months, did the food you bought not last and you didn't have the money to get more?: Sometimes True Within the past 12 months, did you worry whether your food would run out before you got money to buy more?: I choose not to answer this question Do you have trouble paying for medicines?: No Do you have trouble getting transportation to medical appointments?: No Do you have trouble paying your heating and electricity bill?: Yes Do you have trouble taking care of your child, family member or friend?: No Do you have trouble with day-to-day activities such as bathing, preparing meals, shopping, managing finances, etc.?: No Are you currently unemployed and looking for a job?: No Are you interested in more education?: No Please select the resources that you would like help with: None Currently or been in a relationship where the following occur: I choose not to answer THRIVE Score: 2 AUDIT C Alcohol Use Questionnaire (AUDIT-C) 1. How often do you have a drink containing alcohol?: Never 2. How many drinks containing alcohol do you have on a typical day when you are drinking?: 1 or 2 3. How often do you have six or more drinks on one occasion?: Never Total Score: 0 Score Reviewed/Action Taken: No JANETH-7 AMB Questionnaire JANETH-7 Date JANETH - 7 assessed: 02/07/25 Feeling nervous, anxious, or on edge: 0 = Not at all Not being able to stop or control worryin = Not at all Worrying too much about different things: 0 = Not at all Trouble relaxin = Not at all Being so restless that it is hard to sit still: 0 = Not at all Becoming easily annoyed or irritable: 0 = Not at all Feeling afraid as if something awful might happen: 0 = Not at all Total JANETH-7 score (0-4 normal; 5-9 mild; 10-14 moderate; 15-21 severe): 0 Source: Developed by Drs. Kevin Pagan, Milli Ravi, Alfred Deleon and colleagues, with an educational joon from [employer]. JANETH-7 Assessment Billing JANETH-7 Assessment Tool: JANETH-7 Assessment 68527 Review of Systems Const All systems reviewed & are unremarkable except as noted in HPI and below Card Denies chest pain at rest, Denies chest pain with activity, Denies edema, Denies irregular heart rhythm, Denies claudication, Denies dyspnea, Denies dyspnea on exertion, Denies orthopnea, Denies paroxysmal nocturnal dyspnea and Denies slow heart rate Resp Denies cough, Denies dyspnea and Denies dyspnea on exertion GI Denies abdominal pain, Denies change in bowel habits, Denies excessive flatus, Denies nausea and Denies vomiting Physical exam (Primary Care) Vital Signs: Last Vital Signs Temp 97.1 F 02/07/25 14:44 Pulse 58 02/07/25 14:44 Resp 18 02/07/25 14:44 BP 158/82 H 02/07/25 14:44 Pulse Ox 98 02/07/25 14:44 Oxygen Delivery Method Room Air 02/07/25 14:44 BMI result Body Mass Index 31.5 Tobacco/Smoking Status: Tobacco use Status Tobacco use date assessed 02/07/25 02/07/25 15:01 Patient Tobacco Use Status Never used Tobacco 02/07/25 14:45 e-Cigarette/Vaping Use Never Used 02/07/25 14:45 PHQ-9: PHQ-9 Score PHQ-9: Total score 0 02/07/25 14:45 Depression Screening Interpretation: Negative Thrive Assessment: Date of Thrive Assessment Date Thrive assessed 02/07/25 02/07/25 15:01 Currently or been in a relationship where the following occur: I choose not to answer Resp Effort & Inspection: normal respiratory effort Auscultation: clear to auscultation bilaterally Cardio Jugular venous distension: no JVD Rate: regular rate Rhythm: regular rhythm Heart sounds: S1 normal heart sound present and S2 normal heart sound present Extrem General: Yes full ROM Coding Level of Care Code Est Pt Level 4 (91781) Complex EM visit Add On G2211 Diagnoses Mild major depression F32.0 Anxiety F41.9 Essential hypertension I10 Hypothyroidism, unspecified type E03.9 Hypothyroidism type: unspecified Age-related osteoporosis without current pathological fracture M81.0 Presence of current pathological fracture: without current pathological fracture Hyperparathyroidism E21.3 Chronic GERD K21.9 IBS (irritable bowel syndrome) K58.9 CKD (chronic kidney disease) stage 3, GFR 30-59 ml/min N18.30 Insomnia G47.00 Additional Codes PHQ-9 - 37037 - PHQ-9 Billing: Yes ([id number]) JANETH-7 Assessment Billing - JANETH-7 Assessment Tool: JANETH-7 Assessment 08061 ([id number]) Time Spent (min) 22 Assessment & Plan Assessment & Plan (1) Mild major depression: Code(s): F32.0 - Major depressive disorder, single episode, mild Category: Medical (2) Anxiety: Comment: Extremely anxious in regard to any added medication etc- Prefers hydrology teacher-to authorize Supportive Reassured Code(s): F41.9 - Anxiety disorder, unspecified Category: Medical (3) Essential hypertension: Code(s): I10 - Essential (primary) hypertension Category: Medical (4) Hypothyroidism: Code(s): E03.9 - Hypothyroidism, unspecified Category: Medical Qualifiers: Hypothyroidism type: unspecified Qualified Code(s): E03.9 - Hypothyroidism, unspecified (5) Age related osteoporosis: Code(s): M81.0 - Age-related osteoporosis without current pathological fracture Category: Medical Qualifiers: Presence of current pathological fracture: without current pathological fracture Qualified Code(s): M81.0 - Age-related osteoporosis without current pathological fracture (6) Hyperparathyroidism: Code(s): E21.3 - Hyperparathyroidism, unspecified Category: Medical (7) Chronic GERD: Comment: Difficult to assess- tx- due to anxiety about health, allergies- etc- not taking med- due to CKD Code(s): K21.9 - Gastro-esophageal reflux disease without esophagitis Category: Medical (8) IBS (irritable bowel syndrome): Comment: Intermittent loose stool no hematochezia, or abdominal pain-she will continue dicyclomine Imodium as needed Encouraged to call with any change in symptoms Code(s): K58.9 - Irritable bowel syndrome, unspecified Category: Medical (9) CKD (chronic kidney disease) stage 3, GFR 30-59 ml/min: Code(s): N18.30 - Chronic kidney disease, stage 3 unspecified Category: Medical (10) Insomnia: Code(s): G47.00 - Insomnia, unspecified Category: Medical Plan The management plan includes addressing the patient's hypertension by ensuring adherence to prescribed medications, including amlodipine and lisinopril, and monitoring blood pressure regularly. For chronic kidney disease, stage 3, the patient will continue to be monitored by endocrinology, with a focus on managing hyperparathyroidism without surgical intervention due to renal concerns. The patient is advised to manage her allergies by avoiding known allergens and using prescribed creams for keratosis pilaris. For gastrointestinal issues, including constipation and IBS, the patient will increase the dosage of dicyclomine to manage symptoms effectively. Patient was informed and verbally consented to the use of an ambient scribe for clinic note documentation during this visit. Orders: Referrals Dermatology Referral L85.8 - Other specified epidermal thickening Medications: New dicyclomine 20 mg PO QID 120 tabs 4RF 30 days zolpidem 10 mg PO BEDTIME PRN 30 tabs 0RF sleep 30 days Discontinued potassium phosphate, monobasic Discontinued Reason: Patient Completed Course 1,000 mg (2 x 500 mg) PO BID 3 days 12 tabs 0RF zolpidem Discontinued Reason: Patient Completed Course 5 mg PO BEDTIME 30 days PRN 30 tabs 0RF sleep cholestyramine (Cholestyramine Light) Discontinued Reason: Patient Completed Course 4 grams PO DAILY 30 days PRN 210 grams 0RF diarrhea
[2025-02-07 14:44] VITALS: BP 158/82; PULSE 58; RESP 18; TEMP 36.2; O2SAT 98; BMI 31.5
--- OUTSIDE RECORDS SUMMARY | 2025-02-07 16:02 | XMS_ITS | Clinical Summary ---
Author Organization [employer] Address [address] [place] [address] Care Team Providers Care Fourdrinier Wire Weaver Name Role Phone Unavailable Primary Care Provider [...] age to complete this topic Insurance [place] [phone]
--- OUTSIDE RECORDS SUMMARY | 2025-02-07 16:02 | XMS_ITS | Patient Health Record ---
Author Organization [facility] Address [address] [place] [address] Care Team Providers Care Ux Engineer Name Role Phone GarciaKevin [phone] Reason For Referral No Information Plan Of Treatment No Information
--- OUTSIDE RECORDS SUMMARY | 2025-02-07 16:02 | XMS_ITS | Encounter Summary ---
Author Organization [facility] Address [address] [place] [address] Phone Care Team Providers Care Pharmacist Assistant Name Role Phone Mirta Matos MD Primary Care Provider [phone] Encounter Details Date Type Department Care Team (Late Contact Info) Description 11/12/2023 Telephone [facility] [address] [place] [address] Dejan Shirley MD [address] [address] Social History Tobacco Use Types [...] Department Care Team (Late Contact Info) Description 08/21/2025 2:30 PM EST Office Visit [facility] [address] [place] [address] Dejan Shirley MD [address] [address] documented as of this encounter Visit Diagnoses Not on filedocumented in this encounter Care Teams Pharmacist Assistant Relationship Specialty Start Date End Date Mirta Matos MD [address] [place], [place] PCP - General Internal Medicine 11/30/23 documented as of this encounter
== END 2025-02-07 15:28 | disposition home or self-care (01) ==
LOC: HO.HMCH 14:41
PROVIDERS: PCP Internal Medicine; Visit Provider Internal Medicine
DX: I12.9 Hypertensive chronic kidney disease with stage 1 through stage 4 chronic kidney disease, or unspecified chronic kidney disease (principal); N18.30 Chronic kidney disease, stage 3 unspecified; F32.0 Major depressive disorder, single episode, mild; F41.9 Anxiety disorder, unspecified; E03.9 Hypothyroidism, unspecified; M81.0 Age-related osteoporosis without current pathological fracture; E21.3 Hyperparathyroidism, unspecified; K21.9 Gastro-esophageal reflux disease without esophagitis; K58.9 Irritable bowel syndrome, unspecified; G47.00 Insomnia, unspecified

== ENCOUNTER → 2025-02-07 14:40 | Outpatient (BNVA) | payer MEDICARE, OTHER, SELFPAY | PROVIDERS: PCP Internal Medicine; Visit Provider Internal Medicine | DX: F32.0 Major depressive disorder, single episode, mild (principal); F41.9 Anxiety disorder, unspecified; E03.9 Hypothyroidism, unspecified; M81.0 Age-related osteoporosis without current pathological fracture; E21.3 Hyperparathyroidism, unspecified; K21.9 Gastro-esophageal reflux disease without esophagitis; K58.9 Irritable bowel syndrome, unspecified; I12.9 Hypertensive chronic kidney disease with stage 1 through stage 4 chronic kidney disease, or unspecified chronic kidney disease; N18.30 Chronic kidney disease, stage 3 unspecified; G47.00 Insomnia, unspecified | CPT/HCPCS: 96127; 99212 ==

== ENCOUNTER 2025-05-24 16:21 | Emergency (ER) | payer MEDICARE, OTHER, SELFPAY ==
--- NOTE | ~2025-05-24 | XR_ITS ---
EXAMINATION: XR CHEST CLINICAL INFORMATION: chest pain COMPARISON: 07/29/2018 TECHNIQUE: 2 views of the chest were obtained. FINDINGS: No significant abnormality is noted involving the heart, lungs, mediastinum, bony thorax or soft tissues. XR/XR chest 2V IMPRESSION: No acute disease Electronically signed by: Nilton Leung MD 05/24/2025 05:12 PM [facility]
--- NOTE | 2025-05-24 16:26 | ECG_ITS ---
Test Reason : CHEST PAIN Blood Pressure : */* mmHG Vent. Rate : 63 BPM Atrial Rate : 63 BPM P-R Int : 162 ms QRS Dur : 80 ms QT Int : 412 ms P-R-T Axes : -23 6 27 degrees QTcB Int : 421 ms Normal sinus rhythm Normal ECG When compared with ECG of 26-Oct-2017 08:21, No significant change was found Referred By: Dilip Hastings Electronically Signed By: NGUYEN PARK
[2025-05-24 16:45] VITALS: BP 171/91; PULSE 61; RESP 20; TEMP 36.4; O2SAT 95; BMI 33.1
--- NOTE | 2025-05-24 16:48 | ED.CHESTPAIN ---
HPI - Chest Pain General Chief Complaint: Chest Pain Stated Complaint: cp Time Seen by Provider: 05/24/25 22:19 History of Present Illness ED Provider: Gio DO narrative: The patient is a 70-year-old woman who says that she injured her left chest wall when she fell approximately 8 days ago. She had woken up in the middle of the night to go to the bathroom. She has a commode in her bedroom. She fell in her bedroom. She landed on her knees and struck her left chest against something. She did not hit her head. She had no loss of consciousness. Since then she has had worsening left-sided anterior upper chest pain where she has also developed bruising. The pain is worse when she takes a deep breath. Today she went to see her regular doctor about these symptoms. She has a high blood pressure reading and was referred to the emergency room. She says that the pain she has been experiencing has been constant for several days. There was no associated fever, sweats, chills. No cough or sputum. No pain or swelling in her legs although she has some bruising to her knees. The pain is worse when she moves and when she takes a deep breath. Related Data Home Medications ?Medication ?Instructions ?Recorded ?Confirmed Lactobacillus rhamnosus GG 10 1 cap PO BID 10/24/21 02/07/25 billion cell-inulin 200 mg capsule ([facility]) meclizine 12.5 mg tablet 25 mg PO DAILY PRN Vertigo 02/20/22 02/07/25 epinephrine 0.3 mg/0.3 mL 0.3 mg IM Q4H PRN anaphylaxis 05/12/23 02/07/25 injection, auto-injector (EpiPen 2-Evan) diphenhydramine HCl 25 mg capsule 25 mg PO ONCE PRN 11/12/23 02/07/25 (Benadryl) Previous Rx's ?Medication ?Instructions ?Recorded docusate calcium 240 mg capsule 240 mg PO ONCE PRN laxative effect 09/08/23 1 day #2 caps calcitriol 0.25 mcg capsule 0.25 mcg PO Q48H 30 days #15 caps 06/02/24 zolmitriptan 5 mg tablet 5 mg PO DAILY PRN Migraine 10/05/24 Headache 30 days #9 tabs lovastatin 20 mg tablet 20 mg PO DAILY 90 days #90 tabs 06/02/25 sertraline 25 mg tablet 25 mg PO DAILY 90 days #90 tabs 12/31/24 levothyroxine 88 mcg tablet 88 mcg PO DAILY 90 days #90 tabs 02/16/25 cholecalciferol (vitamin D3) 25 25 mcg PO DAILY #90 caps 04/10/25 mcg (1,000 unit) capsule (Vitamin D3) propranolol 80 mg capsule,24 80 mg PO DAILY 90 days #90 caps 04/11/25 hr,extended release dicyclomine 20 mg tablet 20 mg PO QID 30 days #120 tabs 05/06/25 zolpidem 10 mg tablet 10 mg PO BEDTIME PRN sleep 30 days 05/08/25 #30 tabs amlodipine 2.5 mg tablet 2.5 mg PO DAILY 90 days #90 tabs 05/17/25 lisinopril 40 mg tablet 40 mg PO DAILY 90 days #90 tabs 05/17/25 denosumab 60 mg/mL subcutaneous 1 mg (0.0167 mL) subcut [id number] 05/23/25 syringe (Prolia) #1 mL tramadol 50 mg tablet 50 mg PO DAILY 30 days #30 tabs 05/24/25 Allergies Allergy/AdvReac Type Severity Reaction Status Date / Time carrot (CARROT) Allergy Severe ANAPHYLAXIS Verified 05/24/25 16:47 apple Allergy Intermediate GREEN Verified 05/24/25 16:47 APPLES-UNKNOWN celery (CELERY) Allergy Intermediate FROM Verified 05/24/25 16:47 ALLERGY TESTING RESULT lactose (LACTOSE) Allergy Intermediate diarrhea Verified 05/24/25 16:47 peanut (PEANUT) Allergy Intermediate THROAT Verified 05/24/25 16:47 ITCHING pear (Pear) Allergy Intermediate THROAT Verified 05/24/25 16:47 ITCHING plum (PLUM) Allergy Intermediate THROAT Verified 05/24/25 16:47 ITCHING trazodone (TRAZODONE) Allergy Intermediate RASH Verified 05/24/25 16:47 tree and shrub pollen Allergy Intermediate Itchy Eyes Verified 05/24/25 16:47 omeprazole AdvReac Unknown leg Verified 05/24/25 16:47 swelling GREEN PEPPERS Allergy Intermediate Diarrhea Uncoded 05/24/25 15:55 Review of Systems Review of Systems: Yes all other systems are reviewed and are negative PMFSH Past Medical History Medical History Hypovitaminosis D Age related osteoporosis Post-menopausal Anxiety Obese Chronic kidney disease Migraines Hypothyroidism Dyslipidemia Essential hypertension Surgical History Hx of appendectomy History of History of total left knee replacement (TKR) History of cataract surgery History of colonoscopy History of cholecystectomy H/O knee surgery Family History Family History Father CAD (coronary artery disease) Mother No problems noted. Social History Social History Household Members: None Housing: House Do you presently have visiting nurse or other home services: No Alcohol intake: never Patient Tobacco Use Status: Never used Tobacco Smoked in Last 30 Days: No e-Cigarette/Vaping Use: Never Used Second Hand Smoke Exposure: No Use of substances other than those prescribed or required for medical reasons: No Advance Directives: Yes Advance Directives on File: Yes Advance Directives Date on File: 06/04/23 Do you have a plan to hurt others: No Plan service: No Current occupational status: disabled Cognitive needs: No Hearing needs: Yes Vision needs: Yes Physical Exam Vital Signs: Vital Signs: Last Vital Signs Temp 97.9 F 05/24/25 23:09 Pulse 63 05/24/25 23:09 Resp 15 05/24/25 23:09 BP 172/61 H 05/24/25 23:09 Pulse Ox 95 05/24/25 23:09 O2 Del Method Room Air 05/24/25 23:09 BMI result Body Mass Index 33.1 Const: Other: The patient is awake, alert, pleasant, cooperative. She has a cheerful demeanor and does not seem in acute distress. Orientation/consciousness: patient oriented x3 HEENT: Other: No signs of trauma to the head or the face. The face is symmetrical. ?Mucous membranes moist. Eyes: Other: Pupils are round equal, conjunctivae are clear, extraocular movements intact Neck: Other: Moving her neck easily without pain, no JVD Chest: Other: The patient has a visible bruising to the left anterior chest wall. She is tender in the region of the bruising. No subcutaneous emphysema or crepitus. Palpation seems to reproduce her pain. Resp: Effort & Inspection: normal respiratory effort Auscultation: clear to auscultation bilaterally Cardio: Rate: regular rate Rhythm: regular rhythm Heart sounds: S1 normal heart sound present and S2 normal heart sound present GI: Other: Abdomen is soft and nontender Skin: Other: There are some ecchymotic skin changes to the left anterior wall of the chest. Otherwise the skin is dry and unremarkable. Neuro: General: patient oriented x3, tone normal, moves all extremities, no focal motor deficits and CN's II-XI intact bilaterally Extrem: Other: No peripheral edema. No calf swelling or tenderness. Course Course Course Narrative: RME: 70 female presents to ED for left-sided chest pain since Thursday with left arm numbness. Patient denies any recent travel recent surgery leg swelling or pleurisy. EKG labs x-ray ordered Medical Decision Making Medical Decision Making MDM Narrative: The patient is a very pleasant 70-year-old woman who was here for chest pain. On exam she has obvious bruising to the left anterior chest and palpation of the bruising seems to reproduce her pain. She has negative troponins. She has a normal EKG. She has a normal chest x-ray. I do not have any significant suspicion for an acute coronary syndrome in his case. Additionally I think pulmonary embolism is unlikely because the obvious diagnosis seems to be a chest wall contusion. Apparently she has been significantly hypertensive at her PCP's office. Here her blood pressure has come down to 158/75. No indication for hospitalization today. Her renal function is slightly worse than it has been recently. She has a history of polycystic kidney disease. I reviewed her kidney numbers with her and her daughter. She should follow up with her PCP and her employment case manager if she has a employment case manager. Lab Data 05/24/25 17:40 05/24/25 17:40 Labs: Lab Results 05/24/25 05/24/25 Range/Units 17:40 21:41 WBC 8.0 (4.8-10.8) X10*3/uL RBC 4.82 (4.20-5.50) X10*6/uL Hgb 13.4 (12.0-16.0) g/dl Hct 41.5 (37.0-47.0) % MCV 86.1 (80.0-98.0) fL MCH 27.8 (27.0-33.0) pg MCHC 32.3 (31.0-35.0) g/dl RDW 13.9 (11.0-16.0) % Plt Count 223 (160-400) X10*3/uL MPV 9.1 L (9.4-12.3) fL Immature Gran % (Auto) 0.3 (0.0-0.4) % Neut % (Auto) 61.4 (45-73) % Lymph % (Auto) 30.4 (20-40) % [place] % (Auto) 6.0 (2-11) % Eos % (Auto) 1.5 (0-4) % Baso % (Auto) 0.4 (0-2) % Lymph # (Auto) 2.4 (1.2-4.9) X10*3/uL [place] # (Auto) 0.5 (0.1-1.2) X10*3/uL Eos # (Auto) 0.1 (0.0-0.4) X10*3/uL Baso # (Auto) 0.0 (0.0-0.2) X10*3/uL Abs Immat Gran (auto) 0.02 (0.00-0.03) X10*3/uL Absolute Neuts (auto) 4.9 (2.0-8.3) x10*3/uL Absolute Nucleated RBC 0.000 (0.0-0.012) X10*3/uL Nucleated RBC % (auto) 0.0 (0.0-0.2) /100WBC PT 11.3 (11.2-13.5) SEC INR 0.9 (0.9-1.1) APTT 28.5 (26.7-34.1) SEC Sodium 143 (135-145) mmol/L Potassium 4.1 (3.3-5.1) mmol/L Chloride 106 (96-108) mmol/L Carbon Dioxide 29 (22-29) mmol/L Anion Gap 12 (12-20) BUN 34 H (9-16) mg/dL Creatinine 1.53 H (0.5-1.4) mg/dL Estim Creat Clear Calc 29.2 Estimated GFR 33 Random Glucose 90 (60-115) mg/dL Calcium 9.8 D (8.4-10.2) mg/dL Total Bilirubin 0.4 (0.0-1.0) mg/dL AST 23 (5-31) U/L ALT 14 (0-31) U/L Alkaline Phosphatase 77 (39-117) U/L Troponin I High Sens < 2.7 < 2.7 (<3.5-17.0) ng/L NT-Pro-B Natriuret Pep 193.8 (<300) pg/mL Total Protein 7.9 (6.5-8.0) g/dL Albumin 4.8 (3.5-5.0) g/dL Independent Interpretation I performed an independent interpretation of an: EKG Interpretation: EKG at 16:31 shows normal sinus rhythm at 63 beats per minute. It is an unremarkable EKG. No ischemic changes. Similar to previous EKG. Discharge Plan Discharge Clinical Impression: Contusion of left chest wall, Hypertension Patient Disposition: Home, Self-Care Additional Instructions: I believe that you pain you are experiencing is coming from bruising of your left chest wall. I do not think your pain represents a heart attack or any more dangerous process. You may continue to use acetaminophen and tramadol as needed for pain. Please make sure you take your blood pressure medications. Please follow up soon with your regular doctor to keep an eye on your blood pressure. If you have a kidney doctor you may follow up with your kidney doctor as well. Return to the emergency room if significantly worse. Prescriptions: No Action lovastatin 20 mg tablet 20 mg PO DAILY 90 Days Qty: 90 3RF sertraline 25 mg tablet 25 mg PO DAILY 90 Days Qty: 90 1RF levothyroxine 88 mcg tablet 88 mcg PO DAILY 90 Days Qty: 90 1RF cholecalciferol (vitamin D3) [Vitamin D3] 25 mcg (1,000 unit) capsule 25 mcg PO DAILY Qty: 90 1RF propranolol 80 mg capsule,extended release 24 hr 80 mg PO DAILY 90 Days Qty: 90 1RF dicyclomine 20 mg tablet 20 mg PO QID 30 Days Qty: 120 4RF zolpidem 10 mg tablet 10 mg PO BEDTIME PRN (Reason: sleep) 30 Days Qty: 30 0RF lisinopril 40 mg tablet 40 mg PO DAILY 90 Days Qty: 90 1RF amlodipine 2.5 mg tablet 2.5 mg PO DAILY 90 Days Qty: 90 1RF Prolia 60 mg/mL syringe 1 mg subcut [id number] Qty: 1 3RF tramadol 50 mg tablet 50 mg PO DAILY 30 Days Qty: 30 0RF [employer] 10 billion cell -200 mg capsule 1 cap PO BID docusate calcium 240 mg capsule 240 mg PO ONCE PRN (Reason: laxative effect) 1 Days Qty: 2 0RF Rx Instructions: Take at noon the day before colonoscopy meclizine 12.5 mg tablet 25 mg PO DAILY PRN (Reason: Vertigo) epinephrine [EpiPen 2-Evan] 0.3 mg/0.3 mL auto-injector 0.3 mg IM Q4H PRN (Reason: anaphylaxis) Prolia 60 mg/mL syringe 60 mg subcut ONCE Qty: 1 0RF Prolia 60 mg/mL syringe 60 mg subcut ONCE Qty: 1 0RF diphenhydramine HCl [Benadryl] 25 mg capsule 25 mg PO ONCE PRN calcitriol 0.25 mcg capsule 0.25 mcg PO Q48H 30 Days Qty: 15 0RF zolmitriptan 5 mg tablet 5 mg PO DAILY PRN (Reason: Migraine Headache) 30 Days Qty: 9 2RF Referrals: Mirta Matos MD [Primary Care Provider, Internal Medicine] Interventions: ED Discharge Assessment Last Done: 05/24/25 23:09 Discharge Date/Time: 05/24/25 23:09 Print Language: Guyanese
[2025-05-24 17:44] LABS: MANUAL DIFF FLAG NO
[2025-05-24 17:46] LABS: Hematocrit 41.5 % (37.0-47.0); Hemoglobin 13.4 g/dl (12.0-16.0); Imm Gran Abs Auto 0.02 X10*3/uL (0.00-0.03); Imm Gran Pct Auto 0.3 % (0.0-0.4); Lymphocytes Absolute Auto 2.4 X10*3/uL (1.2-4.9); Mean Corpuscular HGB Conc 32.3 g/dl (31.0-35.0); Mean Corpuscular Hemoglobin 27.8 pg (27.0-33.0); Mean Corpuscular Volume 86.1 fL (80.0-98.0); NRBC Abs Auto 0.000 X10*3/uL (0.0-0.012); NRBC Pct Auto 0.0 /100WBC (0.0-0.2); Platelet Count 223 X10*3/uL (160-400); Red Blood Count 4.82 X10*6/uL (4.20-5.50); White Blood Count 8.0 X10*3/uL (4.8-10.8)
[2025-05-24 18:03] LABS: Alanine Aminotransferase 14 U/L (0-31); Albumin Level 4.8 g/dL (3.5-5.0); Alkaline Phosphatase 77 U/L (39-117); Anion Gap 12 (12-20); Aspartate Amino Transferase 23 U/L (5-31); Blood Urea Nitrogen 34 mg/dL (9-16); Calcium 9.8 mg/dL (8.4-10.2); Carbon Dioxide 29 mmol/L (22-29); Chloride 106 mmol/L (96-108); Creatinine Clr Calc Pharmacy 29.2; Estimated Glomerular Filt Rate 33; Potassium 4.1 mmol/L (3.3-5.1); Sodium 143 mmol/L (135-145); Total Protein 7.9 g/dL (6.5-8.0)
[2025-05-24 18:09] LABS: INTERNATIONAL NORM RATIO 0.9 (0.9-1.1); Prothrombin Time 11.3 SEC (11.2-13.5)
[2025-05-24 18:10] LABS: NT Pro B Type Natriuretic Pept 193.8 pg/mL (<300)
[2025-05-24 18:12] LABS: Partial Thromboplastin Time 28.5 SEC (26.7-34.1); Troponin-I High Sensitivity < 2.7 ng/L (<3.5-17.0)
[2025-05-24 22:02] VITALS: BP 158/75; PULSE 67; RESP 14; TEMP 36.8; O2SAT 98
[2025-05-24 22:08] LABS: Troponin-I High Sensitivity < 2.7 ng/L (<3.5-17.0)
[2025-05-24 23:02] VITALS: BP 172/61; PULSE 63; RESP 15; TEMP 36.6; O2SAT 95
[2025-05-24 23:09] VITALS: BP 172/61; PULSE 63; RESP 15; TEMP 36.6; O2SAT 95
== END 2025-05-24 23:09 | disposition home or self-care (01) ==
PROVIDERS: Physician Assistant; Emergency Provider Emergency Medicine; PCP Internal Medicine
DX: S20.212A Contusion of left front wall of thorax, initial encounter (principal); W19.XXXA Unspecified fall, initial encounter; Y92.002 Bathroom of unspecified non-institutional (private) residence as the place of occurrence of the external cause; Y93.9 Activity, unspecified; R07.9 Chest pain, unspecified; I12.9 Hypertensive chronic kidney disease with stage 1 through stage 4 chronic kidney disease, or unspecified chronic kidney disease; N18.9 Chronic kidney disease, unspecified; Z79.899 Other long term (current) drug therapy
CPT/HCPCS: 36415; 71046; 80053; 83880; 84484; 85025; 85610; 85730; 93005; 99283; 99284

== ENCOUNTER → 2025-05-24 16:26 | Outpatient (BNV) | payer MEDICARE, OTHER, SELFPAY | PROVIDERS: Emergency Provider Emergency Medicine; PCP Internal Medicine; Visit Provider Internal Medicine | DX: R07.9 Chest pain, unspecified (principal) | CPT/HCPCS: 93010 ==

== ENCOUNTER → 2025-05-24 16:48 | Outpatient (BNV) | payer MEDICARE, OTHER, SELFPAY | PROVIDERS: PCP Internal Medicine; Visit Provider Radiology Diagnostic Radiology | DX: R07.9 Chest pain, unspecified (principal) | CPT/HCPCS: 71046 ==

== ENCOUNTER 2025-06-13 08:17 | Outpatient (REF) | payer MEDICARE, OTHER, SELFPAY ==
--- OUTSIDE RECORDS SUMMARY | 2025-06-13 08:21 | XMS_ITS | Encounter Summary ---
Author Organization [facility] Address [address] [address] [place] [address] Phone Care Team Providers Care Side Stitcher Name Role Phone Mirta Matos MD Primary Care Provider [phone] Encounter Details Date Type Department Care Team (Late Contact Info) Description 11/12/2023 Telephone [facility] [address] [facility] [address] [place] [address] Dejan Shirley MD [address] [address] Social History Tobacco Use Types [...] Visit [facility] [address] [place] [address] Dejan Shirley MD [address] [address] documented as of this encounter Visit Diagnoses Not on filedocumented in this encounter Care Teams Side Stitcher Relationship Specialty Start Date End Date Mirta Matos MD [address] [place], [place] PCP - General Internal Medicine 11/30/23 documented as of this encounter
--- OUTSIDE RECORDS SUMMARY | 2025-06-13 08:21 | XMS_ITS | Patient Health Record ---
Author Organization [facility] Address [address] [place] [address] Care Team Providers Care Slate Roofer Helper Name Role Phone Kevin Garcia Unavailable [phone] Reason For Referral No Information Plan Of Treatment No Information
--- OUTSIDE RECORDS SUMMARY | 2025-06-13 08:21 | XMS_ITS | Clinical Summary ---
Author Organization [facility] Facility Address [address] [address] Care Team Providers Care Arboriculture Instructor Name Role Phone Mirta Matos MD Primary Care Provider [phone] Allergies Active Allergy Reactions Criticality Noted Date [...] 1 (one) time each day Active Biotin 00914 MCG tablet dispersible Take by mouth Active amLODIPine (NORVASC) 5 MG tablet Take 1 tablet (5 mg total) by mouth 1 (one) time each day 90 tablet 3 01/05/2024 Active sertraline (ZOLOFT) 25 MG tablet Take 25 mg by mouth 1 (one) time each day 01/13/2024 Active calcitriol (Rocaltrol) 0.25 MCG capsuleIndicatio ns:Other acute kidney failure (HCC),Long-term drug therapy Take 1 capsule (0.25 mcg total) by mouth 1 (one) time each day 30 capsule 09/14/2024 Active zolpidem (AMBIEN) 5 MG tablet TAKE 1 TABLET BY MOUTH AT BEDTIME NEEDED FOR SLEEP X 30 DAYS 01/26/2025 Active calcitriol (ROCALTROL) 0.25 MCG capsule TAKE 1 CAPSULE (0.25 MCG TOTAL) BY MOUTH 1 (ONE) TIME EACH DAY 90 capsule 04/10/2025 07/09/19 Active Active Problems Problem Noted Date Diagnosed Date Obese class I 02/06/2025 Renal osteodystrophy 02/06/2025 Stage 3b chronic kidney disease 07/16/2021 Chronic kidney disease stage 3 02/11/2021 Hypertensive disorder 02/11/2021 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 Stage 3a chronic kidney disease 02/11/2021 Autosomal dominant polycystic kidney disease Resolved Problems Problem Noted Date Diagnosed Date Resolved Date FH: Polycystic kidney 02/11/20212020 Hyperlipidemia 02/11/2021 02/11/2021 Encounters Date Type Department Care Team Description 04/10/2025 Refill [facility] [address] [address] Dejan Shirley MD 04/05/2025 Refill [facility] [address] [address] Dejan Shirley MD from Last 3 Months Immunizations Immunization Administration [...] Sign Reading Time Taken Comments Blood Pressure 128/82 02/06/2025 2:05 PM EDT Pulse 78 02/06/2025 2:05 PM EDT Temperature - - Respiratory Rate - - Oxygen Saturation 98% 02/06/2025 2:05 PM EDT Inhaled Oxygen Concentration - - Weight 73.2 kg (161 lb 6.4 oz) 02/06/2025 2:05 P M EDT Height 152.4 cm (5') 01/18/2024 12:51 PM EDT Body Mass Index 31.52 01/18/2024 12:51 PM EDT Plan of Treatment Upcoming Encounters Date Type Department Care Team (Late st Contact Info) Description 08/21/2025 2:30 PM EST Office Visit [facility] [address] [place] [address] [place] [phone] Dejan Shirley MD [address] [facility] [address] [place] [phone] Health Maintenance Due Date Last Done Comments Breast Cancer Screening 1955 Colorectal Cancer Screening: Annual FOBT 2002 Colorectal Cancer Screening: Colonoscopy 2002 Colorectal Cancer Screening: Sigmoidoscopy 2002 Pneumococcal Vaccine: 50+ Years (3 of 3 - PCV20 or PCV21) 06/11/2020 03/10/2019, 03/08/2019, 06/11/2015 Pneumococcal Vaccine: Peds (0 to 5 Years) and At-Risk Patients (6 to 49 Years) Discontinued 03/10/2019, 03/08/2019, 06/11/2015 Influenza Vaccine Completed 03/27/2025, , 04/02/2023, Additional history exists Hepatitis B Vaccine Aged Out No longe r eligible based on patient's age to complete this topic Insurance [facility] Medicare Medicaid [place] Medicare [facility] Member Subscriber Plan / Payer (Ef fective 2018-Present) Name:Yue Gama Relation to Subscriber:Self Name:Yue Gama Payer ID:Not on file Type:Not on file Address: [place] [id number] Medicaid [place] Care Teams Arboriculture Instructor Relationship Specialty Start Date End Date Mirta Matos MD [address] [place], [place] PCP - General Internal Medicine 11/30/23
--- OUTSIDE RECORDS SUMMARY | 2025-06-13 08:21 | XMS_ITS | Clinical Summary ---
Author Organization [employer] Address [address] [facility] [address] [place] [address] Care Team Providers Care Radio Broadcaster Name Role Phone Unavailable Primary Care Provider [...] 1965 Hepatitis C Screening 1971 Mammogram 1993 Pneumococcal Vaccine: 50+ Years (3 of 3 - PCV20 or PCV21) 03/08/2024 03/08/2019, 06/11/2015 COVID-19 Vaccine (5 - season) 2025 07/09/2022, 03/21/2021, 08/26/2020, Additional history exists Influenza Vaccine (#1) 2025 , 03/06/2021, 02/13/2020, [...] age to complete this topic Insurance [place] [id number]
[2025-06-13 09:47] LABS: Alanine Aminotransferase 12 U/L (0-31); Albumin Level 4.2 g/dL (3.5-5.0); Alkaline Phosphatase 83 U/L (39-117); Anion Gap 13 (12-20); Aspartate Amino Transferase 25 U/L (5-31); Blood Urea Nitrogen 27 mg/dL (9-16); Calcium 9.6 mg/dL (8.4-10.2); Carbon Dioxide 25 mmol/L (22-29); Chloride 106 mmol/L (96-108); Cholesterol 178 mg/dL (<200); Estimated Glomerular Filt Rate 40; HDL Cholesterol 39 mg/dL (>40); Potassium 4.0 mmol/L (3.3-5.1); Sodium 140 mmol/L (135-145); Total Protein 7.0 g/dL (6.5-8.0); Triglycerides 108 mg/dL (<150)
[2025-06-13 10:02] LABS: Thyroid Stimulating Hormone 2.13 uIU/mL (0.32-4.0)
[2025-06-13 11:14] LABS: Parathyroid Hormone Intact 148.3 pg/mL (8.7-77.1)
[2025-06-14 12:44] LABS: Calcium, Ionized 5.3 mg/dL (4.7-5.5)
== END 2025-06-13 08:18 | disposition home or self-care (01) ==
LOC: HO.LAB 08:17
PROVIDERS: Absent Provider Internal Medicine; PCP Internal Medicine; Visit Provider Internal Medicine Endocrinology, Diabetes & Metabolism
DX: I12.9 Hypertensive chronic kidney disease with stage 1 through stage 4 chronic kidney disease, or unspecified chronic kidney disease (principal); N18.30 Chronic kidney disease, stage 3 unspecified; E21.3 Hyperparathyroidism, unspecified; E03.9 Hypothyroidism, unspecified; E78.5 Hyperlipidemia, unspecified; E55.9 Vitamin D deficiency, unspecified
CPT/HCPCS: 36415; 80053; 80061; 82306; 82330; 83970; 84100; 84443

== ENCOUNTER 2025-06-19 15:20 | Outpatient (AMB) | payer MEDICARE, OTHER, SELFPAY ==
[2025-06-19 15:40] VITALS: BP 144/88; PULSE 67; TEMP 36.3; O2SAT 97; BMI 32.6
--- NOTE | 2025-06-19 15:40 | A.OFFPC_ITS ---
Vital Signs 06/19/25 15:40 Height 4 ft 11 in Weight 161 lb 8 oz BMI 32.6 BP 144/88 H Blood Pressure Location Lt brachial Position Sitting Pulse 67 Pulse Source Pulse Oximeter Temp 97.3 F Temp Source Temporal Artery Scan Pulse Oximetry (%) 97 Oxygen Delivery Method Room Air Intake Visit Reasons: 4 mo bp Activities Attendant Required: No Accompanied by: Self / Same As Patient Allergies carrot (CARROT) Allergy (Severe, Verified 06/19/25 16:04) ANAPHYLAXIS apple Allergy (Intermediate, Verified 06/19/25 16:04) GREEN APPLES-UNKNOWN celery (CELERY) Allergy (Intermediate, Verified 06/19/25 16:04) FROM ALLERGY TESTING RESULT lactose (LACTOSE) Allergy (Intermediate, Verified 06/19/25 16:04) diarrhea peanut (PEANUT) Allergy (Intermediate, Verified 06/19/25 16:04) THROAT ITCHING pear (Pear) Allergy (Intermediate, Verified 06/19/25 16:04) THROAT ITCHING plum (PLUM) Allergy (Intermediate, Verified 06/19/25 16:04) THROAT ITCHING trazodone (TRAZODONE) Allergy (Intermediate, Verified 06/19/25 16:04) RASH tree and shrub pollen Allergy (Intermediate, Verified 06/19/25 16:04) Itchy Eyes omeprazole Adverse Reaction (Unknown, Verified 06/19/25 16:04) leg swelling GREEN PEPPERS Allergy (Intermediate, Uncoded 06/19/25 16:04) Diarrhea Medication List - Last Reconciled 06/19/25 by Mirta Jimenez MD amlodipine 2.5 mg PO DAILY 90 days calcitriol 0.25 mcg PO Q48H 30 days cholecalciferol (vitamin D3) (Vitamin D3) 25 mcg PO DAILY denosumab (Prolia) 1 mg (0.0167 mL) subcut [id number] dicyclomine 20 mg PO QID 30 days diphenhydramine HCl (Benadryl) 25 mg PO ONCE PRN docusate calcium 240 mg PO ONCE PRN 1 day epinephrine (EpiPen 2-Evan) 0.3 mg IM Q4H PRN Lactobac. rhamnosus GG-inulin 10 billion cell -200 mg ([facility] [employer]) 1 cap PO BID levothyroxine 88 mcg PO DAILY 90 days lisinopril 40 mg PO DAILY 90 days lovastatin 20 mg PO DAILY 90 days meclizine 25 mg PO DAILY PRN propranolol ER 80 mg PO DAILY 90 days sertraline 25 mg PO DAILY 90 days tramadol 50 mg PO DAILY 30 days zolmitriptan 5 mg PO DAILY PRN 30 days zolpidem 10 mg PO BEDTIME PRN 30 days Tobacco use date assessed: 06/19/25 Fall risk assessment: 2 + Falls in past year Last assessed Fall Risk: 06/19/25 Dental Screening Dental Screen Date: 06/19/25 Did you have a dental visit in the last 12 months?: Yes Did you have a dental problem in the last 6 months where you did not have access to dental care?: No Was dental information given to patient?: Patient has dentist HPI HPI Comments History of Present Illness Details This is a 70-year-old female with mild major depression, hypertension, dyslipidemia, hypothyroidism, chronic kidney disease stage 3, secondary hyperparathyroidism, osteoporosis and insomnia that comes today for follow-up on her conditions. Depression stable with SSRIs. Blood pressure well controlled. On statins for dyslipidemia. Last TSH was normal. Last GFR was 40 and chronic kidney disease as well as secondary hyperparathyroidism are follow by Nephrology. On Prolia for osteoporosis. Insurance did not approve zolpidem and once an alternative therefore I sent temazepam. Denies any chest pain or shortness on breath. [facility] Medical History Hypovitaminosis D Age related osteoporosis Post-menopausal Anxiety Obese Chronic kidney disease Migraines Hypothyroidism Dyslipidemia Essential hypertension Surgical History Hx of appendectomy History of History of total left knee replacement (TKR) History of cataract surgery History of colonoscopy History of cholecystectomy H/O knee surgery Family History Father CAD (coronary artery disease) Mother No problems noted. Social History Household Members: None Housing: House Do you presently have visiting nurse or other home services: No Alcohol intake: never Patient Tobacco Use Status: Never used Tobacco e-Cigarette/Vaping Use: Never Used Second Hand Smoke Exposure: No Advance Directives Date on File: 06/04/23 service: No Current occupational status: disabled Cognitive needs: No Hearing needs: Yes Vision needs: Yes Questionnaire PHQ-9 Over the last 2 weeks, how often have you been bothered by any of the following problems? 1. Little interest or pleasure in doing things: not at all 2. Feeling down, depressed, or hopeless: not at all 3. Trouble falling or staying asleep, or sleeping too much: not at all 4. Feeling tired or having little energy: not at all 5. Poor appetite or overeating: not at all 6. Feeling bad about yourself - or that you are a failure or have let yourself or your family down: not at all 7. Trouble concentrating on things, such as reading the newspaper or watching television: not at all 8. Moving or speaking so slowly that other people could have noticed. Or the opposite - being so fidgety or restless that you have been moving around a lot more than usual: not at all 9. Thoughts that you would be better off or of hurting yourself in some way: not at all Total score: 0 Depression Screening Interpretation: Negative Depression Screening Done: Yes 06429 - PHQ-9 Billing: Yes Source: Developed by Drs. Kevin Pagan, Milli Ravi, Alfred Deleon and colleagues, with an educational joon from [employer]. Thrive Questionnaire Date Thrive assessed: 02/04/25 I am a: Patient What is your living situation today?: I have a steady place to live Within the past 12 months, did the food you bought not last and you didn't have the money to get more?: Sometimes True Within the past 12 months, did you worry whether your food would run out before you got money to buy more?: I choose not to answer this question Do you have trouble paying for medicines?: No Do you have trouble getting transportation to medical appointments?: No Do you have trouble paying your heating and electricity bill?: Yes Do you have trouble taking care of your child, family member or friend?: No Do you have trouble with day-to-day activities such as bathing, preparing meals, shopping, managing finances, etc.?: No Are you currently unemployed and looking for a job?: No Are you interested in more education?: No Currently or been in a relationship where the following occur: I choose not to answer THRIVE Score: 2 AUDIT C Alcohol Use Questionnaire (AUDIT-C) 1. How often do you have a drink containing alcohol?: Never 3. How often do you have six or more drinks on one occasion?: Never Total Score: 0 Score Reviewed/Action Taken: No JANETH-7 AMB Questionnaire JANETH-7 Date JANETH - 7 assessed: 02/07/25 Feeling nervous, anxious, or on edge: 0 = Not at all Not being able to stop or control worryin = Not at all Worrying too much about different things: 0 = Not at all Trouble relaxin = Not at all Being so restless that it is hard to sit still: 0 = Not at all Becoming easily annoyed or irritable: 0 = Not at all Feeling afraid as if something awful might happen: 0 = Not at all Total JANETH-7 score (0-4 normal; 5-9 mild; 10-14 moderate; 15-21 severe): 0 Source: Developed by Drs. Kevin Pagan, Milli Ravi, Alfred Deleon and colleagues, with an educational joon from [employer]. JANETH-7 Assessment Billing JANETH-7 Assessment Tool: JANETH-7 Assessment 59684 Review of Systems Const All systems reviewed & are unremarkable except as noted in HPI and below Card Denies chest pain at rest, Denies chest pain with activity, Denies edema, Denies irregular heart rhythm, Denies claudication, Denies dyspnea, Denies dyspnea on exertion, Denies orthopnea, Denies paroxysmal nocturnal dyspnea and Denies slow heart rate Resp Denies cough, Denies dyspnea and Denies dyspnea on exertion GI Denies abdominal pain, Denies change in bowel habits, Denies excessive flatus, Denies nausea and Denies vomiting Physical exam (Primary Care) Vital Signs: Last Vital Signs Temp 97.3 F 06/19/25 15:40 Pulse 67 06/19/25 15:40 BP 144/88 H 06/19/25 15:40 Pulse Ox 97 06/19/25 15:40 Oxygen Delivery Method Room Air 06/19/25 15:40 BMI result Body Mass Index 32.6 BMI Assessment/Plan discussion: High BMI High, discussed plan: lifestyle, weight reduction, dietary and physical activity Tobacco/Smoking Status: Tobacco use Status Tobacco use date assessed 06/19/25 06/19/25 15:47 Patient Tobacco Use Status Never used Tobacco 06/19/25 15:47 e-Cigarette/Vaping Use Never Used 06/19/25 15:47 PHQ-9: PHQ-9 Score PHQ-9: Total score 0 06/19/25 16:19 Depression Screening Interpretation: Negative Thrive Assessment: Date of Thrive Assessment Date Thrive assessed 02/04/25 06/19/25 15:47 Currently or been in a relationship where the following occur: I choose not to answer Resp Effort & Inspection: normal respiratory effort Auscultation: clear to auscultation bilaterally Cardio Jugular venous distension: no JVD Rate: regular rate Rhythm: regular rhythm Heart sounds: S1 normal heart sound present and S2 normal heart sound present Extrem General: Yes full ROM Immunizations pneumoc 20-jeff conj-dip cr(PF) 0.5 mL IM syringe Performing Provider: Mirta Jimenez MD Performing Location[place] [facility] Administered by: Rosa Mcgregor CMA on 06/19/25 16:19 Dose Route Admin Location Dispensed Lot Number Expiration Date [facility] Wel[employer] Production Line Combination 0.5 mL IM Left Deltoid 0.5 mL [id number] 07/22/26 [employer] Total Dispensed Waste 0.5 mL 0 % VIS Given Date VIS Provided VIS Publication Date 06/19/25 Single Vaccine 24 Eligibility Eligibility Date Funding Source Not [facility] Eligible 06/19/25 Private Coding Level of Care Code Add On Preventative Visit Only Diagnoses Essential hypertension I10 Dyslipidemia E78.5 Mild major depression F32.0 CKD (chronic kidney disease) stage 3, GFR 30-59 ml/min N18.30 Insomnia G47.00 Hyperparathyroidism E21.3 Age-related osteoporosis without current pathological fracture M81.0 Presence of current pathological fracture: without current pathological fracture Hypothyroidism, unspecified type E03.9 Hypothyroidism type: unspecified Additional Codes JANETH-7 Assessment Billing - JANETH-7 Assessment Tool: JANETH-7 Assessment 16707 ([id number]) PHQ-9 - 14338 - PHQ-9 Billing: Yes ([id number]) Time Spent (min) 22 Assessment & Plan Assessment & Plan (1) Essential hypertension: Code(s): I10 - Essential (primary) hypertension Category: Medical (2) Dyslipidemia: Code(s): E78.5 - Hyperlipidemia, unspecified Category: Medical (3) Mild major depression: Code(s): F32.0 - Major depressive disorder, single episode, mild Category: Medical (4) CKD (chronic kidney disease) stage 3, GFR 30-59 ml/min: Code(s): N18.30 - Chronic kidney disease, stage 3 unspecified Category: Medical (5) Insomnia: Code(s): G47.00 - Insomnia, unspecified Category: Medical (6) Hyperparathyroidism: Code(s): E21.3 - Hyperparathyroidism, unspecified Category: Medical (7) Age related osteoporosis: Code(s): M81.0 - Age-related osteoporosis without current pathological fracture Category: Medical Qualifiers: Presence of current pathological fracture: without current pathological fracture Qualified Code(s): M81.0 - Age-related osteoporosis without current pathological fracture (8) Hypothyroidism: Code(s): E03.9 - Hypothyroidism, unspecified Category: Medical Qualifiers: Hypothyroidism type: unspecified Qualified Code(s): E03.9 - Hypothyroidism, unspecified Plan Continue same medications. Start temazepam to sleep. DEXA scan every 2 years. Keep blood pressure less than 130/80. Orders: Orders Lipid Panel 4 Months E78.5 - Hyperlipidemia, unspecified Vitamin B12 and Folate 4 Months E53.8 - Deficiency of other specified B group vitamins Comprehensive Met. Panel 4 Months N18.30 - Chronic kidney disease, stage 3 unspecified Phosphorus 4 Months E83.39 - Other disorders of phosphorus metabolism Parathyroid Hormone Intact 4 Months E21.3 - Hyperparathyroidism, unspecified Vitamin D 25-OH Total 4 Months E55.9 - Vitamin D deficiency, unspecified Thyroid Stimulating Hormone 4 Months E03.9 - Hypothyroidism, unspecified Pneumococcal 20 Immunization Today Z23 - Encounter for immunization Medications: New temazepam 15 mg PO BEDTIME PRN 30 caps 0RF sleep 30 days Refilled zolpidem 10 mg PO BEDTIME PRN 30 tabs 0RF sleep 30 days
--- OUTSIDE RECORDS SUMMARY | 2025-06-19 17:27 | XMS_ITS | Patient Health Record ---
Author Organization [facility] Address [address] [place] [address] Care Team Providers Care Offal Separator Name Role Phone Kevin Garcia Unavailable [phone] Reason For Referral No Information Plan Of Treatment No Information
--- OUTSIDE RECORDS SUMMARY | 2025-06-19 17:27 | XMS_ITS | Clinical Summary ---
Author Organization [employer] Address [address] [place] [address] Care Team Providers Care Rehabilitation Attendant Name Role Phone Unavailable Primary Care Provider [...] age to complete this topic Insurance [place] [id number]
== END 2025-06-19 16:20 | disposition home or self-care (01) ==
LOC: HO.HMCH 15:21
PROVIDERS: PCP Internal Medicine; Visit Provider Internal Medicine
DX: I10 Essential (primary) hypertension (principal); E78.5 Hyperlipidemia, unspecified; F32.0 Major depressive disorder, single episode, mild; N18.30 Chronic kidney disease, stage 3 unspecified; G47.00 Insomnia, unspecified; E21.3 Hyperparathyroidism, unspecified; M81.0 Age-related osteoporosis without current pathological fracture; E03.9 Hypothyroidism, unspecified; Z23 Encounter for immunization

== ENCOUNTER → 2025-06-19 15:20 | Outpatient (BNVA) | payer MEDICARE, OTHER, SELFPAY | PROVIDERS: PCP Internal Medicine; Visit Provider Internal Medicine | DX: Z23 Encounter for immunization (principal); E78.5 Hyperlipidemia, unspecified; I12.9 Hypertensive chronic kidney disease with stage 1 through stage 4 chronic kidney disease, or unspecified chronic kidney disease; N18.30 Chronic kidney disease, stage 3 unspecified; F32.0 Major depressive disorder, single episode, mild; G47.00 Insomnia, unspecified; E21.3 Hyperparathyroidism, unspecified; M81.0 Age-related osteoporosis without current pathological fracture; E03.9 Hypothyroidism, unspecified | CPT/HCPCS: 90471; 90677; 96127; 99212 ==

== ENCOUNTER 2025-06-20 13:23 | Outpatient (AMB) | payer MEDICARE, OTHER, SELFPAY ==
[2025-06-20 13:28] VITALS: BP 126/76; PULSE 66; O2SAT 96; BMI 32.7
--- NOTE | 2025-06-20 13:28 | A.OFFVIS_ITS ---
Vital Signs 06/20/25 13:28 Height 4 ft 11 in Weight 161 lb 13.109 oz BMI 32.7 BP 126/76 Blood Pressure Location Lt brachial Position Sitting Pulse 66 Pulse Source Pulse Oximeter Pulse Oximetry (%) 96 Oxygen Delivery Method Room Air Intake Visit Reasons: osteoporosis/prolia injection Intake Note: Patient present today for Osteoporosis & Prolia Injection. Medical Bill Processor Required: No Accompanied by: Self / Same As Patient Allergies carrot (CARROT) Allergy (Severe, Verified 06/20/25 13:32) ANAPHYLAXIS apple Allergy (Intermediate, Verified 06/20/25 13:32) GREEN APPLES-UNKNOWN celery (CELERY) Allergy (Intermediate, Verified 06/20/25 13:32) FROM ALLERGY TESTING RESULT lactose (LACTOSE) Allergy (Intermediate, Verified 06/20/25 13:32) diarrhea peanut (PEANUT) Allergy (Intermediate, Verified 06/20/25 13:32) THROAT ITCHING pear (Pear) Allergy (Intermediate, Verified 06/20/25 13:32) THROAT ITCHING plum (PLUM) Allergy (Intermediate, Verified 06/20/25 13:32) THROAT ITCHING trazodone (TRAZODONE) Allergy (Intermediate, Verified 06/20/25 13:32) RASH tree and shrub pollen Allergy (Intermediate, Verified 06/20/25 13:32) Itchy Eyes omeprazole Adverse Reaction (Unknown, Verified 06/20/25 13:32) leg swelling GREEN PEPPERS Allergy (Intermediate, Uncoded 06/20/25 13:32) Diarrhea Medication List - Last Reconciled 06/20/25 by Kevin Skinner MD amlodipine 2.5 mg PO DAILY 90 days calcitriol 0.25 mcg PO Q48H 30 days cholecalciferol (vitamin D3) (Vitamin D3) 25 mcg PO DAILY denosumab (Prolia) 1 mg (0.0167 mL) subcut [id number] dicyclomine 20 mg PO QID 30 days diphenhydramine HCl (Benadryl) 25 mg PO ONCE PRN docusate calcium 240 mg PO ONCE PRN 1 day epinephrine (EpiPen 2-Evan) 0.3 mg IM Q4H PRN Lactobac. 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 First diagnosed in December 2020. Never Received treatment in the past No history of pathologic fracture or ONJ. . Takes 1000 IU of Vitamin D daily. Denies ever using PPI, anticoagulant, antiepileptic or glucocorticoid medication. 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 UTD on dental cleanings and sees dentist every 6 months. No planned upcoming dental work or extractions. DXA dated :01/18/21 T Score of -3.0 in spine She did see Nephrology. Off hydrochlorothiazide with vitamin-D repletion, her PTH still remains quite high. She has CKD stage 3. She is about receiving f Prolia . Hyperparathyroidism is managed by Nephrology. On calcitriol by nephrology Receiving dose of Prolia today for 4 th dose No fx since last visit . Saw Dr. Chou who felt that hyperparathyroidism secondary and did not warrant surgery The patient is a 69-year-old female presenting with osteoporosis management. She receives Prolia injections every six months and reports no issues with the treatment, although she experiences pain after four months, which is not attributed to the medication. There have been no fractures since the last visit. The patient has elevated parathyroid hormone levels, with a recent measurement of 611, significantly above the normal range of up to 77. This elevation is associated with her chronic kidney disease. She is currently taking Calcitriol 0.25 mcg to manage this condition. Currently on Prolia 60 mg q.6 months. Had side effects from pnemonia vaccination [facility] Medical History Hypovitaminosis D Age related osteoporosis Post-menopausal Anxiety Obese Chronic kidney disease Migraines Hypothyroidism Dyslipidemia Essential hypertension Surgical History Hx of appendectomy History of History of total left knee replacement (TKR) History of cataract surgery History of colonoscopy History of cholecystectomy H/O knee surgery Family History Father CAD (coronary artery disease) Mother No problems noted. Social History Household Members: None Housing: House Do you presently have visiting nurse or other home services: No Alcohol intake: never Patient Tobacco Use Status: Never used Tobacco e-Cigarette/Vaping Use: Never Used Second Hand Smoke Exposure: No Advance Directives Date on File: 06/04/23 service: No Current occupational status: disabled Cognitive needs: No Hearing needs: Yes Vision needs: Yes Assessment & Plan Assessment & Plan (1) Age related osteoporosis: Code(s): M81.0 - Age-related osteoporosis without current pathological fracture Category: Medical Qualifiers: Presence of current pathological fracture: without current pathological fracture Qualified Code(s): M81.0 - Age-related osteoporosis without current pathological fracture Plan: This is a 69-year-old female with a history of osteoporosis in the setting of CKD stage 3 a. Patient has elevation of PTH which could be due to secondary hyperparathyroidism . She is now vitamin-D replete on supplementation with vitamin D3 but still has significant elevation in PTH. She is followed by Nephrology for optimization of CKD BMD The plan is to continue the Prolia 5th dose today . Patient will also follow up with Nephrology. We will repeat DEXA Orders: Orders XR DEXA axial skeleton Today M81.0 - Age-related osteoporosis without current pathological fracture Coding Level of Care Code Est Pt Level 3 (96105) Add On Problem Visit Only Diagnoses Age-related osteoporosis without current pathological fracture M81.0 Presence of current pathological fracture: without current pathological fracture
--- OUTSIDE RECORDS SUMMARY | 2025-06-20 17:18 | XMS_ITS | Patient Health Record ---
Author Organization [facility] Address [address] [place] [address] Care Team Providers Care Lime Mixer Name Role Phone GarciaKevin Unavailable [phone] Reason For Referral No Information Plan Of Treatment No Information
--- OUTSIDE RECORDS SUMMARY | 2025-06-20 17:18 | XMS_ITS | Clinical Summary ---
Author Organization [employer] Address [address] [place] [address] Care Team Providers Care Nursery Supervisor Name Role Phone Unavailable Primary Care [...] age to complete this topic Insurance [place] [phone]
--- OUTSIDE RECORDS SUMMARY | 2025-06-20 17:18 | XMS_ITS | Encounter Summary ---
Author Organization [facility] Address [address] [place] [address] Phone Care Team Providers Care Sexton Helper Name Role Phone Mirta Matos MD Primary Care Provider [phone] Encounter Details Date Type Department Care Team (Late Contact Info) Description 11/12/2023 Telephone [facility] [address] [address] [place] [address] Dejan Shirley MD [address] [address] Social History Tobacco Use Types [...] [facility] [address] [place] [address] Dejan Shirley MD [address] [address] documented as of this encounter Visit Diagnoses Not on filedocumented in this encounter Care Teams Sexton Helper Relationship Specialty Start Date End Date Mirta Matos MD [address] [place], [place] PCP - General Internal Medicine 11/30/23 documented as of this encounter
--- OUTSIDE RECORDS SUMMARY | 2025-06-20 17:18 | XMS_ITS | Clinical Summary ---
Author Organization [facility] Address [address] [address] Care Team Providers Care Reinforced Steel Placing Supervisor Name Role Phone Mirta Matos MD Primary Care Provider [phone] Allergies Active Allergy Reactions Criticality Noted Date [...] 1 (one) time each day Active Biotin 52892 MCG tablet dispersible Take by mouth Active [...] 04/10/2025 Refill [facility] [address] [address] Dejan Shirley MD 04/05/2025 Refill [facility] [address] [address] Dejan Shirley MD from Last 3 Months [...] Visit [facility] [address] [place] [address] [place] [phone] Dejan Shirley MD [address] [facility] [address] [place] [id number] Health Maintenance Due Date Last Done Comments [...] patient's age to complete this topic Insurance [facility] Medicare Medicaid [place] Medicare [facility] Member Subscriber Plan / Payer (Ef fective 2018-Present) Name:Yue Gama Relation to Subscriber:Self Name:Yue Gama Payer ID:Not on file Type:Not on file Address: [place] [id number] Medicaid [place] Care Teams Reinforced Steel Placing Supervisor Relationship Specialty Start Date End Date Mirta Matos MD [address] [place], [place] PCP - General Internal Medicine 11/30/23
== END 2025-06-20 13:46 | disposition home or self-care (01) ==
LOC: HO.ENCR 13:24
PROVIDERS: PCP Internal Medicine; Visit Provider Internal Medicine Endocrinology, Diabetes & Metabolism
DX: M81.0 Age-related osteoporosis without current pathological fracture (principal)
CPT/HCPCS: 99213; G2211

== ENCOUNTER → 2025-06-20 13:23 | Outpatient (BNVA) | payer MEDICARE, OTHER, SELFPAY | PROVIDERS: PCP Internal Medicine; Visit Provider Internal Medicine Endocrinology, Diabetes & Metabolism | DX: M81.0 Age-related osteoporosis without current pathological fracture (principal); N18.31 Chronic kidney disease, stage 3a | CPT/HCPCS: 96372; 99212; J0897 ==